=== PATIENT | female | born 1970 | race American Indian/Alaskan Native ===

== ENCOUNTER 2017-01-26 03:38 | Inpatient (IN) | payer OTHER ==
[2017-01-26 04:25] LABS: Basophils % (Auto) 0.2 % (0.0-1.8); Hematocrit 26.1 % (30.3-42.9); Hemoglobin 8.3 gm/dl (10.1-14.3); Mean Corpuscular HGB Conc 32 % (30-34); Mean Corpuscular Volume 74 fl (79-97); Platelet Count 244 K/mm3 (140-440); Red Blood Count 3.55 M/mm3 (3.65-5.03); Red Cell Distribution Width 19.6 % (13.2-15.2); White Blood Count 2.8 K/mm3 (4.5-11.0)
[2017-01-26 04:28] LABS: Mean Corpuscular Hemoglobin 24 pg (28-32)
[2017-01-26 04:40] LABS: BUN/Creatinine Ratio 7.61; Calcium 8.5 mg/dL (8.4-10.2); Chloride 97.3 mmol/L (98-107); Potassium 4.7 mmol/L (3.6-5.0)
[2017-01-26] MEDS ORDERED: APRESOLINE IV ONE ×2 (05:01→06:46)
[2017-01-26] MEDS ORDERED: LASIX IV ONE ×2 (05:01→05:03)
--- NOTE | 2017-01-26 05:06 | Emergency Department Report ---
ED Shortness of Breath HPI - General Chief Complaint: Dyspnea/Respdistress Stated Complaint: SEEMA Time Seen by Provider: 01/26/17 05:04 Source: patient, RN notes reviewed Mode of arrival: Ambulatory Limitations: No Limitations - History of Present Illness Initial Comments: This is a 46-year-old female. She is previously unknown to me. She has a history of lupus. The patient has not seen a physician since 2008. She reports that in 2008 she was seen at another hospital, and admits that "my kidneys were working at 50%." She is making urine at this time. The patient presents to the ER complaining of shortness of breath. It has been present for 2 months. It worsens with physical exertion, decreases with rest, and worsens when she lays flat. She admits to a dry cough. There is mild chest tightness. No fevers or chills. No leg pain. Patient reports unintentional weight loss. Patient reports unintentional facial swelling. In the emergency room, the patient was found to have acute renal insufficiency, bilateral pleural effusions, JVD, and orthopnea. History and physical were more consistent with decompensated chronic renal insufficiency, pleural effusions, rather than pneumonia. The case was discussed with the painting manager on-call, Dr. Crowley, who recommended 120 mg of Lasix and admission. The case was presented to the Hospital physician, Dr. STRICKLAND, who accepted the patient to his service. Complaint: shortness of breath, cough Consistency: intermittent Improves With: oxygen, rest Worsens With: lying flat, exertion Associated Symptoms: cough, orhopnia - Related Data Home Medications Medication Instructions Recorded Confirmed Last Taken No Known Home Medications [No 01/26/17 01/26/17 Unknown Reported Home Medications] Allergies Allergy/AdvReac Type Severity Reaction Status Date / Time lactase [From Dairy Aid] Allergy Hives Verified 01/26/17 03:54 ED Review of Systems ROS: Stated complaint: SEEMA Other details as noted in HPI Constitutional: malaise, weakness. denies: fever Eyes: denies: vision change Respiratory: shortness of breath Cardiovascular: dyspnea on exertion, edema Gastrointestinal: denies: nausea, vomiting Genitourinary: denies: urgency, dysuria Musculoskeletal: arthralgia. denies: back pain Skin: denies: lesions Neurological: weakness ED Past Medical Hx - Past Medical History Previous Medical History?: Yes Hx Renal Disease: Yes Additional medical history: LUPUS / PNEUMONIA - Surgical History Past Surgical History?: No - Social History Smoking Status: Never Smoker Substance Use Type: None - Medications Home Medications: Home Medications Medication Instructions Recorded Confirmed Last Taken Type No Known Home Medications [No 01/26/17 01/26/17 Unknown History Reported Home Medications] ED Physical Exam - General Limitations: No Limitations General appearance: alert, in no apparent distress - Head Head exam: Present: atraumatic, normocephalic - Eye Eye exam: Present: normal appearance, EOMI, other. Absent: nystagmus - ENT ENT exam: Present: normal exam, normal orophraynx, mucous membranes moist, normal external ear exam, other (PERORBITAL SWELLING NOTED. JVD TO 6 CM) - Neck Neck exam: Present: normal inspection - Respiratory Respiratory exam: Present: normal lung sounds bilaterally. Absent: respiratory distress, wheezes, rales, rhonchi, stridor, chest wall tenderness, accessory muscle use, decreased breath sounds, prolonged expiratory - Cardiovascular Cardiovascular Exam: Present: regular rate, normal rhythm, normal heart sounds. Absent: bradycardia, tachycardia, irregular rhythm, systolic murmur, diastolic murmur, rubs, gallop - GI/Abdominal GI/Abdominal exam: Present: soft, normal bowel sounds. Absent: distended, tenderness, guarding, rebound, rigid, pulsatile mass - Extremities Exam Extremities exam: Present: normal inspection, full ROM, normal capillary refill , pedal edema. Absent: tenderness, joint swelling, calf tenderness - Back Exam Back exam: Present: normal inspection. Absent: full ROM, tenderness, CVA tenderness (R), CVA tenderness (L), muscle spasm, paraspinal tenderness, vertebral tenderness - Neurological Exam Neurological exam: Present: alert, oriented X3, other (Extraocular movements intact. Tongue midline. No facial droop. Facial sensation intact to light touch in the V1, V2, V3 distribution bilaterally. 5 and 5 strength in 4 extremities.. Sensation is intact to light touch in 4 extremities.). Absent: motor sensory deficit - Psychiatric Psychiatric exam: Present: normal affect, normal mood - Skin Skin exam: Present: warm, dry, intact, normal color. Absent: rash ED Course Vital Signs 01/26/17 01/26/17 03:55 04:50 Temperature 98.4 F 98.8 F Pulse Rate 103 H 96 H Respiratory 24 22 Rate Blood Pressure 171/118 Blood Pressure 164/105 [Right] O2 Sat by Pulse 98 97 Oximetry ED Medical Decision Making - Lab Data Result diagrams: 01/26/17 04:07 01/26/17 04:07 Vital Signs 01/26/17 01/26/17 03:55 04:50 Temperature 98.4 F 98.8 F Pulse Rate 103 H 96 H Respiratory 24 22 Rate Blood Pressure 171/118 Blood Pressure 164/105 [Right] O2 Sat by Pulse 98 97 Oximetry Lab Results 01/26/17 01/26/17 01/26/17 Range/Units 04:07 04:07 04:07 WBC 2.8 L (4.5-11.0) K/mm3 RBC 3.55 L (3.65-5.03) M/mm3 Hgb 8.3 L (10.1-14.3) gm/dl Hct 26.1 L (30.3-42.9) % MCV 74 L (79-97) fl MCH 24 L (28-32) pg MCHC 32 (30-34) % RDW 19.6 H (13.2-15.2) % Plt Count 244 (140-440) K/mm3 Lymph % (Auto) 51.3 H (13.4-35.0) % [place] % (Auto) 4.2 (0.0-7.3) % Eos % (Auto) 6.0 H (0.0-4.3) % Baso % (Auto) 0.2 (0.0-1.8) % Lymph # 1.5 (1.2-5.4) K/mm3 [place] # 0.1 (0.0-0.8) K/mm3 Eos # 0.2 (0.0-0.4) K/mm3 Baso # 0.0 (0.0-0.1) K/mm3 Seg Neutrophils % 38.3 L (40.0-70.0) % Seg Neutrophils # 1.1 L (1.8-7.7) K/mm3 Sodium 132 L (137-145) mmol/L Potassium 4.7 (3.6-5.0) mmol/L Chloride 97.3 L (98-107) mmol/L Carbon Dioxide 19 L (22-30) mmol/L Anion Gap 20 mmol/L BUN 51 H (7-17) mg/dL Creatinine 6.7 H (0.7-1.2) mg/dL Estimated GFR 8 ml/min BUN/Creatinine Ratio 7.61 % Glucose 96 (65-100) mg/dL Calcium 8.5 (8.4-10.2) mg/dL Troponin T 0.042 H (0.00-0.029) ng/mL HCG, Qual Negative (Negative) - EKG Data -: EKG Interpreted by Me Rate: tachycardia - EKG Data When compared to previous EKG there are: previous EKG unavailable 01/26/17 05:09 Sinus tachycardia, 103 bpm, poor R progression, T-wave inversions in the lateral leads, not morphologically consistent with stemi - Radiology Data Radiology results: image reviewed interpreted by me: xr chest: Large bilateral pleural effusions, cardiomegaly, pulmonary vascular congestion - Medical Decision Making Differential diagnosis: Acute renal insufficiency, cardiorenal syndrome, chronic progression of renal insufficiency Assessment and plan: 46-year-old female with 2 months of shortness of breath and orthopnea which is getting worse, no chest pain. No fevers. This is most likely the natural progression and history of undiagnosed chronic kidney disease. She does not have high oxygen requirements. Elevated troponin is appreciated, this is most likely secondary to chronic renal insufficiency, and cardiac straining. No recent laboratory studies or EKG is available. The patient will be admitted for high dose diuretics, and further inpatient management. She is able to make urine. Critical care attestation.: If time is entered above; I have spent that time in minutes in the direct care of this critically ill patient, excluding procedure time. ED Disposition Clinical Impression: Acute renal insufficiency, Dyspnea, Pleural effusion Disposition: - OP ADMIT IP TO THIS HOSP Is pt being admited?: Yes Does the pt Need Aspirin: Yes Condition: Good
[2017-01-26] MEDS ORDERED: BABY ASPIRIN PO ONE (05:11)
[2017-01-26 05:15] LABS: Alanine Aminotransferase 6 units/L (7-56); Albumin 3.2 g/dL (3.9-5); Albumin/Globulin Ratio 0.6 %; Alkaline Phosphatase 67 units/L (35-129); Total Protein 8.5 g/dL (6.3-8.2)
[2017-01-26 05:20] LABS: Bilirubin,Direct < 0.2 mg/dL (0-0.2)
--- NOTE | 2017-01-26 05:35 | XRay Report ---
FINAL REPORT EXAM: XR CHEST ROUTINE 2V HISTORY: Shortness of breath TECHNIQUE: Chest, PA and lateral PRIORS: None. FINDINGS: There infiltrate in the right lower lobe. There is probably some additional airspace disease in the right middle lobe. Small right pleural effusion is likely. There is additional atelectasis versus infiltrate in the left lower lobe. There is no pulmonary vascular congestion seen. Heart size is grossly borderline enlarged. There is no pneumothorax seen. IMPRESSION: Right lower lobe infiltrate. Probable additional airspace disease in the right middle lobe. Small right pleural effusion likely. Findings are worrisome for pneumonia. Mild atelectasis versus infiltrate at the left base.
[2017-01-26 06:43] LABS: Bacteria,Urine 1+ /HPF (Negative); Bilirubin,Urine NEG (Negative); Blood,Urine NEG (Negative); Ketones,Urine NEG (Negative); Leukocyte Esterase,Urine NEG (Negative); Mucus,Urine FEW /HPF; Nitrite,Urine NEG (Negative); Urobilinogen,Urine < 2.0 mg/dL (<2.0)
--- NOTE | 2017-01-26 07:11 | Admit Criteria Form ---
Admission Criteria Documentation: PLEURAL EFFUSION Clinical Indications for Admission to Inpatient Care (Place 'X' for any and all applicable criteria): Admission is indicated for ANY ONE of the following (1)(2)(3): [X ]I. Pneumonia-related effusion requiring drainage as indicated by 1 or more of the following [A]: [ X]a) Large pleural effusion (symptomatic or greater than one-half of hemithorax) [ ]b) Loculated effusion [ ]c) Pleural fluid analysis results, including ANY ONE of the following: [ ]i) Positive Gram stain or culture for bacteria [ ]ii) Pus [ ]iii) pH less than 7.20 [ ]d) Parapneumonic effusion with glucose less than 60 mg/dL (3.33 mmol/L) [X ]II. Inpatient admission required rather than observation care (Also use Pleural Effusion: Observation Care criteria as appropriate) because of 1 or more of the following: [ ]1) Hemodynamic instability [ ]2) Respiratory findings (Tachypnea, dyspnea) that persist despite observation care treatment [ ]3) Hypoxemia or hypercapnia that persists despite observation care treatment [ ]4) Complication of drainage (e.g., pneumothorax) that requires inpatient care [ ]5) Etiology that requires inpatient care (e.g., pulmonary embolism, trauma) [ ]6) Severe pain requiring acute inpatient management [ ]7) Chest tube placement with active evacuation (eg, suction, drainage) [ ]8) Pulmonary artery catheter monitoring [ ]9) Epidural analgesia(7) [ ]10) Immediate inpatient surgery [X ]11) Other condition, treatment, or monitoring requiring inpatient admission [ ]III. Hemothorax [ ]IV. Empyema [ ]V. Pleural effusion with concomitant pneumothorax [ ]. Recurrent or malignant pleural effusion requiring pleurodesis (4) [ ]VII. Respiratory distress Extended stay beyond goal length of stay may be needed for (27)(28): [ ]a) Empyema or complicated parapneumonic effusion (24)(29) [ ]b) Malignant pleural effusion (4) [ ]c) Pleural effusion due to trauma or perforated esophagus [ ]d) Pleural effusion due to pulmonary embolism (30) [ ]e) Clinically significant re-expansion pulmonary edema [ ]f) Hemothorax [ ]g) Renal failure [ ]h) Complications of thoracentesis, thoracostomy tube, or pleural cath. placement [ ]j) Trapped lung (e.g., benign or malignant thickened pleura preventing lung re-expansion) (31) [ ]i) Underlying etiology necessitates ongoing inpatient care (e.g., pneumonia, heart failure, malignancy) The original [facility] [employer] content created by [facility] has been revised. The portions of the content which have been revised are identified through the use of italic text or in bold, and [facility] has neither reviewed nor approved the modified material. All other unmodified content is copyright [facility]. Please see references footnoted in the original [facility] edition 2017 Admission Criteria Met: Yes
[2017-01-26] MEDS ORDERED: TYLENOL PO PRN (08:02)
[2017-01-26] MEDS ORDERED: DULCOLAX PR PRN (08:02)
[2017-01-26] MEDS ORDERED: ZOFRAN IV PRN (08:02)
[2017-01-26] MEDS ORDERED: MORPHINE IV PRN (08:02)
[2017-01-26] MEDS ORDERED: APRESOLINE IV PRN (08:06)
[2017-01-26] MEDS: DUONEB *Not for PRN Use IH SCH ×3 (08:53→19:24)
[2017-01-26] MEDS: APRESOLINE PO SCH ×3 (09:23→22:26)
[2017-01-26] MEDS: ROCEPHIN/NS 1 GM/50 ML 1 GM/50 ML BAG IV SCH (09:23)
[2017-01-26] MEDS: BABY ASPIRIN PO SCH (09:23)
[2017-01-26] MEDS: COREG PO SCH ×2 (09:23→22:25)
[2017-01-26] MEDS: HEPARIN SUB-Q SCH ×2 (09:28→22:27)
--- NOTE | 2017-01-26 09:29 | Consultation ---
History of Present Illness - History of Present Illness Thank you for the consultation Patient was evaluated today around 9:30 in the morning Assessment and plan Renal failure in a patient who already has known history of advanced renal failure and has had admission and [facility] early this year when she was told to have advanced renal failure and that she may be nearing dialysis. 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 Over the next few days would like to obtain all the labs there is no acute emergent indication for renal replacement therapy If renal function fails to improve patient may be considered for initiation of renal replacement therapy In the meantime would like to obtain her records from [facility] to know what her baseline creatinine was Accelerated hypertension patient has not been followed by physician properly this may affect her renal outcome educated at length Anemia could be due to worsening renal failure over time Leukopenia, anemia to follow Accelerated hypertension to be monitored, rule out secondary hypertension History of systemic lupus patient has been diagnosed with that many many years ago in 2003 has had a biopsy but never followed up with pet feeder Her overall renal prognosis appears to be guarded to poor at this time patient as well as family were educated at length She hasn't received appropriate renal education I have also advised her to get more education from our website and associated links We'll continue to follow and make recommendation from renal standpoint Medications and Allergies Allergies Allergy/AdvReac Type Severity Reaction Status Date / Time lactase [From Dairy Aid] Allergy Hives Verified 01/26/17 03:54 Home Medications Medication Instructions Recorded Confirmed Last Taken Type No Known Home Medications [No 01/26/17 01/26/17 Unknown History Reported Home Medications] Active Meds: Active Medications Acetaminophen (Tylenol) 650 mg PO Q4H PRN PRN Reason: Pain MILD(1-3)/Fever >100.5/MEYER Albuterol/Ipratropium (Duoneb *Not For Prn Use*) 1 ampul IH Q6HRT [facility] Last Admin: 01/26/17 08:53 Dose: 1 ampul Aspirin (Baby Aspirin) 81 mg PO QDAY [facility] Last Admin: 01/26/17 09:23 Dose: 81 mg Bisacodyl (Dulcolax) 10 mg ME QDAY PRN PRN Reason: Constipation unrelieved by MOM Araonvedilol (Coreg) 3.125 mg PO BID [facility] Last Admin: 01/26/17 09:23 Dose: 3.125 mg Heparin Sodium (Porcine) (Heparin) 5,000 unit SUB-Q Q12HR [facility] Hydralazine HCl (Apresoline) 10 mg PO Q8HR [facility] Last Admin: 01/26/17 09:23 Dose: 10 mg Hydralazine HCl (Apresoline) 10 mg IV Q4H PRN PRN Reason: High BP Azithromycin 500 mg/ Sodium (Chloride) 250 mls @ 250 mls/hr IV Q24HR [facility] Ceftriaxone Sodium (Rocephin/Ns 1 Gm/50 Ml) 1 gm in 50 mls @ 100 mls/hr IV Q24HR [facility] PRN Reason: Protocol Last Admin: 01/26/17 09:23 Dose: 100 mls/hr Morphine Sulfate (Morphine) 2 mg IV Q4H PRN PRN Reason: Pain, Moderate (4-6) Ondansetron HCl (Zofran) 4 mg IV Q4H PRN PRN Reason: N/V unrelieved by Reglan Exam - Vital Signs Vital signs: Vital Signs Temp Pulse Resp BP Pulse Ox 98.4 F 103 H 24 171/118 98 01/26/17 03:55 01/26/17 03:55 01/26/17 03:55 01/26/17 03:55 01/26/17 03:55 Results - Lab Results 01/26/17 04:07 01/26/17 04:07 Most recent lab results Calcium 8.5 mg/dL (8.4-10.2) 01/26/17 04:07
[2017-01-26] MEDS: ZITHROMAX 500 MG in NACL 0.9% 250ML 250 ML IV SCH (10:37)
[2017-01-26] MEDS ORDERED: PEPCID PO SCH (13:00)
--- NOTE | 2017-01-26 14:32 | History and Physical Report ---
<LISETH RED - Last Filed: 01/30/17 10:18> History of Present Illness Date of examination: 01/26/17 Date of admission: 01/26/17 05:11 Chief complaint: Shortness of breath and cough History of present illness: This is a 46-year-old -[place] female with past medical history Lupus, who presents to the ER complaining of shortness of breath and cough. patient with 3 weeks of worsening dyspnea on light exertion and cough. Patient over two months ago the patient was at his normal baseline state of health. Now She has had progressive worsening of her dyspnea on exertion to where she cannot sleep without becoming short of breath; she has never had anything like this before. She says the breathing troubles are from his lungs/chest and not her nose/congestion. She has had the WILLIAM for two month but progressive worsening in the last two weeks. She says the quality of her breathing is just like suffocating but she denies burning in her lungs or other feelings. She says that sleeping bring on her breathing troubles and coughing while cold temperatures will help relieve those symptoms. She admits to a dry cough.She reported mild chest tightness. Denies fevers or chills. denies leg edema, pain. Patient reports unintentional weight loss and unintentional facial swelling. Past History Past Medical History: other (Lupus) Past Surgical History: No surgical history Social history: no significant social history, lives with family. denies: smoking, alcohol abuse Family history: hypertension Medications and Allergies Allergies Allergy/AdvReac Type Severity Reaction Status Date / Time lactase [From Dairy Aid] Allergy Hives Verified 01/26/17 03:54 Home Medications Medication Instructions Recorded Confirmed Last Taken Type No Known Home Medications [No 01/26/17 01/26/17 Unknown History Reported Home Medications] Active Meds: Active Medications Acetaminophen (Tylenol) 650 mg PO Q4H PRN PRN Reason: Pain MILD(1-3)/Fever >100.5/MEYER Albuterol/Ipratropium (Duoneb *Not For Prn Use*) 1 ampul IH Q6HRT [facility] Last Admin: 01/26/17 13:32 Dose: 1 ampul Aspirin (Baby Aspirin) 81 mg PO QDAY [facility] Last Admin: 01/26/17 09:23 Dose: 81 mg Bisacodyl (Dulcolax) 10 mg MD QDAY PRN PRN Reason: Constipation unrelieved by MOM Carvedilol (Coreg) 3.125 mg PO BID [facility] Last Admin: 01/26/17 09:23 Dose: 3.125 mg Famotidine (Pepcid) 10 mg PO BID [facility] Heparin Sodium (Porcine) (Heparin) 5,000 unit SUB-Q Q12HR [facility] Last Admin: 01/26/17 09:28 Dose: 5,000 unit Hydralazine HCl (Apresoline) 10 mg PO Q8HR [facility] Last Admin: 01/26/17 09:23 Dose: 10 mg Hydralazine HCl (Apresoline) 10 mg IV Q4H PRN PRN Reason: High BP Azithromycin 500 mg/ Sodium (Chloride) 250 mls @ 250 mls/hr IV Q24HR [facility] Last Admin: 01/26/17 10:37 Dose: 250 mls/hr Ceftriaxone Sodium (Rocephin/Ns 1 Gm/50 Ml) 1 gm in 50 mls @ 100 mls/hr IV Q24HR [facility] PRN Reason: Protocol Last Admin: 01/26/17 09:23 Dose: 100 mls/hr Morphine Sulfate (Morphine) 2 mg IV Q4H PRN PRN Reason: Pain, Moderate (4-6) Ondansetron HCl (Zofran) 4 mg IV Q4H PRN PRN Reason: N/V unrelieved by Reglan Pneumococcal Polyvalent Vaccine (Pneumovax 23) 0.5 ml IM .ONCE ONE Stop: 01/27/17 12:01 Review of Systems Constitutional: weight loss, no weight gain, no fever, no chills, no sweats Ears, nose, mouth and throat: no ear pain, no ear discharge, no tinnitis, no decreased hearing, no nose pain, no nasal congestion Breasts: no change in shape, no swelling Cardiovascular: shortness of breath, no orthopnea, no palpitations, no rapid/ irregular heart beat Respiratory: shortness of breath, dyspnea on exertion Gastrointestinal: abdominal pain, no nausea, no vomiting, no diarrhea, no constipation Genitourinary Female: no dysmenorrhea, no pelvic pain, no flank pain, no menorrhagia, no dysuria Menstruation: no currently menstrual, no premenarcheal, no post hysterectomy, no ammenorrhea, no ammenorrhea on BC Rectal: no pain, no incontinence Musculoskeletal: no arm numbness/tingling, no low back pain Integumentary: no rash, no pruritis, no redness Neurological: no transient paralysis, no paralysis, no weakness, no parathesias Psychiatric: no memory loss, no change in sleep habits, no sleep disturbances, no insomnia, no hypersomnia Endocrine: no cold intolerance, no heat intolerance, no polyphagia, no excessive thirst Hematologic/Lymphatic: no easy bruising, no easy bleeding Allergic/Immunologic: no urticaria, no allergic rhinitis Exam - Constitutional Vitals: Temp Pulse Resp BP Pulse Ox 98.3 F 88 18 156/86 97 01/26/17 12:56 01/26/17 12:56 01/26/17 12:56 01/26/17 12:56 01/26/17 08:11 General appearance: Present: mild distress - EENT Eyes: Present: PERRL ENT: hearing intact - Neck Neck: Present: supple - Respiratory Respiratory effort: normal Respiratory: bilateral: rales - Cardiovascular Heart rate: 88 Rhythm: regular Heart Sounds: Present: S1 & S2 - Extremities Extremities: no ischemia, No edema Peripheral Pulses: within normal limits - Abdominal General gastrointestinal: Present: soft, non-tender Female genitourinary: Present: deferred - Rectal Rectal Exam: deferred - Integumentary Integumentary: Present: clear, warm, dry - Musculoskeletal Musculoskeletal: strength equal bilaterally - Psychiatric Psychiatric: appropriate mood/affect - Neurologic Neurologic: CNII-XII intact - Allied Health Allied health notes reviewed: nursing Results - Labs CBC & Chem 7: 01/26/17 04:07 01/26/17 04:07 Labs: Laboratory Last Values WBC 2.8 K/mm3 (4.5-11.0) L 01/26/17 04:07 RBC 3.55 M/mm3 (3.65-5.03) L 01/26/17 04:07 Hgb 8.3 gm/dl (10.1-14.3) L 01/26/17 04:07 Hct 26.1 % (30.3-42.9) L 01/26/17 04:07 MCV 74 fl (79-97) L 01/26/17 04:07 MCH 24 pg (28-32) L 01/26/17 04:07 MCHC 32 % (30-34) 01/26/17 04:07 RDW 19.6 % (13.2-15.2) H 01/26/17 04:07 Plt Count 244 K/mm3 (140-440) 01/26/17 04:07 Lymph % (Auto) 51.3 % (13.4-35.0) H 01/26/17 04:07 [place] % (Auto) 4.2 % (0.0-7.3) 01/26/17 04:07 Eos % (Auto) 6.0 % (0.0-4.3) H 01/26/17 04:07 Baso % (Auto) 0.2 % (0.0-1.8) 01/26/17 04:07 Lymph # 1.5 K/mm3 (1.2-5.4) 01/26/17 04:07 [place] # 0.1 K/mm3 (0.0-0.8) 01/26/17 04:07 Eos # 0.2 K/mm3 (0.0-0.4) 01/26/17 04:07 Baso # 0.0 K/mm3 (0.0-0.1) 01/26/17 04:07 Seg Neutrophils % 38.3 % (40.0-70.0) L 01/26/17 04:07 Seg Neutrophils # 1.1 K/mm3 (1.8-7.7) L 01/26/17 04:07 Sodium 132 mmol/L (137-145) L 01/26/17 04:07 Potassium 4.7 mmol/L (3.6-5.0) 01/26/17 04:07 Chloride 97.3 mmol/L (98-107) L 01/26/17 04:07 Carbon Dioxide 19 mmol/L (22-30) L 01/26/17 04:07 Anion Gap 20 mmol/L 01/26/17 04:07 BUN 51 mg/dL (7-17) H 01/26/17 04:07 Creatinine 6.7 mg/dL (0.7-1.2) H 01/26/17 04:07 Estimated GFR 8 ml/min 01/26/17 04:07 BUN/Creatinine Ratio 7.61 % 01/26/17 04:07 Glucose 96 mg/dL (65-100) 01/26/17 04:07 Calcium 8.5 mg/dL (8.4-10.2) 01/26/17 04:07 Total Bilirubin 0.20 mg/dL (0.1-1.2) 01/26/17 04:38 Direct Bilirubin < 0.2 mg/dL (0-0.2) 01/26/17 04:38 Indirect Bilirubin 0.0 mg/dL 01/26/17 04:38 AST 15 units/L (5-40) 01/26/17 04:38 ALT 6 units/L (7-56) L 01/26/17 04:38 Alkaline Phosphatase 67 units/L (35-129) 01/26/17 04:38 Troponin T 0.042 ng/mL (0.00-0.029) H 01/26/17 04:07 NT-Pro-B Natriuret Pep 08904 pg/mL (0-450) H 01/26/17 04:38 Total Protein 8.5 g/dL (6.3-8.2) H 01/26/17 04:38 Albumin 3.2 g/dL (3.9-5) L 01/26/17 04:38 Albumin/Globulin Ratio 0.6 % 01/26/17 04:38 Triglycerides 163 mg/dL (2-149) H 01/26/17 04:07 Cholesterol 139 mg/dL (50-199) 01/26/17 04:07 LDL Cholesterol Direct 66 mg/dL (50-130) 01/26/17 04:07 HDL Cholesterol 41 mg/dL (40-59) 01/26/17 04:07 Cholesterol/HDL Ratio 3.39 % 01/26/17 04:07 HCG, Qual Negative (Negative) 01/26/17 04:07 Urine Color Straw (Yellow) 01/26/17 06:05 Urine Turbidity Clear (Clear) 01/26/17 06:05 Urine pH 7.0 (5.0-7.0) 01/26/17 06:05 Ur Specific [place] 1.008 (1.003-1.030) 01/26/17 06:05 Urine Protein 100 mg/dl mg/dL (Negative) 01/26/17 06:05 Urine Glucose (UA) Neg mg/dL (Negative) 01/26/17 06:05 Urine Ketones Neg mg/dL (Negative) 01/26/17 06:05 Urine Blood Neg (Negative) 01/26/17 06:05 Urine Nitrite Neg (Negative) 01/26/17 06:05 Urine Bilirubin Neg (Negative) 01/26/17 06:05 Urine Urobilinogen < 2.0 mg/dL (<2.0) 01/26/17 06:05 Ur Leukocyte Esterase Neg (Negative) 01/26/17 06:05 Urine WBC (Auto) 1.0 /HPF (0.0-6.0) 01/26/17 06:05 Urine RBC (Auto) 4.0 /HPF (0.0-6.0) 01/26/17 06:05 U Epithel Cells (Auto) 5.0 /HPF (0-13.0) 01/26/17 06:05 Urine Bacteria (Auto) 1+ /HPF (Negative) 01/26/17 06:05 Hyaline Casts 1 /LPF 01/26/17 06:05 Urine Mucus Few /HPF 01/26/17 06:05 - Imaging and Cardiology Chest x-ray: image reviewed (right lower lobe infiltrate. Small right pleural effusion findings are worrisome for pneumonia.) Assessment and Plan Assessment and plan: This is a 46-year-old -[place] female with past medical history Lupus, who presents to the ER complaining of shortness of breath and cough. patient with 3 weeks of worsening dyspnea on light exertion and cough. Patient was found to have acute renal insufficiency, bilateral pleural effusions, right lower lobe infiltration. ASSESSMENT/PLAN Acute renal failure Most likely secondary to lupus Elevated BUN/creatinine Renal ultrasound ordered. Nephrology consulted Pneumonia Blood culture and urine culture collected prior to antibiotic We initiated empiric antibiotic treatment with IV azithromycin and Rocephin Albuterol nebulizer treatments every 4 hours when necessary We will repeat CBC in the AM Fluid overload most likely Secondary to renal failure/ elevated BUN and creatinine Echocardiogram ordered Malignant hypertension Started on Coreg/hydralazine by mouth Hydralazine IV for SBP >160 When necessary Hyponatremia Gently hydration that will be correct it. Closely monitor electrolytes Elevated troponin Most likely secondary to renal failure We will follow cardiac enzymes and troponin DVT prophylaxis Heparin <NIESHA CORDOVA - Last Filed: 02/01/17 20:20> History of Present Illness Date of admission: 01/26/17 05:11 Exam - Constitutional Vitals: Temp Pulse Resp BP Pulse Ox 98.7 F 100 H 18 132/82 98 01/27/17 15:20 01/27/17 15:20 01/27/17 15:20 01/27/17 15:20 01/27/17 15:20 Results - Labs CBC & Chem 7: 01/27/17 05:27 01/27/17 05:27 Labs: Laboratory Last Values WBC 2.5 K/mm3 (4.5-11.0) L 01/27/17 05:27 RBC 3.70 M/mm3 (3.65-5.03) 01/27/17 05:27 Hgb 8.5 gm/dl (10.1-14.3) L 01/27/17 05:27 Hct 26.7 % (30.3-42.9) L 01/27/17 05:27 MCV 72 fl (79-97) L 01/27/17 05:27 MCH 23 pg (28-32) L 01/27/17 05:27 MCHC 32 % (30-34) 01/27/17 05:27 RDW 19.7 % (13.2-15.2) H 01/27/17 05:27 Plt Count 212 K/mm3 (140-440) 01/27/17 05:27 Lymph % (Auto) 26.8 % (13.4-35.0) 01/27/17 05:27 [place] % (Auto) 3.0 % (0.0-7.3) 01/27/17 05:27 Eos % (Auto) 3.1 % (0.0-4.3) 01/27/17 05:27 Baso % (Auto) 0.4 % (0.0-1.8) 01/27/17 05:27 Lymph # 0.7 K/mm3 (1.2-5.4) L 01/27/17 05:27 [place] # 0.1 K/mm3 (0.0-0.8) 01/27/17 05:27 Eos # 0.1 K/mm3 (0.0-0.4) 01/27/17 05:27 Baso # 0.0 K/mm3 (0.0-0.1) 01/27/17 05:27 Seg Neutrophils % 66.7 % (40.0-70.0) 01/27/17 05:27 Seg Neutrophils # 1.7 K/mm3 (1.8-7.7) L 01/27/17 05:27 Sodium 137 mmol/L (137-145) 01/27/17 05:27 Potassium 4.7 mmol/L (3.6-5.0) 01/27/17 05:27 Chloride 100.7 mmol/L (98-107) 01/27/17 05:27 Carbon Dioxide 20 mmol/L (22-30) L 01/27/17 05:27 Anion Gap 21 mmol/L 01/27/17 05:27 BUN 55 mg/dL (7-17) H 01/27/17 05:27 Creatinine 7.8 mg/dL (0.7-1.2) H 01/27/17 05:27 Estimated GFR 7 ml/min 01/27/17 05:27 BUN/Creatinine Ratio 7.05 % 01/27/17 05:27 Glucose 92 mg/dL (65-100) 01/27/17 05:27 Calcium 7.8 mg/dL (8.4-10.2) L 01/27/17 05:27 Phosphorus 5.70 mg/dL (2.5-4.5) H 01/26/17 16:14 Iron 19 ug/dL (37-170) L 01/26/17 16:14 TIBC 203 mcg/dL (250-450) L 01/26/17 16:14 Ferritin 89.2 ng/mL (13.0-400.0) 01/26/17 16:14 Total Bilirubin 0.20 mg/dL (0.1-1.2) 01/26/17 04:38 Direct Bilirubin < 0.2 mg/dL (0-0.2) 01/26/17 04:38 Indirect Bilirubin 0.0 mg/dL 01/26/17 04:38 AST 15 units/L (5-40) 01/26/17 04:38 ALT 6 units/L (7-56) L 01/26/17 04:38 Alkaline Phosphatase 67 units/L (35-129) 01/26/17 04:38 Troponin T 0.042 ng/mL (0.00-0.029) H 01/26/17 04:07 NT-Pro-B Natriuret Pep 48528 pg/mL (0-450) H 01/26/17 04:38 Serum Total Protein 8.2 g/dL (6.1-8.1) H 01/26/17 16:14 Total Protein 8.5 g/dL (6.3-8.2) H 01/26/17 04:38 Albumin 3.0 g/dL (3.8-4.8) L 01/26/17 16:14 Albumin/Globulin Ratio 0.6 % 01/26/17 04:38 Jdovd-0-Lhnqahfmx 0.4 g/dL (0.2-0.3) H 01/26/17 16:14 Kbtit-7-Gkpmbfzqu 0.9 g/dL (0.5-0.9) 01/26/17 16:14 Beta Globulins 0.6 g/dL (0.2-0.5) H 01/26/17 16:14 Gamma Globulins 2.9 g/dL (0.8-1.7) H 01/26/17 16:14 Abnorm Protein Band 1 see below 01/26/17 16:14 PEP Interpretation see below H 01/26/17 16:14 Triglycerides 163 mg/dL (2-149) H 01/26/17 04:07 Cholesterol 139 mg/dL (50-199) 01/26/17 04:07 LDL Cholesterol Direct 66 mg/dL (50-130) 01/26/17 04:07 HDL Cholesterol 41 mg/dL (40-59) 01/26/17 04:07 Cholesterol/HDL Ratio 3.39 % 01/26/17 04:07 Vitamin B12 1080 pg/mL (211-911) H 01/26/17 16:14 RBC Folic Acid 933 ng/mL (>280) 01/26/17 04:07 HCG, Qual Negative (Negative) 01/26/17 04:07 PTH Intact 264.8 pg/mL (15-65) H 01/26/17 16:14 Urine Color Straw (Yellow) 01/26/17 06:05 Urine Turbidity Clear (Clear) 01/26/17 06:05 Urine pH 7.0 (5.0-7.0) 01/26/17 06:05 Ur Specific [place] 1.008 (1.003-1.030) 01/26/17 06:05 Urine Protein 100 mg/dl mg/dL (Negative) 01/26/17 06:05 Urine Glucose (UA) Neg mg/dL (Negative) 01/26/17 06:05 Urine Ketones Neg mg/dL (Negative) 01/26/17 06:05 Urine Blood Neg (Negative) 01/26/17 06:05 Urine Nitrite Neg (Negative) 01/26/17 06:05 Urine Bilirubin Neg (Negative) 01/26/17 06:05 Urine Urobilinogen < 2.0 mg/dL (<2.0) 01/26/17 06:05 Ur Leukocyte Esterase Neg (Negative) 01/26/17 06:05 Urine WBC (Auto) 1.0 /HPF (0.0-6.0) 01/26/17 06:05 Urine RBC (Auto) 4.0 /HPF (0.0-6.0) 01/26/17 06:05 U Epithel Cells (Auto) 5.0 /HPF (0-13.0) 01/26/17 06:05 Urine Bacteria (Auto) 1+ /HPF (Negative) 01/26/17 06:05 Hyaline Casts 1 /LPF 01/26/17 06:05 Urine Mucus Few /HPF 01/26/17 06:05 Proteinase 3 (PR3) Ab <1.0 AI (<1.0) 01/26/17 16:14 Myeloperoxidase Ab <1.0 AI (<1.0) 01/26/17 16:14 Complement C3 34 mg/dL (90-180) L 01/26/17 16:14 Complement C4 6 mg/dL (16-47) L 01/26/17 16:14 Hepatitis A IgM Ab Non-reactive (NonReactive) 01/26/17 16:14 Hep Bs Antigen Non-reactive (Negative) 01/26/17 16:14 Hep B Core IgM Ab Non-reactive (NonReactive) 01/26/17 16:14 Hepatitis C Antibody Non-reactive (NonReactive) 01/26/17 16:14 Assessment and Plan Assessment and plan: I saw and evaluated the patient. I agree with the findings and the plan of care as documented in the Nurse Practitioner's~note, with the following corrections and additions. Patient seen and evaluated along with the nurse practitioner , formulated the treatment plan , reviewed the documents about Agree with the above plan
--- NOTE | 2017-01-26 14:50 | Ultrasound Report ---
ULTRASOUND RENAL INDICATION: Renal failure. COMPARISON: None similar. FINDINGS: Renal sonography suggests moderate increased renal cortical echogenicity. Grossly preserved contours. No hydronephrosis. Small bilateral pleural effusions. RIGHT KIDNEY measures 10.2 x 2.6 x 4.9 cm with cortical thickness approximately 0.8 cm. LEFT KIDNEY estimated at 9.6 x 2.8 x 4.7 cm with cortical thickness of 0.8 cm. Approximately 1 cm hypoechoic focus/possibly complex cyst superiorly with low-level intrinsic echoes as on image 19, amongst others. URINARY BLADDER suboptimally distended and assessed, though grossly unremarkable, in so far seen. CONCLUSION: Medical renal disease, small left renal slightly complex cyst and bilateral pleural effusions suspected sonographically without acute renal abnormality. Please correlate. Thank you for the opportunity to participate in this patient's care.
[2017-01-26] MEDS: PEPCID PO SCH ×2 (15:51→22:27)
[2017-01-26 18:39] LABS: Phosphorous 5.7 mg/dL (2.5-4.5)
[2017-01-26] MEDS ORDERED: LOVENOX SUB-Q SCH (22:00)
[2017-01-27] MEDS: DUONEB *Not for PRN Use IH SCH ×3 (01:40→13:29)
[2017-01-27] MEDS: APRESOLINE PO SCH (05:25)
[2017-01-27 06:23] LABS: Basophils % (Auto) 0.4 % (0.0-1.8); Eosinophils % (Auto) 3.1 % (0.0-4.3); Hematocrit 26.7 % (30.3-42.9); Hemoglobin 8.5 gm/dl (10.1-14.3); Mean Corpuscular HGB Conc 32 % (30-34); Mean Corpuscular Volume 72 fl (79-97); Platelet Count 212 K/mm3 (140-440); Red Cell Distribution Width 19.7 % (13.2-15.2); White Blood Count 2.5 K/mm3 (4.5-11.0)
[2017-01-27 06:27] LABS: Mean Corpuscular Hemoglobin 23 pg (28-32)
[2017-01-27 06:28] LABS: BUN/Creatinine Ratio 7.05; Calcium 7.8 mg/dL (8.4-10.2); Chloride 100.7 mmol/L (98-107); Potassium 4.7 mmol/L (3.6-5.0)
[2017-01-27] MEDS: ZITHROMAX 500 MG in NACL 0.9% 250ML 250 ML IV SCH (09:51)
[2017-01-27] MEDS: COREG PO SCH (09:51)
[2017-01-27] MEDS: ROCEPHIN/NS 1 GM/50 ML 1 GM/50 ML BAG IV SCH (09:51)
[2017-01-27] MEDS: PEPCID PO SCH (09:51)
[2017-01-27] MEDS: HEPARIN SUB-Q SCH (09:52)
[2017-01-27] MEDS: BABY ASPIRIN PO SCH (09:52)
--- NOTE | 2017-01-27 11:20 | Progress Note ---
Subjective Interval history: Patient was seen today for follow-up and multiple renal related issues Does not complain of any nausea vomiting but appetite has been poor Patient admitted with uncontrolled hypertension shortness of breath anemia severe renal failure Has history of lupus/last lupus nephritis per patient that she never treated Physical examination Vitals reviewed HEENT: Mild pallor mildly anemic order Neck: Supple no JVD Chest: Bilateral few basilar crackles Heart: Regular rate and rhythm S1-S2 heard no rub Abdomen: Soft mild nonspecific epigastric tenderness Extremity: Edema approximately 1+ Neurological: No asterixis Assessment and plan Advanced renal failure in a patient who has uncontrolled hypertension anemia presented with shortness of breath and fluid overload Patient and need for initiation of renal replacement therapy and my opinion Would like to obtain her labs from [facility], which was several months ago Patient is currently not being followed by any 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 care 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 Her overall renal prognosis appears to be poor Complex renal cyst will need a CT scan as well as a urology follow-up Chronic kidney disease changes evident on the current sonogram explained She will need an outpatient dialysis clinic after initiation We will look for any reversible causes in the meantime she needs to initiate renal replacement therapy All related questions have been answered We'll continue to follow and make recommendation from renal standpoint Objective - Vital Signs Vital signs: Vital Signs - 12hr 01/27/17 01/27/17 01/27/17 00:00 01:40 01:55 Temperature 98.7 F Pulse Rate Pulse Rate [ 87 89 Anterior Bilateral Throughout] Pulse Rate [ 100 H Radial] Respiratory 20 Rate Respiratory 20 20 Rate [Anterior Bilateral Throughout] Blood Pressure Blood Pressure 113/62 [Left Arm] O2 Sat by Pulse 93 Oximetry 01/27/17 01/27/17 01/27/17 05:00 05:25 07:38 Temperature 98.8 F Pulse Rate 97 H Pulse Rate [ 92 H Anterior Bilateral Throughout] Pulse Rate [ 94 H Radial] Respiratory 20 Rate Respiratory 18 Rate [Anterior Bilateral Throughout] Blood Pressure 113/64 Blood Pressure 116/74 [Left Arm] O2 Sat by Pulse 95 Oximetry 01/27/17 01/27/17 07:48 08:14 Temperature 99.0 F Pulse Rate Pulse Rate [ 99 H Anterior Bilateral Throughout] Pulse Rate [ 107 H Radial] Respiratory 18 Rate Respiratory 20 Rate [Anterior Bilateral Throughout] Blood Pressure Blood Pressure 138/84 [Left Arm] O2 Sat by Pulse 97 Oximetry - Lab 01/27/17 05:27 01/27/17 05:27 Most recent lab results Calcium 7.8 mg/dL (8.4-10.2) L 01/27/17 05:27 Phosphorus 5.70 mg/dL (2.5-4.5) H 01/26/17 16:14
[2017-01-27] MEDS ORDERED: PNEUMOVAX 23 IM ONE (12:00)
--- NOTE | 2017-01-27 14:25 | Event Note ---
Date: 01/27/17 46 year old female with SLE with ARF who requires OPERATIONS DISPATCHER. Hopefully ARF and not ESRD. NPO except meds. Will place permcath for OPERATIONS DISPATCHER in medical lab technologist.
--- NOTE | 2017-01-27 15:42 | Event Note ---
Date: 01/27/17 Transport went to see patient and bring her down for permcath. Patient decided to leave AMA. Before vascular could see patient, patient had eloped and left AMA.
--- NOTE | 2017-01-27 15:42 | Event Note ---
Date: 01/27/17 Pt signed out AMA. I checked in patient's room and spoke to the charge nurse, who confirmed that the patient was physically not present in the hospital. Therefore, the permacath placement will be cancelled.
[2017-01-27 15:58] VITALS: BP 132/82
--- NOTE | 2017-01-27 17:52 | Progress Note ---
Assessment and Plan Assessment and plan: --Acute renal failure/acute versus chronic kidney disease Worsening renal function, nephrology following Gentle hydration, closely monitor renal function, avoid nephrotoxic medication If no improvement patient may need hemodialysis --Community-acquired pneumonia; Continue IV antibiotics. Follow cultures. Supportive care --Malignant hypertension; continue current antihypertensives and when necessary medications Closely monitor blood pressures and adjust as needed --Hyponatremia; replacement therapy, closely monitor electrolytes --History of lupus; stable --Nonspecific elevation of cardiac enzymes; probably secondary to acute renal failure Patient has no cardiac symptoms, continue supportive care, consider cardiology evaluation if needed --DVT prophylaxis with heparin and renal dose Closely monitor the patient and adjust management as needed Plan of care discussed with the patient and the family member at the bedside as well as the nurse Follow consults and recommendations History Interval history: Patient seen and evaluated in her room this morning medical records reviewed Family member at the bedside Patient feels slightly better no new complaints, however has worsening renal function Nephrology evaluation noted and appreciated Hospitalist Physical - Constitutional Vitals: Temp Pulse Resp BP Pulse Ox 98.7 F 100 H 18 132/82 98 01/27/17 15:20 01/27/17 15:20 01/27/17 15:20 01/27/17 15:20 01/27/17 15:20 General appearance: Present: no acute distress, well-nourished - EENT Eyes: Present: PERRL, EOM intact - Neck Neck: Present: supple, normal ROM - Respiratory Respiratory effort: normal Respiratory: bilateral: diminished, negative: rales, rhonchi, wheezing - Cardiovascular Rhythm: regular Heart Sounds: Present: S1 & S2 - Extremities Extremities: no ischemia, No edema - Abdominal General gastrointestinal: soft, non-tender, non-distended, normal bowel sounds - Integumentary Integumentary: Present: clear, warm - Psychiatric Psychiatric: appropriate mood/affect, cooperative - Neurologic Neurologic: CNII-XII intact, moves all extremities Results - Labs CBC & Chem 7: 01/27/17 05:27 01/27/17 05:27 Labs: Laboratory Last Values WBC 2.5 K/mm3 (4.5-11.0) L 01/27/17 05:27 RBC 3.70 M/mm3 (3.65-5.03) 01/27/17 05:27 Hgb 8.5 gm/dl (10.1-14.3) L 01/27/17 05:27 Hct 26.7 % (30.3-42.9) L 01/27/17 05:27 MCV 72 fl (79-97) L 01/27/17 05:27 MCH 23 pg (28-32) L 01/27/17 05:27 MCHC 32 % (30-34) 01/27/17 05:27 RDW 19.7 % (13.2-15.2) H 01/27/17 05:27 Plt Count 212 K/mm3 (140-440) 01/27/17 05:27 Lymph % (Auto) 26.8 % (13.4-35.0) 01/27/17 05:27 [place] % (Auto) 3.0 % (0.0-7.3) 01/27/17 05:27 Eos % (Auto) 3.1 % (0.0-4.3) 01/27/17 05:27 Baso % (Auto) 0.4 % (0.0-1.8) 01/27/17 05:27 Lymph # 0.7 K/mm3 (1.2-5.4) L 01/27/17 05:27 [place] # 0.1 K/mm3 (0.0-0.8) 01/27/17 05:27 Eos # 0.1 K/mm3 (0.0-0.4) 01/27/17 05:27 Baso # 0.0 K/mm3 (0.0-0.1) 01/27/17 05:27 Seg Neutrophils % 66.7 % (40.0-70.0) 01/27/17 05:27 Seg Neutrophils # 1.7 K/mm3 (1.8-7.7) L 01/27/17 05:27 Sodium 137 mmol/L (137-145) 01/27/17 05:27 Potassium 4.7 mmol/L (3.6-5.0) 01/27/17 05:27 Chloride 100.7 mmol/L (98-107) 01/27/17 05:27 Carbon Dioxide 20 mmol/L (22-30) L 01/27/17 05:27 Anion Gap 21 mmol/L 01/27/17 05:27 BUN 55 mg/dL (7-17) H 01/27/17 05:27 Creatinine 7.8 mg/dL (0.7-1.2) H 01/27/17 05:27 Estimated GFR 7 ml/min 01/27/17 05:27 BUN/Creatinine Ratio 7.05 % 01/27/17 05:27 Glucose 92 mg/dL (65-100) 01/27/17 05:27 Calcium 7.8 mg/dL (8.4-10.2) L 01/27/17 05:27 Phosphorus 5.70 mg/dL (2.5-4.5) H 01/26/17 16:14 Iron 19 ug/dL (37-170) L 01/26/17 16:14 TIBC 203 mcg/dL (250-450) L 01/26/17 16:14 Ferritin 89.2 ng/mL (13.0-400.0) 01/26/17 16:14 Total Bilirubin 0.20 mg/dL (0.1-1.2) 01/26/17 04:38 Direct Bilirubin < 0.2 mg/dL (0-0.2) 01/26/17 04:38 Indirect Bilirubin 0.0 mg/dL 01/26/17 04:38 AST 15 units/L (5-40) 01/26/17 04:38 ALT 6 units/L (7-56) L 01/26/17 04:38 Alkaline Phosphatase 67 units/L (35-129) 01/26/17 04:38 Troponin T 0.042 ng/mL (0.00-0.029) H 01/26/17 04:07 NT-Pro-B Natriuret Pep 18401 pg/mL (0-450) H 01/26/17 04:38 Total Protein 8.5 g/dL (6.3-8.2) H 01/26/17 04:38 Albumin 3.2 g/dL (3.9-5) L 01/26/17 04:38 Albumin/Globulin Ratio 0.6 % 01/26/17 04:38 Triglycerides 163 mg/dL (2-149) H 01/26/17 04:07 Cholesterol 139 mg/dL (50-199) 01/26/17 04:07 LDL Cholesterol Direct 66 mg/dL (50-130) 01/26/17 04:07 HDL Cholesterol 41 mg/dL (40-59) 01/26/17 04:07 Cholesterol/HDL Ratio 3.39 % 01/26/17 04:07 Vitamin B12 1080 pg/mL (211-911) H 01/26/17 16:14 HCG, Qual Negative (Negative) 01/26/17 04:07 PTH Intact 264.8 pg/mL (15-65) H 01/26/17 16:14 Urine Color Straw (Yellow) 01/26/17 06:05 Urine Turbidity Clear (Clear) 01/26/17 06:05 Urine pH 7.0 (5.0-7.0) 01/26/17 06:05 Ur Specific [place] 1.008 (1.003-1.030) 01/26/17 06:05 Urine Protein 100 mg/dl mg/dL (Negative) 01/26/17 06:05 Urine Glucose (UA) Neg mg/dL (Negative) 01/26/17 06:05 Urine Ketones Neg mg/dL (Negative) 01/26/17 06:05 Urine Blood Neg (Negative) 01/26/17 06:05 Urine Nitrite Neg (Negative) 01/26/17 06:05 Urine Bilirubin Neg (Negative) 01/26/17 06:05 Urine Urobilinogen < 2.0 mg/dL (<2.0) 01/26/17 06:05 Ur Leukocyte Esterase Neg (Negative) 01/26/17 06:05 Urine WBC (Auto) 1.0 /HPF (0.0-6.0) 01/26/17 06:05 Urine RBC (Auto) 4.0 /HPF (0.0-6.0) 01/26/17 06:05 U Epithel Cells (Auto) 5.0 /HPF (0-13.0) 01/26/17 06:05 Urine Bacteria (Auto) 1+ /HPF (Negative) 01/26/17 06:05 Hyaline Casts 1 /LPF 01/26/17 06:05 Urine Mucus Few /HPF 01/26/17 06:05 Hepatitis A IgM Ab Non-reactive (NonReactive) 01/26/17 16:14 Hep Bs Antigen Non-reactive (Negative) 01/26/17 16:14 Hep B Core IgM Ab Non-reactive (NonReactive) 01/26/17 16:14 Hepatitis C Antibody Non-reactive (NonReactive) 01/26/17 16:14
--- NOTE | 2017-01-27 18:05 | Discharge Summary ---
Providers - Providers Date of Admission: 01/26/17 05:11 Date of discharge: 01/27/17 Attending physician: NIESHA CORDOVA 01/27/17 13:11 Consult to Physician [CONS] Urgent Consulting Provider: HO DAVE Reason For Exam: perma cath placement Place consult to:: Dr Dave Notified:: yes Primary care physician: CHILD PSYCHOLOGIST Hospitalization Reason for admission: worsening shortness of breath and fluid overload/acute renal failure Condition: Good Pertinent studies: Chest x-ray; right lower lobe infiltrate and probable additional airspace disease in the right middle lobe findings worrisome for pneumonia and mild atelectasis versus infiltrate in the left base Imaging ultrasound; medical renal disease, small left renal slightly complex cyst and bilateral pleural effusions Echocardiogram; left ventricular ejection fraction 20-25%, LV systolic function severely depressed, evidence of mild pulmonary hypertension Consults; Nephrology Vascular Hospital course: Patient was admitted with worsening shortness of breath and fluid overload Evaluated, seen by nephrology, as renal function was deteriorating, nephrology recommended hemodialysis Vascular was concentrated, discussed with the patient for Vas-Cath placement, initially agreed but later she changed her mind and left the hospital AGAINST MEDICAL ADVICE Risks and consequences and complications of leaving AMA discussed with the patient, she verbalized understanding, and left the hospital AMA Please refer to medical records for all the other details Final diagnosis; --Acute renal failure/acute versus chronic kidney disease --Community-acquired pneumonia; --Malignant hypertension; --Hyponatremia; --History of lupus; --Nonspecific elevation of cardiac enzymes; Left AMA Disposition: DC- LEFT AGAINST MED ADVICE Time spent for discharge: 32 min Core Measure Documentation - Palliative Care Palliative Care/ Comfort Measures: Not Applicable - Core Measures Any of the following diagnoses?: heart failure - Heart Failure Discharge Requirements IRINA/ARB for LVSD if EF <40%: No Reason for no IRINA/ARB: Renal impairment Beta gerardo at discharge: No Reason for no beta gerardo on DC: Patient refusal (she left AMA) Exam - Constitutional Vitals: Temp Pulse Resp BP Pulse Ox 98.7 F 100 H 18 132/82 98 01/27/17 15:20 01/27/17 15:20 01/27/17 15:20 01/27/17 15:20 01/27/17 15:20 General appearance: Present: no acute distress, well-nourished - EENT Eyes: Present: PERRL, EOM intact - Neck Neck: Present: supple, normal ROM - Respiratory Respiratory effort: normal Respiratory: bilateral: diminished, rales, rhonchi - Cardiovascular Rhythm: regular Heart Sounds: Present: S1 & S2 - Extremities Extremities: no ischemia, pulses intact, No edema - Abdominal General gastrointestinal: Present: soft, non-tender, non-distended, normal bowel sounds - Integumentary Integumentary: Present: clear, warm - Musculoskeletal Musculoskeletal: strength equal bilaterally - Psychiatric Psychiatric: appropriate mood/affect, cooperative - Neurologic Neurologic: CNII-XII intact, moves all extremities Plan Diet: renal Additional Instructions: Patient left AMA Follow up with: PRIMARY MD GENARO [Primary Care Provider] - 7 Days LINDA ALVARADO MD [Staff Physician] - 7 Days
--- NOTE | 2017-01-28 06:04 | Consultation ---
TIME OF SERVICE: 9.45 in the morning. PERSON ASKING FOR CONSULTATION: Hospital Medicine. REASON FOR CONSULTATION: Management of severe renal failure in a patient who is admitted with pulmonary edema, anemia, and multiple other comorbidities. SOURCE OF INFORMATION: The patient herself. History of old records currently available. The patient was previously treated at [facility] where she was told to have advanced renal failure and that she is nearing dialysis. HISTORY OF PRESENT ILLNESS: The patient is a 46-year-old -Martiniquais female who tells me that she was told to have advanced renal failure in her [facility] admission early this year and at that time, her renal function was not so good and that she was nearing dialysis. The patient also remotely remembers seeing a gas booster engineer for lupus and upon their recommendation, she was referred to a rail detector car operator who she does not recall the name or telephone number. The patient apparently has had kidney biopsy. 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 The patient also does not go for regular health checkup. Recently, she has been admitted here with accelerated hypertension, pulmonary edema, anemia and renal failure, which is severe. She sparingly uses a nonsteroidal drug, but does not have any history suggestive of vasculitis, chronic hematuria, and proteinuria that she recalls. She denies having any history of HIV or hepatitis B or C. PAST MEDICAL HISTORY: Significant for: 1. Systemic lupus. 2. ? Lupus nephritis. 3. 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 4. Hypertension, not well controlled. CURRENT ALLERGIES: Reviewed. HOME MEDICATIONS: Present medications reviewed. SOCIAL HISTORY: The patient denies any history of recreational drug or substance abuse. FAMILY HISTORY: Essentially noncontributory for renal failure. REVIEW OF SYSTEMS: Positive for generalized weakness, fatigue, uncontrolled blood pressure, shortness of breath, swelling of both lower extremities. She denies having any foam in the urine, no blood in the urine. Quality of life has been going down. Appetite has been somewhat poor. The patient has been feeling fatigued, cold, and tired. Complete review of systems are obtained, pertinent positive as mentioned above. Other review of systems negative. PHYSICAL EXAMINATION: GENERAL: The patient is a 46-year-old -Martiniquais woman who is lying comfortably in bed. VITAL SIGNS: Reviewed from this admission. HEENT: Normocephalic, atraumatic skull. Extraocular movements are intact. Uremic odor present. Oral mucosa appears somewhat dry. NECK: Supple without thyromegaly or mass, but does have some JVD approximately 2 cm from right clavicular margin. HEART: Regular rate. S1, S2. No rub. LUNGS: The patient does have bilateral basilar crackles up to lower one-third lung rivers, mostly late inspiratory. ABDOMEN: Soft. Mild epigastric tenderness, otherwise essentially unremarkable. No renal bruits. No CVA tenderness. EXTREMITIES: 1+ pretibial ankle edema. No peripheral cyanosis. ENDOCRINE: Thyroid not enlarged. PSYCHIATRIC: The patient is pleasant. LABORATORY AND IMAGING DATA: Labs and x-rays were reviewed from this admission. Ultrasonogram is currently pending. ASSESSMENT AND PLAN: 1. Advanced renal failure in a patient who is presenting with accelerated hypertension, pulmonary edema, anemia with declining health in the setting of known renal failure, which according to the patient was quite severe when she was admitted to [facility]. The patient will need an ultrasonogram and basic labs. 2. Hypertension accelerated with symptoms suggestive of heart failure in the setting of renal failure. The patient needs a cardiac echo, diuretics as tolerated and optimization of blood pressure. 3. History of hypertension, requires better control, admitted with uncontrolled hypertension/accelerated hypertension, rule out any form of secondary hypertension. 4. History of lupus/lupus nephritis. Per patient, she has had biopsies remotely, never followed up with a rail detector car operator. 5. Anemia, likely due to renal failure, which in my opinion, could be chronic. Needs further workup. 6. Check for bone mineral disorder and secondary hyperparathyroidism parameters. I had a detailed discussion with the patient about the plan of care. At this time, I have clearly indicated that she needs a renal ultrasonogram to assess the echotexture and to rule out any possibility of chronic kidney disease which at times could be severe resulting in atrophic or smaller kidneys. Obtain her lupus titers and labs, lupus related labs, workup for anemia, monitor renal function. She needs to be ruled out for congestive heart failure, secondary hypertension. If renal function fails to improve, the patient will need to initiate renal replacement therapy, which could be initiated with a Perm-A-Cath placement. In that case, she will need an outpatient dialysis unit. In the meantime, we would like to obtain records from [facility] ____ cause for renal failure. I believe the patient MAY be having issues with advanced renal failure already. She has received appropriate counseling and education regarding all renal-related issues and all the questions were answered. She does have a good understanding of her current situation of severe renal failure that may require renal replacement therapy. Thank you for the consultation. I will continue to follow and make recommendations from renal standpoint. JOB# [id number] DANIEL/ANITHA
[2017-01-28] MEDS ORDERED: ZITHROMAX PO SCH (10:00)
--- NOTE | 2017-01-30 08:19 | Vascular Lab Report ---
Upper extremity vein mapping Reason for exam: Preoperative evaluation for hemodialysis access Comments: On the right, the cephalic vein is not usable from wrist to shoulder. The basilic vein is not usable from wrist to shoulder. The brachial and radial arteries are patent. The radial artery is small. On the left, the cephalic vein is not usable from wrist to shoulder. The basilic vein is not usable from wrist to shoulder. The brachial and radial arteries are patent. The radial artery is small. Impression: Both cephalic veins are not suitable for use as AV access sites. Both basilic veins are not suitable for use as AV access sites. No arterial issues were identified.
[2017-01-30 19:59] LABS: Myeloperoxidase Antibody <1.0 AI (<1.0)
[2017-01-31 05:18] LABS: Gamma Globulin 2.9 g/dL (0.8-1.7)
== END 2017-01-27 15:30 | disposition left against medical advice (07) | DRG 682 ==
LOC: ED 03:38 → 3A 05:11
PROVIDERS: ADMIT Internal Medicine; ATTEND Internal Medicine
DX: N17.9 Acute kidney failure, unspecified (principal); J18.9 Pneumonia, unspecified organism; J90 Pleural effusion, not elsewhere classified; E87.1 Hypo-osmolality and hyponatremia; E87.70 Fluid overload, unspecified; I12.9 Hypertensive chronic kidney disease with stage 1 through stage 4 chronic kidney disease, or unspecified chronic kidney disease; M32.14 Glomerular disease in systemic lupus erythematosus; N18.9 Chronic kidney disease, unspecified; M32.9 Systemic lupus erythematosus, unspecified; Z82.49 Family history of ischemic heart disease and other diseases of the circulatory system; Z91.048 Other nonmedicinal substance allergy status
CPT/HCPCS: 36415; 71020; 76770; 80048; 80061; 80074; 81001; 82607; 82728; 82747; 83550; 83880; 83970; 84100; 84165; 84166; 84484; 84703; 85025; 86021; 86038; 86160; 90732; 93005; 93010; 93306; 94640; 96374; 99285; J0456; J0696; J1644; J1940; J2270; J7050

== ENCOUNTER 2017-07-10 02:33 | Inpatient (IN) | payer OTHER ==
[2017-07-10] MEDS ORDERED: ZOFRAN ONE (03:26)
[2017-07-10 03:57] LABS: Basophils % (Auto) 0.9 % (0.0-1.8); Eosinophils # (Auto) 0.1 K/mm3 (0.0-0.4); Eosinophils % (Auto) 3.1 % (0.0-4.3); Lymphocytes # (Auto) 0.6 K/mm3 (1.2-5.4); Lymphocytes % (Auto) 16.8 % (13.4-35.0); Mean Corpuscular HGB Conc 32 % (30-34); Mean Corpuscular Volume 76 fl (79-97); Monocytes # (Auto) 0.1 K/mm3 (0.0-0.8); Monocytes % (Auto) 3.6 % (0.0-7.3); Platelet Count 170 K/mm3 (140-440); Red Blood Count 2.39 M/mm3 (3.65-5.03)
[2017-07-10 04:17] LABS: Hemoglobin 5.9 gm/dl (10.1-14.3)
[2017-07-10 04:18] LABS: Hematocrit 18.2 % (30.3-42.9); Mean Corpuscular Hemoglobin 25 pg (28-32); Red Cell Distribution Width 20.5 % (13.2-15.2)
[2017-07-10] MEDS ORDERED: ZOFRAN IM ONE (04:18)
--- NOTE | 2017-07-10 04:23 | XRay Report ---
FINAL REPORT EXAM: XR CHEST ROUTINE 2V HISTORY: Shortness of breath TECHNIQUE: PA and lateral chest radiographs PRIORS: 01/26/2017 FINDINGS: No mediastinal shift. Cardiac silhouette size is within normal limits. Blunting of the right greater than left costophrenic angle. Ill-defined perihilar and bibasilar opacities. No pneumothorax or acute skeletal finding. IMPRESSION: Right greater than left perihilar and bibasilar airspace disease with pleural effusion. PA and lateral chest radiographic follow-up to resolution is recommended.
[2017-07-10] MEDS ORDERED: XYLOCAINE 1% MPF 5 mL INFILTRATI ONE (04:59)
[2017-07-10] MEDS ORDERED: ZITHROMAX 500 MG in NACL 0.9% 250ML 250 ML IV ONE (04:59)
[2017-07-10] MEDS ORDERED: ROCEPHIN 1,000 MG in NACL 0.9% 50 ML IV NR (05:00)
[2017-07-10] MEDS ORDERED: ROCEPHIN 1 GM in NACL 0.9% 20 ML IV ONE (05:15)
--- NOTE | 2017-07-10 05:34 | Emergency Department Report ---
ED Shortness of Breath HPI - General Chief Complaint: Dyspnea/Respdistress Stated Complaint: SEEMA.BODY PAIN Time Seen by Provider: 07/10/17 05:19 Source: patient, EMS Mode of arrival: Stretcher Limitations: Physical Limitation - History of Present Illness Initial Comments: 47 YO FEMALE WITH SHORTNESS OF BREATH FOR 3 WEEKS AND DIFFICULTY BREATHING , PRODUCTIVE COUGH AND WORSENING EACH DAY. SHE HAS SWELLING INHER FEET. MD Complaint: shortness of breath, cough -: week(s) (3) Pain Scale: 8 Consistency: constant Improves With: nothing Known History Of: recurrent pnemonia, other (LUPUS) Context: recent URI Associated Symptoms: cough, sputum production, other (LEG SWELLING) - Related Data Home Medications Medication Instructions Recorded Confirmed Last Taken No Known Home Medications [No 01/26/17 01/26/17 Unknown Reported Home Medications] Allergies Allergy/AdvReac Type Severity Reaction Status Date / Time lactase [From [employer]] Allergy Hives Verified 01/26/17 03:54 ED Review of Systems ROS: Stated complaint: SEEMA.BODY PAIN Other details as noted in HPI Constitutional: denies: chills, fever Eyes: denies: eye pain, eye discharge, vision change ENT: denies: ear pain, throat pain Respiratory: cough, shortness of breath, SOB at rest Cardiovascular: denies: chest pain, palpitations Endocrine: no symptoms reported Gastrointestinal: denies: abdominal pain, nausea, diarrhea Genitourinary: denies: urgency, dysuria, discharge Musculoskeletal: denies: back pain, joint swelling, arthralgia Skin: rash (ERYTHEMATOUS). denies: lesions Neurological: denies: headache, weakness, paresthesias Psychiatric: denies: anxiety, depression Hematological/Lymphatic: denies: easy bleeding, easy bruising ED Past Medical Hx - Past Medical History Previous Medical History?: Yes Hx Renal Disease: Yes Additional medical history: LUPUS / PNEUMONIA - Surgical History Past Surgical History?: No - Social History Smoking Status: Never Smoker Substance Use Type: None - Medications Home Medications: Home Medications Medication Instructions Recorded Confirmed Last Taken Type No Known Home Medications [No 01/26/17 01/26/17 Unknown History Reported Home Medications] ED Physical Exam - General Limitations: Physical Limitation General appearance: alert, in distress - Head Head exam: Present: atraumatic, normocephalic - Eye Eye exam: Present: EOMI - ENT ENT exam: Present: normal exam, mucous membranes moist - Neck Neck exam: Present: normal inspection, full ROM - Respiratory Respiratory exam: Present: respiratory distress, rales (BILATERAL), rhonchi, accessory muscle use - Cardiovascular Cardiovascular Exam: Present: tachycardia, normal heart sounds. Absent: systolic murmur, diastolic murmur, rubs - GI/Abdominal GI/Abdominal exam: Present: soft. Absent: distended, tenderness - Rectal Rectal exam: Present: deferred - Extremities Exam Extremities exam: Present: full ROM, pedal edema (TRACE), other (ERYTHEMATOUS RASH) - Back Exam Back exam: Present: full ROM, other (ERYTHEMATOUS RASH) - Neurological Exam Neurological exam: Present: alert, oriented X3, CN II-XII intact - Psychiatric Psychiatric exam: Present: normal affect, normal mood - Skin Skin exam: Present: warm, dry, intact, normal color, rash (ERYTHEMATOUS CIRCULAR ), erythema ED Course Vital Signs 07/10/17 03:04 Temperature 98.5 F Pulse Rate 112 H Respiratory 20 Rate Blood Pressure 188/105 O2 Sat by Pulse 92 Oximetry - Reevaluation(s) Reevaluation #1: 07/10/17 05:47 OXYGEN SATURATION HAS INCREASED TO 92 ON 2 LITERS OF OXYGEN. OXYGEN TURNED UP TO 4 LITERS ED Medical Decision Making - Lab Data Result diagrams: 07/10/17 03:32 07/10/17 03:32 - EKG Data -: EKG Interpreted by Id EKG shows normal: sinus rhythm, axis, QRS complexes, ST-T waves Rate: tachycardia - Radiology Data Radiology results: report reviewed (CXR: RIGHT GREATER THAN LEFT PERIHILAR AND BIBASILAR OPACIFICATION) - Differential Diagnosis PNEUMONIA, PLEURAL EFFUSION,CHF, PE Critical Care Time: Yes Critical care time in (mins) excluding proc time.: 30 Critical care attestation.: If time is entered above; I have spent that time in minutes in the direct care of this critically ill patient, excluding procedure time. SAUL Critical Care Time: 30MIN ED Disposition Clinical Impression: Pleural effusion, Symptomatic anemia, Elevated troponin Dyspnea Qualifiers: Dyspnea type: shortness of breath Qualified Code(s): R06.02 - Shortness of breath; R06.00 - Dyspnea, unspecified; R06.01 - Orthopnea Bilateral pneumonia Qualifiers: Pneumonia type: due to unspecified organism Lung location: unspecified part of lung Qualified Code(s): J18.9 - Pneumonia, unspecified organism Acute on chronic renal failure Qualifiers: Acute renal failure type: unspecified Chronic kidney disease stage: unspecified stage Qualified Code(s): N17.9 - Acute kidney failure, unspecified; N18.9 - Chronic kidney disease, unspecified; N18.9 - Chronic kidney disease, unspecified Disposition: OP ADMIT IP TO THIS HOSP Is pt being admited?: Yes Does the pt Need Aspirin: No Condition: Critical Instructions: Bacterial Pneumonia (ED) Referrals: RASHID STUART MD [Primary Care Provider] - 3-5 Days Time of Disposition: 05:51 (DR REGALADO CALLED AND CASE REVIEWED AND SHE WILL ADMIT PT TO THE HOSPITAL)
[2017-07-10] MEDS ORDERED: NACL 0.9% 500 ML 500 ML IV ONE (07:43)
[2017-07-10] MEDS ORDERED: NACL 0.9% 500 ML 500 ML ONE (08:01)
[2017-07-10] MEDS: KIONEX PR ONE ×2 (08:05→08:33)
[2017-07-10] MEDS ORDERED: KIONEX ONE ×2 (08:25→08:29)
--- NOTE | 2017-07-10 09:04 | History and Physical Report ---
History of Present Illness Date of examination: 07/10/17 Date of admission: 07/10/17 07:37 Chief complaint: Shortness of breath History of present illness: 47-year-old -[place] female with past medical history significant for CKD refused hemodialysis on previous admission, anemia, hypertension, lupus, systolic CHF. Presented to the emergency department with complaints of shortness of breath for one month. Patient states that shortness is getting worse with exertion. Patient is also complaining cough which is productive of yellowish to green sputum, associated with fever. Patient also said she had noticed dark stool. On Previous admission patient left AMA. On this admission patient also said she doesn't want hemodialysis. Patient's complaining chest tightness, palpitation or leg swelling. REVIEW OF SYSTEMS: GENERAL: no weight change, no fatigue, + fever HEAD: no head ache EYES: no blurry vision, no acute visual loss EARS: no hearing loss, no discharge, no earache NOSE: no stuffiness, no sneezing, no discharge MOUTH, THROAT AND NECK: no bleeding gums, no sore throat, no swollen neck CARDIAC: As stated in the HPI. RESPIRATORY: As stated in the HPI. GI: + decreased appetite, no nausea, no vomiting, no dysphagia, no diarrhea, no constipation, no abdominal pain URINARY: no change in frequency, no urgency, no polyuria, no hematuria, no incontinence MUSCULOSKELETAL: no muscle weakness, no pain, no joint stiffness NEUROLOGIC: no loss of sensation/numbness, no tingling, no tremors, no weakness/ paralysis HEMATOLOGIC: no anemia, no easy bruising SKIN: no rashes ENDOCRINE: no heat/cold intolerance, no polyuria, no polydipsia, no thyroid problems, no diabetes PSYCHIATRIC: no anxiety, no depression, no suicidal ideations Past History Past Medical History: heart failure, hypertension, renal failure, other (Lupus) Past Surgical History: No surgical history Social history: full code. denies: smoking, alcohol abuse, prescription drug abuse, IV drug use Family history: no significant family history Medications and Allergies Allergies Allergy/AdvReac Type Severity Reaction Status Date / Time lactase [From Dairy Aid] Allergy Hives Verified 01/26/17 03:54 Home Medications Medication Instructions Recorded Confirmed Last Taken Type No Known Home Medications [No 01/26/17 01/26/17 Unknown History Reported Home Medications] Active Meds: Active Medications Heparin Sodium (Porcine) (Heparin) 5,000 unit SUB-Q Q8HR [facility] Azithromycin 500 mg/ Sodium (Chloride) 250 mls @ 250 mls/hr IV Q24HR [facility] Ceftriaxone Sodium (Rocephin/Ns 1 Gm/50 Ml) 1 gm in 50 mls @ 100 mls/hr IV Q24HR [facility] PRN Reason: Protocol Exam - Physical Exam Narrative exam: Not in cardiopulmonary distress. The patient appeared chronically sick looking. Vital signs as documented. Head exam is unremarkable. No scleral icterus, pale conjunctiva . Neck is without jugular venous distension, thyromegaly, or carotid bruits. Lungs are clear to auscultation. Cardiac exam reveals regular rate and Rhythm. Tachycardic. Abdominal exam reveals normal bowel sounds, no masses, no organomegaly and no aortic enlargement. Extremities are nonedematous and both femoral and pedal pulses are normal. MANAGER BOOKS: Alert and oriented 3. No focal weakness. - Constitutional Vitals: Temp Pulse Resp BP Pulse Ox 98.5 F 105 H 16 145/99 95 07/10/17 03:04 07/10/17 08:30 07/10/17 08:30 07/10/17 08:30 07/10/17 08:30 Results - Labs CBC & Chem 7: 07/10/17 03:32 07/10/17 03:32 Labs: Laboratory Last Values WBC 3.7 K/mm3 (4.5-11.0) L 07/10/17 03:32 RBC 2.39 M/mm3 (3.65-5.03) L 07/10/17 03:32 Hgb 5.9 gm/dl (10.1-14.3) L* 07/10/17 03:32 Hct 18.2 % (30.3-42.9) L* 07/10/17 03:32 MCV 76 fl (79-97) L 07/10/17 03:32 MCH 25 pg (28-32) L 07/10/17 03:32 MCHC 32 % (30-34) 07/10/17 03:32 RDW 20.5 % (13.2-15.2) H 07/10/17 03:32 Plt Count 170 K/mm3 (140-440) 07/10/17 03:32 Lymph % (Auto) 16.8 % (13.4-35.0) 07/10/17 03:32 [place] % (Auto) 3.6 % (0.0-7.3) 07/10/17 03:32 Eos % (Auto) 3.1 % (0.0-4.3) 07/10/17 03:32 Baso % (Auto) 0.9 % (0.0-1.8) 07/10/17 03:32 Lymph # 0.6 K/mm3 (1.2-5.4) L 07/10/17 03:32 [place] # 0.1 K/mm3 (0.0-0.8) 07/10/17 03:32 Eos # 0.1 K/mm3 (0.0-0.4) 07/10/17 03:32 Baso # 0.0 K/mm3 (0.0-0.1) 07/10/17 03:32 Seg Neutrophils % 75.6 % (40.0-70.0) H 07/10/17 03:32 Seg Neutrophils # 2.8 K/mm3 (1.8-7.7) 07/10/17 03:32 Sodium 134 mmol/L (137-145) L 07/10/17 03:32 Potassium 5.2 mmol/L (3.6-5.0) H 07/10/17 03:32 Chloride 96.0 mmol/L (98-107) L 07/10/17 03:32 Carbon Dioxide 13 mmol/L (22-30) L 07/10/17 03:32 Anion Gap 30 mmol/L 07/10/17 03:32 BUN 118 mg/dL (7-17) H 07/10/17 03:32 Creatinine 15.1 mg/dL (0.7-1.2) H 07/10/17 03:32 Estimated GFR 3 ml/min 07/10/17 03:32 BUN/Creatinine Ratio 8 % 07/10/17 03:32 Glucose 106 mg/dL (65-100) H 07/10/17 03:32 Calcium 7.0 mg/dL (8.4-10.2) L 07/10/17 03:32 Troponin T 0.076 ng/mL (0.00-0.029) H 07/10/17 03:32 NT-Pro-B Natriuret Pep 53678 pg/mL (0-450) H 07/10/17 05:29 Triglycerides 192 mg/dL (2-149) H 07/10/17 03:32 Cholesterol 140 mg/dL (50-199) 07/10/17 03:32 LDL Cholesterol Direct 67 mg/dL (50-130) 07/10/17 03:32 HDL Cholesterol 35 mg/dL (40-59) L 07/10/17 03:32 Cholesterol/HDL Ratio 4.00 % 07/10/17 03:32 HCG, Qual Negative (Negative) 07/10/17 03:32 Blood Type O POSITIVE 07/10/17 05:29 Antibody Screen Negative 07/10/17 05:29 Crossmatch See Detail 07/10/17 05:29 Hemoglobin is 5.8 - Imaging and Cardiology Chest x-ray: report reviewed (bilateral lower lobe opacity, with pleural effusion) Assessment and Plan Assessment and plan: Acute hypoxic respiratory failure Sepsis due to pneumonia ESRD need HD, patient refused hemodialysis previously Hyperkalemia Chronic systolic CHF Symptomatic anemia Chest pain Lupus - Patient started with IV ceftriaxone and azithromycin, oxygen support - PRBC transfusion - Kayexalate, nephrology consult, cardiology consult Dark stool - GI consulted DVT prophylaxis - Heparin Disposition - Admit to telemetry Advance Directives: No VTE prophylaxis?: Mechanical Reason for no VTE Prophylaxis: Medical contraindication Plan of care discussed with patient/family: Yes
--- NOTE | 2017-07-10 11:20 | Event Note ---
Date: 07/10/17 [facility] not on back up call today, please call cancellation clerk public health clinical nurse specialist
[2017-07-10] MEDS ORDERED: KIONEX PO ONE (11:40)
[2017-07-10] MEDS ORDERED: TYLENOL PO ONE (12:51)
[2017-07-10] MEDS: SODIUM BICARBONATE PO SCH ×2 (13:09→22:00)
--- NOTE | 2017-07-10 13:16 | Gastroenterology Consultation ---
History of Present Illness - Reason for Consult Consult date: 07/10/17 anemia Requesting physician: NOREEN LEE - History of Present Illness The patient is a 47-year-old female referred for GI consultation due to severe anemia presenting with a hemoglobin of 5.9. He presented to the hospital with progressive shortness of breath over several weeks and is noted to have bilateral perihilar infiltrates and small pleural effusions. The patient denies having any melenic stools or grossly bloody stools. He has had a few loose stools during hospitalization overnight but normally has formed stools. He also reports new onset mild burning abdominal pain is morning only. There is no history of peptic ulcer disease. The patient reports a normal colonoscopy 10 years ago. The patient takes ibuprofen on a regular basis for joint pains. She has systemic lupus erythematosus which has been untreated. The patient has not seen a physician in a few years due to lack of access without insurance. BUN was 118 and creatinine was 15.1 on this admission. Past History Past Medical History: heart failure, hypertension, renal failure, other (Lupus) Past Surgical History: No surgical history Social history: full code. denies: smoking, alcohol abuse, prescription drug abuse, IV drug use Family history: no significant family history Medications and Allergies Allergies Allergy/AdvReac Type Severity Reaction Status Date / Time lactase [From Dairy Aid] Allergy Hives Verified 01/26/17 03:54 Home Medications Medication Instructions Recorded Confirmed Last Taken Type No Known Home Medications [No 01/26/17 01/26/17 Unknown History Reported Home Medications] Active Meds: Active Medications Alprazolam (Xanax) 1 mg PO BID [facility] Epoetin Sae (Procrit) 10,000 unit SUB-Q MOWEFR [facility] Azithromycin 500 mg/ Sodium (Chloride) 250 mls @ 250 mls/hr IV Q24HR [facility] Ceftriaxone Sodium (Rocephin/Ns 1 Gm/50 Ml) 1 gm in 50 mls @ 100 mls/hr IV Q24HR [facility] PRN Reason: Protocol Sodium Bicarbonate (Sodium Bicarbonate) 1,300 mg PO QID [facility] Last Admin: 07/10/17 13:09 Dose: 1,300 mg Review of Systems - Review of Systems Constitutional: no weight loss Eyes: no change in vision Ears, Nose, Throat: no decreased hearing, no epistaxis, no painful swallowing Breasts: deferred Cardiovascular: edema (left leg edema), shortness of breath, no chest pain, no syncope Gastrointestinal: abdominal pain (lower abdominal burning discomfort this morning only.), no nausea, no vomiting, no change in bowel habits, no BRBPR, no melena Rectal: no pain, no incontinence Female Genitourinary: deferred Musculoskeletal: joint pain, no gait dysfunction, no muscle pain, no muscle weakness Integumentary: no deferred, no rash, no pruritis, no jaundice Neurological: no head injury, no paralysis, no memory loss Psychiatric: no anxiety, no memory loss Endocrine: no cold intolerance, no heat intolerance Hematologic/Lymphatic: no easy bruising, no easy bleeding Allergic/Immunologic: no wheezing Exam - Constitutional Vital Signs: Temp Pulse Resp BP Pulse Ox 97.5 F L 93 H 18 140/95 96 07/10/17 11:08 07/10/17 11:08 07/10/17 11:08 07/10/17 11:08 07/10/17 11:25 General appearance: no acute distress, temporal muscle wasting - EENT Eyes: PERRL ENT: hearing intact, clear oral mucosa - Neck Neck: supple, normal ROM, no masses or JVD - Respiratory Respiratory: right: diminished, other (dullness to percussion at the right base. ), bilateral: rales - Breasts Breasts: deferred - Cardiovascular Rhythm: regular Heart Sounds: Present: S1 & S2, systolic murmur (2/6 systolic murmur). Absent: gallop, rub Extremities: pulses intact, normal color, Full ROM Extremity abnormal: edema (trace edema of the right lower extremity) - Gastrointestinal General gastrointestinal: Present: soft, non-tender, non-distended, normal bowel sounds. Absent: hepatomegaly, splenomegaly, mass Rectal Exam: deferred - Genitourinary Female Genitourinary: deferred - Integumentary Integumentary: Present: clear, warm, dry - Neurologic Neurological: alert and oriented x3 - Psychiatric Psychiatric: appropriate mood/affect, intact judgment & insight, memory intact - Labs CBC & Chem 7: 07/10/17 03:32 07/10/17 03:32 Lab Results: Laboratory Results - last 24 hr 07/10/17 07/10/17 07/10/17 03:32 03:32 03:32 WBC RBC Hgb Hct MCV MCH MCHC RDW Plt Count Lymph % (Auto) [place] % (Auto) Eos % (Auto) Baso % (Auto) Lymph # [place] # Eos # Baso # Seg Neutrophils % Seg Neutrophils # Sodium 134 L Potassium 5.2 H Chloride 96.0 L Carbon Dioxide 13 L Anion Gap 30 BUN 118 H Creatinine 15.1 H Estimated GFR 3 BUN/Creatinine Ratio 8 Glucose 106 H Calcium 7.0 L Troponin T 0.076 H NT-Pro-B Natriuret Pep Triglycerides 192 H Cholesterol 140 LDL Cholesterol Direct 67 HDL Cholesterol 35 L Cholesterol/HDL Ratio 4.00 HCG, Qual Negative Blood Type Antibody Screen Crossmatch 07/10/17 07/10/17 07/10/17 03:32 05:29 05:29 WBC 3.7 L RBC 2.39 L Hgb 5.9 L* Hct 18.2 L* MCV 76 L MCH 25 L MCHC 32 RDW 20.5 H Plt Count 170 Lymph % (Auto) 16.8 [place] % (Auto) 3.6 Eos % (Auto) 3.1 Baso % (Auto) 0.9 Lymph # 0.6 L [place] # 0.1 Eos # 0.1 Baso # 0.0 Seg Neutrophils % 75.6 H Seg Neutrophils # 2.8 Sodium Potassium Chloride Carbon Dioxide Anion Gap BUN Creatinine Estimated GFR BUN/Creatinine Ratio Glucose Calcium Troponin T NT-Pro-B Natriuret Pep 10416 H Triglycerides Cholesterol LDL Cholesterol Direct HDL Cholesterol Cholesterol/HDL Ratio HCG, Qual Blood Type O POSITIVE Antibody Screen Negative Crossmatch See Detail Assessment and Plan - Patient Problems (1) Acute on chronic renal failure Current Visit: Yes Status: Acute Qualifiers: Acute renal failure type: unspecified Chronic kidney disease stage: unspecified stage Qualified Code(s): N17.9 - Acute kidney failure, unspecified ; N18.9 - Chronic kidney disease, unspecified; N18.9 - Chronic kidney disease, unspecified (2) Bilateral pneumonia Current Visit: Yes Status: Acute Qualifiers: Pneumonia type: due to unspecified organism Lung location: unspecified part of lung Qualified Code(s): J18.9 - Pneumonia, unspecified organism (3) Symptomatic anemia Current Visit: Yes Status: Acute Plan to address problem: The patient has microcytic indices suggestive of chronic blood loss although has not had any overt blood loss. Although her workup is indicated she does not appear medically stable for this with bilateral ammonia versus CHF fluid overload due to renal failure. I will order stool Hemoccult and iron studies. EGD and colonoscopy can be considered in the future either prior to discharge or as an outpatient depending on her progress. Thank you very much for asking me to see Mrs. Simmons in consultation. (4) Acute renal insufficiency Current Visit: No Status: Acute
--- NOTE | 2017-07-10 13:49 | Consultation ---
History of Present Illness Consult date: 07/10/17 Consult reason: congestive heart failure History of present illness: The patient is a 47-year-old woman with multiple medical problems. She states that [facility], but has not been to see her doctors for over a year. There is a history of chronic anemia, chronic kidney disease and chronic congestive heart failure. She was in this hospital 6 months ago, briefly admitted for shortness of breath that was diagnosed as a combination of fluid overload and possible pneumonia. She was assessed by nephrology and recommended for Vas-Cath placement for initiation into dialysis, but the patient declined and left the hospital AGAINST MEDICAL ADVICE. An echocardiogram done during that visit revealed a dilated cardiomyopathy with left ventricular ejection fraction 20-25%. There was no cardiology consultation during that visit. The patient returns to the hospital at this time with similar symptoms of progressive shortness of breath, fatigue and lower extremity edema. She is admittedly noncompliant with medical therapy all outpatient physician follow- ups. On this presentation, she is found to have profound anemia, with a hematocrit of 18, (decreased from 26 six months ago), and end-stage renal failure is worse with a creatinine of 15, (increased from 6.7 six months ago). In addition, there is evidence of a recurrent fluid overload with a chest x-ray that shows interstitial edema and a small to moderate size right pleural effusion. The ECG is normal sinus rhythm, specific lateral T-wave abnormalities , no acute changes. The ECG is unchanged from 6 months ago. Past History Past Medical History: heart failure, hypertension, renal failure, other (Lupus) Past Surgical History: No surgical history Social history: full code. denies: smoking, alcohol abuse, prescription drug abuse, IV drug use Family history: no significant family history Medications and Allergies Allergies Allergy/AdvReac Type Severity Reaction Status Date / Time lactase [From Dairy Aid] Allergy Hives Verified 01/26/17 03:54 Home Medications Medication Instructions Recorded Confirmed Last Taken Type No Known Home Medications [No 01/26/17 01/26/17 Unknown History Reported Home Medications] Active Meds: Active Medications Alprazolam (Xanax) 1 mg PO BID [facility] Epoetin Sae (Procrit) 10,000 unit SUB-Q MOWEFR [facility] Azithromycin 500 mg/ Sodium (Chloride) 250 mls @ 250 mls/hr IV Q24HR [facility] Ceftriaxone Sodium (Rocephin/Ns 1 Gm/50 Ml) 1 gm in 50 mls @ 100 mls/hr IV Q24HR [facility] PRN Reason: Protocol Furosemide 80 mg/ Sodium (Chloride) 58 mls @ 100 mls/hr IV Q8H [facility] Sodium Bicarbonate (Sodium Bicarbonate) 1,300 mg PO QID [facility] Last Admin: 07/10/17 13:09 Dose: 1,300 mg Review of Systems Cardiovascular: orthopnea, edema, lightheadedness, shortness of breath, no chest pain, no palpitations, no rapid/irregular heart beat, no syncope Physical Examination Vital Signs Temp Pulse Resp BP Pulse Ox 98.5 F 112 H 20 188/105 92 07/10/17 03:04 07/10/17 03:04 07/10/17 03:04 07/10/17 03:04 07/10/17 03:04 General appearance: no acute distress, cachectic HEENT: Positive: PERRL Neck: Positive: neck supple Cardiac: Positive: Reg Rate and Rhythm Lungs: Positive: Decreased Breath Sounds Neuro: Positive: Grossly Intact Abdomen: Positive: Soft Female genitourinary: deferred Skin: Positive: Clear Extremities: Present: +1 Edema Results 07/10/17 03:32 07/10/17 03:32 Lipids 07/10/17 Range/Units 03:32 Triglycerides 192 H (2-149) mg/dL Cholesterol 140 (50-199) mg/dL HDL Cholesterol 35 L (40-59) mg/dL Cholesterol/HDL Ratio 4.00 % CBC 07/10/17 Range/Units 03:32 WBC 3.7 L (4.5-11.0) K/mm3 RBC 2.39 L (3.65-5.03) M/mm3 Hgb 5.9 L* (10.1-14.3) gm/dl Hct 18.2 L* (30.3-42.9) % Plt Count 170 (140-440) K/mm3 Lymph # 0.6 L (1.2-5.4) K/mm3 [place] # 0.1 (0.0-0.8) K/mm3 Eos # 0.1 (0.0-0.4) K/mm3 Baso # 0.0 (0.0-0.1) K/mm3 Comprehensive Metabolic Panel 07/10/17 Range/Units 03:32 Sodium 134 L (137-145) mmol/L Potassium 5.2 H (3.6-5.0) mmol/L Chloride 96.0 L (98-107) mmol/L Carbon Dioxide 13 L (22-30) mmol/L BUN 118 H (7-17) mg/dL Creatinine 15.1 H (0.7-1.2) mg/dL Glucose 106 H (65-100) mg/dL Calcium 7.0 L (8.4-10.2) mg/dL EKG interpretations - Telemetry EKG Rhythm: Sinus Rhythm Assessment and Plan - Patient Problems (1) Acute on chronic systolic heart failure Current Visit: Yes Status: Acute Plan to address problem: The patient has a history of dilated cardiomyopathy with left ventricular ejection fraction 20-25% on echocardiogram 6 months ago. We'll recommend optimal medical therapy including afterload reduction agents, beta blockers and diuretics. She is currently a poor candidate for oral antiplatelet therapy given her severe anemia. Overall long-term prognosis is poor given severe multiple comorbidities.
[2017-07-10] MEDS ORDERED: HEPARIN SUB-Q SCH (14:00)
--- NOTE | 2017-07-10 14:44 | Consultation ---
History of Present Illness - Reason for Consult Consult date: 07/10/17 chronic renal failure Requesting physician: NOREEN LEE - History of Present Illness Ms Simmons is a 47 y/o Lady with a PMH of CKD stage 5 due to lupus/HTN, HTN, Anemia , SLE, CHF who has refused dialysis in the past comes to the [facility] with worsening SHOB since atleast 1 month. Pt says her SHOB is worse on exertion and she also has cough with yellow sputum with fever. Pt was found to have anemia on labs. Her CXR was found to be congested. Pt has also had N/V and belly pain and poor apatite. She also has chest tightness. Pt was admitted in the summer of 2016 to the hospital and left AMA after dialysis was recommended to her. ROS: As in HPI otherwise 12 point review of systems -ve Past History Past Medical History: heart failure, hypertension, renal failure, other (Lupus) Past Surgical History: No surgical history Social history: full code. denies: smoking, alcohol abuse, prescription drug abuse, IV drug use Family history: no significant family history Medications and Allergies Allergies Allergy/AdvReac Type Severity Reaction Status Date / Time lactase [From Dairy Aid] Allergy Hives Verified 01/26/17 03:54 Home Medications Medication Instructions Recorded Confirmed Last Taken Type No Known Home Medications [No 01/26/17 01/26/17 Unknown History Reported Home Medications] Active Meds: Active Medications Alprazolam (Xanax) 1 mg PO BID [facility] Carvedilol (Coreg) 6.25 mg PO BID [facility] Epoetin Sae (Procrit) 10,000 unit SUB-Q MOWEFR [facility] Azithromycin 500 mg/ Sodium (Chloride) 250 mls @ 250 mls/hr IV Q24HR [facility] Ceftriaxone Sodium (Rocephin/Ns 1 Gm/50 Ml) 1 gm in 50 mls @ 100 mls/hr IV Q24HR [facility] PRN Reason: Protocol Furosemide 80 mg/ Sodium (Chloride) 58 mls @ 100 mls/hr IV Q8H [facility] Isosorbide Dinitrate/Hydralazine (Bidil 20/37.5mg) 1 each PO Q8HR [facility] Sodium Bicarbonate (Sodium Bicarbonate) 1,300 mg PO QID [facility] Last Admin: 07/10/17 13:09 Dose: 1,300 mg Exam - Vital Signs Vital signs: Vital Signs Temp Pulse Resp BP Pulse Ox 98.5 F 112 H 20 188/105 92 07/10/17 03:04 07/10/17 03:04 07/10/17 03:04 07/10/17 03:04 07/10/17 03:04 - Physical Exam Narrative exam: [id number] HEENT: PERRLA Neck: No JVD CVS: RRR Chest: BL Crackles Abd: Soft/NT/ND/BS+ Ext: 1+ BLE edema Psyche: Appropriate mood Results - Lab Results 07/10/17 03:32 07/10/17 03:32 Most recent lab results Calcium 7.0 mg/dL (8.4-10.2) L 07/10/17 03:32 Assessment and Plan Chronic Kidney disease stage 5 due to Lupus/HTN now End stage renal disease: -Pt was recommended dialysis on last admission in the summer of 2016, she had refused at that point and left AMA -Discussed Risks and benefits of HD with patient risks including air embolism, arrhythmia, bleeding, infection, stroke, hypotension. Pt consented to Hemodialysis. Vascular surgery consulted for Vascath placement. (There are concerns for infection so will place Vascath for now, later can get Permcath). HD#1 ordered for today with 2L UF. HD#2 ordered for tomorrow. -Renally dose all meds -Low K Renal diet Sepsis possibly due to Pneumonia: -CXR shows edema vs consolidation -Cultured -On ABx Hypoxic respiratory failure: Volume overload: -Lasix 80 mg TID IV started -UF with HD Anemia of chronic disease likely due to CKD, Lupus: Possible GI bleed: -Getting blood transfusion -Check Iron panel -Epogen started -GI consulted Hyperkalemia: -HD being initiated -Kayxelate was ordered earlier -Low K diet Metabolic acidosis: -From renal failure -Start NaHOCO3 tabs -Being initiated on HD Lupus: -Per primary Leukopenia: Thrombocytopenia: -From Lupus -Per primary Chest Pain: -Per primary Plan d/w bedside RN and Dr Lee With this note, i want to thank Dr eLe for allowing me to participate in the care of Ms Simmons. I will continue to follow her quite closely with you. Thank you for the consult. Álvaro Nash MD Nephrology, Hypertension, Dialysis, Transplantation Phone no: [phone]
[2017-07-10] MEDS ORDERED: NACL 0.9% 100 ML IV PRN ×2 (14:52→14:53)
[2017-07-10] MEDS ORDERED: ALBURX 25% (ALBUMIN) IV PRN (14:52)
[2017-07-10] MEDS ORDERED: VERSED ONE (16:44)
[2017-07-10] MEDS ORDERED: SUBLIMAZE ONE (16:44)
[2017-07-10] MEDS ORDERED: HEPARIN/NS 5000 UNIT/500ML(CATH LAB) 500 ML IR ONE (16:44)
[2017-07-10] MEDS ORDERED: ANCEF/STERILE WATER 2 GM/20 ML 0 GM/0 ML SYRINGE IV ONE (16:45)
[2017-07-10] MEDS ORDERED: XYLOCAINE 2% INFILTRATI ONE (16:45)
[2017-07-10] MEDS ORDERED: NACL 0.9% 0 ML ONE (16:45)
--- NOTE | 2017-07-10 16:51 | Consultation ---
History of Present Illness - Reason for Consult Consult date: 07/10/17 HD access Requesting physician: VIVI VELASCO - History of Present Illness 47 y/o Lady with a PMH of CKD stage 5 due to lupus/HTN, HTN, Anemia, SLE, CHF who has refused dialysis in the past comes to the [facility] with worsening SHOB. She was found to be anemic, requiring blood transfusion. Patient's knee surgeon dialysis to be started and vascular surgery call for dialysis access. Since patient had productive cough and fever it is raising concern for ongoing infection. Past History Past Medical History: heart failure, hypertension, renal failure, other (Lupus) Past Surgical History: No surgical history Social history: full code. denies: smoking, alcohol abuse, prescription drug abuse, IV drug use Family history: no significant family history Medications and Allergies Allergies Allergy/AdvReac Type Severity Reaction Status Date / Time lactase [From Dairy Aid] Allergy Hives Verified 01/26/17 03:54 Home Medications Medication Instructions Recorded Confirmed Last Taken Type No Known Home Medications [No 01/26/17 01/26/17 Unknown History Reported Home Medications] Active Meds: Active Medications Albumin Human (Alburx 25% (Albumin)) 25 gm IV BRITTNY PRN PRN Reason: Hypotension Alprazolam (Xanax) 1 mg PO BID [facility] Carvedilol (Coreg) 6.25 mg PO BID [facility] Epoetin Sae (Procrit) 10,000 unit SUB-Q MOWEFR [facility] Azithromycin 500 mg/ Sodium (Chloride) 250 mls @ 250 mls/hr IV Q24HR [facility] Ceftriaxone Sodium (Rocephin/Ns 1 Gm/50 Ml) 1 gm in 50 mls @ 100 mls/hr IV Q24HR ROSE MARIE PRN Reason: Protocol Furosemide 80 mg/ Sodium (Chloride) 58 mls @ 100 mls/hr IV Q8H [facility] Sodium Chloride (Nacl 0.9%) 100 mls @ 999 mls/hr IV BRITTNY PRN PRN Reason: Hypotension Sodium Chloride (Nacl 0.9%) 100 mls @ 999 mls/hr IV BRITTNY PRN PRN Reason: Hypotension Isosorbide Dinitrate/Hydralazine (Bidil 20/37.5mg) 1 each PO Q8HR [facility] Sodium Bicarbonate (Sodium Bicarbonate) 1,300 mg PO QID [facility] Last Admin: 01/01/18 13:09 Dose: 1,300 mg Review of Systems All systems: negative (except HPI) Exam - Physical Exam Narrative exam: Right EJ IV with active blood transfusion. - Constitutional Vitals: Temp Pulse Resp BP Pulse Ox 98.5 F 87 18 144/94 99 07/10/17 14:56 07/10/17 14:56 07/10/17 14:56 07/10/17 14:56 07/10/17 14:56 Results - Labs CBC & Chem 7: 07/10/17 03:32 07/10/17 03:32 Labs: Abnormal lab results 07/10/17 07/10/17 07/10/17 Range/Units 03:32 03:32 03:32 WBC 3.7 L (4.5-11.0) K/mm3 RBC 2.39 L (3.65-5.03) M/mm3 Hgb 5.9 L* (10.1-14.3) gm/dl Hct 18.2 L* (30.3-42.9) % MCV 76 L (79-97) fl MCH 25 L (28-32) pg RDW 20.5 H (13.2-15.2) % Lymph # 0.6 L (1.2-5.4) K/mm3 Seg Neutrophils % 75.6 H (40.0-70.0) % Sodium 134 L (137-145) mmol/L Potassium 5.2 H (3.6-5.0) mmol/L Chloride 96.0 L (98-107) mmol/L Carbon Dioxide 13 L (22-30) mmol/L BUN 118 H (7-17) mg/dL Creatinine 15.1 H (0.7-1.2) mg/dL Glucose 106 H (65-100) mg/dL Calcium 7.0 L (8.4-10.2) mg/dL Troponin T 0.076 H (0.00-0.029) ng/mL NT-Pro-B Natriuret Pep (0-450) pg/mL Triglycerides 192 H (2-149) mg/dL HDL Cholesterol 35 L (40-59) mg/dL Crossmatch 07/10/17 07/10/17 Range/Units 05:29 05:29 WBC (4.5-11.0) K/mm3 RBC (3.65-5.03) M/mm3 Hgb (10.1-14.3) gm/dl Hct (30.3-42.9) % MCV (79-97) fl MCH (28-32) pg RDW (13.2-15.2) % Lymph # (1.2-5.4) K/mm3 Seg Neutrophils % (40.0-70.0) % Sodium (137-145) mmol/L Potassium (3.6-5.0) mmol/L Chloride (98-107) mmol/L Carbon Dioxide (22-30) mmol/L BUN (7-17) mg/dL Creatinine (0.7-1.2) mg/dL Glucose (65-100) mg/dL Calcium (8.4-10.2) mg/dL Troponin T (0.00-0.029) ng/mL NT-Pro-B Natriuret Pep 06341 H (0-450) pg/mL Triglycerides (2-149) mg/dL HDL Cholesterol (40-59) mg/dL Crossmatch See Detail Assessment and Plan End-stage renal disease with previous refusing of dialysis, currently agrees. Due to active questionable infection process will place a temporary dialysis catheter - Vas-Cath. Once infection clears patient will need transition off Vas-Cath the PermCath. She will also need vein mapping for future permanent access placement once stable.
[2017-07-10] MEDS: HEPARIN 10,000 UNITS/10 ML ONE ×2 (17:20→17:21)
--- NOTE | 2017-07-10 17:36 | Operative Report ---
Operative Report Operative Report: Operative note: Date: 07/10/2017 Preoperative diagnosis: End-stage renal disease Postoperative diagnosis: Same. Operation: left internal jugular Vas-Cath insertion Surgeon: Smita Quinn. Asst.: None Anesthesia: Local EBL: Minimal Findings: None Indications: Patient with end-stage renal disease previously refusing dialysis and now came in in CHF and renal failure and requires urgent initiation of hemodialysis. She was discussed risks and benefits of procedure and she chose to proceed, signed informed consent. Operative details: Patient was brought to the [facility], prepped and draped right neck in a sterile fashion. After timeout performed and all team members in the agreement left internal jugular vein was accessed under ultrasound guidance with micropuncture needle and exchanged for micropuncture sheath. Stiff glide wire was advanced in the left internal jugular vein and advanced into IVC under fluoroscopic guidance. Skin incision was made with 11 blade and serially dilated with subsequent insertion of Vas-Cath catheter 11.5 Fr 20cm in length. Ports were checked for good flow, flushed with saline and locked with 1.4 mL of heparin. Catheter was secured in place with 3-0 silk stitches and sterile dressing applied. She tolerated the procedure well.
[2017-07-10] MEDS ORDERED: NACL 0.9 (PRIMING MACHINE ONLY DIALYSIS) MC ONE (19:57)
[2017-07-10 21:13] LABS: Hematocrit 29.3 % (30.3-42.9); Hemoglobin 9.6 gm/dl (10.1-14.3)
[2017-07-10 21:24] LABS: INR 1.3 (0.87-1.13)
[2017-07-10 21:31] LABS: Iron 23 ug/dL (37-170); Total Iron Binding Capacity 172 mcg/dL (250-450)
[2017-07-10 21:48] LABS: Hepatitis A Antibody IgM Non-Reactive (NonReactive); Hepatitis B Core IgM Non-Reactive (NonReactive); Hepatitis B Surface Antigen Non-Reactive (Negative); Hepatitis C Virus Antibody Non-Reactive (NonReactive)
[2017-07-10] MEDS: LASIX 80 MG in NACL 0.9% 50 ML IV SCH (22:00)
[2017-07-10 22:50] LABS: Hematocrit 28.2 % (30.3-42.9); Hemoglobin 9.3 gm/dl (10.1-14.3)
[2017-07-11] MEDS: XANAX PO SCH ×3 (00:36→22:50)
[2017-07-11] MEDS: COREG PO SCH ×3 (00:37→23:08)
[2017-07-11] MEDS: BIDIL 20/37.5MG PO SCH ×4 (00:37→22:45)
[2017-07-11] MEDS: SODIUM BICARBONATE PO SCH ×3 (00:37→22:45)
[2017-07-11 06:18] LABS: Basophils % (Auto) 0.3 % (0.0-1.8); Eosinophils # (Auto) 0.1 K/mm3 (0.0-0.4); Eosinophils % (Auto) 4.1 % (0.0-4.3); Hematocrit 26.3 % (30.3-42.9); Hemoglobin 8.6 gm/dl (10.1-14.3); Lymphocytes # (Auto) 0.5 K/mm3 (1.2-5.4); Lymphocytes % (Auto) 20.4 % (13.4-35.0); Mean Corpuscular HGB Conc 33 % (30-34); Mean Corpuscular Volume 77 fl (79-97); Monocytes # (Auto) 0.1 K/mm3 (0.0-0.8); Monocytes % (Auto) 3.3 % (0.0-7.3); Platelet Count 135 K/mm3 (140-440); Red Cell Distribution Width 18.9 % (13.2-15.2)
[2017-07-11 06:24] LABS: Mean Corpuscular Hemoglobin 25 pg (28-32)
[2017-07-11 06:36] LABS: Calcium 6.9 mg/dL (8.4-10.2)
[2017-07-11] MEDS: LASIX 80 MG in NACL 0.9% 50 ML IV SCH ×2 (06:40→07:23)
--- NOTE | 2017-07-11 09:33 | Progress Note ---
Assessment and Plan ESRD due HTN and SLE -s/p vasctha placement yesterday and first HD tx, HD todaya nd again tomorrow for clearance and volum removal -will assess HD needs daily -Case management consult for outpt dialysis placement -Renally dose all meds -Low K Renal diet Sepsis possibly due to Pneumonia: -CXR shows edema vs consolidation -Cultured -On ABx Hypoxic respiratory failure: Volume overload: -UF with HD -will d/c lasix Anemia of chronic disease likely due to CKD, Lupus: Possible GI bleed: -s/p blood transfusion -Check Iron panel -Epogen started -GI consulted Hyperkalemia: -HD being initiated -Kayxelate was ordered earlier -Low K diet Metabolic acidosis: -From renal failure -will be corrected with HD Lupus: -Per primary Leukopenia: Thrombocytopenia: -From Lupus -Per primary Chest Pain: -Per primary Subjective Date of service: 07/11/17 Principal diagnosis: ESRD needs HD Interval history: feel weak this AM but tolerated HD yesterday Objective - Vital Signs Vital signs: Vital Signs - 12hr 07/10/17 07/10/17 07/11/17 22:00 23:45 00:47 Temperature 99.3 F Pulse Rate 112 H 112 H Respiratory 20 20 20 Rate Blood Pressure 103/71 [Right] O2 Sat by Pulse 97 97 Oximetry 07/11/17 07/11/17 01:00 05:40 Temperature 98.2 F Pulse Rate 80 92 H Respiratory Rate Blood Pressure 100/59 [Right] O2 Sat by Pulse Oximetry - General Appearance General appearance: well-developed, well-nourished, appears stated age EENT: ATNC, PERRL, mucous membranes moist Neck: no JVD, no carotid bruit Respiratory: Present: Clear to Ascultation. Absent: Rales, Ronchi Cardiology: regular, S1S2 Gastrointestinal: normoactive bowel sounds, no tenderness, no distended Integumentary: no rash Neurologic: no focal deficit, no asterixis, alert and oriented x3 Musculoskeletal: other (trace pitting edema in BLE) Psychiatric: mood/affect appropriate, cooperative - Lab 07/11/17 05:46 07/11/17 05:46 Most recent lab results Calcium 6.9 mg/dL (8.4-10.2) L 07/11/17 05:46 Phosphorus 6.20 mg/dL (2.5-4.5) H 07/10/17 20:38
--- NOTE | 2017-07-11 11:02 | Progress Note ---
Assessment and Plan Acute systolic heart failure 20-25% on echo 01/2017 ESRD initiated on HD Right pleural effusion, small to moderate on cxr. Severe anemia Hypertension Noncompliant with medical therapy and outpatient physician follow-ups Recommendations: Dialysis for fluid removal. Continue medical management for acute systolic heart failure with beta blockers and afterload reduction therapy. Subjective Date of service: 07/11/17 Principal diagnosis: ESRD needs HD Interval history: Patient seen in dialysis. She has no cardiac complaints. Objective Vital Signs Temp Pulse Resp BP BP Pulse Ox 07/11/17 05:40 98.2 F 92 H 100/59 07/11/17 01:00 80 07/11/17 00:47 112 H 20 97 07/10/17 23:45 99.3 F 112 H 20 103/71 97 07/10/17 22:00 20 07/10/17 21:29 97.7 F 102 H 18 138/90 96 07/10/17 20:15 98.2 F 96 H 18 122/86 07/10/17 20:00 104 H 112/76 07/10/17 19:45 93 H 90/66 07/10/17 19:15 101 H 86/69 07/10/17 19:00 98 H 111/84 07/10/17 18:45 103 H 120/94 07/10/17 18:30 105 H 125/86 07/10/17 18:15 97 H 144/94 07/10/17 18:00 89 140/103 07/10/17 17:52 98.6 F 92 H 18 153/104 07/10/17 15:11 98.5 F 90 16 146/93 96 07/10/17 14:56 98.5 F 87 18 144/94 99 07/10/17 14:49 98 F 87 18 141/82 97 07/10/17 11:25 96 07/10/17 11:08 97.5 F L 93 H 18 140/95 100 07/10/17 11:00 98 F 90 18 143/89 98 - Physical Examination General: No Apparent Distress HEENT: Positive: PERRL Cardiac: Positive: Reg Rate and Rhythm - Labs and Meds Coagulation 07/10/17 Range/Units 20:38 PT 16.9 H (12.2-14.9) Sec. INR 1.30 H (0.87-1.13) CBC 07/10/17 07/10/17 07/11/17 Range/Units 20:38 22:34 05:46 WBC 2.5 L (4.5-11.0) K/mm3 RBC 3.40 L (3.65-5.03) M/mm3 Hgb 9.6 L D 9.3 L 8.6 L (10.1-14.3) gm/dl Hct 29.3 L D 28.2 L 26.3 L (30.3-42.9) % Plt Count 135 L (140-440) K/mm3 Lymph # 0.5 L (1.2-5.4) K/mm3 [place] # 0.1 (0.0-0.8) K/mm3 Eos # 0.1 (0.0-0.4) K/mm3 Baso # 0.0 (0.0-0.1) K/mm3 Comprehensive Metabolic Panel 07/11/17 Range/Units 05:46 Sodium 138 (137-145) mmol/L Potassium 4.0 D (3.6-5.0) mmol/L Chloride 99.2 (98-107) mmol/L Carbon Dioxide 19 L (22-30) mmol/L BUN 76 H (7-17) mg/dL Creatinine 11.6 H (0.7-1.2) mg/dL Glucose 109 H (65-100) mg/dL Calcium 6.9 L (8.4-10.2) mg/dL
[2017-07-11] MEDS ORDERED: NACL 0.9% 100 ML IV PRN (11:51)
[2017-07-11] MEDS ORDERED: NACL 0.9 (PRIMING MACHINE ONLY DIALYSIS) MC ONE (12:09)
[2017-07-11] MEDS: DELTASONE PO SCH (16:08)
[2017-07-11 16:47] LABS: Creatinine,Urine 139.2 mg/dL (0.1-20.0)
[2017-07-11 16:49] LABS: Bilirubin,Urine NEG (Negative); Blood,Urine NEG (Negative); Color,Urine Amber (Yellow); Mucus,Urine FEW /HPF; Nitrite,Urine NEG (Negative); Urobilinogen,Urine < 2.0 mg/dL (<2.0)
[2017-07-11] MEDS: PROCRIT SUB-Q SCH (16:50)
[2017-07-11 16:51] LABS: Protein,Urine >500 mg/dL (Negative)
[2017-07-11 16:59] LABS: Protein/Creatinine Ratio,Urine 4.99
[2017-07-11] MEDS: HEPARIN IV PRN (17:17)
[2017-07-11] MEDS ORDERED: PNEUMOVAX 23 IM ONE (17:53)
[2017-07-11 18:16] LABS: Hematocrit 25.4 % (30.3-42.9); Hemoglobin 8.1 gm/dl (10.1-14.3)
--- NOTE | 2017-07-11 18:20 | Progress Note ---
Assessment and Plan Assessment and plan: Acute hypoxic respiratory failure, sepsis due to pneumonia - Patient is on oxygen support - Recommend antibiotics ESRD on HD - Patient had dialysis this morning Hyperkalemia - Resolved with treatment Chronic systolic CHF - Cardiology consulted and recommended medical management Symptomatic anemia - Transfused 2 units of blood and current hemoglobin is 8.6 Chest pain - Likely due to congestive heart failure/ pneumonia Lupus - Patient is on prednisone Dark stool - GI consulted and recommended no intervention at this time, and we will follow as needed DVT prophylaxis -SCD Disposition -Continue inpatient care History Interval history: Patient was seen and evaluated this morning, patient complains feeling tired, when I evaluated her she just come back from dialysis and that is expected. Hospitalist Physical - Physical exam Narrative exam: Not in cardiopulmonary distress. The patient appeared chronically sick looking. Vital signs as documented. Head exam is unremarkable. No scleral icterus, pale conjunctiva . Neck is without jugular venous distension, thyromegaly, or carotid bruits. Lungs are clear to auscultation. Cardiac exam reveals regular rate and Rhythm. Tachycardic. Abdominal exam reveals normal bowel sounds, no masses, no organomegaly and no aortic enlargement. Extremities are nonedematous and both femoral and pedal pulses are normal. 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 No focal weakness. - Constitutional Vitals: Temp Pulse Resp BP Pulse Ox 100 F H 94 H 18 122/69 98 07/11/17 13:00 07/11/17 13:00 07/11/17 13:00 07/11/17 16:09 07/11/17 10:00 General appearance: Present: no acute distress, cachectic Results - Labs CBC & Chem 7: 07/11/17 05:46 07/11/17 05:46 Labs: Laboratory Last Values WBC 2.5 K/mm3 (4.5-11.0) L 07/11/17 05:46 RBC 3.40 M/mm3 (3.65-5.03) L 07/11/17 05:46 Hgb 8.6 gm/dl (10.1-14.3) L 07/11/17 05:46 Hct 26.3 % (30.3-42.9) L 07/11/17 05:46 MCV 77 fl (79-97) L 07/11/17 05:46 MCH 25 pg (28-32) L 07/11/17 05:46 MCHC 33 % (30-34) 07/11/17 05:46 RDW 18.9 % (13.2-15.2) H 07/11/17 05:46 Plt Count 135 K/mm3 (140-440) L 07/11/17 05:46 Lymph % (Auto) 20.4 % (13.4-35.0) 07/11/17 05:46 [place] % (Auto) 3.3 % (0.0-7.3) 07/11/17 05:46 Eos % (Auto) 4.1 % (0.0-4.3) 07/11/17 05:46 Baso % (Auto) 0.3 % (0.0-1.8) 07/11/17 05:46 Lymph # 0.5 K/mm3 (1.2-5.4) L 07/11/17 05:46 [place] # 0.1 K/mm3 (0.0-0.8) 07/11/17 05:46 Eos # 0.1 K/mm3 (0.0-0.4) 07/11/17 05:46 Baso # 0.0 K/mm3 (0.0-0.1) 07/11/17 05:46 Seg Neutrophils % 71.9 % (40.0-70.0) H 07/11/17 05:46 Seg Neutrophils # 1.8 K/mm3 (1.8-7.7) 07/11/17 05:46 PT 16.9 Sec. (12.2-14.9) H 07/10/17 20:38 INR 1.30 (0.87-1.13) H 07/10/17 20:38 Sodium 138 mmol/L (137-145) 07/11/17 05:46 Potassium 4.0 mmol/L (3.6-5.0) D 07/11/17 05:46 Chloride 99.2 mmol/L (98-107) 07/11/17 05:46 Carbon Dioxide 19 mmol/L (22-30) L 07/11/17 05:46 Anion Gap 24 mmol/L 07/11/17 05:46 BUN 76 mg/dL (7-17) H 07/11/17 05:46 Creatinine 11.6 mg/dL (0.7-1.2) H 07/11/17 05:46 Estimated GFR 4 ml/min 07/11/17 05:46 BUN/Creatinine Ratio 7 % 07/11/17 05:46 Glucose 109 mg/dL (65-100) H 07/11/17 05:46 Calcium 6.9 mg/dL (8.4-10.2) L 07/11/17 05:46 Phosphorus 6.20 mg/dL (2.5-4.5) H 07/10/17 20:38 Iron 23 ug/dL (37-170) L 07/10/17 20:38 TIBC 172 mcg/dL (250-450) L 07/10/17 20:38 Ferritin 199.5 ng/mL (13.0-400.0) 07/10/17 20:38 Troponin T 0.076 ng/mL (0.00-0.029) H 07/10/17 03:32 NT-Pro-B Natriuret Pep > 58223 pg/mL (0-450) H 07/10/17 20:38 Triglycerides 192 mg/dL (2-149) H 07/10/17 03:32 Cholesterol 140 mg/dL (50-199) 07/10/17 03:32 LDL Cholesterol Direct 67 mg/dL (50-130) 07/10/17 03:32 HDL Cholesterol 35 mg/dL (40-59) L 07/10/17 03:32 Cholesterol/HDL Ratio 4.00 % 07/10/17 03:32 HCG, Qual Negative (Negative) 07/10/17 03:32 Urine Color [place] (Yellow) 07/11/17 15:00 Urine Turbidity Cloudy (Clear) 07/11/17 15:00 Urine pH 5.0 (5.0-7.0) 07/11/17 15:00 Ur Specific [place] 1.015 (1.003-1.030) 07/11/17 15:00 Urine Protein >500 mg/dL (Negative) 07/11/17 15:00 Urine Glucose (UA) Neg mg/dL (Negative) 07/11/17 15:00 Urine Ketones Neg mg/dL (Negative) 07/11/17 15:00 Urine Blood Neg (Negative) 07/11/17 15:00 Urine Nitrite Neg (Negative) 07/11/17 15:00 Urine Bilirubin Neg (Negative) 07/11/17 15:00 Urine Urobilinogen < 2.0 mg/dL (<2.0) 07/11/17 15:00 Ur Leukocyte Esterase Tr (Negative) 07/11/17 15:00 Urine WBC (Auto) 5.0 /HPF (0.0-6.0) 07/11/17 15:00 Urine RBC (Auto) 14.0 /HPF (0.0-6.0) 07/11/17 15:00 U Epithel Cells (Auto) 18.0 /HPF (0-13.0) H 07/11/17 15:00 Urine Mucus Few /HPF 07/11/17 15:00 Urine Creatinine 139.2 mg/dL (0.1-20.0) H 07/11/17 15:00 Protein/Creatinin Ratio 4.99 07/11/17 15:00 Urine Total Protein 695 mg/dL (5-11.8) H 07/11/17 15:00 Hepatitis A IgM Ab Non-reactive (NonReactive) 07/10/17 20:38 Hep Bs Antigen Non-reactive (Negative) 07/10/17 20:38 Hep B Core IgM Ab Non-reactive (NonReactive) 07/10/17 20:38 Hepatitis C Antibody Non-reactive (NonReactive) 07/10/17 20:38 HIV 1&2 Antibody Rapid Non react (Non React) 07/10/17 20:38 HIV P24 Antigen Non react (Non React) 07/10/17 20:38 Blood Type O POSITIVE 07/10/17 05:29 Antibody Screen Negative 07/10/17 05:29 Crossmatch See Detail 07/10/17 05:29
[2017-07-11 23:46] LABS: Hematocrit 25.6 % (30.3-42.9); Hemoglobin 8.2 gm/dl (10.1-14.3)
[2017-07-12] MEDS: ROCEPHIN/NS 1 GM/50 ML 1 GM/50 ML BAG IV SCH ×2 (00:30→20:37)
[2017-07-12] MEDS: BIDIL 20/37.5MG PO SCH ×4 (06:57→22:05)
[2017-07-12 07:30] LABS: Mean Corpuscular HGB Conc 32 % (30-34); Mean Corpuscular Volume 78 fl (79-97); Platelet Count 140 K/mm3 (140-440); Red Blood Count 3.22 M/mm3 (3.65-5.03); Red Cell Distribution Width 19.3 % (13.2-15.2)
[2017-07-12 07:33] LABS: Mean Corpuscular Hemoglobin 25 pg (28-32)
--- NOTE | 2017-07-12 09:22 | Progress Note ---
Assessment and Plan Assessment and plan: Acute hypoxic respiratory failure, sepsis due to pneumonia - Patient is on oxygen support - Continue IV ceftriaxone and azithromycin, will repeat chest x-ray ESRD on HD -Patient had dialysis yesterday -Nephrology is following her -Patient may need outpatient dialysis setup Hyperkalemia - Resolved with treatment Chronic systolic CHF - Cardiology consulted and recommended medical management Symptomatic anemia - Transfused 2 units of blood and current hemoglobin is 8.0 Chest pain - Likely due to congestive heart failure/ pneumonia Lupus - Patient is on prednisone Dark stool - GI consulted and recommended no intervention at this time, and we will follow as needed DVT prophylaxis -SCD Disposition -Continue inpatient care History Interval history: Patient was seen and evaluated this morning , no new complaints. No nursing issues overnight. Hospitalist Physical - Physical exam Narrative exam: Not in cardiopulmonary distress. The patient appeared chronically sick looking. Vital signs as documented. Head exam is unremarkable. No scleral icterus, pale conjunctiva . Neck is without jugular venous distension, thyromegaly, or carotid bruits. Lungs are clear to auscultation. Cardiac exam reveals regular rate and Rhythm. Tachycardic. Abdominal exam reveals normal bowel sounds, no masses, no organomegaly and no aortic enlargement. Extremities are nonedematous and both femoral and pedal pulses are normal. 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 No focal weakness. - Constitutional Vitals: Temp Pulse Resp BP Pulse Ox 97.7 F 76 14 109/62 99 07/12/17 07:08 07/12/17 07:08 07/12/17 07:08 07/12/17 07:08 07/12/17 07:08 General appearance: Present: no acute distress, cachectic Results - Labs CBC & Chem 7: 07/12/17 06:35 07/12/17 06:35 Labs: Laboratory Last Values WBC 2.0 K/mm3 (4.5-11.0) L 07/12/17 06:35 RBC 3.22 M/mm3 (3.65-5.03) L 07/12/17 06:35 Hgb 8.0 gm/dl (10.1-14.3) L 07/12/17 06:35 Hct 25.0 % (30.3-42.9) L 07/12/17 06:35 MCV 78 fl (79-97) L 07/12/17 06:35 MCH 25 pg (28-32) L 07/12/17 06:35 MCHC 32 % (30-34) 07/12/17 06:35 RDW 19.3 % (13.2-15.2) H 07/12/17 06:35 Plt Count 140 K/mm3 (140-440) 07/12/17 06:35 Lymph % (Auto) 20.4 % (13.4-35.0) 07/11/17 05:46 [place] % (Auto) 3.3 % (0.0-7.3) 07/11/17 05:46 Eos % (Auto) 4.1 % (0.0-4.3) 07/11/17 05:46 Baso % (Auto) 0.3 % (0.0-1.8) 07/11/17 05:46 Lymph # 0.5 K/mm3 (1.2-5.4) L 07/11/17 05:46 [place] # 0.1 K/mm3 (0.0-0.8) 07/11/17 05:46 Eos # 0.1 K/mm3 (0.0-0.4) 07/11/17 05:46 Baso # 0.0 K/mm3 (0.0-0.1) 07/11/17 05:46 Seg Neutrophils % 71.9 % (40.0-70.0) H 07/11/17 05:46 Seg Neutrophils # 1.8 K/mm3 (1.8-7.7) 07/11/17 05:46 PT 16.9 Sec. (12.2-14.9) H 07/10/17 20:38 INR 1.30 (0.87-1.13) H 07/10/17 20:38 Sodium 138 mmol/L (137-145) 07/12/17 06:35 Potassium 3.8 mmol/L (3.6-5.0) 07/12/17 06:35 Chloride 96.9 mmol/L (98-107) L 07/12/17 06:35 Carbon Dioxide 26 mmol/L (22-30) D 07/12/17 06:35 Anion Gap 19 mmol/L 07/12/17 06:35 BUN 42 mg/dL (7-17) H 07/12/17 06:35 Creatinine 7.6 mg/dL (0.7-1.2) H 07/12/17 06:35 Estimated GFR 7 ml/min 07/12/17 06:35 BUN/Creatinine Ratio 6 % 07/12/17 06:35 Glucose 136 mg/dL (65-100) H 07/12/17 06:35 Calcium 7.0 mg/dL (8.4-10.2) L 07/12/17 06:35 Phosphorus 6.20 mg/dL (2.5-4.5) H 07/10/17 20:38 Iron 23 ug/dL (37-170) L 07/10/17 20:38 TIBC 172 mcg/dL (250-450) L 07/10/17 20:38 Ferritin 199.5 ng/mL (13.0-400.0) 07/10/17 20:38 Troponin T 0.076 ng/mL (0.00-0.029) H 07/10/17 03:32 NT-Pro-B Natriuret Pep > 39650 pg/mL (0-450) H 07/10/17 20:38 Triglycerides 192 mg/dL (2-149) H 07/10/17 03:32 Cholesterol 140 mg/dL (50-199) 07/10/17 03:32 LDL Cholesterol Direct 67 mg/dL (50-130) 07/10/17 03:32 HDL Cholesterol 35 mg/dL (40-59) L 07/10/17 03:32 Cholesterol/HDL Ratio 4.00 % 07/10/17 03:32 HCG, Qual Negative (Negative) 07/10/17 03:32 Urine Color [place] (Yellow) 07/11/17 15:00 Urine Turbidity Cloudy (Clear) 07/11/17 15:00 Urine pH 5.0 (5.0-7.0) 07/11/17 15:00 Ur Specific [place] 1.015 (1.003-1.030) 07/11/17 15:00 Urine Protein >500 mg/dL (Negative) 07/11/17 15:00 Urine Glucose (UA) Neg mg/dL (Negative) 07/11/17 15:00 Urine Ketones Neg mg/dL (Negative) 07/11/17 15:00 Urine Blood Neg (Negative) 07/11/17 15:00 Urine Nitrite Neg (Negative) 07/11/17 15:00 Urine Bilirubin Neg (Negative) 07/11/17 15:00 Urine Urobilinogen < 2.0 mg/dL (<2.0) 07/11/17 15:00 Ur Leukocyte Esterase Tr (Negative) 07/11/17 15:00 Urine WBC (Auto) 5.0 /HPF (0.0-6.0) 07/11/17 15:00 Urine RBC (Auto) 14.0 /HPF (0.0-6.0) 07/11/17 15:00 U Epithel Cells (Auto) 18.0 /HPF (0-13.0) H 07/11/17 15:00 Urine Mucus Few /HPF 07/11/17 15:00 Urine Creatinine 139.2 mg/dL (0.1-20.0) H 07/11/17 15:00 Protein/Creatinin Ratio 4.99 07/11/17 15:00 Urine Total Protein 695 mg/dL (5-11.8) H 07/11/17 15:00 Hepatitis A IgM Ab Non-reactive (NonReactive) 07/10/17 20:38 Hep Bs Antigen Non-reactive (Negative) 07/10/17 20:38 Hep B Core IgM Ab Non-reactive (NonReactive) 07/10/17 20:38 Hepatitis C Antibody Non-reactive (NonReactive) 07/10/17 20:38 HIV 1&2 Antibody Rapid Non react (Non React) 07/10/17 20:38 HIV P24 Antigen Non react (Non React) 07/10/17 20:38 Blood Type O POSITIVE 07/10/17 05:29 Antibody Screen Negative 07/10/17 05:29 Crossmatch See Detail 07/10/17 05:29
[2017-07-12] MEDS: SODIUM BICARBONATE PO SCH ×6 (09:50→22:06)
[2017-07-12] MEDS: COREG PO SCH ×3 (09:51→22:06)
--- NOTE | 2017-07-12 10:20 | Progress Note ---
Assessment and Plan Acute systolic heart failure 20-25% on echo 01/2017 ESRD initiated on HD Right pleural effusion, small to moderate on cxr. Severe anemia Hypertension Noncompliant with medical therapy and outpatient physician follow-ups Recommendations: Dialysis for fluid management. Continue medical management for systolic heart failure with beta blockers and afterload reduction therapy. Persantine thallium stress test before discharge. Subjective Date of service: 07/12/17 Principal diagnosis: ESRD needs HD Interval history: Patient has no cardiac complaints. Objective Vital Signs Temp Pulse Resp BP Pulse Ox 07/12/17 07:08 97.7 F 76 14 109/62 99 07/12/17 06:57 78 94/67 07/12/17 04:00 98.7 F 79 18 94/57 99 07/12/17 01:00 103 H 07/11/17 23:47 98.9 F 101 H 30 H 98/54 97 07/11/17 23:08 103 H 117/73 07/11/17 22:45 103 H 117/73 07/11/17 22:00 97 07/11/17 20:16 100.7 F H 117 H 16 117/73 86 07/11/17 17:31 99.2 F 114 H 18 102/62 85 07/11/17 16:09 122/69 07/11/17 13:39 122/69 07/11/17 13:00 100 F H 94 H 18 122/69 07/11/17 12:45 96 H 112/71 07/11/17 12:30 93 H 108/72 07/11/17 12:15 89 114/66 07/11/17 12:00 83 106/67 07/11/17 11:45 96 H 98/58 07/11/17 11:30 88 113/61 07/11/17 11:15 95 H 113/58 07/11/17 11:00 88 95/55 07/11/17 10:45 94 H 95/55 07/11/17 10:30 95 H 105/54 - Physical Examination General: No Apparent Distress HEENT: Positive: PERRL Cardiac: Positive: Reg Rate and Rhythm Neuro: Positive: Grossly Intact - Labs and Meds CBC 07/11/17 07/11/17 07/12/17 Range/Units 17:32 23:23 06:35 WBC 2.0 L (4.5-11.0) K/mm3 RBC 3.22 L (3.65-5.03) M/mm3 Hgb 8.1 L 8.2 L 8.0 L (10.1-14.3) gm/dl Hct 25.4 L 25.6 L 25.0 L (30.3-42.9) % Plt Count 140 (140-440) K/mm3 Comprehensive Metabolic Panel 07/12/17 Range/Units 06:35 Sodium 138 (137-145) mmol/L Potassium 3.8 (3.6-5.0) mmol/L Chloride 96.9 L (98-107) mmol/L Carbon Dioxide 26 D (22-30) mmol/L BUN 42 H (7-17) mg/dL Creatinine 7.6 H (0.7-1.2) mg/dL Glucose 136 H (65-100) mg/dL Calcium 7.0 L (8.4-10.2) mg/dL
--- NOTE | 2017-07-12 10:26 | Gastroenterology Progress Note ---
<ALEXANDRA COCHRAN - Last Filed: 07/12/17 10:17> Assessment and Plan 1.anemia -HGB 8.0- stable -continue to monitor H/H and transfuse as needed -no active signs of bleeding -etiology unclear -no plans at this time for EGD/colonoscopy unless overt bleeding develops due to pt currently being medically unstable with bilateral pneumonia vs CHF due to renal failure -recommend pt f/u as an outpatient for further evaluation to schedule EGD/ colonoscopy -continue supportive care -will sign off, please re-consult if needed Subjective Date of service: 07/12/17 Principal diagnosis: anemia Interval history: Patient resting in bed. No acute distress with family at bedside. No signs of active bleeding. Objective - Constitutional Vitals: Temp Pulse Resp BP Pulse Ox 97.7 F 76 14 109/62 99 07/12/17 07:08 07/12/17 07:08 07/12/17 07:08 07/12/17 07:08 07/12/17 07:08 General appearance: no acute distress - EENT Eyes: PERRL, EOM intact ENT: hearing intact - Respiratory Respiratory: right: diminished, left: other (crackles) - Cardiovascular Rhythm: regular Heart Sounds: Present: S1 & S2 - Gastrointestinal General gastrointestinal: Present: soft, non-tender, non-distended, normal bowel sounds - Neurologic Neurological: alert and oriented x3 - Labs CBC & Chem 7: 07/12/17 06:35 07/12/17 06:35 Labs: Laboratory Results - last 24 hr 07/11/17 07/11/17 07/11/17 15:00 15:00 17:32 WBC RBC Hgb 8.1 L Hct 25.4 L MCV MCH MCHC RDW Plt Count Sodium Potassium Chloride Carbon Dioxide Anion Gap BUN Creatinine Estimated GFR BUN/Creatinine Ratio Glucose Calcium Urine Color [place] Urine Turbidity Cloudy Urine pH 5.0 Ur Specific [place] 1.015 Urine Protein >500 Urine Glucose (UA) Neg Urine Ketones Neg Urine Blood Neg Urine Nitrite Neg Urine Bilirubin Neg Urine Urobilinogen < 2.0 Ur Leukocyte Esterase Tr Urine WBC (Auto) 5.0 Urine RBC (Auto) 14.0 U Epithel Cells (Auto) 18.0 H Urine Mucus Few Urine Creatinine 139.2 H Protein/Creatinin Ratio 4.99 Urine Total Protein 695 H 01/08/2707/12/17 07/12/17 23:23 06:35 06:35 WBC 2.0 L RBC 3.22 L Hgb 8.2 L 8.0 L Hct 25.6 L 25.0 L MCV 78 L MCH 25 L MCHC 32 RDW 19.3 H Plt Count 140 Sodium 138 Potassium 3.8 Chloride 96.9 L Carbon Dioxide 26 D Anion Gap 19 BUN 42 H Creatinine 7.6 H Estimated GFR 7 BUN/Creatinine Ratio 6 Glucose 136 H Calcium 7.0 L Urine Color Urine Turbidity Urine pH Ur Specific [place] Urine Protein Urine Glucose (UA) Urine Ketones Urine Blood Urine Nitrite Urine Bilirubin Urine Urobilinogen Ur Leukocyte Esterase Urine WBC (Auto) Urine RBC (Auto) U Epithel Cells (Auto) Urine Mucus Urine Creatinine Protein/Creatinin Ratio Urine Total Protein <SUSHMA KUMAR R - Last Filed: 07/13/17 08:06> Assessment and Plan Discussed with Dr. Vivas. Please call as needed. Objective - Constitutional Vitals: Temp Pulse Resp BP Pulse Ox 98.7 F 83 20 127/79 93 07/13/17 04:08 07/13/17 04:08 07/13/17 04:08 07/13/17 04:08 07/13/17 04:08 - Labs CBC & Chem 7: 07/13/17 06:30 07/13/17 06:30 Labs: Laboratory Results - last 24 hr 07/10/17 07/12/17 07/13/17 20:38 06:35 06:30 WBC RBC Hgb Hct MCV MCH MCHC RDW Plt Count Lymph % (Auto) [place] % (Auto) Eos % (Auto) Baso % (Auto) Lymph # [place] # Eos # Baso # Add Manual Diff Complete Total Counted 100 Seg Neutrophils % Seg Neuts % (Manual) 88.0 H Band Neutrophils % 4.0 Lymphocytes % (Manual) 6.0 L Reactive Lymphs % (Man) 0 Monocytes % (Manual) 1.0 Eosinophils % (Manual) 1.0 Basophils % (Manual) 0 Metamyelocytes % 0 Myelocytes % 0 Promyelocytes % 0 Blast Cells % 0 Nucleated RBC % Not Reportable Seg Neutrophils # Seg Neutrophils # Man 1.8 Band Neutrophils # 0.1 Lymphocytes # (Manual) 0.1 L Abs React Lymphs (Man) 0.0 Monocytes # (Manual) 0.0 Eosinophils # (Manual) 0.0 Basophils # (Manual) 0.0 Metamyelocytes # 0.0 Myelocytes # 0.0 Promyelocytes # 0.0 Blast Cells # 0.0 WBC Morphology Not Reportable Hypersegmented Neuts Not Reportable Hyposegmented Neuts Not Reportable Hypogranular Neuts Not Reportable Smudge Cells Not Reportable Toxic Granulation Not Reportable Toxic Vacuolation Not Reportable Dohle Bodies Not Reportable Pelger-Huet Anomaly Not Reportable Von Rods Not Reportable Platelet Estimate Not Reportable Clumped Platelets Not Reportable Plt Clumps, EDTA Not Reportable Large Platelets Not Reportable Giant Platelets Not Reportable Platelet Satelliting Not Reportable Plt Morphology Comment Not Reportable RBC Morphology Not Reportable Dimorphic RBCs Not Reportable Polychromasia Not Reportable Hypochromasia 1+ Poikilocytosis 1+ Anisocytosis 1+ Microcytosis Not Reportable Macrocytosis Not Reportable Spherocytes Not Reportable Pappenheimer Bodies Not Reportable Sickle Cells Not Reportable Target Cells Not Reportable Tear Drop Cells Not Reportable Ovalocytes Not Reportable Helmet Cells Not Reportable Burnette-Amo Bodies Not Reportable Dixon Rings Not Reportable [place] Cells Not Reportable Bite Cells Not Reportable Crenated Cell Not Reportable Elliptocytes Not Reportable Acanthocytes (Spur) Not Reportable Rouleaux Not Reportable Hemoglobin C Crystals Not Reportable Schistocytes Not Reportable Malaria parasites Not Reportable Niraj Bodies Not Reportable Hem Pathologist Commnt No Sodium 139 Potassium 3.8 Chloride 95.5 L Carbon Dioxide 24 Anion Gap 23 BUN 55 H Creatinine 9.0 H Estimated GFR 6 BUN/Creatinine Ratio 6 Glucose 147 H Calcium 6.8 L Double Strand DNA Ab 199 H 07/13/17 06:30 WBC 4.2 L RBC 3.28 L Hgb 8.1 L Hct 25.6 L MCV 78 L MCH 25 L MCHC 32 RDW 19.0 H Plt Count 166 Lymph % (Auto) 10.9 L [place] % (Auto) 4.5 Eos % (Auto) 0.0 Baso % (Auto) 0.3 Lymph # 0.5 L [place] # 0.2 Eos # 0.0 Baso # 0.0 Add Manual Diff Total Counted Seg Neutrophils % 84.3 H Seg Neuts % (Manual) Band Neutrophils % Lymphocytes % (Manual) Reactive Lymphs % (Man) Monocytes % (Manual) Eosinophils % (Manual) Basophils % (Manual) Metamyelocytes % Myelocytes % Promyelocytes % Blast Cells % Nucleated RBC % Seg Neutrophils # 3.5 Seg Neutrophils # Man Band Neutrophils # Lymphocytes # (Manual) Abs React Lymphs (Man) Monocytes # (Manual) Eosinophils # (Manual) Basophils # (Manual) Metamyelocytes # Myelocytes # Promyelocytes # Blast Cells # WBC Morphology Hypersegmented Neuts Hyposegmented Neuts Hypogranular Neuts Smudge Cells Toxic Granulation Toxic Vacuolation Dohle Bodies Pelger-Huet Anomaly Von Rods Platelet Estimate Clumped Platelets Plt Clumps, EDTA Large Platelets Giant Platelets Platelet Satelliting Plt Morphology Comment RBC Morphology Dimorphic RBCs Polychromasia Hypochromasia Poikilocytosis Anisocytosis Microcytosis Macrocytosis Spherocytes Pappenheimer Bodies Sickle Cells Target Cells Tear Drop Cells Ovalocytes Helmet Cells Burnette-Amo Bodies Dixon Rings Antoni Cells Bite Cells Crenated Cell Elliptocytes Acanthocytes (Spur) Rouleaux Hemoglobin C Crystals Schistocytes Malaria parasites Niraj Bodies Hem Pathologist Commnt Sodium Potassium Chloride Carbon Dioxide Anion Gap BUN Creatinine Estimated GFR BUN/Creatinine Ratio Glucose Calcium Double Strand DNA Ab
[2017-07-12 10:35] LABS: Band Neutrophils # (Manual) 0.1 K/mm3; Basophils % (Manual) 0 % (0.0-1.8); Total Cells Counted 100
[2017-07-12 10:36] LABS: Anisocytosis 1+; Hypochromasia 1+; Poikilocytosis 1+
--- NOTE | 2017-07-12 11:15 | XRay Report ---
Portable chest: SOB. There is a moderate sized right pleural effusion. Minimal redistribution of vascular flow to the upper lobes with mild enlargement of the heart. A left jugular central venous line is present with the tip in the right atrium. Compared to the prior examination of July 10 the vascular pattern has markedly improved with probable slight decrease in the right effusion. Impressions: The findings are consistent with an improving vascular congestive/fluid overload pattern.
--- NOTE | 2017-07-12 11:29 | Progress Note ---
Assessment and Plan - Patient Problems (1) End stage renal disease on dialysis Current Visit: Yes Status: Acute Plan to address problem: Hemodialysis again today for UF and clearance via left IJ vascular catheter Will need perm-catheter placement prior to discharge, reconsulted vascular surgeon Case Management onboard for outpatient dialysis placement to [facility] [place] [facility] or [facility] per orders Scheduled for Stress test tomorrow Fluid restriction of 1 liter per day Renally dose medications Monitor I/O's Assess dialysis needs daily (2) Acute on chronic systolic heart failure Current Visit: Yes Status: Acute Plan to address problem: Stress test in a.m per Cardiology (3) Bilateral pneumonia Current Visit: Yes Status: Acute Qualifiers: Pneumonia type: due to unspecified organism Lung location: unspecified part of lung Qualified Code(s): J18.9 - Pneumonia, unspecified organism Plan to address problem: On IV Azithromycin, Rocephin and Prednisone (4) Anemia Current Visit: Yes Status: Acute Plan to address problem: Anemia secondary to Lupus and ESRD On Epogen 10,000 units SQ every M,W, (5) Systemic lupus Current Visit: Yes Status: Acute Plan to address problem: On Prednisone 40 mg po daily as per Primary Subjective Date of service: 07/12/17 Principal diagnosis: anemia Interval history: Patient sitting up in bed. Sister at bedside. Objective - Vital Signs Vital signs: Vital Signs - 12hr 07/11/17 07/12/17 07/12/17 23:47 01:00 04:00 Temperature 98.9 F 98.7 F Pulse Rate 101 H 103 H 79 Respiratory 30 H 18 Rate Blood Pressure 98/54 94/57 O2 Sat by Pulse 97 99 Oximetry 07/12/17 07/12/17 06:57 07:08 Temperature 97.7 F Pulse Rate 78 76 Respiratory 14 Rate Blood Pressure 94/67 109/62 O2 Sat by Pulse 99 Oximetry - General Appearance General appearance: well-developed, appears stated age EENT: ATNC, PERRL, hearing intact, vision intact Neck: no JVD, supple Respiratory: Present: Decreased Breath Sounds Cardiology: regular, S1S2 Gastrointestinal: normoactive bowel sounds Integumentary: warm and dry Neurologic: alert and oriented x3 Musculoskeletal: other (mild edema to BLE) Psychiatric: mood/affect appropriate, cooperative - Lab 07/12/17 06:35 07/12/17 06:35 Most recent lab results Calcium 7.0 mg/dL (8.4-10.2) L 07/12/17 06:35 Phosphorus 6.20 mg/dL (2.5-4.5) H 07/10/17 20:38 Urine Creatinine 139.2 mg/dL (0.1-20.0) H 07/11/17 15:00 Urine Total Protein 695 mg/dL (5-11.8) H 07/11/17 15:00
[2017-07-12] MEDS: DELTASONE PO SCH (11:46)
[2017-07-12] MEDS: XANAX PO SCH ×2 (11:46→22:05)
[2017-07-12] MEDS: ZITHROMAX 500 MG in NACL 0.9% 250ML 250 ML IV SCH ×2 (14:48)
--- NOTE | 2017-07-12 17:39 | Progress Note ---
Assessment and Plan Patient will need conversion of her Vas-Cath to permacath prior to discharge and consideration for creation of permanent AV access in her left (nondominant) arm and we'll plan on permacath tomorrow. Subjective Date of service: 07/12/17 Principal diagnosis: anemia Interval history: Tolerating dialysis well. Feels better Objective - Exam Narrative Exam: Left IJ Vas-Cath. Right external jugular IV - Constitutional Vitals: Vital Signs - 12hr 07/12/17 07/12/17 07/12/17 06:57 07:08 11:39 Temperature 97.7 F 97.9 F Pulse Rate 78 76 75 Pulse Rate [ Right Radial] Respiratory 14 18 Rate Blood Pressure 94/67 109/62 111/63 O2 Sat by Pulse 99 99 Oximetry 07/12/17 07/12/17 12:14 16:00 Temperature 97.7 F Pulse Rate 84 Pulse Rate [ 71 Right Radial] Respiratory 16 Rate Blood Pressure 136/77 O2 Sat by Pulse 97 Oximetry - Labs CBC & Chem 7: 07/12/17 06:35 07/12/17 06:35 Labs: Abnormal lab results 07/11/17 07/11/17 07/12/17 Range/Units 17:32 23:23 06:35 WBC 2.0 L (4.5-11.0) K/mm3 RBC 3.22 L (3.65-5.03) M/mm3 Hgb 8.1 L 8.2 L 8.0 L (10.1-14.3) gm/dl Hct 25.4 L 25.6 L 25.0 L (30.3-42.9) % MCV 78 L (79-97) fl MCH 25 L (28-32) pg RDW 19.3 H (13.2-15.2) % Seg Neuts % (Manual) 88.0 H (40.0-70.0) % Lymphocytes % (Manual) 6.0 L (13.4-35.0) % Lymphocytes # (Manual) 0.1 L (1.2-5.4) K/mm3 Chloride (98-107) mmol/L BUN (7-17) mg/dL Creatinine (0.7-1.2) mg/dL Glucose (65-100) mg/dL Calcium (8.4-10.2) mg/dL 07/12/17 Range/Units 06:35 WBC (4.5-11.0) K/mm3 RBC (3.65-5.03) M/mm3 Hgb (10.1-14.3) gm/dl Hct (30.3-42.9) % MCV (79-97) fl MCH (28-32) pg RDW (13.2-15.2) % Seg Neuts % (Manual) (40.0-70.0) % Lymphocytes % (Manual) (13.4-35.0) % Lymphocytes # (Manual) (1.2-5.4) K/mm3 Chloride 96.9 L (98-107) mmol/L BUN 42 H (7-17) mg/dL Creatinine 7.6 H (0.7-1.2) mg/dL Glucose 136 H (65-100) mg/dL Calcium 7.0 L (8.4-10.2) mg/dL
[2017-07-12] MEDS: PROCRIT SUB-Q SCH (20:04)
[2017-07-12] MEDS: cefTRIAXone 1 GM in NACL 0.9% 20 ML IV SCH (23:46)
[2017-07-13] MEDS: BIDIL 20/37.5MG PO SCH ×3 (06:05→22:00)
[2017-07-13 07:00] LABS: Basophils % (Auto) 0.3 % (0.0-1.8); Hematocrit 25.6 % (30.3-42.9); Hemoglobin 8.1 gm/dl (10.1-14.3); Lymphocytes # (Auto) 0.5 K/mm3 (1.2-5.4); Lymphocytes % (Auto) 10.9 % (13.4-35.0); Mean Corpuscular HGB Conc 32 % (30-34); Mean Corpuscular Volume 78 fl (79-97); Monocytes # (Auto) 0.2 K/mm3 (0.0-0.8); Monocytes % (Auto) 4.5 % (0.0-7.3); Platelet Count 166 K/mm3 (140-440); Red Blood Count 3.28 M/mm3 (3.65-5.03)
[2017-07-13 07:02] LABS: Mean Corpuscular Hemoglobin 25 pg (28-32)
[2017-07-13 07:19] LABS: Calcium 6.8 mg/dL (8.4-10.2)
[2017-07-13] MEDS ORDERED: XYLOCAINE 1% 20 mL ONE (08:18)
[2017-07-13] MEDS ORDERED: VERSED ONE (08:18)
[2017-07-13] MEDS ORDERED: HEPARIN/NS 5000 UNIT/500ML(CATH LAB) 500 ML IR ONE (08:18)
[2017-07-13] MEDS ORDERED: NACL 0.9% 100 ML ONE (08:33)
[2017-07-13] MEDS: SUBLIMAZE ONE ×2 (08:49→08:54)
[2017-07-13] MEDS: HEPARIN 10,000 UNITS/10 ML ONE ×2 (09:03→09:04)
--- NOTE | 2017-07-13 09:34 | Operative Report ---
Operative Report Operative Report: EXAM: 1. Ultrasound-guided puncture of the right internal jugular vein 2. Fluoroscopic-guided placement of a right internal jugular tunneled cuffed hemodialysis catheter. 3. Fluoroscopic guided removal of the left internal jugular non-tunneled non- cuffed hemodialysis catheter DATE: 07/13/17 INDICATION: End-stage renal disease requiring hemodialysis access MEDICATIONS: Please see nursing report for full details. DEVICES: 23 cm tip to cuff 15 Fr dual lumen hemodialysis catheter PUBLIC SPEAKING COACH: HO DAVE MD CONTRAST: None PROCEDURE: The risks, benefits, and alternatives were discussed and informed consent was obtained. The patient was transported to the angiography suite in satisfactory/ stable condition and was transported onto the angiography table. The patient's right internal jugular vein was assessed with ultrasound and determined to be patent prior to procedure. The patient was prepped and draped in a sterile fashion. The puncture site was anesthetized. Under sonographic guidance, the right internal jugular vein was punctured with a 21-gauge micropuncture needle and a 0.018 inch wire was advanced into the inferior vena cava. The micropuncture needle was exchanged for a transitional dilator and the wire was retracted into the right atrium to matthew intravascular distance. The wire and inner dilator were removed. 0.035 inch wire was advanced through the transitional dilator into the inferior vena cava. A suitable exit site was identified on the patient's chest inferior and lateral to the venotomy. The site was anesthetized with local anesthetic and the track was anesthetized. Dermatotomy was made. The PermCath was attached to the tunneling device and tunneled between the dermatotomy to the venotomy. Over the 0.035 inch wire, serial dilatation was performed with ultimate placement of a peel-away sheath. The catheter was advanced through the peel- away sheath after the wire was removed and positioned centrally under fluoroscopic guidance. The peel-away sheath was removed. 4-0 Vicryl suture was used to close the venotomy and Dermabond was then applied. 2-0 Ethilon suture was used to secure the catheter at the dermatotomy. The catheter was charged with heparin 1000 units per mL of space. Sterile dressing applied. Left internal jugular non-tunneled non-cuffed hemodialysis catheter sutures were then cut. The catheter was removed under fluoroscopic guidance and pressure was held until hemostasis was achieved. Sterile dressing applied. The patient was transferred from the angiography suite back to the floor in stable condition. FINDINGS: 1. Excellent flow was obtained through the dialysis catheter with 20 mL syringes. 2. The newly placed catheter tip is in the right atrium. 3. Successful removal of the left internal jugular catheter non-tunneled non- cuffed hemodialysis catheter. IMPRESSION: 1. Successful ultrasound and fluoroscopically guided placement of a right internal jugular tunneled cuffed hemodialysis catheter. 2. Successful fluoroscopic removal of a left internal jugular non-tunneled non- cuffed hemodialysis catheter.
[2017-07-13] MEDS ORDERED: NACL 0.9% 100 ML IV PRN (11:00)
--- NOTE | 2017-07-13 11:53 | Progress Note ---
Assessment and Plan Acute systolic heart failure 20-25% on echo 01/2017 ESRD initiated on HD Right pleural effusion, small to moderate on cxr. Severe anemia Hypertension Noncompliant with medical therapy and outpatient physician follow-ups Recommendations: Dialysis for fluid management. Continue medical management for systolic heart failure with beta blockers and afterload reduction therapy. Persantine thallium stress test before discharge. Subjective Date of service: 07/13/17 Principal diagnosis: anemia Interval history: Patient has no cardiac complaints. Objective Vital Signs Temp Pulse Pulse Resp BP Pulse Ox 07/13/17 07:33 98.7 F 86 20 128/77 96 07/13/17 04:08 98.7 F 83 20 127/79 93 07/13/17 00:31 98.3 F 86 20 128/80 93 07/12/17 22:26 87 07/12/17 22:00 100 07/12/17 19:51 98.2 F 88 18 118/72 97 07/12/17 17:54 75 136/77 07/12/17 17:00 74 07/12/17 16:00 97.7 F 84 16 136/77 97 07/12/17 12:14 71 - Physical Examination General: No Apparent Distress HEENT: Positive: PERRL Cardiac: Positive: Reg Rate and Rhythm Neuro: Positive: Grossly Intact Extremities: Present: +1 Edema - Labs and Meds CBC 07/13/17 Range/Units 06:30 WBC 4.2 L (4.5-11.0) K/mm3 RBC 3.28 L (3.65-5.03) M/mm3 Hgb 8.1 L (10.1-14.3) gm/dl Hct 25.6 L (30.3-42.9) % Plt Count 166 (140-440) K/mm3 Lymph # 0.5 L (1.2-5.4) K/mm3 Gordon # 0.2 (0.0-0.8) K/mm3 Eos # 0.0 (0.0-0.4) K/mm3 Baso # 0.0 (0.0-0.1) K/mm3 Comprehensive Metabolic Panel 07/13/17 Range/Units 06:30 Sodium 139 (137-145) mmol/L Potassium 3.8 (3.6-5.0) mmol/L Chloride 95.5 L (98-107) mmol/L Carbon Dioxide 24 (22-30) mmol/L BUN 55 H (7-17) mg/dL Creatinine 9.0 H (0.7-1.2) mg/dL Glucose 147 H (65-100) mg/dL Calcium 6.8 L (8.4-10.2) mg/dL
[2017-07-13] MEDS ORDERED: NACL 0.9 (PRIMING MACHINE ONLY DIALYSIS) MC ONE (13:36)
--- NOTE | 2017-07-13 14:40 | Progress Note ---
Assessment and Plan Chronic Kidney disease stage 5 due to Lupus/HTN now End stage renal disease: -s/p TDC today. HD today. Will place on TTS HD schedule for now. CM consulted to place pt at [facility] Augie/Jason. Pending. -Renally dose all meds -Low K Renal diet Sepsis possibly due to Pneumonia: -CXR shows edema vs consolidation -Cultured -On ABx Hypoxic respiratory failure: Volume overload: -UF with HD Anemia of chronic disease likely due to CKD, Lupus: Possible GI bleed: -Getting blood transfusion -Iron panel ordered. Iron Sats low but no IV iron for now due to possible infection. -Epogen started -GI consulted Hyperkalemia: -Better with HD -Low K diet Metabolic acidosis: -Better with HD. -D/c NaHCO3 tabs Lupus: -Per primary Leukopenia: Thrombocytopenia: -From Lupus -Per primary Chest Pain: -Per primary and Cardiology. Álvaro Nash MD Nephrology, Hypertension, Dialysis, Transplantation Phone no: [phone] Subjective Date of service: 07/13/17 Principal diagnosis: anemia Interval history: Denies CP, SHOB. HD today. Objective - Exam Narrative Exam: [id number] HEENT: PERRLA Neck: No JVD CVS: RRR Chest: Coarse BS BL, Rt IJ TDC Abd: Soft/NT/ND/BS+ Ext: 1+ BLE edema Psyche: Appropriate mood - Vital Signs Vital signs: Vital Signs - 12hr 07/13/17 07/13/17 07/13/17 04:08 07:33 11:40 Temperature 98.7 F 98.7 F 98.7 F Pulse Rate 83 86 80 Respiratory 20 20 18 Rate Blood Pressure 127/79 128/77 145/88 O2 Sat by Pulse 93 96 Oximetry 07/13/17 07/13/17 07/13/17 12:00 12:15 12:30 Temperature Pulse Rate 82 84 85 Respiratory Rate Blood Pressure 154/97 152/91 143/95 O2 Sat by Pulse Oximetry 07/13/17 07/13/17 07/13/17 12:45 13:00 13:15 Temperature Pulse Rate 85 86 86 Respiratory Rate Blood Pressure 146/94 154/97 152/94 O2 Sat by Pulse Oximetry - Lab 07/13/17 06:30 07/13/17 06:30 Most recent lab results Calcium 6.8 mg/dL (8.4-10.2) L 07/13/17 06:30 Phosphorus 6.20 mg/dL (2.5-4.5) H 07/10/17 20:38 Urine Creatinine 139.2 mg/dL (0.1-20.0) H 07/11/17 15:00 Urine Total Protein 695 mg/dL (5-11.8) H 07/11/17 15:00
[2017-07-13] MEDS: PROCRIT SUB-Q SCH (16:09)
[2017-07-13] MEDS: HEPARIN IV PRN (16:11)
[2017-07-13] MEDS: COREG PO SCH ×2 (16:40→22:00)
[2017-07-13] MEDS: DELTASONE PO SCH (16:41)
[2017-07-13] MEDS: XANAX PO SCH ×2 (16:41→22:03)
[2017-07-13] MEDS: SODIUM BICARBONATE PO SCH (16:42)
--- NOTE | 2017-07-13 16:52 | Progress Note ---
Assessment and Plan Assessment and plan: Acute hypoxic respiratory failure, sepsis due to pneumonia - Patient is on oxygen support - Continue IV ceftriaxone and azithromycin, will repeat chest x-ray ESRD on HD -Patient had dialysis yesterday -Nephrology is following her -Patient may need outpatient dialysis setup Hyperkalemia - Resolved with treatment Chronic systolic CHF - Cardiology consulted and recommended medical management Symptomatic anemia - Transfused 2 units of blood and current hemoglobin is 8.0 Chest pain - Likely due to congestive heart failure/ pneumonia Lupus - Patient is on prednisone Dark stool - GI consulted and recommended no intervention at this time, and we will follow as needed DVT prophylaxis -SCD Disposition -Continue inpatient care History Interval history: Patient was seen and evaluated this morning , no new complaints. No nursing issues overnight. Hospitalist Physical - Physical exam Narrative exam: Not in cardiopulmonary distress. The patient appeared chronically sick looking. Vital signs as documented. Head exam is unremarkable. No scleral icterus, pale conjunctiva . Neck is without jugular venous distension, thyromegaly, or carotid bruits. Lungs are clear to auscultation. Cardiac exam reveals regular rate and Rhythm. Tachycardic. Abdominal exam reveals normal bowel sounds, no masses, no organomegaly and no aortic enlargement. Extremities are nonedematous and both femoral and pedal pulses are normal. 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 No focal weakness. - Constitutional Vitals: Temp Pulse Resp BP Pulse Ox 97.9 F 91 H 18 143/82 100 07/13/17 15:38 07/13/17 15:38 07/13/17 15:38 07/13/17 15:38 07/13/17 15:38 General appearance: Present: no acute distress, cachectic Results - Labs CBC & Chem 7: 07/13/17 06:30 07/13/17 06:30 Labs: Laboratory Last Values WBC 4.2 K/mm3 (4.5-11.0) L 07/13/17 06:30 RBC 3.28 M/mm3 (3.65-5.03) L 07/13/17 06:30 Hgb 8.1 gm/dl (10.1-14.3) L 07/13/17 06:30 Hct 25.6 % (30.3-42.9) L 07/13/17 06:30 MCV 78 fl (79-97) L 07/13/17 06:30 MCH 25 pg (28-32) L 07/13/17 06:30 MCHC 32 % (30-34) 07/13/17 06:30 RDW 19.0 % (13.2-15.2) H 07/13/17 06:30 Plt Count 166 K/mm3 (140-440) 07/13/17 06:30 Lymph % (Auto) 10.9 % (13.4-35.0) L 07/13/17 06:30 [place] % (Auto) 4.5 % (0.0-7.3) 07/13/17 06:30 Eos % (Auto) 0.0 % (0.0-4.3) 07/13/17 06:30 Baso % (Auto) 0.3 % (0.0-1.8) 07/13/17 06:30 Lymph # 0.5 K/mm3 (1.2-5.4) L 07/13/17 06:30 [place] # 0.2 K/mm3 (0.0-0.8) 07/13/17 06:30 Eos # 0.0 K/mm3 (0.0-0.4) 07/13/17 06:30 Baso # 0.0 K/mm3 (0.0-0.1) 07/13/17 06:30 Add Manual Diff Complete 07/12/17 06:35 Total Counted 100 07/12/17 06:35 Seg Neutrophils % 84.3 % (40.0-70.0) H 07/13/17 06:30 Seg Neuts % (Manual) 88.0 % (40.0-70.0) H 07/12/17 06:35 Band Neutrophils % 4.0 % 07/12/17 06:35 Lymphocytes % (Manual) 6.0 % (13.4-35.0) L 07/12/17 06:35 Reactive Lymphs % (Man) 0 % 07/12/17 06:35 Monocytes % (Manual) 1.0 % (0.0-7.3) 07/12/17 06:35 Eosinophils % (Manual) 1.0 % (0.0-4.3) 07/12/17 06:35 Basophils % (Manual) 0 % (0.0-1.8) 07/12/17 06:35 Metamyelocytes % 0 % 07/12/17 06:35 Myelocytes % 0 % 07/12/17 06:35 Promyelocytes % 0 % 07/12/17 06:35 Blast Cells % 0 % 07/12/17 06:35 Nucleated RBC % Not Reportable 07/12/17 06:35 Seg Neutrophils # 3.5 K/mm3 (1.8-7.7) 07/13/17 06:30 Seg Neutrophils # Man 1.8 K/mm3 (1.8-7.7) 07/12/17 06:35 Band Neutrophils # 0.1 K/mm3 07/12/17 06:35 Lymphocytes # (Manual) 0.1 K/mm3 (1.2-5.4) L 07/12/17 06:35 Abs React Lymphs (Man) 0.0 K/mm3 07/12/17 06:35 Monocytes # (Manual) 0.0 K/mm3 (0.0-0.8) 07/12/17 06:35 Eosinophils # (Manual) 0.0 K/mm3 (0.0-0.4) 07/12/17 06:35 Basophils # (Manual) 0.0 K/mm3 (0.0-0.1) 07/12/17 06:35 Metamyelocytes # 0.0 K/mm3 07/12/17 06:35 Myelocytes # 0.0 K/mm3 07/12/17 06:35 Promyelocytes # 0.0 K/mm3 07/12/17 06:35 Blast Cells # 0.0 K/mm3 07/12/17 06:35 WBC Morphology Not Reportable 07/12/17 06:35 Hypersegmented Neuts Not Reportable 07/12/17 06:35 Hyposegmented Neuts Not Reportable 07/12/17 06:35 Hypogranular Neuts Not Reportable 07/12/17 06:35 Smudge Cells Not Reportable 07/12/17 06:35 Toxic Granulation Not Reportable 07/12/17 06:35 Toxic Vacuolation Not Reportable 07/12/17 06:35 Dohle Bodies Not Reportable 07/12/17 06:35 Pelger-Huet Anomaly Not Reportable 07/12/17 06:35 Von Rods Not Reportable 07/12/17 06:35 Platelet Estimate Not Reportable 07/12/17 06:35 Clumped Platelets Not Reportable 07/12/17 06:35 Plt Clumps, EDTA Not Reportable 07/12/17 06:35 Large Platelets Not Reportable 07/12/17 06:35 Giant Platelets Not Reportable 07/12/17 06:35 Platelet Satelliting Not Reportable 07/12/17 06:35 Plt Morphology Comment Not Reportable 07/12/17 06:35 RBC Morphology Not Reportable 07/12/17 06:35 Dimorphic RBCs Not Reportable 07/12/17 06:35 Polychromasia Not Reportable 07/12/17 06:35 Hypochromasia 1+ 07/12/17 06:35 Poikilocytosis 1+ 07/12/17 06:35 Anisocytosis 1+ 07/12/17 06:35 Microcytosis Not Reportable 07/12/17 06:35 Macrocytosis Not Reportable 07/12/17 06:35 Spherocytes Not Reportable 07/12/17 06:35 Pappenheimer Bodies Not Reportable 07/12/17 06:35 Sickle Cells Not Reportable 07/12/17 06:35 Target Cells Not Reportable 07/12/17 06:35 Tear Drop Cells Not Reportable 07/12/17 06:35 Ovalocytes Not Reportable 07/12/17 06:35 Helmet Cells Not Reportable 07/12/17 06:35 [place] Bodies Not Reportable 07/12/17 06:35 [place] Rings Not Reportable 07/12/17 06:35 Antoni Cells Not Reportable 07/12/17 06:35 Bite Cells Not Reportable 07/12/17 06:35 Crenated Cell Not Reportable 07/12/17 06:35 Elliptocytes Not Reportable 07/12/17 06:35 Acanthocytes (Spur) Not Reportable 07/12/17 06:35 Rouleaux Not Reportable 07/12/17 06:35 Hemoglobin C Crystals Not Reportable 07/12/17 06:35 Schistocytes Not Reportable 07/12/17 06:35 Malaria parasites Not Reportable 07/12/17 06:35 Niraj Bodies Not Reportable 07/12/17 06:35 Hem Pathologist Commnt No 07/12/17 06:35 PT 16.9 Sec. (12.2-14.9) H 07/10/17 20:38 INR 1.30 (0.87-1.13) H 07/10/17 20:38 Sodium 139 mmol/L (137-145) 07/13/17 06:30 Potassium 3.8 mmol/L (3.6-5.0) 07/13/17 06:30 Chloride 95.5 mmol/L (98-107) L 07/13/17 06:30 Carbon Dioxide 24 mmol/L (22-30) 07/13/17 06:30 Anion Gap 23 mmol/L 07/13/17 06:30 BUN 55 mg/dL (7-17) H 07/13/17 06:30 Creatinine 9.0 mg/dL (0.7-1.2) H 07/13/17 06:30 Estimated GFR 6 ml/min 07/13/17 06:30 BUN/Creatinine Ratio 6 % 07/13/17 06:30 Glucose 147 mg/dL (65-100) H 07/13/17 06:30 Calcium 6.8 mg/dL (8.4-10.2) L 07/13/17 06:30 Phosphorus 6.20 mg/dL (2.5-4.5) H 07/10/17 20:38 Iron 23 ug/dL (37-170) L 07/10/17 20:38 TIBC 172 mcg/dL (250-450) L 07/10/17 20:38 Ferritin 199.5 ng/mL (13.0-400.0) 07/10/17 20:38 Troponin T 0.076 ng/mL (0.00-0.029) H 07/10/17 03:32 NT-Pro-B Natriuret Pep > 16708 pg/mL (0-450) H 07/10/17 20:38 Triglycerides 192 mg/dL (2-149) H 07/10/17 03:32 Cholesterol 140 mg/dL (50-199) 07/10/17 03:32 LDL Cholesterol Direct 67 mg/dL (50-130) 07/10/17 03:32 HDL Cholesterol 35 mg/dL (40-59) L 07/10/17 03:32 Cholesterol/HDL Ratio 4.00 % 07/10/17 03:32 HCG, Qual Negative (Negative) 07/10/17 03:32 Urine Color [place] (Yellow) 07/11/17 15:00 Urine Turbidity Cloudy (Clear) 07/11/17 15:00 Urine pH 5.0 (5.0-7.0) 07/11/17 15:00 Ur Specific [place] 1.015 (1.003-1.030) 07/11/17 15:00 Urine Protein >500 mg/dL (Negative) 07/11/17 15:00 Urine Glucose (UA) Neg mg/dL (Negative) 07/11/17 15:00 Urine Ketones Neg mg/dL (Negative) 07/11/17 15:00 Urine Blood Neg (Negative) 07/11/17 15:00 Urine Nitrite Neg (Negative) 07/11/17 15:00 Urine Bilirubin Neg (Negative) 07/11/17 15:00 Urine Urobilinogen < 2.0 mg/dL (<2.0) 07/11/17 15:00 Ur Leukocyte Esterase Tr (Negative) 07/11/17 15:00 Urine WBC (Auto) 5.0 /HPF (0.0-6.0) 07/11/17 15:00 Urine RBC (Auto) 14.0 /HPF (0.0-6.0) 07/11/17 15:00 U Epithel Cells (Auto) 18.0 /HPF (0-13.0) H 07/11/17 15:00 Urine Mucus Few /HPF 07/11/17 15:00 Urine Creatinine 139.2 mg/dL (0.1-20.0) H 07/11/17 15:00 Protein/Creatinin Ratio 4.99 07/11/17 15:00 Urine Total Protein 695 mg/dL (5-11.8) H 07/11/17 15:00 Double Strand DNA Ab 199 IU/mL (<=4) H 07/10/17 20:38 Hepatitis A IgM Ab Non-reactive (NonReactive) 07/10/17 20:38 Hep Bs Antigen Non-reactive (Negative) 07/10/17 20:38 Hep B Core IgM Ab Non-reactive (NonReactive) 07/10/17 20:38 Hepatitis C Antibody Non-reactive (NonReactive) 07/10/17 20:38 HIV 1&2 Antibody Rapid Non react (Non React) 07/10/17 20:38 HIV P24 Antigen Non react (Non React) 07/10/17 20:38 Blood Type O POSITIVE 07/10/17 05:29 Antibody Screen Negative 07/10/17 05:29 Crossmatch See Detail 07/10/17 05:29
[2017-07-13] MEDS: ZITHROMAX 500 MG in NACL 0.9% 250ML 250 ML IV SCH (17:21)
[2017-07-13] MEDS: MORPHINE IV PRN (18:23)
[2017-07-13 22:37] LABS: ANA Screen, IFA Positive (Negative)
[2017-07-14] MEDS: cefTRIAXone 1 GM in NACL 0.9% 20 ML IV SCH (01:58)
[2017-07-14] MEDS: BIDIL 20/37.5MG PO SCH ×2 (06:22→23:00)
[2017-07-14 07:05] LABS: Calcium 7.5 mg/dL (8.4-10.2)
[2017-07-14 07:06] LABS: Hematocrit 23.5 % (30.3-42.9); Hemoglobin 7.6 gm/dl (10.1-14.3)
[2017-07-14] MEDS ORDERED: LEXISCAN IV ONE ×2 (08:25→08:36)
--- NOTE | 2017-07-14 10:26 | Progress Note ---
Assessment and Plan Chronic Kidney disease stage 5 due to Lupus/HTN now End stage renal disease: -no HD indicated today -outpatient dialyssi placement is ongoing, [facility] Augie and julio c denies her -Renally dose all meds -Low K Renal diet Sepsis possibly due to Pneumonia: -CXR shows edema vs consolidation -Cultures NTD -On ABx Hypoxic respiratory failure: Volume overload: -UF with HD Anemia of chronic disease likely due to CKD, Lupus: Possible GI bleed: -Epogen started -GI consulted Hyperkalemia: -Better with HD -Low K diet Metabolic acidosis: -Better with HD. Lupus: -Per primary Leukopenia: Thrombocytopenia: -From Lupus -Per primary Chest Pain: -Per primary and Cardiology. -stress test today Subjective Date of service: 07/14/17 Principal diagnosis: anemia Interval history: she was in stress test in AM Objective - Vital Signs Vital signs: Vital Signs - 12hr 07/14/17 07/14/17 07/14/17 00:20 04:15 08:30 Temperature 98.9 F 99.0 F Pulse Rate 77 73 Respiratory 20 19 Rate Blood Pressure 107/65 102/63 124/74 O2 Sat by Pulse 99 Oximetry 07/14/17 07/14/17 07/14/17 08:40 08:41 08:42 Temperature Pulse Rate 103 H 106 H 104 H Respiratory Rate Blood Pressure 123/76 111/66 118/67 O2 Sat by Pulse Oximetry 07/14/17 07/14/17 07/14/17 08:43 08:44 08:45 Temperature Pulse Rate 104 H 102 H 101 H Respiratory Rate Blood Pressure 118/69 119/75 116/77 O2 Sat by Pulse Oximetry - Lab 07/14/17 04:00 07/14/17 04:00 Most recent lab results Calcium 7.5 mg/dL (8.4-10.2) L 07/14/17 04:00 Phosphorus 6.20 mg/dL (2.5-4.5) H 07/10/17 20:38 Urine Creatinine 139.2 mg/dL (0.1-20.0) H 07/11/17 15:00 Urine Total Protein 695 mg/dL (5-11.8) H 07/11/17 15:00
[2017-07-14] MEDS: ZITHROMAX 500 MG in NACL 0.9% 250ML 250 ML IV SCH (11:00)
[2017-07-14] MEDS: DELTASONE PO SCH (11:00)
[2017-07-14] MEDS: COREG PO SCH (11:01)
[2017-07-14] MEDS: XANAX PO SCH ×2 (11:01→23:00)
--- NOTE | 2017-07-14 12:28 | Event Note ---
Date: 07/14/17 Attempted to see patient earlier today. Patient was getting a stress test. Vein mapping study previously demonstrated no adequate veins. This will not have changed and therefore new vein mapping study was not necessary. Patient will require an AV graft. We will attempt to see patient tomorrow. Patient needs to follow up with [facility] vascular for AV graft placement.
--- NOTE | 2017-07-14 13:16 | Progress Note ---
Assessment and Plan Acute systolic heart failure Non-ischemic cardiomyopathy 20-25% on echo 01/2017 No ischemia on MPI, LVEF 42% ESRD initiated on HD Right pleural effusion, small to moderate on cxr. Severe anemia Hypertension Noncompliant with medical therapy and outpatient physician follow-ups Recommendations: Dialysis for fluid management. Continue medical management for systolic heart failure and non-ischemic cardiomyopathy with beta blockers and afterload reduction therapy. Subjective Date of service: 07/14/17 Principal diagnosis: anemia Interval history: Lexiscan done today - no complications Objective Vital Signs Temp Pulse Resp BP Pulse Ox 07/14/17 11:01 101 H 116/77 07/14/17 08:45 101 H 116/77 07/14/17 08:44 102 H 119/75 07/14/17 08:43 104 H 118/69 07/14/17 08:42 104 H 118/67 07/14/17 08:41 106 H 111/66 07/14/17 08:40 103 H 123/76 07/14/17 08:30 73 124/74 07/14/17 04:15 99.0 F 77 19 102/63 99 07/14/17 00:20 98.9 F 20 107/65 07/13/17 20:39 95 07/13/17 20:16 99.0 F 88 18 136/79 98 07/13/17 15:38 97.9 F 91 H 18 143/82 100 07/13/17 14:45 98.4 F 80 18 150/90 07/13/17 14:40 86 138/84 07/13/17 14:30 85 137/83 07/13/17 14:15 84 134/82 07/13/17 14:00 83 142/87 07/13/17 13:45 88 147/95 07/13/17 13:30 90 158/95 - Physical Examination General: No Apparent Distress HEENT: Positive: PERRL Neck: Positive: neck supple Cardiac: Positive: Reg Rate and Rhythm Lungs: Positive: Normal Exam Neuro: Positive: Grossly Intact Abdomen: Positive: Soft Skin: Positive: Clear Extremities: Present: +1 Edema - Labs and Meds CBC 07/14/17 Range/Units 04:00 Hgb 7.6 L (10.1-14.3) gm/dl Hct 23.5 L (30.3-42.9) % Comprehensive Metabolic Panel 07/14/17 Range/Units 04:00 Sodium 138 (137-145) mmol/L Potassium 3.9 (3.6-5.0) mmol/L Chloride 96.3 L (98-107) mmol/L Carbon Dioxide 27 (22-30) mmol/L BUN 29 H (7-17) mg/dL Creatinine 5.8 H (0.7-1.2) mg/dL Glucose 91 (65-100) mg/dL Calcium 7.5 L (8.4-10.2) mg/dL
--- NOTE | 2017-07-14 16:33 | Progress Note ---
Assessment and Plan Assessment and plan: Acute hypoxic respiratory failure, sepsis due to pneumonia - Patient is on oxygen support - Continue IV ceftriaxone and azithromycin, will repeat chest x-ray ESRD on HD -Patient had dialysis yesterday -Nephrology is following her -Patient may need outpatient dialysis setup Hyperkalemia - Resolved with treatment Chronic systolic CHF - Cardiology consulted and recommended medical management Symptomatic anemia - Transfused 2 units of blood and current hemoglobin is 7.4 Chest pain - Likely due to congestive heart failure/ pneumonia Lupus - Patient is on prednisone Dark stool - GI consulted and recommended no intervention at this time, and we will follow as needed DVT prophylaxis -SCD Disposition -Continue inpatient care History Interval history: Patient was seen and evaluated this morning , no new complaints. No nursing issues overnight. Patient's family asked for youth services librarian that we don't have here and advised to have followup as an O/P. Hospitalist Physical - Physical exam Narrative exam: Not in cardiopulmonary distress. The patient appeared chronically sick looking. Vital signs as documented. Head exam is unremarkable. No scleral icterus, pale conjunctiva . Neck is without jugular venous distension, thyromegaly, or carotid bruits. Lungs are clear to auscultation. Cardiac exam reveals regular rate and Rhythm. Tachycardic. Abdominal exam reveals normal bowel sounds, no masses, no organomegaly and no aortic enlargement. Extremities are nonedematous and both femoral and pedal pulses are normal. 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 No focal weakness. - Constitutional Vitals: Temp Pulse Resp BP Pulse Ox 99.0 F 101 H 19 116/77 99 07/14/17 04:15 07/14/17 11:01 07/14/17 04:15 07/14/17 11:01 07/14/17 04:15 General appearance: Present: no acute distress, cachectic Results - Labs CBC & Chem 7: 07/14/17 04:00 07/14/17 04:00 Labs: Laboratory Last Values WBC 4.2 K/mm3 (4.5-11.0) L 07/13/17 06:30 RBC 3.28 M/mm3 (3.65-5.03) L 07/13/17 06:30 Hgb 7.6 gm/dl (10.1-14.3) L 07/14/17 04:00 Hct 23.5 % (30.3-42.9) L 07/14/17 04:00 MCV 78 fl (79-97) L 07/13/17 06:30 MCH 25 pg (28-32) L 07/13/17 06:30 MCHC 32 % (30-34) 07/13/17 06:30 RDW 19.0 % (13.2-15.2) H 07/13/17 06:30 Plt Count 166 K/mm3 (140-440) 07/13/17 06:30 Lymph % (Auto) 10.9 % (13.4-35.0) L 07/13/17 06:30 [place] % (Auto) 4.5 % (0.0-7.3) 07/13/17 06:30 Eos % (Auto) 0.0 % (0.0-4.3) 07/13/17 06:30 Baso % (Auto) 0.3 % (0.0-1.8) 07/13/17 06:30 Lymph # 0.5 K/mm3 (1.2-5.4) L 07/13/17 06:30 [place] # 0.2 K/mm3 (0.0-0.8) 07/13/17 06:30 Eos # 0.0 K/mm3 (0.0-0.4) 07/13/17 06:30 Baso # 0.0 K/mm3 (0.0-0.1) 07/13/17 06:30 Add Manual Diff Complete 07/12/17 06:35 Total Counted 100 07/12/17 06:35 Seg Neutrophils % 84.3 % (40.0-70.0) H 07/13/17 06:30 Seg Neuts % (Manual) 88.0 % (40.0-70.0) H 07/12/17 06:35 Band Neutrophils % 4.0 % 07/12/17 06:35 Lymphocytes % (Manual) 6.0 % (13.4-35.0) L 07/12/17 06:35 Reactive Lymphs % (Man) 0 % 07/12/17 06:35 Monocytes % (Manual) 1.0 % (0.0-7.3) 07/12/17 06:35 Eosinophils % (Manual) 1.0 % (0.0-4.3) 07/12/17 06:35 Basophils % (Manual) 0 % (0.0-1.8) 07/12/17 06:35 Metamyelocytes % 0 % 07/12/17 06:35 Myelocytes % 0 % 07/12/17 06:35 Promyelocytes % 0 % 07/12/17 06:35 Blast Cells % 0 % 07/12/17 06:35 Nucleated RBC % Not Reportable 07/12/17 06:35 Seg Neutrophils # 3.5 K/mm3 (1.8-7.7) 07/13/17 06:30 Seg Neutrophils # Man 1.8 K/mm3 (1.8-7.7) 07/12/17 06:35 Band Neutrophils # 0.1 K/mm3 07/12/17 06:35 Lymphocytes # (Manual) 0.1 K/mm3 (1.2-5.4) L 07/12/17 06:35 Abs React Lymphs (Man) 0.0 K/mm3 07/12/17 06:35 Monocytes # (Manual) 0.0 K/mm3 (0.0-0.8) 07/12/17 06:35 Eosinophils # (Manual) 0.0 K/mm3 (0.0-0.4) 07/12/17 06:35 Basophils # (Manual) 0.0 K/mm3 (0.0-0.1) 07/12/17 06:35 Metamyelocytes # 0.0 K/mm3 07/12/17 06:35 Myelocytes # 0.0 K/mm3 07/12/17 06:35 Promyelocytes # 0.0 K/mm3 07/12/17 06:35 Blast Cells # 0.0 K/mm3 07/12/17 06:35 WBC Morphology Not Reportable 07/12/17 06:35 Hypersegmented Neuts Not Reportable 07/12/17 06:35 Hyposegmented Neuts Not Reportable 07/12/17 06:35 Hypogranular Neuts Not Reportable 07/12/17 06:35 Smudge Cells Not Reportable 07/12/17 06:35 Toxic Granulation Not Reportable 07/12/17 06:35 Toxic Vacuolation Not Reportable 07/12/17 06:35 Dohle Bodies Not Reportable 07/12/17 06:35 Pelger-Huet Anomaly Not Reportable 07/12/17 06:35 Von Rods Not Reportable 07/12/17 06:35 Platelet Estimate Not Reportable 07/12/17 06:35 Clumped Platelets Not Reportable 07/12/17 06:35 Plt Clumps, EDTA Not Reportable 07/12/17 06:35 Large Platelets Not Reportable 07/12/17 06:35 Giant Platelets Not Reportable 07/12/17 06:35 Platelet Satelliting Not Reportable 07/12/17 06:35 Plt Morphology Comment Not Reportable 07/12/17 06:35 RBC Morphology Not Reportable 07/12/17 06:35 Dimorphic RBCs Not Reportable 07/12/17 06:35 Polychromasia Not Reportable 07/12/17 06:35 Hypochromasia 1+ 07/12/17 06:35 Poikilocytosis 1+ 07/12/17 06:35 Anisocytosis 1+ 07/12/17 06:35 Microcytosis Not Reportable 07/12/17 06:35 Macrocytosis Not Reportable 07/12/17 06:35 Spherocytes Not Reportable 07/12/17 06:35 Pappenheimer Bodies Not Reportable 07/12/17 06:35 Sickle Cells Not Reportable 07/12/17 06:35 Target Cells Not Reportable 07/12/17 06:35 Tear Drop Cells Not Reportable 07/12/17 06:35 Ovalocytes Not Reportable 07/12/17 06:35 Helmet Cells Not Reportable 07/12/17 06:35 [place] Bodies Not Reportable 07/12/17 06:35 [place] Rings Not Reportable 07/12/17 06:35 Antoni Cells Not Reportable 07/12/17 06:35 Bite Cells Not Reportable 07/12/17 06:35 Crenated Cell Not Reportable 07/12/17 06:35 Elliptocytes Not Reportable 07/12/17 06:35 Acanthocytes (Spur) Not Reportable 07/12/17 06:35 Rouleaux Not Reportable 07/12/17 06:35 Hemoglobin C Crystals Not Reportable 07/12/17 06:35 Schistocytes Not Reportable 07/12/17 06:35 Malaria parasites Not Reportable 07/12/17 06:35 Niraj Bodies Not Reportable 07/12/17 06:35 Hem Pathologist Commnt No 07/12/17 06:35 PT 16.9 Sec. (12.2-14.9) H 07/10/17 20:38 INR 1.30 (0.87-1.13) H 07/10/17 20:38 Sodium 138 mmol/L (137-145) 07/14/17 04:00 Potassium 3.9 mmol/L (3.6-5.0) 07/14/17 04:00 Chloride 96.3 mmol/L (98-107) L 07/14/17 04:00 Carbon Dioxide 27 mmol/L (22-30) 07/14/17 04:00 Anion Gap 19 mmol/L 07/14/17 04:00 BUN 29 mg/dL (7-17) H 07/14/17 04:00 Creatinine 5.8 mg/dL (0.7-1.2) H 07/14/17 04:00 Estimated GFR 10 ml/min 07/14/17 04:00 BUN/Creatinine Ratio 5 % 07/14/17 04:00 Glucose 91 mg/dL (65-100) 07/14/17 04:00 Calcium 7.5 mg/dL (8.4-10.2) L 07/14/17 04:00 Phosphorus 6.20 mg/dL (2.5-4.5) H 07/10/17 20:38 Iron 23 ug/dL (37-170) L 07/10/17 20:38 TIBC 172 mcg/dL (250-450) L 07/10/17 20:38 Ferritin 199.5 ng/mL (13.0-400.0) 07/10/17 20:38 Troponin T 0.076 ng/mL (0.00-0.029) H 07/10/17 03:32 NT-Pro-B Natriuret Pep > 77092 pg/mL (0-450) H 07/10/17 20:38 Triglycerides 192 mg/dL (2-149) H 07/10/17 03:32 Cholesterol 140 mg/dL (50-199) 07/10/17 03:32 LDL Cholesterol Direct 67 mg/dL (50-130) 07/10/17 03:32 HDL Cholesterol 35 mg/dL (40-59) L 07/10/17 03:32 Cholesterol/HDL Ratio 4.00 % 07/10/17 03:32 HCG, Qual Negative (Negative) 07/10/17 03:32 Urine Color [place] (Yellow) 07/11/17 15:00 Urine Turbidity Cloudy (Clear) 07/11/17 15:00 Urine pH 5.0 (5.0-7.0) 07/11/17 15:00 Ur Specific [place] 1.015 (1.003-1.030) 07/11/17 15:00 Urine Protein >500 mg/dL (Negative) 07/11/17 15:00 Urine Glucose (UA) Neg mg/dL (Negative) 07/11/17 15:00 Urine Ketones Neg mg/dL (Negative) 07/11/17 15:00 Urine Blood Neg (Negative) 07/11/17 15:00 Urine Nitrite Neg (Negative) 07/11/17 15:00 Urine Bilirubin Neg (Negative) 07/11/17 15:00 Urine Urobilinogen < 2.0 mg/dL (<2.0) 07/11/17 15:00 Ur Leukocyte Esterase Tr (Negative) 07/11/17 15:00 Urine WBC (Auto) 5.0 /HPF (0.0-6.0) 07/11/17 15:00 Urine RBC (Auto) 14.0 /HPF (0.0-6.0) 07/11/17 15:00 U Epithel Cells (Auto) 18.0 /HPF (0-13.0) H 07/11/17 15:00 Urine Mucus Few /HPF 07/11/17 15:00 Urine Creatinine 139.2 mg/dL (0.1-20.0) H 07/11/17 15:00 Protein/Creatinin Ratio 4.99 07/11/17 15:00 Urine Total Protein 695 mg/dL (5-11.8) H 07/11/17 15:00 PAUL Screen Positive (Negative) H 07/10/17 20:38 PAUL Titer 1:320 (Negative) H 07/10/17 20:38 PAUL Pattern Homogeneous 07/10/17 20:38 Double Strand DNA Ab 199 IU/mL (<=4) H 07/10/17 20:38 Complement C3 30 mg/dL (90-180) L 07/10/17 20:38 Complement C4 6 mg/dL (16-47) L 07/10/17 20:38 Hepatitis A IgM Ab Non-reactive (NonReactive) 07/10/17 20:38 Hep Bs Antigen Non-reactive (Negative) 07/10/17 20:38 Hep B Core IgM Ab Non-reactive (NonReactive) 07/10/17 20:38 Hepatitis C Antibody Non-reactive (NonReactive) 07/10/17 20:38 HIV 1&2 Antibody Rapid Non react (Non React) 07/10/17 20:38 HIV P24 Antigen Non react (Non React) 07/10/17 20:38 Blood Type O POSITIVE 07/10/17 05:29 Antibody Screen Negative 07/10/17 05:29 Crossmatch See Detail 07/10/17 05:29
[2017-07-15] MEDS: COREG PO SCH ×3 (00:20→22:38)
[2017-07-15] MEDS: cefTRIAXone 1 GM in NACL 0.9% 20 ML IV SCH (01:00)
--- NOTE | 2017-07-15 03:49 | Treadmill Report ---
STRESS TEST INDICATION: Cardiomyopathy. FINDINGS: There is no scintigraphic evidence of myocardial ischemia. The left ventricular cavity is mildly dilated. There is mild global left ventricular hypokinesis with an ejection fraction measured at 42%. CONCLUSION: 1. No scintigraphic evidence of myocardial ischemia. 2. Mildly dilated left ventricular cavity with an ejection fraction measured at 42%. Findings consistent with nonischemic cardiomyopathy. JOB# [id number] LOBITO/ANITHA
[2017-07-15 06:48] LABS: Calcium 7.2 mg/dL (8.4-10.2)
[2017-07-15 06:53] LABS: Basophils % (Auto) 0.2 % (0.0-1.8); Eosinophils % (Auto) 0.1 % (0.0-4.3); Hematocrit 24.1 % (30.3-42.9); Hemoglobin 7.7 gm/dl (10.1-14.3); Lymphocytes # (Auto) 0.5 K/mm3 (1.2-5.4); Lymphocytes % (Auto) 7.7 % (13.4-35.0); Mean Corpuscular HGB Conc 32 % (30-34); Mean Corpuscular Volume 80 fl (79-97); Monocytes # (Auto) 0.3 K/mm3 (0.0-0.8); Monocytes % (Auto) 4.5 % (0.0-7.3); Platelet Count 159 K/mm3 (140-440); Red Blood Count 3.02 M/mm3 (3.65-5.03); Red Cell Distribution Width 18.5 % (13.2-15.2)
[2017-07-15] MEDS: BIDIL 20/37.5MG PO SCH ×3 (07:00→22:45)
[2017-07-15 07:35] LABS: Mean Corpuscular Hemoglobin 26 pg (28-32)
--- NOTE | 2017-07-15 10:04 | Progress Note ---
Assessment and Plan Chronic Kidney disease stage 5 due to Lupus/HTN now End stage renal disease: -HD today for clearance and volume removal -outpatient dialysis placement is ongoing, [facility] [place] Augie and julio c denies her -Renally dose all meds -Low K Renal diet Sepsis possibly due to Pneumonia: -CXR shows edema vs consolidation -Cultures NTD -On ABx Hypoxic respiratory failure: Volume overload: -UF with HD Anemia of chronic disease likely due to CKD, Lupus: Possible GI bleed: -Epogen started -GI consulted Hyperkalemia: -Low K diet Lupus: -Per primary Leukopenia: Thrombocytopenia: -From Lupus -Per primary Chest Pain: -Per primary and Cardiology. Subjective Date of service: 07/15/17 Principal diagnosis: anemia Interval history: feels weak, asking when she will be able to go home, I explained to her that she will need an outpatient dialysis clinic set up prior to discharge Objective - Vital Signs Vital signs: Vital Signs - 12hr 07/14/17 07/14/17 07/14/17 23:00 23:16 23:29 Temperature 98.5 F 99.0 F Pulse Rate 89 88 113 H Respiratory 22 24 Rate Blood Pressure 121/74 124/76 121/86 O2 Sat by Pulse 98 91 Oximetry 07/15/17 07/15/17 00:20 03:22 Temperature 98.4 F Pulse Rate 89 78 Respiratory 20 Rate Blood Pressure 121/74 108/64 O2 Sat by Pulse 100 Oximetry - General Appearance General appearance: well-developed, cachectic EENT: ATNC, PERRL, mucous membranes dry Neck: no JVD, no carotid bruit Respiratory: Present: Clear to Ascultation Cardiology: regular, S1S2 Gastrointestinal: normoactive bowel sounds, no tenderness, no distended Integumentary: no rash, warm and dry Neurologic: no focal deficit, no asterixis, alert and oriented x3 Musculoskeletal: other (no edema in BLE) Psychiatric: mood/affect appropriate, cooperative - Lab 07/15/17 06:13 07/15/17 06:13 Most recent lab results Calcium 7.2 mg/dL (8.4-10.2) L 07/15/17 06:13 Phosphorus 6.20 mg/dL (2.5-4.5) H 07/10/17 20:38 Urine Creatinine 139.2 mg/dL (0.1-20.0) H 07/11/17 15:00 Urine Total Protein 695 mg/dL (5-11.8) H 07/11/17 15:00
--- NOTE | 2017-07-15 10:38 | XRay Report ---
Single view chest: Compared to 07/12/17. History: Pneumonia. Findings: Cardiomegaly. Trachea is midline. Moderate right pleural effusion. No consolidation. No significant interval change. Impression: No significant interval change.
--- NOTE | 2017-07-15 11:28 | Progress Note ---
Assessment and Plan 1. Dilated nonischemic cardiomyopathy LV ejection fraction 20-25% 2. End-stage renal disease on hemodialysis 3. Systemic lupus erythematosus 4. Essential hypertension 5. Anemia probably secondary to chronic disease Plan. Continue present cardiac management nephrology and dialysis for fluid management Subjective Date of service: 07/15/17 Principal diagnosis: anemia Interval history: No cardiac symptoms Objective Vital Signs Temp Pulse Resp BP Pulse Ox 07/15/17 10:00 98 07/15/17 03:22 98.4 F 78 20 108/64 100 07/15/17 00:20 89 121/74 07/14/17 23:29 99.0 F 113 H 24 121/86 91 07/14/17 23:16 98.5 F 88 22 124/76 98 07/14/17 23:00 89 121/74 07/14/17 22:00 89 99 07/14/17 19:14 97.4 F L 89 20 121/74 98 07/14/17 15:57 87 16 121/77 95 - Physical Examination General: Appears Well, No Apparent Distress HEENT: Positive: PERRL, Normocephaly, Mucus Membranes Moist Neck: Positive: neck supple, trachea midline. Negative: JVD/HJR Cardiac: Positive: Regular Rate, S1/S2, PMI, Laterally Displaced Lungs: Positive: clear to auscultation, No Wheeze, Rales, Rhonchi Neuro: Positive: Grossly Intact Abdomen: Positive: Unremarkable, Soft, Active Bowel Sounds Skin: Positive: Clear Extremities: Absent: edema - Labs and Meds CBC 07/15/17 Range/Units 06:13 WBC 6.8 (4.5-11.0) K/mm3 RBC 3.02 L (3.65-5.03) M/mm3 Hgb 7.7 L (10.1-14.3) gm/dl Hct 24.1 L (30.3-42.9) % Plt Count 159 (140-440) K/mm3 Lymph # 0.5 L (1.2-5.4) K/mm3 [place] # 0.3 (0.0-0.8) K/mm3 Eos # 0.0 (0.0-0.4) K/mm3 Baso # 0.0 (0.0-0.1) K/mm3 Comprehensive Metabolic Panel 07/15/17 Range/Units 06:13 Sodium 136 L (137-145) mmol/L Potassium 4.5 (3.6-5.0) mmol/L Chloride 94.8 L (98-107) mmol/L Carbon Dioxide 25 (22-30) mmol/L BUN 45 H (7-17) mg/dL Creatinine 7.3 H (0.7-1.2) mg/dL Glucose 106 H (65-100) mg/dL Calcium 7.2 L (8.4-10.2) mg/dL - Telemetry EKG Rhythm: Sinus Rhythm
[2017-07-15] MEDS ORDERED: NACL 0.9 (PRIMING MACHINE ONLY DIALYSIS) MC ONE (12:56)
--- NOTE | 2017-07-15 15:23 | Progress Note ---
Assessment and Plan Assessment and plan: Acute hypoxic respiratory failure, sepsis due to pneumonia - Patient is on oxygen support - Continue IV ceftriaxone and azithromycin, will repeat chest x-ray ESRD on HD -Patient had dialysis yesterday -Nephrology is following her -Patient may need outpatient dialysis setup Hyperkalemia - Resolved with treatment Chronic systolic CHF - Cardiology consulted and recommended medical management Symptomatic anemia - Transfused 2 units of blood and current hemoglobin is 7.4 Chest pain - Likely due to congestive heart failure/ pneumonia Lupus - Patient is on prednisone Dark stool - GI consulted and recommended no intervention at this time, and we will follow as needed DVT prophylaxis -SCD Disposition -Pending outpatient dialysis set up. History Interval history: Patient was seen and evaluated this morning , no new complaints. No nursing issues overnight. Hospitalist Physical - Physical exam Narrative exam: Not in cardiopulmonary distress. The patient appeared chronically sick looking. Vital signs as documented. Head exam is unremarkable. No scleral icterus, pale conjunctiva . Neck is without jugular venous distension, thyromegaly, or carotid bruits. Lungs are clear to auscultation. Cardiac exam reveals regular rate and Rhythm. Tachycardic. Abdominal exam reveals normal bowel sounds, no masses, no organomegaly and no aortic enlargement. Extremities are nonedematous and both femoral and pedal pulses are normal. [place]: Alert and oriented 3. No focal weakness. - Constitutional Vitals: Temp Pulse Resp BP Pulse Ox 98.2 F 87 16 103/73 98 07/15/17 12:00 07/15/17 14:00 07/15/17 12:00 07/15/17 14:00 07/15/17 10:00 General appearance: Present: no acute distress, cachectic Results - Labs CBC & Chem 7: 07/15/17 06:13 07/15/17 06:13 Labs: Laboratory Last Values WBC 6.8 K/mm3 (4.5-11.0) 07/15/17 06:13 RBC 3.02 M/mm3 (3.65-5.03) L 07/15/17 06:13 Hgb 7.7 gm/dl (10.1-14.3) L 07/15/17 06:13 Hct 24.1 % (30.3-42.9) L 07/15/17 06:13 MCV 80 fl (79-97) 07/15/17 06:13 MCH 26 pg (28-32) L 07/15/17 06:13 MCHC 32 % (30-34) 07/15/17 06:13 RDW 18.5 % (13.2-15.2) H 07/15/17 06:13 Plt Count 159 K/mm3 (140-440) 07/15/17 06:13 Lymph % (Auto) 7.7 % (13.4-35.0) L 07/15/17 06:13 [place] % (Auto) 4.5 % (0.0-7.3) 07/15/17 06:13 Eos % (Auto) 0.1 % (0.0-4.3) 07/15/17 06:13 Baso % (Auto) 0.2 % (0.0-1.8) 07/15/17 06:13 Lymph # 0.5 K/mm3 (1.2-5.4) L 07/15/17 06:13 [place] # 0.3 K/mm3 (0.0-0.8) 07/15/17 06:13 Eos # 0.0 K/mm3 (0.0-0.4) 07/15/17 06:13 Baso # 0.0 K/mm3 (0.0-0.1) 07/15/17 06:13 Add Manual Diff Complete 07/12/17 06:35 Total Counted 100 07/12/17 06:35 Seg Neutrophils % 87.5 % (40.0-70.0) H 07/15/17 06:13 Seg Neuts % (Manual) 88.0 % (40.0-70.0) H 07/12/17 06:35 Band Neutrophils % 4.0 % 07/12/17 06:35 Lymphocytes % (Manual) 6.0 % (13.4-35.0) L 07/12/17 06:35 Reactive Lymphs % (Man) 0 % 07/12/17 06:35 Monocytes % (Manual) 1.0 % (0.0-7.3) 07/12/17 06:35 Eosinophils % (Manual) 1.0 % (0.0-4.3) 07/12/17 06:35 Basophils % (Manual) 0 % (0.0-1.8) 07/12/17 06:35 Metamyelocytes % 0 % 07/12/17 06:35 Myelocytes % 0 % 07/12/17 06:35 Promyelocytes % 0 % 07/12/17 06:35 Blast Cells % 0 % 07/12/17 06:35 Nucleated RBC % Not Reportable 07/12/17 06:35 Seg Neutrophils # 6.0 K/mm3 (1.8-7.7) 07/15/17 06:13 Seg Neutrophils # Man 1.8 K/mm3 (1.8-7.7) 07/12/17 06:35 Band Neutrophils # 0.1 K/mm3 07/12/17 06:35 Lymphocytes # (Manual) 0.1 K/mm3 (1.2-5.4) L 07/12/17 06:35 Abs React Lymphs (Man) 0.0 K/mm3 07/12/17 06:35 Monocytes # (Manual) 0.0 K/mm3 (0.0-0.8) 07/12/17 06:35 Eosinophils # (Manual) 0.0 K/mm3 (0.0-0.4) 07/12/17 06:35 Basophils # (Manual) 0.0 K/mm3 (0.0-0.1) 07/12/17 06:35 Metamyelocytes # 0.0 K/mm3 07/12/17 06:35 Myelocytes # 0.0 K/mm3 07/12/17 06:35 Promyelocytes # 0.0 K/mm3 07/12/17 06:35 Blast Cells # 0.0 K/mm3 07/12/17 06:35 WBC Morphology Not Reportable 07/12/17 06:35 Hypersegmented Neuts Not Reportable 07/12/17 06:35 Hyposegmented Neuts Not Reportable 07/12/17 06:35 Hypogranular Neuts Not Reportable 07/12/17 06:35 Smudge Cells Not Reportable 07/12/17 06:35 Toxic Granulation Not Reportable 07/12/17 06:35 Toxic Vacuolation Not Reportable 07/12/17 06:35 Dohle Bodies Not Reportable 07/12/17 06:35 Pelger-Huet Anomaly Not Reportable 07/12/17 06:35 Von Rods Not Reportable 07/12/17 06:35 Platelet Estimate Not Reportable 07/12/17 06:35 Clumped Platelets Not Reportable 07/12/17 06:35 Plt Clumps, EDTA Not Reportable 07/12/17 06:35 Large Platelets Not Reportable 07/12/17 06:35 Giant Platelets Not Reportable 07/12/17 06:35 Platelet Satelliting Not Reportable 07/12/17 06:35 Plt Morphology Comment Not Reportable 07/12/17 06:35 RBC Morphology Not Reportable 07/12/17 06:35 Dimorphic RBCs Not Reportable 07/12/17 06:35 Polychromasia Not Reportable 07/12/17 06:35 Hypochromasia 1+ 07/12/17 06:35 Poikilocytosis 1+ 07/12/17 06:35 Anisocytosis 1+ 07/12/17 06:35 Microcytosis Not Reportable 07/12/17 06:35 Macrocytosis Not Reportable 07/12/17 06:35 Spherocytes Not Reportable 07/12/17 06:35 Pappenheimer Bodies Not Reportable 07/12/17 06:35 Sickle Cells Not Reportable 07/12/17 06:35 Target Cells Not Reportable 07/12/17 06:35 Tear Drop Cells Not Reportable 07/12/17 06:35 Ovalocytes Not Reportable 07/12/17 06:35 Helmet Cells Not Reportable 07/12/17 06:35 [place] Bodies Not Reportable 07/12/17 06:35 [place] Rings Not Reportable 07/12/17 06:35 [place] Cells Not Reportable 07/12/17 06:35 Bite Cells Not Reportable 07/12/17 06:35 Crenated Cell Not Reportable 07/12/17 06:35 Elliptocytes Not Reportable 07/12/17 06:35 Acanthocytes (Spur) Not Reportable 07/12/17 06:35 Rouleaux Not Reportable 07/12/17 06:35 Hemoglobin C Crystals Not Reportable 07/12/17 06:35 Schistocytes Not Reportable 07/12/17 06:35 Malaria parasites Not Reportable 07/12/17 06:35 Niraj Bodies Not Reportable 07/12/17 06:35 Hem Pathologist Commnt No 07/12/17 06:35 PT 16.9 Sec. (12.2-14.9) H 07/10/17 20:38 INR 1.30 (0.87-1.13) H 07/10/17 20:38 Sodium 136 mmol/L (137-145) L 07/15/17 06:13 Potassium 4.5 mmol/L (3.6-5.0) 07/15/17 06:13 Chloride 94.8 mmol/L (98-107) L 07/15/17 06:13 Carbon Dioxide 25 mmol/L (22-30) 07/15/17 06:13 Anion Gap 21 mmol/L 07/15/17 06:13 BUN 45 mg/dL (7-17) H 07/15/17 06:13 Creatinine 7.3 mg/dL (0.7-1.2) H 07/15/17 06:13 Estimated GFR 7 ml/min 07/15/17 06:13 BUN/Creatinine Ratio 6 % 07/15/17 06:13 Glucose 106 mg/dL (65-100) H 07/15/17 06:13 Calcium 7.2 mg/dL (8.4-10.2) L 07/15/17 06:13 Phosphorus 6.20 mg/dL (2.5-4.5) H 07/10/17 20:38 Iron 23 ug/dL (37-170) L 07/10/17 20:38 TIBC 172 mcg/dL (250-450) L 07/10/17 20:38 Ferritin 199.5 ng/mL (13.0-400.0) 07/10/17 20:38 Troponin T 0.076 ng/mL (0.00-0.029) H 07/10/17 03:32 NT-Pro-B Natriuret Pep > 01023 pg/mL (0-450) H 07/10/17 20:38 Triglycerides 192 mg/dL (2-149) H 07/10/17 03:32 Cholesterol 140 mg/dL (50-199) 07/10/17 03:32 LDL Cholesterol Direct 67 mg/dL (50-130) 07/10/17 03:32 HDL Cholesterol 35 mg/dL (40-59) L 07/10/17 03:32 Cholesterol/HDL Ratio 4.00 % 07/10/17 03:32 HCG, Qual Negative (Negative) 07/10/17 03:32 Urine Color [place] (Yellow) 07/11/17 15:00 Urine Turbidity Cloudy (Clear) 07/11/17 15:00 Urine pH 5.0 (5.0-7.0) 07/11/17 15:00 Ur Specific [place] 1.015 (1.003-1.030) 07/11/17 15:00 Urine Protein >500 mg/dL (Negative) 07/11/17 15:00 Urine Glucose (UA) Neg mg/dL (Negative) 07/11/17 15:00 Urine Ketones Neg mg/dL (Negative) 07/11/17 15:00 Urine Blood Neg (Negative) 07/11/17 15:00 Urine Nitrite Neg (Negative) 07/11/17 15:00 Urine Bilirubin Neg (Negative) 07/11/17 15:00 Urine Urobilinogen < 2.0 mg/dL (<2.0) 07/11/17 15:00 Ur Leukocyte Esterase Tr (Negative) 07/11/17 15:00 Urine WBC (Auto) 5.0 /HPF (0.0-6.0) 07/11/17 15:00 Urine RBC (Auto) 14.0 /HPF (0.0-6.0) 07/11/17 15:00 U Epithel Cells (Auto) 18.0 /HPF (0-13.0) H 07/11/17 15:00 Urine Mucus Few /HPF 07/11/17 15:00 Urine Creatinine 139.2 mg/dL (0.1-20.0) H 07/11/17 15:00 Protein/Creatinin Ratio 4.99 07/11/17 15:00 Urine Total Protein 695 mg/dL (5-11.8) H 07/11/17 15:00 PAUL Screen Positive (Negative) H 07/10/17 20:38 PAUL Titer 1:320 (Negative) H 07/10/17 20:38 PAUL Pattern Homogeneous 07/10/17 20:38 Double Strand DNA Ab 199 IU/mL (<=4) H 07/10/17 20:38 Complement C3 30 mg/dL (90-180) L 07/10/17 20:38 Complement C4 6 mg/dL (16-47) L 07/10/17 20:38 Hepatitis A IgM Ab Non-reactive (NonReactive) 07/10/17 20:38 Hep Bs Antigen Non-reactive (Negative) 07/10/17 20:38 Hep B Core IgM Ab Non-reactive (NonReactive) 07/10/17 20:38 Hepatitis C Antibody Non-reactive (NonReactive) 07/10/17 20:38 HIV 1&2 Antibody Rapid Non react (Non React) 07/10/17 20:38 HIV P24 Antigen Non react (Non React) 07/10/17 20:38 Blood Type O POSITIVE 07/10/17 05:29 Antibody Screen Negative 07/10/17 05:29 Crossmatch See Detail 07/10/17 05:29
[2017-07-15] MEDS: HEPARIN IV PRN (16:33)
[2017-07-15] MEDS: XANAX PO SCH ×2 (17:29→22:45)
[2017-07-15] MEDS: DELTASONE PO SCH (17:56)
[2017-07-15] MEDS: ZITHROMAX PO SCH (17:57)
[2017-07-15] MEDS: MORPHINE IV PRN (23:59)
[2017-07-16] MEDS: cefTRIAXone 1 GM in NACL 0.9% 20 ML IV SCH (01:00)
[2017-07-16] MEDS: BIDIL 20/37.5MG PO SCH ×4 (06:03→22:41)
[2017-07-16 08:36] LABS: Hematocrit 23.3 % (30.3-42.9); Hemoglobin 7.4 gm/dl (10.1-14.3)
[2017-07-16 09:01] LABS: Calcium 7.9 mg/dL (8.4-10.2)
--- NOTE | 2017-07-16 09:40 | Progress Note ---
Assessment and Plan Chronic Kidney disease stage 5 due to Lupus/HTN now End stage renal disease: -no indication for today -outpatient dialysis placement is ongoing, [facility] [place] Augie and juli oc denies her -Renally dose all meds -Low K Renal diet Sepsis possibly due to Pneumonia: -CXR shows edema vs consolidation -Cultures NTD -On ABx Hypoxic respiratory failure: Volume overload: -UF with HD Anemia of chronic disease likely due to CKD, Lupus: Possible GI bleed: -Epogen started - on IV iron Hyperkalemia: -Low K diet Lupus: -Per primary Leukopenia: Thrombocytopenia: -From Lupus -Per primary Chest Pain: -Per primary and Cardiology. Subjective Date of service: 07/16/17 Principal diagnosis: anemia Interval history: denies overnight events Objective - Vital Signs Vital signs: Vital Signs - 12hr 07/15/17 07/15/17 07/15/17 22:00 22:38 22:45 Temperature Pulse Rate 81 80 80 Respiratory 18 Rate Blood Pressure 126/76 126/76 O2 Sat by Pulse Oximetry 07/15/17 07/16/17 07/16/17 23:58 04:20 06:03 Temperature 98.2 F 98.4 F Pulse Rate 63 63 Respiratory 18 18 Rate Blood Pressure 105/59 101/60 101/60 O2 Sat by Pulse 100 Oximetry 07/16/17 07:55 Temperature Pulse Rate Respiratory Rate Blood Pressure O2 Sat by Pulse 97 Oximetry - General Appearance General appearance: well-developed, well-nourished, appears stated age EENT: ATNC, PERRL, mucous membranes moist Neck: no JVD, no carotid bruit Respiratory: Present: Clear to Ascultation. Absent: Rales, Ronchi Cardiology: regular, S1S2 Gastrointestinal: normoactive bowel sounds, no tenderness, no distended, no guarding Integumentary: no rash, warm and dry Neurologic: no focal deficit, no asterixis, alert and oriented x3 Musculoskeletal: other (no edema in BLE) Psychiatric: mood/affect appropriate, cooperative - Lab 07/16/17 08:03 07/16/17 08:03 Most recent lab results Calcium 7.9 mg/dL (8.4-10.2) L 07/16/17 08:03 Phosphorus 6.20 mg/dL (2.5-4.5) H 07/10/17 20:38 Urine Creatinine 139.2 mg/dL (0.1-20.0) H 07/11/17 15:00 Urine Total Protein 695 mg/dL (5-11.8) H 07/11/17 15:00
[2017-07-16] MEDS: DELTASONE PO SCH (10:04)
[2017-07-16] MEDS: ZITHROMAX PO SCH (10:04)
[2017-07-16] MEDS: COREG PO SCH ×2 (10:05→22:41)
--- NOTE | 2017-07-16 10:12 | Progress Note ---
Assessment and Plan 1. Dilated nonischemic cardiomyopathy LV ejection fraction 20-25% 2. End-stage renal disease on hemodialysis 3. Systemic lupus erythematosus 4. Essential hypertension 5. Anemia probably secondary to chronic disease Plan. Continue present cardiac management nephrology and dialysis for fluid management Subjective Date of service: 07/16/17 Principal diagnosis: anemia Interval history: No cardiac symptoms Objective Vital Signs Temp Pulse Resp BP Pulse Ox 07/16/17 10:05 78 116/68 07/16/17 07:55 97 07/16/17 06:03 63 101/60 07/16/17 04:20 98.4 F 63 18 101/60 100 07/15/17 23:58 98.2 F 18 105/59 07/15/17 22:45 80 126/76 07/15/17 22:38 80 126/76 07/15/17 22:00 81 18 07/15/17 19:35 97.8 F 88 18 97/55 97 07/15/17 17:56 86 133/76 07/15/17 17:55 86 133/76 07/15/17 16:52 97.7 F 86 16 133/76 99 07/15/17 15:15 98.6 F 75 16 122/81 07/15/17 15:00 75 114/74 07/15/17 14:45 71 120/74 07/15/17 14:30 75 107/70 07/15/17 14:15 75 99/60 07/15/17 14:00 87 103/73 07/15/17 13:45 97 H 124/91 07/15/17 13:30 86 120/79 07/15/17 13:15 86 123/83 07/15/17 13:00 85 121/79 07/15/17 12:45 85 123/80 07/15/17 12:30 83 131/77 07/15/17 12:15 81 128/77 07/15/17 12:00 98.2 F 77 16 137/83 07/15/17 11:55 77 123/79 - Physical Examination General: Appears Well, No Apparent Distress HEENT: Positive: PERRL, Normocephaly, Mucus Membranes Moist Neck: Positive: neck supple, trachea midline. Negative: JVD/HJR Cardiac: Positive: Regular Rate, S1/S2, S4, Laterally Displaced Lungs: Positive: clear to auscultation, No Wheeze, Rales, Rhonchi Neuro: Positive: Grossly Intact Abdomen: Positive: Unremarkable, Soft, Active Bowel Sounds Skin: Positive: Clear Extremities: Absent: edema - Labs and Meds CBC 07/16/17 Range/Units 08:03 Hgb 7.4 L (10.1-14.3) gm/dl Hct 23.3 L (30.3-42.9) % Comprehensive Metabolic Panel 07/16/17 Range/Units 08:03 Sodium 136 L (137-145) mmol/L Potassium 4.2 (3.6-5.0) mmol/L Chloride 94.3 L (98-107) mmol/L Carbon Dioxide 26 (22-30) mmol/L BUN 31 H (7-17) mg/dL Creatinine 5.0 H (0.7-1.2) mg/dL Glucose 119 H (65-100) mg/dL Calcium 7.9 L (8.4-10.2) mg/dL - Telemetry EKG Rhythm: Sinus Rhythm
[2017-07-16] MEDS: XANAX PO SCH ×2 (11:09→22:33)
--- NOTE | 2017-07-16 12:05 | Progress Note ---
Assessment and Plan Assessment and Plan Assessment and plan: Acute hypoxic respiratory failure, sepsis due to pneumonia Patient is on oxygen support Continue IV ceftriaxone and azithromycin, will repeat chest x-ray ESRD on HD Patient had dialysis yesterday Nephrology is following her Patient may need outpatient dialysis setup Hyperkalemia Resolved with treatment Chronic systolic CHF Cardiology consulted and recommended medical management Symptomatic anemia Transfused 2 units of blood and current hemoglobin is 7.4 Chest pain Likely due to congestive heart failure/ pneumonia Lupus Patient is on prednisone Dark stool GI consulted and recommended no intervention at this time, and we will follow as needed DVT prophylaxis SCD Disposition -Continue inpatient care Subjective Date of service: 07/16/17 Principal diagnosis: anemia Objective - Constitutional Vitals: Vital Signs - 12hr 07/16/17 07/16/17 07/16/17 04:20 06:03 07:55 Temperature 98.4 F Pulse Rate 63 63 Respiratory 18 Rate Blood Pressure 101/60 101/60 O2 Sat by Pulse 100 97 Oximetry 07/16/17 07/16/17 07/16/17 08:45 10:05 11:11 Temperature 97.8 F Pulse Rate 78 78 61 Respiratory 16 Rate Blood Pressure 116/68 116/68 O2 Sat by Pulse 100 Oximetry - Labs CBC & Chem 7: 07/16/17 08:03 07/16/17 08:03 Labs: Abnormal lab results 07/15/17 07/16/17 07/16/17 Range/Units 21:18 08:03 08:03 Hgb 7.4 L (10.1-14.3) gm/dl Hct 23.3 L (30.3-42.9) % Sodium 136 L (137-145) mmol/L Chloride 94.3 L (98-107) mmol/L BUN 31 H (7-17) mg/dL Creatinine 5.0 H (0.7-1.2) mg/dL Glucose 119 H (65-100) mg/dL POC Glucose 183 H (70-105) Calcium 7.9 L (8.4-10.2) mg/dL
[2017-07-16] MEDS: FERRLECIT 125 MG in NACL 0.9% 100 ML IV SCH (14:34)
[2017-07-17] MEDS: cefTRIAXone 1 GM in NACL 0.9% 20 ML IV SCH ×2 (01:30→23:47)
[2017-07-17] MEDS: BIDIL 20/37.5MG PO SCH ×3 (06:08→22:15)
--- NOTE | 2017-07-17 09:46 | Progress Note ---
Assessment and Plan Patient will ultimately need placement of an AV graft. The timing of this procedure will be performed either on an outpatient basis or if the patient is not able to be discharged within the foreseeable future, we may consider placing all she is still here. Subjective Date of service: 07/17/17 Principal diagnosis: anemia Interval history: Patient seen and evaluated. She will need placement of an AV graft at some point. She is tolerating hemodialysis well at this point however, does not have an outpatient dialysis Center at this time. Objective - Constitutional Vitals: Vital Signs - 12hr 07/16/17 07/16/17 07/16/17 22:00 22:38 22:41 Temperature 122.0 F H Pulse Rate 78 85 Respiratory 16 Rate Blood Pressure 137/83 137/73 O2 Sat by Pulse 97 97 Oximetry 07/16/17 07/17/17 07/17/17 22:59 06:08 08:00 Temperature 98.7 F 98.3 F Pulse Rate 71 Respiratory 20 Rate Blood Pressure 124/76 126/68 O2 Sat by Pulse 95 Oximetry General appearance: Present: no acute distress - EENT Eyes: PERRL ENT: hearing intact - Neck Neck: supple, other (left IJV permcath) - Respiratory Respiratory effort: normal Extremities: no ischemia - Gastrointestinal General gastrointestinal: Present: deferred Rectal Exam: deferred - Genitourinary Female genitourinary: deferred - Neurologic Neurologic: no focal deficits - Psychiatric Psychiatric: appropriate mood/affect, cooperative - Labs CBC & Chem 7: 07/16/17 08:03 07/16/17 08:03
[2017-07-17] MEDS: XANAX PO SCH ×2 (13:37→22:15)
[2017-07-17] MEDS: ZITHROMAX PO SCH (13:37)
[2017-07-17] MEDS: DELTASONE PO SCH (13:37)
[2017-07-17] MEDS: FERRLECIT 125 MG in NACL 0.9% 100 ML IV SCH (13:38)
[2017-07-17] MEDS: COREG PO SCH ×2 (13:38→22:15)
--- NOTE | 2017-07-17 13:43 | Progress Note ---
Assessment and Plan Chronic Kidney disease stage 5 due to Lupus/HTN now End stage renal disease: -Via Rt IJ TDC today. s/p HD Monday. No HD today. HD tommorow. HD TTS while inpatient but will eval daily. -CM consulted to place pt for outpatient HD. [facility] [place] and Jason [place] pt, CM working on [employer] facilities now. -Renally dose all meds -Low K Renal diet Sepsis possibly due to Pneumonia: -CXR shows edema vs consolidation -Cultured -On ABx Hypoxic respiratory failure: Volume overload: -UF with HD Anemia of chronic disease likely due to CKD, Lupus: Possible GI bleed: -On epogen and Iron. -Transfuse PRN per primary -GI saw pt. Hyperkalemia: -Better with HD -Low K diet Metabolic acidosis: -Better with IHD. Lupus: -Per primary Leukopenia: Thrombocytopenia: -From Lupus -Per primary Chest Pain: -Per primary and Cardiology. Álvaro Nash MD Nephrology, Hypertension, Dialysis, Transplantation Phone no: [phone] Subjective Date of service: 07/17/17 Principal diagnosis: anemia Interval history: Denies CP, SHOB. s/p HD Monday. Objective - Exam Narrative Exam: [id number] HEENT: PERRLA Neck: No JVD CVS: RRR Chest: Coarse BS BL, Rt IJ TDC Abd: Soft/NT/ND/BS+ Ext: 1+ BLE edema Psyche: Appropriate mood - Vital Signs Vital signs: Vital Signs - 12hr 07/17/17 07/17/17 07/17/17 06:08 08:00 13:36 Temperature 98.3 F Pulse Rate 71 72 Respiratory 20 Rate Blood Pressure 124/76 126/68 130/78 O2 Sat by Pulse 95 Oximetry - Lab 07/16/17 08:03 07/16/17 08:03 Most recent lab results Calcium 7.9 mg/dL (8.4-10.2) L 07/16/17 08:03 Phosphorus 6.20 mg/dL (2.5-4.5) H 07/10/17 20:38 Urine Creatinine 139.2 mg/dL (0.1-20.0) H 07/11/17 15:00 Urine Total Protein 695 mg/dL (5-11.8) H 07/11/17 15:00
[2017-07-17 15:44] LABS: Calcium 8.1 mg/dL (8.4-10.2)
--- NOTE | 2017-07-17 16:32 | Progress Note ---
Assessment and Plan Assessment and Plan Assessment and plan: Acute hypoxic respiratory failure, sepsis due to pneumonia Patient is on oxygen support Continue IV ceftriaxone and azithromycin, will repeat chest x-ray ESRD on HD Patient had dialysis yesterday Nephrology is following her Patient may need outpatient dialysis setup Hyperkalemia Resolved with treatment Chronic systolic CHF Cardiology consulted and recommended medical management Symptomatic anemia Transfused 2 units of blood and current hemoglobin is 7.4 Chest pain Likely due to congestive heart failure/ pneumonia Lupus Patient is on prednisone Dark stool GI consulted and recommended no intervention at this time, and we will follow as needed DVT prophylaxis SCD Disposition -Continue inpatient care Subjective Date of service: 07/17/17 Principal diagnosis: anemia,ESRd on HD Interval history: Sx better Objective - Constitutional Vitals: Vital Signs - 12hr 07/17/17 07/17/17 07/17/17 06:08 08:00 13:36 Temperature 98.3 F Pulse Rate 71 72 Respiratory 20 Rate Blood Pressure 124/76 126/68 130/78 O2 Sat by Pulse 95 Oximetry General appearance: Present: no acute distress, well-nourished - EENT Eyes: PERRL, EOM intact ENT: hearing intact, clear oral mucosa Ears: bilateral: normal - Neck Neck: supple, normal ROM - Respiratory Respiratory effort: normal Respiratory: bilateral: CTA - Breasts Breasts: normal - Cardiovascular Rhythm: regular Heart Sounds: Present: S1 & S2. Absent: gallop, rub Extremities: pulses intact, No edema, normal color, Full ROM - Gastrointestinal General gastrointestinal: Present: soft, non-tender, non-distended, normal bowel sounds - Genitourinary Female genitourinary: normal - Integumentary Integumentary: clear, warm, dry - Musculoskeletal Musculoskeletal: 1, strength equal bilaterally - Neurologic Neurologic: moves all extremities - Psychiatric Psychiatric: memory intact, appropriate mood/affect, intact judgment & insight - Labs CBC & Chem 7: 07/16/17 08:03 07/17/17 12:12 Labs: Abnormal lab results 07/17/17 Range/Units 12:12 Chloride 94.8 L (98-107) mmol/L BUN 52 H (7-17) mg/dL Creatinine 6.4 H (0.7-1.2) mg/dL Calcium 8.1 L (8.4-10.2) mg/dL
--- NOTE | 2017-07-17 19:19 | Progress Note ---
Assessment and Plan - Patient Problems (1) Acute on chronic systolic heart failure Current Visit: Yes Status: Acute Plan to address problem: The patient has a history of dilated cardiomyopathy with left ventricular ejection fraction 20-25% on echocardiogram 6 months ago. We'll recommend optimal medical therapy including afterload reduction agents, beta blockers and diuretics. A thallium stress test was negative for ischemia, establishing a nonischemic etiology of her cardiomyopathy. Subjective Date of service: 07/17/17 Principal diagnosis: anemia,ESRd on HD Interval history: Patient looks and feels much better following initiation of hemodialysis and correction of her presenting severe anemia. Objective Vital Signs Temp Pulse Resp BP Pulse Ox 07/17/17 16:02 98.1 F 86 20 118/69 95 07/17/17 13:36 72 130/78 07/17/17 08:00 98.3 F 71 20 126/68 95 07/17/17 06:08 124/76 07/16/17 22:59 98.7 F 07/16/17 22:41 85 137/73 07/16/17 22:38 122.0 F H 78 16 137/83 97 07/16/17 22:00 97 - Physical Examination General: Appears Well, No Apparent Distress HEENT: Positive: PERRL, Normocephaly, Mucus Membranes Moist Neck: Positive: neck supple, trachea midline. Negative: JVD/HJR Cardiac: Positive: Reg Rate and Rhythm Lungs: Positive: clear to auscultation Neuro: Positive: Grossly Intact Abdomen: Positive: Unremarkable, Soft, Active Bowel Sounds Skin: Positive: Clear Extremities: Absent: edema - Labs and Meds Comprehensive Metabolic Panel 07/17/17 Range/Units 12:12 Sodium 137 (137-145) mmol/L Potassium 3.7 (3.6-5.0) mmol/L Chloride 94.8 L (98-107) mmol/L Carbon Dioxide 25 (22-30) mmol/L BUN 52 H (7-17) mg/dL Creatinine 6.4 H (0.7-1.2) mg/dL Glucose 86 (65-100) mg/dL Calcium 8.1 L (8.4-10.2) mg/dL
[2017-07-17] MEDS: PROCRIT SUB-Q SCH ×2 (23:31→23:33)
[2017-07-18] MEDS: BIDIL 20/37.5MG PO SCH ×3 (05:36→21:46)
[2017-07-18] MEDS ORDERED: NACL 0.9 (PRIMING MACHINE ONLY DIALYSIS) MC ONE (12:22)
[2017-07-18] MEDS: PROCRIT SUB-Q SCH (13:30)
--- NOTE | 2017-07-18 14:38 | Progress Note ---
Assessment and Plan Acute systolic heart failure 20-25% on echo 01/2017 no ischemia on MPI this admission ESRD initiated on HD Right pleural effusion, small to moderate on cxr. Severe anemia Hypertension Noncompliant with medical therapy and outpatient physician follow-ups Recommendations: Dialysis for fluid management. Continue medical management for systolic heart failure and nonischemic cardiomyopathy with beta blockers and afterload reduction therapy. Subjective Date of service: 07/18/17 Principal diagnosis: anemia,ESRd on HD Interval history: Seen in dialysis. Patient has no complaints. Objective Vital Signs Temp Pulse Resp BP Pulse Ox 07/18/17 13:15 62 155/88 07/18/17 13:00 64 156/89 07/18/17 12:45 75 162/95 07/18/17 12:30 71 153/93 07/18/17 12:15 67 150/78 07/18/17 12:00 62 159/85 07/18/17 11:45 64 157/87 07/18/17 11:30 76 164/98 07/18/17 11:15 80 168/105 07/18/17 11:00 70 153/92 07/18/17 10:45 67 148/91 07/18/17 10:30 73 151/85 07/18/17 10:12 98.0 F 70 20 143/84 07/18/17 08:02 98.1 F 73 18 132/86 98 07/18/17 05:36 64 122/70 07/18/17 04:28 98.5 F 07/17/17 22:15 143/85 07/17/17 21:00 98.5 F 75 18 143/83 98 07/17/17 16:02 98.1 F 86 20 118/69 95 - Physical Examination General: Appears Well HEENT: Positive: PERRL Cardiac: Positive: Reg Rate and Rhythm Neuro: Positive: Grossly Intact - Labs and Meds Comprehensive Metabolic Panel 07/17/17 Range/Units 12:12 Sodium 137 (137-145) mmol/L Potassium 3.7 (3.6-5.0) mmol/L Chloride 94.8 L (98-107) mmol/L Carbon Dioxide 25 (22-30) mmol/L BUN 52 H (7-17) mg/dL Creatinine 6.4 H (0.7-1.2) mg/dL Glucose 86 (65-100) mg/dL Calcium 8.1 L (8.4-10.2) mg/dL
--- NOTE | 2017-07-18 14:39 | Progress Note ---
Assessment and Plan Assessment and plan: Acute hypoxic respiratory failure, sepsis due to pneumonia Patient is on oxygen support Continue IV ceftriaxone and azithromycin, will repeat chest x-ray ESRD on HD Patient had dialysis yesterday Nephrology is following her Awaiting outpatient dialysis setup Hyperkalemia Resolved with treatment Chronic systolic CHF Cardiology consulted and recommended medical management Symptomatic anemia Transfused 2 units of blood and current hemoglobin is 7.4 Chest pain Likely due to congestive heart failure/ pneumonia Lupus Patient is on prednisone Dark stool GI consulted and recommended no intervention at this time, and we will follow as needed DVT prophylaxis SCD Disposition -Continue inpatient care -Awaiting outpatient dialysis setup History Interval history: no new issues Hospitalist Physical - Constitutional Vitals: Temp Pulse Resp BP Pulse Ox 98.0 F 62 20 155/88 98 07/18/17 10:12 07/18/17 13:15 07/18/17 10:12 07/18/17 13:15 07/18/17 08:02 General appearance: Present: no acute distress, well-nourished - EENT Eyes: Present: PERRL, EOM intact ENT: hearing intact, clear oral mucosa, dentition normal - Neck Neck: Present: supple, normal ROM - Respiratory Respiratory effort: normal Respiratory: bilateral: CTA - Cardiovascular Rhythm: regular Heart Sounds: Present: S1 & S2. Absent: gallop, rub - Extremities Extremities: no ischemia, No edema, Full ROM - Abdominal General gastrointestinal: soft, non-tender, non-distended, normal bowel sounds - Integumentary Integumentary: Present: clear, warm, dry - Neurologic Neurologic: CNII-XII intact, moves all extremities Results - Labs CBC & Chem 7: 07/16/17 08:03 07/17/17 12:12 Labs: Laboratory Last Values WBC 6.8 K/mm3 (4.5-11.0) 07/15/17 06:13 RBC 3.02 M/mm3 (3.65-5.03) L 07/15/17 06:13 Hgb 7.4 gm/dl (10.1-14.3) L 07/16/17 08:03 Hct 23.3 % (30.3-42.9) L 07/16/17 08:03 MCV 80 fl (79-97) 07/15/17 06:13 MCH 26 pg (28-32) L 07/15/17 06:13 MCHC 32 % (30-34) 07/15/17 06:13 RDW 18.5 % (13.2-15.2) H 07/15/17 06:13 Plt Count 159 K/mm3 (140-440) 07/15/17 06:13 Lymph % (Auto) 7.7 % (13.4-35.0) L 07/15/17 06:13 [place] % (Auto) 4.5 % (0.0-7.3) 07/15/17 06:13 Eos % (Auto) 0.1 % (0.0-4.3) 07/15/17 06:13 Baso % (Auto) 0.2 % (0.0-1.8) 07/15/17 06:13 Lymph # 0.5 K/mm3 (1.2-5.4) L 07/15/17 06:13 [place] # 0.3 K/mm3 (0.0-0.8) 07/15/17 06:13 Eos # 0.0 K/mm3 (0.0-0.4) 07/15/17 06:13 Baso # 0.0 K/mm3 (0.0-0.1) 07/15/17 06:13 Add Manual Diff Complete 07/12/17 06:35 Total Counted 100 07/12/17 06:35 Seg Neutrophils % 87.5 % (40.0-70.0) H 07/15/17 06:13 Seg Neuts % (Manual) 88.0 % (40.0-70.0) H 07/12/17 06:35 Band Neutrophils % 4.0 % 07/12/17 06:35 Lymphocytes % (Manual) 6.0 % (13.4-35.0) L 07/12/17 06:35 Reactive Lymphs % (Man) 0 % 07/12/17 06:35 Monocytes % (Manual) 1.0 % (0.0-7.3) 07/12/17 06:35 Eosinophils % (Manual) 1.0 % (0.0-4.3) 07/12/17 06:35 Basophils % (Manual) 0 % (0.0-1.8) 07/12/17 06:35 Metamyelocytes % 0 % 07/12/17 06:35 Myelocytes % 0 % 07/12/17 06:35 Promyelocytes % 0 % 07/12/17 06:35 Blast Cells % 0 % 07/12/17 06:35 Nucleated RBC % Not Reportable 07/12/17 06:35 Seg Neutrophils # 6.0 K/mm3 (1.8-7.7) 07/15/17 06:13 Seg Neutrophils # Man 1.8 K/mm3 (1.8-7.7) 07/12/17 06:35 Band Neutrophils # 0.1 K/mm3 07/12/17 06:35 Lymphocytes # (Manual) 0.1 K/mm3 (1.2-5.4) L 07/12/17 06:35 Abs React Lymphs (Man) 0.0 K/mm3 07/12/17 06:35 Monocytes # (Manual) 0.0 K/mm3 (0.0-0.8) 07/12/17 06:35 Eosinophils # (Manual) 0.0 K/mm3 (0.0-0.4) 07/12/17 06:35 Basophils # (Manual) 0.0 K/mm3 (0.0-0.1) 07/12/17 06:35 Metamyelocytes # 0.0 K/mm3 07/12/17 06:35 Myelocytes # 0.0 K/mm3 07/12/17 06:35 Promyelocytes # 0.0 K/mm3 07/12/17 06:35 Blast Cells # 0.0 K/mm3 07/12/17 06:35 WBC Morphology Not Reportable 07/12/17 06:35 Hypersegmented Neuts Not Reportable 07/12/17 06:35 Hyposegmented Neuts Not Reportable 07/12/17 06:35 Hypogranular Neuts Not Reportable 07/12/17 06:35 Smudge Cells Not Reportable 07/12/17 06:35 Toxic Granulation Not Reportable 07/12/17 06:35 Toxic Vacuolation Not Reportable 07/12/17 06:35 Dohle Bodies Not Reportable 07/12/17 06:35 Pelger-Huet Anomaly Not Reportable 07/12/17 06:35 Von Rods Not Reportable 07/12/17 06:35 Platelet Estimate Not Reportable 07/12/17 06:35 Clumped Platelets Not Reportable 07/12/17 06:35 Plt Clumps, EDTA Not Reportable 07/12/17 06:35 Large Platelets Not Reportable 07/12/17 06:35 Giant Platelets Not Reportable 07/12/17 06:35 Platelet Satelliting Not Reportable 07/12/17 06:35 Plt Morphology Comment Not Reportable 07/12/17 06:35 RBC Morphology Not Reportable 07/12/17 06:35 Dimorphic RBCs Not Reportable 07/12/17 06:35 Polychromasia Not Reportable 07/12/17 06:35 Hypochromasia 1+ 07/12/17 06:35 Poikilocytosis 1+ 07/12/17 06:35 Anisocytosis 1+ 07/12/17 06:35 Microcytosis Not Reportable 07/12/17 06:35 Macrocytosis Not Reportable 07/12/17 06:35 Spherocytes Not Reportable 07/12/17 06:35 Pappenheimer Bodies Not Reportable 07/12/17 06:35 Sickle Cells Not Reportable 07/12/17 06:35 Target Cells Not Reportable 07/12/17 06:35 Tear Drop Cells Not Reportable 07/12/17 06:35 Ovalocytes Not Reportable 07/12/17 06:35 Helmet Cells Not Reportable 07/12/17 06:35 [place] Bodies Not Reportable 07/12/17 06:35 [place] Rings Not Reportable 07/12/17 06:35 Antoni Cells Not Reportable 07/12/17 06:35 Bite Cells Not Reportable 07/12/17 06:35 Crenated Cell Not Reportable 07/12/17 06:35 Elliptocytes Not Reportable 07/12/17 06:35 Acanthocytes (Spur) Not Reportable 07/12/17 06:35 Rouleaux Not Reportable 07/12/17 06:35 Hemoglobin C Crystals Not Reportable 07/12/17 06:35 Schistocytes Not Reportable 07/12/17 06:35 Malaria parasites Not Reportable 07/12/17 06:35 Niraj Bodies Not Reportable 07/12/17 06:35 Hem Pathologist Commnt No 07/12/17 06:35 PT 16.9 Sec. (12.2-14.9) H 07/10/17 20:38 INR 1.30 (0.87-1.13) H 07/10/17 20:38 Sodium 137 mmol/L (137-145) 07/17/17 12:12 Potassium 3.7 mmol/L (3.6-5.0) 07/17/17 12:12 Chloride 94.8 mmol/L (98-107) L 07/17/17 12:12 Carbon Dioxide 25 mmol/L (22-30) 07/17/17 12:12 Anion Gap 21 mmol/L 07/17/17 12:12 BUN 52 mg/dL (7-17) H 07/17/17 12:12 Creatinine 6.4 mg/dL (0.7-1.2) H 07/17/17 12:12 Estimated GFR 9 ml/min 07/17/17 12:12 BUN/Creatinine Ratio 8 % 07/17/17 12:12 Glucose 86 mg/dL (65-100) 07/17/17 12:12 POC Glucose 183 (70-105) H 07/15/17 21:18 Calcium 8.1 mg/dL (8.4-10.2) L 07/17/17 12:12 Phosphorus 6.20 mg/dL (2.5-4.5) H 07/10/17 20:38 Iron 23 ug/dL (37-170) L 07/10/17 20:38 TIBC 172 mcg/dL (250-450) L 07/10/17 20:38 Ferritin 199.5 ng/mL (13.0-400.0) 07/10/17 20:38 Troponin T 0.076 ng/mL (0.00-0.029) H 07/10/17 03:32 NT-Pro-B Natriuret Pep > 92229 pg/mL (0-450) H 07/10/17 20:38 Triglycerides 192 mg/dL (2-149) H 07/10/17 03:32 Cholesterol 140 mg/dL (50-199) 07/10/17 03:32 LDL Cholesterol Direct 67 mg/dL (50-130) 07/10/17 03:32 HDL Cholesterol 35 mg/dL (40-59) L 07/10/17 03:32 Cholesterol/HDL Ratio 4.00 % 07/10/17 03:32 HCG, Qual Negative (Negative) 07/10/17 03:32 Urine Color [place] (Yellow) 07/11/17 15:00 Urine Turbidity Cloudy (Clear) 07/11/17 15:00 Urine pH 5.0 (5.0-7.0) 07/11/17 15:00 Ur Specific Delta 1.015 (1.003-1.030) 07/11/17 15:00 Urine Protein >500 mg/dL (Negative) 07/11/17 15:00 Urine Glucose (UA) Neg mg/dL (Negative) 07/11/17 15:00 Urine Ketones Neg mg/dL (Negative) 07/11/17 15:00 Urine Blood Neg (Negative) 07/11/17 15:00 Urine Nitrite Neg (Negative) 07/11/17 15:00 Urine Bilirubin Neg (Negative) 07/11/17 15:00 Urine Urobilinogen < 2.0 mg/dL (<2.0) 07/11/17 15:00 Ur Leukocyte Esterase Tr (Negative) 07/11/17 15:00 Urine WBC (Auto) 5.0 /HPF (0.0-6.0) 07/11/17 15:00 Urine RBC (Auto) 14.0 /HPF (0.0-6.0) 07/11/17 15:00 U Epithel Cells (Auto) 18.0 /HPF (0-13.0) H 07/11/17 15:00 Urine Mucus Few /HPF 07/11/17 15:00 Urine Creatinine 139.2 mg/dL (0.1-20.0) H 07/11/17 15:00 Protein/Creatinin Ratio 4.99 07/11/17 15:00 Urine Total Protein 695 mg/dL (5-11.8) H 07/11/17 15:00 PAUL Screen Positive (Negative) H 07/10/17 20:38 PAUL Titer 1:320 (Negative) H 07/10/17 20:38 PAUL Pattern Homogeneous 07/10/17 20:38 Double Strand DNA Ab 199 IU/mL (<=4) H 07/10/17 20:38 Complement C3 30 mg/dL (90-180) L 07/10/17 20:38 Complement C4 6 mg/dL (16-47) L 07/10/17 20:38 Hepatitis A IgM Ab Non-reactive (NonReactive) 07/10/17 20:38 Hep Bs Antigen Non-reactive (Negative) 07/10/17 20:38 Hep B Core IgM Ab Non-reactive (NonReactive) 07/10/17 20:38 Hepatitis C Antibody Non-reactive (NonReactive) 07/10/17 20:38 HIV 1&2 Antibody Rapid Non react (Non React) 07/10/17 20:38 HIV P24 Antigen Non react (Non React) 07/10/17 20:38 Blood Type O POSITIVE 07/10/17 05:29 Antibody Screen Negative 07/10/17 05:29 Crossmatch See Detail 07/10/17 05:29
--- NOTE | 2017-07-18 15:02 | Progress Note ---
Assessment and Plan Acute Hypoxic Respiratory Failure: -Ultrafiltration with Hemodialysis -S/p Chest X Ray on 07/15/17 showed cardiomegaly, moderate right pleural effusion , no consolidation, no significant interval change Sepsis possibly secondary to pneumonia: -Blood cultures showed NGTD -On azithromycin and rocephin -S/p Chest X Ray on 07/15/17 showed cardiomegaly, moderate right pleural effusion , no consolidation, no significant interval change Chronic Kidney Disease Stage 5 secondary to Lupus, hypertensive nephrosclerosis now ESRD: -S/p Hemodialysis today for UF and clearance via Right IJ Perm Catheter -Assess need for HD on daily basis -Renally dose medications -Epogen dosing during HD for anemia management -Case Mgmt on board, working on [employer] facilities for [place], [facility] [place] and Jason patrick patient -Renal diet -Strict intake and output -Renal plan discussed with Dr Reyes -Continue supportive therapy Anemia of chronic disease suspect secondary to chronic kidney disease, Lupus: -Continue Epogen dosing during HD for anemia management -On Ferrlecit 125 mg IVPB daily x 8 doses -GI evaluated patient, no signs of active bleeding, follow up as an outpatient for EGD/colonoscopy Metabolic Acidosis: -Improved with Hemodialysis Chronic systolic Congestive Heart Failure: -LVEF 20-25% -Ultrafiltration with HD -As per cardiology Lupus: -As per primary team Leukopenia: Thrombocytopenia: -Secondary to Lupus -As per primary team Subjective Date of service: 07/18/17 Principal diagnosis: anemia,ESRd on HD Interval history: Patient reports feeling ok, just returned from undergoing hemodialysis, states her HD treatment went well. No family at bedside. Objective - Vital Signs Vital signs: Vital Signs - 12hr 07/18/17 07/18/17 07/18/17 04:28 05:36 08:02 Temperature 98.5 F 98.1 F Pulse Rate 64 73 Respiratory 18 Rate Blood Pressure 122/70 132/86 O2 Sat by Pulse 98 Oximetry 07/18/17 07/18/17 07/18/17 10:12 10:30 10:45 Temperature 98.0 F Pulse Rate 70 73 67 Respiratory 20 Rate Blood Pressure 143/84 151/85 148/91 O2 Sat by Pulse Oximetry 07/18/17 07/18/17 07/18/17 11:00 11:15 11:30 Temperature Pulse Rate 70 80 76 Respiratory Rate Blood Pressure 153/92 168/105 164/98 O2 Sat by Pulse Oximetry 07/18/17 07/18/17 07/18/17 11:45 12:00 12:15 Temperature Pulse Rate 64 62 67 Respiratory Rate Blood Pressure 157/87 159/85 150/78 O2 Sat by Pulse Oximetry 07/18/17 07/18/17 07/18/17 12:30 12:45 13:00 Temperature Pulse Rate 71 75 64 Respiratory Rate Blood Pressure 153/93 162/95 156/89 O2 Sat by Pulse Oximetry 07/18/17 13:15 Temperature Pulse Rate 62 Respiratory Rate Blood Pressure 155/88 O2 Sat by Pulse Oximetry - General Appearance General appearance: well-nourished (no acute distress) EENT: ATNC Neck: no JVD Respiratory: Present: Other (Lung sounds decreased bilaterally, unlabored) Cardiology: regular, S1S2, other (ACCESS: Right IJ Perm Catheter intact) Gastrointestinal: normoactive bowel sounds, no tenderness Integumentary: warm and dry Neurologic: alert and oriented x3 Musculoskeletal: other (no edema to both lower extremities) Psychiatric: mood/affect appropriate, cooperative - Lab 07/16/17 08:03 07/17/17 12:12 Most recent lab results Calcium 8.1 mg/dL (8.4-10.2) L 07/17/17 12:12 Phosphorus 6.20 mg/dL (2.5-4.5) H 07/10/17 20:38 Urine Creatinine 139.2 mg/dL (0.1-20.0) H 07/11/17 15:00 Urine Total Protein 695 mg/dL (5-11.8) H 07/11/17 15:00
[2017-07-18] MEDS: HEPARIN IV PRN (16:20)
[2017-07-18] MEDS: ZITHROMAX PO SCH (16:22)
[2017-07-18] MEDS: DELTASONE PO SCH (16:22)
[2017-07-18] MEDS: FERRLECIT 125 MG in NACL 0.9% 100 ML IV SCH (16:22)
[2017-07-18] MEDS: XANAX PO SCH ×2 (16:23→21:45)
[2017-07-18] MEDS: COREG PO SCH ×2 (16:23→21:45)
[2017-07-19] MEDS: cefTRIAXone 1 GM in NACL 0.9% 20 ML IV SCH ×2 (00:45→23:59)
[2017-07-19] MEDS: BIDIL 20/37.5MG PO SCH ×3 (05:43→21:00)
[2017-07-19 08:17] LABS: Hematocrit 24.1 % (30.3-42.9); Hemoglobin 7.8 gm/dl (10.1-14.3); Mean Corpuscular HGB Conc 32 % (30-34); Mean Corpuscular Hemoglobin 26 pg (28-32); Mean Corpuscular Volume 80 fl (79-97); Platelet Count 179 K/mm3 (140-440); Red Blood Count 3.01 M/mm3 (3.65-5.03); Red Cell Distribution Width 18.4 % (13.2-15.2)
[2017-07-19 08:47] LABS: Calcium 7.8 mg/dL (8.4-10.2)
--- NOTE | 2017-07-19 09:45 | Progress Note ---
Assessment and Plan Acute Hypoxic Respiratory Failure: -Ultrafiltration with Hemodialysis -S/p Chest X Ray on 07/15/17 showed cardiomegaly, moderate right pleural effusion , no consolidation, no significant interval change Sepsis possibly secondary to pneumonia: -Blood cultures showed NGTD -On azithromycin and rocephin -S/p Chest X Ray on 07/15/17 showed cardiomegaly, moderate right pleural effusion , no consolidation, no significant interval change Chronic Kidney Disease Stage 5 secondary to Lupus, hypertensive nephrosclerosis now ESRD: -S/p Hemodialysis yesterday for UF and clearance via Right IJ Perm Catheter -No acute indication for HD today -Hemodialysis tomorrow for UF and clearance -Assess need for HD on daily basis -Renally dose medications -Epogen dosing during HD for anemia management -Case Mgmt on board, working [place] [facility] facilities [place] [facility] [place] patient -Renal diet -Strict intake and output -Renal plan discussed with Dr Reyes -Continue supportive therapy Anemia of chronic disease suspect secondary to chronic kidney disease, Lupus: -Continue Epogen dosing during HD for anemia management -On Ferrlecit 125 mg IVPB daily x 8 doses -GI evaluated patient, no signs of active bleeding, follow up as an outpatient for EGD/colonoscopy Metabolic Acidosis: -Improved with Hemodialysis Chronic systolic Congestive Heart Failure: -LVEF 20-25% -Ultrafiltration with HD -As per cardiology Lupus: -As per primary team Leukopenia: Thrombocytopenia: -Secondary to Lupus -As per primary team Subjective Date of service: 07/19/17 Principal diagnosis: anemia,ESRd on HD Interval history: Patient reports feeling ok, denies shortness of breath. Family at bedside. Objective - Vital Signs Vital signs: Vital Signs - 12hr 07/18/17 07/18/17 07/19/17 21:45 21:46 05:43 Temperature Pulse Rate Respiratory Rate Blood Pressure 125/74 125/74 155/94 O2 Sat by Pulse Oximetry 07/19/17 07:56 Temperature 98.9 F Pulse Rate 75 Respiratory 20 Rate Blood Pressure 128/81 O2 Sat by Pulse 97 Oximetry - General Appearance General appearance: well-developed (no acute distress) EENT: ATNC Neck: no JVD Respiratory: Present: Other (Lung sounds decreased bilaterally, unlabored) Cardiology: regular, S1S2, other (ACCESS: Right IJ Perm Catheter intact) Gastrointestinal: normoactive bowel sounds, no tenderness Integumentary: warm and dry Neurologic: alert and oriented x3 Musculoskeletal: other (no edema to both lower extremities) Psychiatric: mood/affect appropriate, cooperative - Lab 07/19/17 07:18 07/19/17 07:18 Most recent lab results Calcium 7.8 mg/dL (8.4-10.2) L 07/19/17 07:18 Phosphorus 6.20 mg/dL (2.5-4.5) H 07/10/17 20:38 Urine Creatinine 139.2 mg/dL (0.1-20.0) H 07/11/17 15:00 Urine Total Protein 695 mg/dL (5-11.8) H 07/11/17 15:00
[2017-07-19] MEDS: ZITHROMAX PO SCH (09:46)
[2017-07-19] MEDS: XANAX PO SCH ×2 (09:46→21:00)
[2017-07-19] MEDS: COREG PO SCH ×2 (09:46→21:00)
[2017-07-19] MEDS: FERRLECIT 125 MG in NACL 0.9% 100 ML IV SCH (09:46)
[2017-07-19] MEDS: DELTASONE PO SCH (09:46)
--- NOTE | 2017-07-19 09:58 | Progress Note ---
Assessment and Plan Assessment and plan: Acute hypoxic respiratory failure, sepsis due to pneumonia Patient is on oxygen support Continue IV ceftriaxone and azithromycin for now. Consider discontinuing given the chest x-ray shows no consolidation ESRD on HD Continue hemodialysis per Nephrology Awaiting outpatient dialysis setup Hyperkalemia Resolved with treatment Chronic systolic CHF Cardiology consulted and recommended medical management Symptomatic anemia Resolved. Continue to follow H&H. Chest pain Resolved. Likely due to congestive heart failure/ pneumonia Lupus Patient is on prednisone Dark stool GI consulted and recommended no intervention at this time, and we will follow as needed DVT prophylaxis SCD Disposition -Continue inpatient care -Awaiting outpatient dialysis setup History Interval history: no new issues Hospitalist Physical - Constitutional Vitals: Temp Pulse Resp BP Pulse Ox 98.9 F 75 20 128/81 97 07/19/17 07:56 07/19/17 07:56 07/19/17 07:56 07/19/17 07:56 07/19/17 07:56 General appearance: Present: no acute distress, well-nourished - EENT Eyes: Present: PERRL, EOM intact ENT: hearing intact, clear oral mucosa, dentition normal - Neck Neck: Present: supple, normal ROM - Respiratory Respiratory effort: normal Respiratory: bilateral: CTA - Cardiovascular Rhythm: regular Heart Sounds: Present: S1 & S2. Absent: gallop, rub - Extremities Extremities: no ischemia, No edema, Full ROM - Abdominal General gastrointestinal: soft, non-tender, non-distended, normal bowel sounds - Integumentary Integumentary: Present: clear, warm, dry - Neurologic Neurologic: CNII-XII intact, moves all extremities Results - Labs CBC & Chem 7: 07/19/17 07:18 07/19/17 07:18 Labs: Laboratory Last Values WBC 6.0 K/mm3 (4.5-11.0) 07/19/17 07:18 RBC 3.01 M/mm3 (3.65-5.03) L 07/19/17 07:18 Hgb 7.8 gm/dl (10.1-14.3) L 07/19/17 07:18 Hct 24.1 % (30.3-42.9) L 07/19/17 07:18 MCV 80 fl (79-97) 07/19/17 07:18 MCH 26 pg (28-32) L 07/19/17 07:18 MCHC 32 % (30-34) 07/19/17 07:18 RDW 18.4 % (13.2-15.2) H 07/19/17 07:18 Plt Count 179 K/mm3 (140-440) 07/19/17 07:18 Lymph % (Auto) 7.7 % (13.4-35.0) L 07/15/17 06:13 [place] % (Auto) 4.5 % (0.0-7.3) 07/15/17 06:13 Eos % (Auto) 0.1 % (0.0-4.3) 07/15/17 06:13 Baso % (Auto) 0.2 % (0.0-1.8) 07/15/17 06:13 Lymph # 0.5 K/mm3 (1.2-5.4) L 07/15/17 06:13 Cannon # 0.3 K/mm3 (0.0-0.8) 07/15/17 06:13 Eos # 0.0 K/mm3 (0.0-0.4) 07/15/17 06:13 Baso # 0.0 K/mm3 (0.0-0.1) 07/15/17 06:13 Add Manual Diff Complete 07/12/17 06:35 Total Counted 100 07/12/17 06:35 Seg Neutrophils % 87.5 % (40.0-70.0) H 07/15/17 06:13 Seg Neuts % (Manual) 88.0 % (40.0-70.0) H 07/12/17 06:35 Band Neutrophils % 4.0 % 07/12/17 06:35 Lymphocytes % (Manual) 6.0 % (13.4-35.0) L 07/12/17 06:35 Reactive Lymphs % (Man) 0 % 07/12/17 06:35 Monocytes % (Manual) 1.0 % (0.0-7.3) 07/12/17 06:35 Eosinophils % (Manual) 1.0 % (0.0-4.3) 07/12/17 06:35 Basophils % (Manual) 0 % (0.0-1.8) 07/12/17 06:35 Metamyelocytes % 0 % 07/12/17 06:35 Myelocytes % 0 % 07/12/17 06:35 Promyelocytes % 0 % 07/12/17 06:35 Blast Cells % 0 % 07/12/17 06:35 Nucleated RBC % Not Reportable 07/12/17 06:35 Seg Neutrophils # 6.0 K/mm3 (1.8-7.7) 07/15/17 06:13 Seg Neutrophils # Man 1.8 K/mm3 (1.8-7.7) 07/12/17 06:35 Band Neutrophils # 0.1 K/mm3 07/12/17 06:35 Lymphocytes # (Manual) 0.1 K/mm3 (1.2-5.4) L 07/12/17 06:35 Abs React Lymphs (Man) 0.0 K/mm3 07/12/17 06:35 Monocytes # (Manual) 0.0 K/mm3 (0.0-0.8) 07/12/17 06:35 Eosinophils # (Manual) 0.0 K/mm3 (0.0-0.4) 07/12/17 06:35 Basophils # (Manual) 0.0 K/mm3 (0.0-0.1) 07/12/17 06:35 Metamyelocytes # 0.0 K/mm3 07/12/17 06:35 Myelocytes # 0.0 K/mm3 07/12/17 06:35 Promyelocytes # 0.0 K/mm3 07/12/17 06:35 Blast Cells # 0.0 K/mm3 07/12/17 06:35 WBC Morphology Not Reportable 07/12/17 06:35 Hypersegmented Neuts Not Reportable 07/12/17 06:35 Hyposegmented Neuts Not Reportable 07/12/17 06:35 Hypogranular Neuts Not Reportable 07/12/17 06:35 Smudge Cells Not Reportable 07/12/17 06:35 Toxic Granulation Not Reportable 07/12/17 06:35 Toxic Vacuolation Not Reportable 07/12/17 06:35 Dohle Bodies Not Reportable 07/12/17 06:35 Pelger-Huet Anomaly Not Reportable 07/12/17 06:35 Von Rods Not Reportable 07/12/17 06:35 Platelet Estimate Not Reportable 07/12/17 06:35 Clumped Platelets Not Reportable 07/12/17 06:35 Plt Clumps, EDTA Not Reportable 07/12/17 06:35 Large Platelets Not Reportable 07/12/17 06:35 Giant Platelets Not Reportable 07/12/17 06:35 Platelet Satelliting Not Reportable 07/12/17 06:35 Plt Morphology Comment Not Reportable 07/12/17 06:35 RBC Morphology Not Reportable 07/12/17 06:35 Dimorphic RBCs Not Reportable 07/12/17 06:35 Polychromasia Not Reportable 07/12/17 06:35 Hypochromasia 1+ 07/12/17 06:35 Poikilocytosis 1+ 07/12/17 06:35 Anisocytosis 1+ 07/12/17 06:35 Microcytosis Not Reportable 07/12/17 06:35 Macrocytosis Not Reportable 07/12/17 06:35 Spherocytes Not Reportable 07/12/17 06:35 Pappenheimer Bodies Not Reportable 07/12/17 06:35 Sickle Cells Not Reportable 07/12/17 06:35 Target Cells Not Reportable 07/12/17 06:35 Tear Drop Cells Not Reportable 07/12/17 06:35 Ovalocytes Not Reportable 07/12/17 06:35 Helmet Cells Not Reportable 07/12/17 06:35 [place] Bodies Not Reportable 07/12/17 06:35 [place] Rings Not Reportable 07/12/17 06:35 [place] Cells Not Reportable 07/12/17 06:35 Bite Cells Not Reportable 07/12/17 06:35 Crenated Cell Not Reportable 07/12/17 06:35 Elliptocytes Not Reportable 07/12/17 06:35 Acanthocytes (Spur) Not Reportable 07/12/17 06:35 Rouleaux Not Reportable 07/12/17 06:35 Hemoglobin C Crystals Not Reportable 07/12/17 06:35 Schistocytes Not Reportable 07/12/17 06:35 Malaria parasites Not Reportable 07/12/17 06:35 Niraj Bodies Not Reportable 07/12/17 06:35 Hem Pathologist Commnt No 07/12/17 06:35 PT 16.9 Sec. (12.2-14.9) H 07/10/17 20:38 INR 1.30 (0.87-1.13) H 07/10/17 20:38 Sodium 138 mmol/L (137-145) 07/19/17 07:18 Potassium 4.3 mmol/L (3.6-5.0) 07/19/17 07:18 Chloride 97.4 mmol/L (98-107) L 07/19/17 07:18 Carbon Dioxide 24 mmol/L (22-30) 07/19/17 07:18 Anion Gap 21 mmol/L 07/19/17 07:18 BUN 38 mg/dL (7-17) H 07/19/17 07:18 Creatinine 5.0 mg/dL (0.7-1.2) H 07/19/17 07:18 Estimated GFR 11 ml/min 07/19/17 07:18 BUN/Creatinine Ratio 8 % 07/19/17 07:18 Glucose 97 mg/dL (65-100) 07/19/17 07:18 POC Glucose 183 (70-105) H 07/15/17 21:18 Calcium 7.8 mg/dL (8.4-10.2) L 07/19/17 07:18 Phosphorus 6.20 mg/dL (2.5-4.5) H 07/10/17 20:38 Iron 23 ug/dL (37-170) L 07/10/17 20:38 TIBC 172 mcg/dL (250-450) L 07/10/17 20:38 Ferritin 199.5 ng/mL (13.0-400.0) 07/10/17 20:38 Troponin T 0.076 ng/mL (0.00-0.029) H 07/10/17 03:32 NT-Pro-B Natriuret Pep > 72127 pg/mL (0-450) H 07/10/17 20:38 Triglycerides 192 mg/dL (2-149) H 07/10/17 03:32 Cholesterol 140 mg/dL (50-199) 07/10/17 03:32 LDL Cholesterol Direct 67 mg/dL (50-130) 07/10/17 03:32 HDL Cholesterol 35 mg/dL (40-59) L 07/10/17 03:32 Cholesterol/HDL Ratio 4.00 % 07/10/17 03:32 HCG, Qual Negative (Negative) 07/10/17 03:32 Urine Color [place] (Yellow) 07/11/17 15:00 Urine Turbidity Cloudy (Clear) 07/11/17 15:00 Urine pH 5.0 (5.0-7.0) 07/11/17 15:00 Ur Specific [place] 1.015 (1.003-1.030) 07/11/17 15:00 Urine Protein >500 mg/dL (Negative) 07/11/17 15:00 Urine Glucose (UA) Neg mg/dL (Negative) 07/11/17 15:00 Urine Ketones Neg mg/dL (Negative) 07/11/17 15:00 Urine Blood Neg (Negative) 07/11/17 15:00 Urine Nitrite Neg (Negative) 07/11/17 15:00 Urine Bilirubin Neg (Negative) 07/11/17 15:00 Urine Urobilinogen < 2.0 mg/dL (<2.0) 07/11/17 15:00 Ur Leukocyte Esterase Tr (Negative) 07/11/17 15:00 Urine WBC (Auto) 5.0 /HPF (0.0-6.0) 07/11/17 15:00 Urine RBC (Auto) 14.0 /HPF (0.0-6.0) 07/11/17 15:00 U Epithel Cells (Auto) 18.0 /HPF (0-13.0) H 07/11/17 15:00 Urine Mucus Few /HPF 07/11/17 15:00 Urine Creatinine 139.2 mg/dL (0.1-20.0) H 07/11/17 15:00 Protein/Creatinin Ratio 4.99 07/11/17 15:00 Urine Total Protein 695 mg/dL (5-11.8) H 07/11/17 15:00 PAUL Screen Positive (Negative) H 07/10/17 20:38 PAUL Titer 1:320 (Negative) H 07/10/17 20:38 PAUL Pattern Homogeneous 07/10/17 20:38 Double Strand DNA Ab 199 IU/mL (<=4) H 07/10/17 20:38 Complement C3 30 mg/dL (90-180) L 07/10/17 20:38 Complement C4 6 mg/dL (16-47) L 07/10/17 20:38 Hepatitis A IgM Ab Non-reactive (NonReactive) 07/10/17 20:38 Hep Bs Antigen Non-reactive (Negative) 07/10/17 20:38 Hep B Core IgM Ab Non-reactive (NonReactive) 07/10/17 20:38 Hepatitis C Antibody Non-reactive (NonReactive) 07/10/17 20:38 HIV 1&2 Antibody Rapid Non react (Non React) 07/10/17 20:38 HIV P24 Antigen Non react (Non React) 07/10/17 20:38 Blood Type O POSITIVE 07/10/17 05:29 Antibody Screen Negative 07/10/17 05:29 Crossmatch See Detail 07/10/17 05:29
[2017-07-19 10:59] LABS: Total Cells Counted 100
[2017-07-19 11:00] LABS: Anisocytosis RARE; Band Neutrophils # (Manual) 0.1 K/mm3; Basophils % (Manual) 0 % (0.0-1.8); Eosinophils % (Manual) 0 % (0.0-4.3); Myelocytes # (Manual) 0.2 K/mm3; Platelet Estimate Consistent w Auto
--- NOTE | 2017-07-19 15:11 | Progress Note ---
Assessment and Plan Acute systolic heart failure 20-25% on echo 01/2017 no ischemia on MPI this admission ESRD initiated on HD Right pleural effusion, small to moderate on cxr. Severe anemia Hypertension Noncompliant with medical therapy and outpatient physician follow-ups Recommendations: Dialysis for fluid management. Continue medical management for systolic heart failure and nonischemic cardiomyopathy with beta blockers and afterload reduction therapy. Subjective Date of service: 07/19/17 Principal diagnosis: anemia,ESRd on HD Interval history: Patient has no complaints. Objective Vital Signs Temp Pulse Resp BP Pulse Ox 07/19/17 07:56 98.9 F 75 20 128/81 97 07/19/17 05:43 155/94 07/18/17 21:46 125/74 07/18/17 21:45 125/74 07/18/17 19:47 99.1 F 76 16 125/74 96 07/18/17 16:23 72 150/80 07/18/17 15:36 98.7 F 83 18 135/63 98 - Physical Examination General: No Apparent Distress HEENT: Positive: PERRL Cardiac: Positive: Reg Rate and Rhythm Neuro: Positive: Grossly Intact Extremities: Absent: edema - Labs and Meds CBC 07/19/17 Range/Units 07:18 WBC 6.0 (4.5-11.0) K/mm3 RBC 3.01 L (3.65-5.03) M/mm3 Hgb 7.8 L (10.1-14.3) gm/dl Hct 24.1 L (30.3-42.9) % Plt Count 179 (140-440) K/mm3 Comprehensive Metabolic Panel 07/19/17 Range/Units 07:18 Sodium 138 (137-145) mmol/L Potassium 4.3 (3.6-5.0) mmol/L Chloride 97.4 L (98-107) mmol/L Carbon Dioxide 24 (22-30) mmol/L BUN 38 H (7-17) mg/dL Creatinine 5.0 H (0.7-1.2) mg/dL Glucose 97 (65-100) mg/dL Calcium 7.8 L (8.4-10.2) mg/dL
[2017-07-20] MEDS: BIDIL 20/37.5MG PO SCH ×3 (05:55→22:12)
[2017-07-20] MEDS: XANAX PO SCH ×2 (09:31→22:12)
[2017-07-20] MEDS: DELTASONE PO SCH (09:31)
[2017-07-20] MEDS: COREG PO SCH ×2 (09:31→22:12)
[2017-07-20] MEDS: ZITHROMAX PO SCH (09:31)
--- NOTE | 2017-07-20 11:08 | Progress Note ---
Assessment and Plan Acute Hypoxic Respiratory Failure: -Ultrafiltration with Hemodialysis -S/p Chest X Ray on 07/15/17 showed cardiomegaly, moderate right pleural effusion , no consolidation, no significant interval change Sepsis possibly secondary to pneumonia: -Blood cultures showed NGTD -On azithromycin and rocephin -S/p Chest X Ray on 07/15/17 showed cardiomegaly, moderate right pleural effusion , no consolidation, no significant interval change Chronic Kidney Disease Stage 5 secondary to Lupus, hypertensive nephrosclerosis now ESRD: -Hemodialysis today for UF and clearance via Right IJ Perm Catheter -Assess need for HD on daily basis -Renally dose medications -Epogen dosing during HD for anemia management -Case Mgmt on board, working on [facility], [facility] [place] [facility] [facility] refused patient -Renal diet -Strict intake and output -Renal plan discussed with Dr Reyes -Continue supportive therapy Anemia of chronic disease suspect secondary to chronic kidney disease, Lupus: -Continue Epogen dosing during HD for anemia management -On Ferrlecit 125 mg IVPB daily x 8 doses -GI evaluated patient, no signs of active bleeding, follow up as an outpatient for EGD/colonoscopy Metabolic Acidosis: -Improved with Hemodialysis Chronic systolic Congestive Heart Failure: -LVEF 20-25% -Ultrafiltration with HD -As per cardiology Lupus: -As per primary team Leukopenia: Thrombocytopenia: -Secondary to Lupus -As per primary team Subjective Date of service: 07/20/17 Principal diagnosis: anemia,ESRd on HD Interval history: Patient seen in HD unit, states feeling ok at this time, no acute distress. Objective - Vital Signs Vital signs: Vital Signs - 12hr 07/19/17 07/20/17 23:20 08:09 Temperature 98.3 F 98.3 F Pulse Rate 81 86 Respiratory 20 18 Rate Blood Pressure 144/90 131/79 O2 Sat by Pulse 97 97 Oximetry - General Appearance General appearance: well-developed (no acute distress) EENT: ATNC Neck: no JVD Respiratory: Present: Other (Lung sounds decreased bilaterally, unlabored) Cardiology: regular, S1S2, other (ACCESS: Right IJ Perm Catheter intact) Gastrointestinal: normoactive bowel sounds, no tenderness Integumentary: warm and dry Neurologic: alert and oriented x3 Musculoskeletal: other (no edema to both lower extremities) Psychiatric: mood/affect appropriate, cooperative - Lab 07/19/17 07:18 07/19/17 07:18 Most recent lab results Calcium 7.8 mg/dL (8.4-10.2) L 07/19/17 07:18 Phosphorus 6.20 mg/dL (2.5-4.5) H 07/10/17 20:38 Urine Creatinine 139.2 mg/dL (0.1-20.0) H 07/11/17 15:00 Urine Total Protein 695 mg/dL (5-11.8) H 07/11/17 15:00
--- NOTE | 2017-07-20 11:43 | Progress Note ---
Assessment and Plan Assessment and plan: Acute hypoxic respiratory failure, sepsis due to pneumonia Patient is on oxygen support Continue IV ceftriaxone and azithromycin for now. Consider discontinuing given the chest x-ray shows no consolidation ESRD on HD Continue hemodialysis per Nephrology Awaiting outpatient dialysis setup Hyperkalemia Resolved with treatment Chronic systolic CHF Cardiology consulted and recommended medical management Symptomatic anemia Resolved. Continue to follow H&H. Chest pain Resolved. Likely due to congestive heart failure/ pneumonia Lupus Patient is on prednisone Dark stool GI consulted and recommended no intervention at this time, and we will follow as needed DVT prophylaxis SCD Disposition -Continue inpatient care -Awaiting outpatient dialysis setup History Interval history: no new issues Hospitalist Physical - Constitutional Vitals: Temp Pulse Resp BP Pulse Ox 98.3 F 86 18 131/79 97 07/20/17 08:09 07/20/17 08:09 07/20/17 08:09 07/20/17 08:09 07/20/17 08:09 General appearance: Present: no acute distress, well-nourished - EENT Eyes: Present: PERRL, EOM intact ENT: hearing intact, clear oral mucosa, dentition normal - Neck Neck: Present: supple, normal ROM - Respiratory Respiratory effort: normal Respiratory: bilateral: CTA - Cardiovascular Rhythm: regular Heart Sounds: Present: S1 & S2. Absent: gallop, rub - Extremities Extremities: no ischemia, No edema, Full ROM - Abdominal General gastrointestinal: soft, non-tender, non-distended, normal bowel sounds - Integumentary Integumentary: Present: clear, warm, dry - Neurologic Neurologic: CNII-XII intact, moves all extremities Results - Labs CBC & Chem 7: 07/19/17 07:18 07/19/17 07:18 Labs: Laboratory Last Values WBC 6.0 K/mm3 (4.5-11.0) 07/19/17 07:18 RBC 3.01 M/mm3 (3.65-5.03) L 07/19/17 07:18 Hgb 7.8 gm/dl (10.1-14.3) L 07/19/17 07:18 Hct 24.1 % (30.3-42.9) L 07/19/17 07:18 MCV 80 fl (79-97) 07/19/17 07:18 MCH 26 pg (28-32) L 07/19/17 07:18 MCHC 32 % (30-34) 07/19/17 07:18 RDW 18.4 % (13.2-15.2) H 07/19/17 07:18 Plt Count 179 K/mm3 (140-440) 07/19/17 07:18 Lymph % (Auto) 7.7 % (13.4-35.0) L 07/15/17 06:13 [place] % (Auto) 4.5 % (0.0-7.3) 07/15/17 06:13 Eos % (Auto) 0.1 % (0.0-4.3) 07/15/17 06:13 Baso % (Auto) 0.2 % (0.0-1.8) 07/15/17 06:13 Lymph # 0.5 K/mm3 (1.2-5.4) L 07/15/17 06:13 [place] # 0.3 K/mm3 (0.0-0.8) 07/15/17 06:13 Eos # 0.0 K/mm3 (0.0-0.4) 07/15/17 06:13 Baso # 0.0 K/mm3 (0.0-0.1) 07/15/17 06:13 Add Manual Diff Complete 07/19/17 07:18 Total Counted 100 07/19/17 07:18 Seg Neutrophils % 87.5 % (40.0-70.0) H 07/15/17 06:13 Seg Neuts % (Manual) 82.0 % (40.0-70.0) H 07/19/17 07:18 Band Neutrophils % 1.0 % 07/19/17 07:18 Lymphocytes % (Manual) 10.0 % (13.4-35.0) L 07/19/17 07:18 Reactive Lymphs % (Man) 0 % 07/19/17 07:18 Monocytes % (Manual) 4.0 % (0.0-7.3) 07/19/17 07:18 Eosinophils % (Manual) 0 % (0.0-4.3) 07/19/17 07:18 Basophils % (Manual) 0 % (0.0-1.8) 07/19/17 07:18 Metamyelocytes % 0 % 07/19/17 07:18 Myelocytes % 3.0 % 07/19/17 07:18 Promyelocytes % 0 % 07/19/17 07:18 Blast Cells % 0 % 07/19/17 07:18 Nucleated RBC % Not Reportable 07/19/17 07:18 Seg Neutrophils # 6.0 K/mm3 (1.8-7.7) 07/15/17 06:13 Seg Neutrophils # Man 4.9 K/mm3 (1.8-7.7) 07/19/17 07:18 Band Neutrophils # 0.1 K/mm3 07/19/17 07:18 Lymphocytes # (Manual) 0.6 K/mm3 (1.2-5.4) L 07/19/17 07:18 Abs React Lymphs (Man) 0.0 K/mm3 07/19/17 07:18 Monocytes # (Manual) 0.2 K/mm3 (0.0-0.8) 07/19/17 07:18 Eosinophils # (Manual) 0.0 K/mm3 (0.0-0.4) 07/19/17 07:18 Basophils # (Manual) 0.0 K/mm3 (0.0-0.1) 07/19/17 07:18 Metamyelocytes # 0.0 K/mm3 07/19/17 07:18 Myelocytes # 0.2 K/mm3 07/19/17 07:18 Promyelocytes # 0.0 K/mm3 07/19/17 07:18 Blast Cells # 0.0 K/mm3 07/19/17 07:18 WBC Morphology Not Reportable 07/19/17 07:18 Hypersegmented Neuts Not Reportable 07/19/17 07:18 Hyposegmented Neuts Not Reportable 07/19/17 07:18 Hypogranular Neuts Not Reportable 07/19/17 07:18 Smudge Cells Not Reportable 07/19/17 07:18 Toxic Granulation Not Reportable 07/19/17 07:18 Toxic Vacuolation Not Reportable 07/19/17 07:18 Dohle Bodies Not Reportable 07/19/17 07:18 Pelger-Huet Anomaly Not Reportable 07/19/17 07:18 Von Rods Not Reportable 07/19/17 07:18 Platelet Estimate Consistent w auto 07/19/17 07:18 Clumped Platelets Not Reportable 07/19/17 07:18 Plt Clumps, EDTA Not Reportable 07/19/17 07:18 Large Platelets Not Reportable 07/19/17 07:18 Giant Platelets Not Reportable 07/19/17 07:18 Platelet Satelliting Not Reportable 07/19/17 07:18 Plt Morphology Comment Not Reportable 07/19/17 07:18 RBC Morphology Not Reportable 07/19/17 07:18 Dimorphic RBCs Not Reportable 07/19/17 07:18 Polychromasia Not Reportable 07/19/17 07:18 Hypochromasia Not Reportable 07/19/17 07:18 Poikilocytosis Not Reportable 07/19/17 07:18 Anisocytosis Rare 07/19/17 07:18 Microcytosis Not Reportable 07/19/17 07:18 Macrocytosis Not Reportable 07/19/17 07:18 Spherocytes Not Reportable 07/19/17 07:18 Pappenheimer Bodies Not Reportable 07/19/17 07:18 Sickle Cells Not Reportable 07/19/17 07:18 Target Cells Not Reportable 07/19/17 07:18 Tear Drop Cells Not Reportable 07/19/17 07:18 Ovalocytes Not Reportable 07/19/17 07:18 Helmet Cells Not Reportable 07/19/17 07:18 [place] Bodies Not Reportable 07/19/17 07:18 [place] Rings Not Reportable 07/19/17 07:18 [place] Cells Not Reportable 07/19/17 07:18 Bite Cells Not Reportable 07/19/17 07:18 Crenated Cell Not Reportable 07/19/17 07:18 Elliptocytes Not Reportable 07/19/17 07:18 Acanthocytes (Spur) Not Reportable 07/19/17 07:18 Rouleaux Not Reportable 07/19/17 07:18 Hemoglobin C Crystals Not Reportable 07/19/17 07:18 Schistocytes Not Reportable 07/19/17 07:18 Malaria parasites Not Reportable 07/19/17 07:18 Niraj Bodies Not Reportable 07/19/17 07:18 Hem Pathologist Commnt No 07/19/17 07:18 PT 16.9 Sec. (12.2-14.9) H 07/10/17 20:38 INR 1.30 (0.87-1.13) H 07/10/17 20:38 Sodium 138 mmol/L (137-145) 07/19/17 07:18 Potassium 4.3 mmol/L (3.6-5.0) 07/19/17 07:18 Chloride 97.4 mmol/L (98-107) L 07/19/17 07:18 Carbon Dioxide 24 mmol/L (22-30) 07/19/17 07:18 Anion Gap 21 mmol/L 07/19/17 07:18 BUN 38 mg/dL (7-17) H 07/19/17 07:18 Creatinine 5.0 mg/dL (0.7-1.2) H 07/19/17 07:18 Estimated GFR 11 ml/min 07/19/17 07:18 BUN/Creatinine Ratio 8 % 07/19/17 07:18 Glucose 97 mg/dL (65-100) 07/19/17 07:18 POC Glucose 183 (70-105) H 07/15/17 21:18 Calcium 7.8 mg/dL (8.4-10.2) L 07/19/17 07:18 Phosphorus 6.20 mg/dL (2.5-4.5) H 07/10/17 20:38 Iron 23 ug/dL (37-170) L 07/10/17 20:38 TIBC 172 mcg/dL (250-450) L 07/10/17 20:38 Ferritin 199.5 ng/mL (13.0-400.0) 07/10/17 20:38 Troponin T 0.076 ng/mL (0.00-0.029) H 07/10/17 03:32 NT-Pro-B Natriuret Pep > 08089 pg/mL (0-450) H 07/10/17 20:38 Triglycerides 192 mg/dL (2-149) H 07/10/17 03:32 Cholesterol 140 mg/dL (50-199) 07/10/17 03:32 LDL Cholesterol Direct 67 mg/dL (50-130) 07/10/17 03:32 HDL Cholesterol 35 mg/dL (40-59) L 07/10/17 03:32 Cholesterol/HDL Ratio 4.00 % 07/10/17 03:32 HCG, Qual Negative (Negative) 07/10/17 03:32 Urine Color Courtney (Yellow) 07/11/17 15:00 Urine Turbidity Cloudy (Clear) 07/11/17 15:00 Urine pH 5.0 (5.0-7.0) 07/11/17 15:00 Ur Specific [place] 1.015 (1.003-1.030) 07/11/17 15:00 Urine Protein >500 mg/dL (Negative) 07/11/17 15:00 Urine Glucose (UA) Neg mg/dL (Negative) 07/11/17 15:00 Urine Ketones Neg mg/dL (Negative) 07/11/17 15:00 Urine Blood Neg (Negative) 07/11/17 15:00 Urine Nitrite Neg (Negative) 07/11/17 15:00 Urine Bilirubin Neg (Negative) 07/11/17 15:00 Urine Urobilinogen < 2.0 mg/dL (<2.0) 07/11/17 15:00 Ur Leukocyte Esterase Tr (Negative) 07/11/17 15:00 Urine WBC (Auto) 5.0 /HPF (0.0-6.0) 07/11/17 15:00 Urine RBC (Auto) 14.0 /HPF (0.0-6.0) 07/11/17 15:00 U Epithel Cells (Auto) 18.0 /HPF (0-13.0) H 07/11/17 15:00 Urine Mucus Few /HPF 07/11/17 15:00 Urine Creatinine 139.2 mg/dL (0.1-20.0) H 07/11/17 15:00 Protein/Creatinin Ratio 4.99 07/11/17 15:00 Urine Total Protein 695 mg/dL (5-11.8) H 07/11/17 15:00 PAUL Screen Positive (Negative) H 07/10/17 20:38 PAUL Titer 1:320 (Negative) H 07/10/17 20:38 PAUL Pattern Homogeneous 07/10/17 20:38 Double Strand DNA Ab 199 IU/mL (<=4) H 07/10/17 20:38 Complement C3 30 mg/dL (90-180) L 07/10/17 20:38 Complement C4 6 mg/dL (16-47) L 07/10/17 20:38 Hepatitis A IgM Ab Non-reactive (NonReactive) 07/10/17 20:38 Hep Bs Antigen Non-reactive (Negative) 07/10/17 20:38 Hep B Core IgM Ab Non-reactive (NonReactive) 07/10/17 20:38 Hepatitis C Antibody Non-reactive (NonReactive) 07/10/17 20:38 HIV 1&2 Antibody Rapid Non react (Non React) 07/10/17 20:38 HIV P24 Antigen Non react (Non React) 07/10/17 20:38 Blood Type O POSITIVE 07/10/17 05:29 Antibody Screen Negative 07/10/17 05:29 Crossmatch See Detail 07/10/17 05:29
[2017-07-20] MEDS: PROCRIT SUB-Q SCH (13:10)
[2017-07-20] MEDS ORDERED: NACL 0.9 (PRIMING MACHINE ONLY DIALYSIS) MC ONE (13:28)
[2017-07-20] MEDS: FERRLECIT 125 MG in NACL 0.9% 100 ML IV SCH (16:25)
[2017-07-20] MEDS: HEPARIN IV PRN (16:39)
[2017-07-21] MEDS: cefTRIAXone 1 GM in NACL 0.9% 20 ML IV SCH (00:04)
[2017-07-21] MEDS: BIDIL 20/37.5MG PO SCH ×3 (05:23→22:33)
--- NOTE | 2017-07-21 08:29 | XRay Report ---
ROUTINE CHEST, TWO VIEWS: HISTORY: Reevaluate right pleural effusion. Cardiomegaly and pulmonary venous congestion have resolved since 07/15/17. Trace left pleural effusion has resolved. Moderate right pleural effusion has decreased by 50% and is considered small on today's exam. The lungs are clear. No pneumothorax. Right venous catheter remains in good position. IMPRESSION: Improvement in the CHF/volume overload as described. A small right pleural effusion persists.
[2017-07-21] MEDS: ZITHROMAX PO SCH (10:57)
[2017-07-21] MEDS: COREG PO SCH ×2 (10:58→22:32)
[2017-07-21] MEDS: XANAX PO SCH ×2 (10:58→22:32)
[2017-07-21] MEDS: DELTASONE PO SCH (10:58)
[2017-07-21] MEDS: FERRLECIT 125 MG in NACL 0.9% 100 ML IV SCH (10:58)
--- NOTE | 2017-07-21 13:57 | Progress Note ---
Assessment and Plan Chronic Kidney disease stage 5 due to Lupus/HTN now End stage renal disease: -Via Rt IJ TDC today. s/p HD yesterday. No HD today. HD tomorrow. HD TTS while inpatient but will eval daily. -CM consulted to place pt for outpatient HD. [facility] [place] Augie and Jason refused pt, CM working on [employer] facilities now. -Renally dose all meds -Low K Renal diet Sepsis possibly due to Pneumonia: -CXR shows edema vs consolidation -Cultured -On ABx Hypoxic respiratory failure: Volume overload: -UF with HD Anemia of chronic disease likely due to CKD, Lupus: Possible GI bleed: -On epogen and Iron. -Transfuse PRN per primary -GI saw pt. Hyperkalemia: -Better with HD -Low K diet Metabolic acidosis: -Better with IHD. Lupus: -Per primary Leukopenia: Thrombocytopenia: -From Lupus -Per primary Chest Pain: -Per primary and Cardiology. Plan d/w pt at bedside. Álvaro Nash MD Nephrology, Hypertension, Dialysis, Transplantation Phone no: [phone] Subjective Date of service: 07/21/17 Principal diagnosis: anemia,ESRd on HD Interval history: Denies CP, SHOB. s/p HD yesterday. Has had some cough. Objective - Exam Narrative Exam: [id number] HEENT: PERRLA Neck: No JVD CVS: RRR Chest: Coarse BS BL, Rt IJ TDC Abd: Soft/NT/ND/BS+ Ext: Trace BLE edema Psyche: Appropriate mood - Vital Signs Vital signs: Vital Signs - 12hr 07/21/17 07:45 Temperature 99.1 F Pulse Rate 88 Respiratory 20 Rate Blood Pressure 129/78 O2 Sat by Pulse 96 Oximetry - Lab 07/19/17 07:18 07/19/17 07:18 Most recent lab results Calcium 7.8 mg/dL (8.4-10.2) L 07/19/17 07:18 Phosphorus 6.20 mg/dL (2.5-4.5) H 07/10/17 20:38 Urine Creatinine 139.2 mg/dL (0.1-20.0) H 07/11/17 15:00 Urine Total Protein 695 mg/dL (5-11.8) H 07/11/17 15:00
[2017-07-22] MEDS: cefTRIAXone 1 GM in NACL 0.9% 20 ML IV SCH ×2 (00:58→22:29)
[2017-07-22] MEDS: BIDIL 20/37.5MG PO SCH ×3 (07:15→22:28)
[2017-07-22] MEDS: FERRLECIT 125 MG in NACL 0.9% 100 ML IV SCH (10:41)
[2017-07-22] MEDS: DELTASONE PO SCH (10:43)
[2017-07-22] MEDS: ZITHROMAX PO SCH (10:44)
[2017-07-22] MEDS: XANAX PO SCH ×2 (10:44→22:27)
[2017-07-22] MEDS: COREG PO SCH ×2 (12:50→22:27)
--- NOTE | 2017-07-22 15:08 | Progress Note ---
Assessment and Plan Acute Hypoxic Respiratory Failure: -Ultrafiltration with Hemodialysis -S/p Chest X Ray on 07/21/17 showed improvement in the CHF/volume overload as described, small right pleural effusion persist Sepsis possibly secondary to pneumonia: -Blood cultures showed NGTD -On azithromycin and rocephin Chronic Kidney Disease Stage 5 secondary to Lupus, hypertensive nephrosclerosis now ESRD: -Hemodialysis today for UF and clearance via Right IJ Perm Catheter -Assess need for HD on daily basis -Renally dose medications -Epogen dosing during HD for anemia management -Case Mgmt on board, working on [facility] facilities for placement, [facility] [place] [facility] and [facility] refused patient -Renal diet -Strict intake and output -Renal plan discussed with Dr Reyes -Continue supportive therapy Anemia of chronic disease suspect secondary to chronic kidney disease, Lupus: -Continue Epogen dosing during HD for anemia management -On Ferrlecit 125 mg IVPB daily x 8 doses -GI evaluated patient, no signs of active bleeding, follow up as an outpatient for EGD/colonoscopy Metabolic Acidosis: -Improved with Hemodialysis Chronic systolic Congestive Heart Failure: -LVEF 20-25% -Ultrafiltration with HD -As per cardiology Lupus: -As per primary team Leukopenia: Thrombocytopenia: -Secondary to Lupus -As per primary team Subjective Date of service: 07/22/17 Principal diagnosis: anemia,ESRd on HD Interval history: Patient seen in HD unit, no complaints voiced, no acute distress. Objective - Vital Signs Vital signs: Vital Signs - 12hr 07/22/17 09:18 Temperature 99.1 F Pulse Rate 77 Respiratory 18 Rate Blood Pressure 144/79 O2 Sat by Pulse 99 Oximetry - General Appearance General appearance: well-developed (no acute distress) EENT: ATNC Neck: no JVD Respiratory: Present: Other (Lung sounds decreased bilaterally, unlabored) Cardiology: regular, S1S2, other (ACCESS: Right IJ Perm Catheter intact) Gastrointestinal: normoactive bowel sounds, no tenderness Integumentary: warm and dry Neurologic: alert and oriented x3 Musculoskeletal: other (no edema to both lower extremities) Psychiatric: mood/affect appropriate, cooperative - Lab 07/19/17 07:18 07/19/17 07:18 Most recent lab results Calcium 7.8 mg/dL (8.4-10.2) L 07/19/17 07:18 Phosphorus 6.20 mg/dL (2.5-4.5) H 07/10/17 20:38 Urine Creatinine 139.2 mg/dL (0.1-20.0) H 07/11/17 15:00 Urine Total Protein 695 mg/dL (5-11.8) H 07/11/17 15:00
[2017-07-22] MEDS ORDERED: NACL 0.9 (PRIMING MACHINE ONLY DIALYSIS) MC ONE (15:50)
[2017-07-22] MEDS: PROCRIT SUB-Q SCH (16:00)
[2017-07-22] MEDS: HEPARIN IV PRN (19:23)
[2017-07-23] MEDS: BIDIL 20/37.5MG PO SCH ×3 (06:16→21:30)
[2017-07-23] MEDS: DELTASONE PO SCH (10:19)
[2017-07-23] MEDS: COREG PO SCH ×2 (10:19→21:29)
[2017-07-23] MEDS: XANAX PO SCH ×2 (10:19→21:30)
[2017-07-23] MEDS: ZITHROMAX PO SCH (10:19)
[2017-07-23] MEDS: FERRLECIT 125 MG in NACL 0.9% 100 ML IV SCH (10:20)
[2017-07-23] MEDS ORDERED: GUAIFENESIN DM SYRUP PO PRN (13:05)
--- NOTE | 2017-07-23 18:42 | Progress Note ---
Assessment and Plan Acute Hypoxic Respiratory Failure: -Ultrafiltration with Hemodialysis -S/p Chest X Ray on 07/21/17 showed improvement in the CHF/volume overload as described, small right pleural effusion persist Sepsis possibly secondary to pneumonia: -Blood cultures showed NGTD -On azithromycin Chronic Kidney Disease Stage 5 secondary to Lupus, hypertensive nephrosclerosis now ESRD: -S/p Hemodialysis yesterday for UF and clearance via Right IJ Perm Catheter -No acute indication for HD today -Assess need for HD on daily basis -Renally dose medications -Epogen dosing during HD for anemia management -Case Mgmt on board, working on [place] facilities [place] [facility] [place] patient -Renal diet -Strict intake and output -Renal plan discussed with Dr Reyes -Continue supportive therapy Anemia of chronic disease suspect secondary to chronic kidney disease, Lupus: -Continue Epogen dosing during HD for anemia management -S/p Ferrlecit 125 mg IVPB daily x 8 doses -GI evaluated patient, no signs of active bleeding, follow up as an outpatient for EGD/colonoscopy Metabolic Acidosis: -Improved with Hemodialysis Chronic systolic Congestive Heart Failure: -LVEF 20-25% -Ultrafiltration with HD -As per cardiology Lupus: -As per primary team Leukopenia: Thrombocytopenia: -Secondary to Lupus -As per primary team Subjective Date of service: 07/23/17 Principal diagnosis: anemia,ESRd on HD Interval history: Patient reports feeling ok today, no complaints voiced, no acute distress. Objective - Vital Signs Vital signs: Vital Signs - 12hr 07/23/17 07/23/17 07/23/17 08:19 12:24 15:24 Temperature 99.2 F 98.8 F 99.4 F Pulse Rate 89 92 H 89 Respiratory 18 18 20 Rate Blood Pressure 131/75 133/86 138/87 O2 Sat by Pulse 97 96 99 Oximetry - General Appearance General appearance: well-developed EENT: ATNC Neck: no JVD Respiratory: Present: Other (Lung sounds decreased bilaterally, unlabored) Cardiology: regular, S1S2, other (ACCESS: Right IJ Perm Catheter intact) Gastrointestinal: normoactive bowel sounds, no tenderness Integumentary: warm and dry Neurologic: alert and oriented x3 Musculoskeletal: other (no edema to both lower extremities) Psychiatric: mood/affect appropriate, cooperative - Lab 07/19/17 07:18 07/19/17 07:18 Most recent lab results Calcium 7.8 mg/dL (8.4-10.2) L 07/19/17 07:18 Phosphorus 6.20 mg/dL (2.5-4.5) H 07/10/17 20:38 Urine Creatinine 139.2 mg/dL (0.1-20.0) H 07/11/17 15:00 Urine Total Protein 695 mg/dL (5-11.8) H 07/11/17 15:00
[2017-07-24] MEDS: BIDIL 20/37.5MG PO SCH ×3 (06:21→22:25)
--- NOTE | 2017-07-24 08:51 | Progress Note ---
Assessment and Plan Acute Hypoxic Respiratory Failure: -Ultrafiltration with Hemodialysis -S/p Chest X Ray on 07/21/17 showed improvement in the CHF/volume overload as described, small right pleural effusion persist Sepsis possibly secondary to pneumonia: -Blood cultures showed NGTD -On azithromycin ESRD on HD -HD tomorrow for clearance and volume removal -No acute indication for HD today -Assess need for HD on daily basis -Renally dose medications -Epogen dosing during HD for anemia management -Case Mgmt on board, outpatient dialysis placement is on going -Renal diet -Strict intake and output Anemia of chronic disease suspect secondary to chronic kidney disease, Lupus: -Continue Epogen dosing during HD for anemia management -S/p Ferrlecit 125 mg IVPB daily x 8 doses -GI evaluated patient, no signs of active bleeding, follow up as an outpatient for EGD/colonoscopy Metabolic Acidosis: -Improved with Hemodialysis Chronic systolic Congestive Heart Failure: -LVEF 20-25% -Ultrafiltration with HD -As per cardiology Lupus: -As per primary team Leukopenia: Thrombocytopenia: -Secondary to Lupus -As per primary team Subjective Date of service: 07/24/17 Principal diagnosis: anemia,ESRd on HD Interval history: no overnight events Objective - Vital Signs Vital signs: Vital Signs - 12hr 07/23/17 07/23/17 07/23/17 21:29 21:30 22:52 Temperature 99.4 F Pulse Rate 83 83 88 Respiratory 18 Rate Blood Pressure 140/84 140/84 115/65 O2 Sat by Pulse 96 Oximetry 07/23/17 07/23/17 07/24/17 22:53 22:55 06:21 Temperature Pulse Rate 81 81 80 Respiratory Rate Blood Pressure 150/80 O2 Sat by Pulse 97 100 Oximetry 07/24/17 07:30 Temperature 99.0 F Pulse Rate 86 Respiratory 18 Rate Blood Pressure 131/78 O2 Sat by Pulse 97 Oximetry - General Appearance General appearance: well-developed, well-nourished EENT: ATNC, PERRL, mucous membranes moist Neck: no JVD, no carotid bruit Respiratory: Present: Clear to Ascultation Cardiology: regular, S1S2 Gastrointestinal: normoactive bowel sounds Integumentary: no rash, warm and dry Neurologic: no focal deficit, no asterixis, alert and oriented x3 Musculoskeletal: other (no edema in BLE) Psychiatric: mood/affect appropriate, cooperative - Lab 07/19/17 07:18 07/19/17 07:18 Most recent lab results Calcium 7.8 mg/dL (8.4-10.2) L 07/19/17 07:18 Phosphorus 6.20 mg/dL (2.5-4.5) H 07/10/17 20:38 Urine Creatinine 139.2 mg/dL (0.1-20.0) H 07/11/17 15:00 Urine Total Protein 695 mg/dL (5-11.8) H 07/11/17 15:00
[2017-07-24] MEDS: XANAX PO SCH ×2 (09:29→22:26)
[2017-07-24] MEDS: ZITHROMAX PO SCH (09:30)
[2017-07-24] MEDS: COREG PO SCH ×2 (09:30→22:25)
[2017-07-24] MEDS: DELTASONE PO SCH (09:30)
--- NOTE | 2017-07-24 11:24 | Progress Note ---
Assessment and Plan Assessment and plan: Acute hypoxic respiratory failure, sepsis due to pneumonia Patient is on oxygen support Continue IV ceftriaxone and azithromycin for now. Consider discontinuing given the chest x-ray shows no consolidation ESRD on HD Continue hemodialysis per Nephrology Awaiting outpatient dialysis setup Hyperkalemia Resolved with treatment Chronic systolic CHF Cardiology consulted and recommended medical management Symptomatic anemia Resolved. Continue to follow H&H. Chest pain Resolved. Likely due to congestive heart failure/ pneumonia Lupus Patient is on prednisone Dark stool GI consulted and recommended no intervention at this time, and we will follow as needed DVT prophylaxis SCD Disposition -Continue inpatient care -Awaiting outpatient dialysis setup History Interval history: no new issues Hospitalist Physical - Constitutional Vitals: Temp Pulse Resp BP Pulse Ox 99.0 F 86 18 131/78 97 07/24/17 07:30 07/24/17 07:30 07/24/17 07:30 07/24/17 07:30 07/24/17 07:30 General appearance: Present: no acute distress, well-nourished - EENT Eyes: Present: PERRL, EOM intact ENT: hearing intact, clear oral mucosa, dentition normal - Neck Neck: Present: supple, normal ROM - Respiratory Respiratory effort: normal Respiratory: bilateral: CTA - Cardiovascular Rhythm: regular Heart Sounds: Present: S1 & S2. Absent: gallop, rub - Extremities Extremities: no ischemia, No edema, Full ROM - Abdominal General gastrointestinal: soft, non-tender, non-distended, normal bowel sounds - Integumentary Integumentary: Present: clear, warm, dry - Neurologic Neurologic: CNII-XII intact, moves all extremities Results - Labs CBC & Chem 7: 07/19/17 07:18 07/19/17 07:18 Labs: Laboratory Last Values WBC 6.0 K/mm3 (4.5-11.0) 07/19/17 07:18 RBC 3.01 M/mm3 (3.65-5.03) L 07/19/17 07:18 Hgb 7.8 gm/dl (10.1-14.3) L 07/19/17 07:18 Hct 24.1 % (30.3-42.9) L 07/19/17 07:18 MCV 80 fl (79-97) 07/19/17 07:18 MCH 26 pg (28-32) L 07/19/17 07:18 MCHC 32 % (30-34) 07/19/17 07:18 RDW 18.4 % (13.2-15.2) H 07/19/17 07:18 Plt Count 179 K/mm3 (140-440) 07/19/17 07:18 Lymph % (Auto) 7.7 % (13.4-35.0) L 07/15/17 06:13 [place] % (Auto) 4.5 % (0.0-7.3) 07/15/17 06:13 Eos % (Auto) 0.1 % (0.0-4.3) 07/15/17 06:13 Baso % (Auto) 0.2 % (0.0-1.8) 07/15/17 06:13 Lymph # 0.5 K/mm3 (1.2-5.4) L 07/15/17 06:13 [place] # 0.3 K/mm3 (0.0-0.8) 07/15/17 06:13 Eos # 0.0 K/mm3 (0.0-0.4) 07/15/17 06:13 Baso # 0.0 K/mm3 (0.0-0.1) 07/15/17 06:13 Add Manual Diff Complete 07/19/17 07:18 Total Counted 100 07/19/17 07:18 Seg Neutrophils % 87.5 % (40.0-70.0) H 07/15/17 06:13 Seg Neuts % (Manual) 82.0 % (40.0-70.0) H 07/19/17 07:18 Band Neutrophils % 1.0 % 07/19/17 07:18 Lymphocytes % (Manual) 10.0 % (13.4-35.0) L 07/19/17 07:18 Reactive Lymphs % (Man) 0 % 07/19/17 07:18 Monocytes % (Manual) 4.0 % (0.0-7.3) 07/19/17 07:18 Eosinophils % (Manual) 0 % (0.0-4.3) 07/19/17 07:18 Basophils % (Manual) 0 % (0.0-1.8) 07/19/17 07:18 Metamyelocytes % 0 % 07/19/17 07:18 Myelocytes % 3.0 % 07/19/17 07:18 Promyelocytes % 0 % 07/19/17 07:18 Blast Cells % 0 % 07/19/17 07:18 Nucleated RBC % Not Reportable 07/19/17 07:18 Seg Neutrophils # 6.0 K/mm3 (1.8-7.7) 07/15/17 06:13 Seg Neutrophils # Man 4.9 K/mm3 (1.8-7.7) 07/19/17 07:18 Band Neutrophils # 0.1 K/mm3 07/19/17 07:18 Lymphocytes # (Manual) 0.6 K/mm3 (1.2-5.4) L 07/19/17 07:18 Abs React Lymphs (Man) 0.0 K/mm3 07/19/17 07:18 Monocytes # (Manual) 0.2 K/mm3 (0.0-0.8) 07/19/17 07:18 Eosinophils # (Manual) 0.0 K/mm3 (0.0-0.4) 07/19/17 07:18 Basophils # (Manual) 0.0 K/mm3 (0.0-0.1) 07/19/17 07:18 Metamyelocytes # 0.0 K/mm3 07/19/17 07:18 Myelocytes # 0.2 K/mm3 07/19/17 07:18 Promyelocytes # 0.0 K/mm3 07/19/17 07:18 Blast Cells # 0.0 K/mm3 07/19/17 07:18 WBC Morphology Not Reportable 07/19/17 07:18 Hypersegmented Neuts Not Reportable 07/19/17 07:18 Hyposegmented Neuts Not Reportable 07/19/17 07:18 Hypogranular Neuts Not Reportable 07/19/17 07:18 Smudge Cells Not Reportable 07/19/17 07:18 Toxic Granulation Not Reportable 07/19/17 07:18 Toxic Vacuolation Not Reportable 07/19/17 07:18 Dohle Bodies Not Reportable 07/19/17 07:18 Pelger-Huet Anomaly Not Reportable 07/19/17 07:18 Von Rods Not Reportable 07/19/17 07:18 Platelet Estimate Consistent w auto 07/19/17 07:18 Clumped Platelets Not Reportable 07/19/17 07:18 Plt Clumps, EDTA Not Reportable 07/19/17 07:18 Large Platelets Not Reportable 07/19/17 07:18 Giant Platelets Not Reportable 07/19/17 07:18 Platelet Satelliting Not Reportable 07/19/17 07:18 Plt Morphology Comment Not Reportable 07/19/17 07:18 RBC Morphology Not Reportable 07/19/17 07:18 Dimorphic RBCs Not Reportable 07/19/17 07:18 Polychromasia Not Reportable 07/19/17 07:18 Hypochromasia Not Reportable 07/19/17 07:18 Poikilocytosis Not Reportable 07/19/17 07:18 Anisocytosis Rare 07/19/17 07:18 Microcytosis Not Reportable 07/19/17 07:18 Macrocytosis Not Reportable 07/19/17 07:18 Spherocytes Not Reportable 07/19/17 07:18 Pappenheimer Bodies Not Reportable 07/19/17 07:18 Sickle Cells Not Reportable 07/19/17 07:18 Target Cells Not Reportable 07/19/17 07:18 Tear Drop Cells Not Reportable 07/19/17 07:18 Ovalocytes Not Reportable 07/19/17 07:18 Helmet Cells Not Reportable 07/19/17 07:18 [place] Bodies Not Reportable 07/19/17 07:18 [place] Rings Not Reportable 07/19/17 07:18 [place] Cells Not Reportable 07/19/17 07:18 Bite Cells Not Reportable 07/19/17 07:18 Crenated Cell Not Reportable 07/19/17 07:18 Elliptocytes Not Reportable 07/19/17 07:18 Acanthocytes (Spur) Not Reportable 07/19/17 07:18 Rouleaux Not Reportable 07/19/17 07:18 Hemoglobin C Crystals Not Reportable 07/19/17 07:18 Schistocytes Not Reportable 07/19/17 07:18 Malaria parasites Not Reportable 07/19/17 07:18 Inraj Bodies Not Reportable 07/19/17 07:18 Hem Pathologist Commnt No 07/19/17 07:18 PT 16.9 Sec. (12.2-14.9) H 07/10/17 20:38 INR 1.30 (0.87-1.13) H 07/10/17 20:38 Sodium 138 mmol/L (137-145) 07/19/17 07:18 Potassium 4.3 mmol/L (3.6-5.0) 07/19/17 07:18 Chloride 97.4 mmol/L (98-107) L 07/19/17 07:18 Carbon Dioxide 24 mmol/L (22-30) 07/19/17 07:18 Anion Gap 21 mmol/L 07/19/17 07:18 BUN 38 mg/dL (7-17) H 07/19/17 07:18 Creatinine 5.0 mg/dL (0.7-1.2) H 07/19/17 07:18 Estimated GFR 11 ml/min 07/19/17 07:18 BUN/Creatinine Ratio 8 % 07/19/17 07:18 Glucose 97 mg/dL (65-100) 07/19/17 07:18 POC Glucose 183 (70-105) H 07/15/17 21:18 Calcium 7.8 mg/dL (8.4-10.2) L 07/19/17 07:18 Phosphorus 6.20 mg/dL (2.5-4.5) H 07/10/17 20:38 Iron 23 ug/dL (37-170) L 07/10/17 20:38 TIBC 172 mcg/dL (250-450) L 07/10/17 20:38 Ferritin 199.5 ng/mL (13.0-400.0) 07/10/17 20:38 Troponin T 0.076 ng/mL (0.00-0.029) H 07/10/17 03:32 NT-Pro-B Natriuret Pep > 41682 pg/mL (0-450) H 07/10/17 20:38 Triglycerides 192 mg/dL (2-149) H 07/10/17 03:32 Cholesterol 140 mg/dL (50-199) 07/10/17 03:32 LDL Cholesterol Direct 67 mg/dL (50-130) 07/10/17 03:32 HDL Cholesterol 35 mg/dL (40-59) L 07/10/17 03:32 Cholesterol/HDL Ratio 4.00 % 07/10/17 03:32 HCG, Qual Negative (Negative) 07/10/17 03:32 Urine Color Courtney (Yellow) 07/11/17 15:00 Urine Turbidity Cloudy (Clear) 07/11/17 15:00 Urine pH 5.0 (5.0-7.0) 07/11/17 15:00 Ur Specific [place] 1.015 (1.003-1.030) 07/11/17 15:00 Urine Protein >500 mg/dL (Negative) 07/11/17 15:00 Urine Glucose (UA) Neg mg/dL (Negative) 07/11/17 15:00 Urine Ketones Neg mg/dL (Negative) 07/11/17 15:00 Urine Blood Neg (Negative) 07/11/17 15:00 Urine Nitrite Neg (Negative) 07/11/17 15:00 Urine Bilirubin Neg (Negative) 07/11/17 15:00 Urine Urobilinogen < 2.0 mg/dL (<2.0) 07/11/17 15:00 Ur Leukocyte Esterase Tr (Negative) 07/11/17 15:00 Urine WBC (Auto) 5.0 /HPF (0.0-6.0) 07/11/17 15:00 Urine RBC (Auto) 14.0 /HPF (0.0-6.0) 07/11/17 15:00 U Epithel Cells (Auto) 18.0 /HPF (0-13.0) H 07/11/17 15:00 Urine Mucus Few /HPF 07/11/17 15:00 Urine Creatinine 139.2 mg/dL (0.1-20.0) H 07/11/17 15:00 Protein/Creatinin Ratio 4.99 07/11/17 15:00 Urine Total Protein 695 mg/dL (5-11.8) H 07/11/17 15:00 PAUL Screen Positive (Negative) H 07/10/17 20:38 PAUL Titer 1:320 (Negative) H 07/10/17 20:38 PAUL Pattern Homogeneous 07/10/17 20:38 Double Strand DNA Ab 199 IU/mL (<=4) H 07/10/17 20:38 Complement C3 30 mg/dL (90-180) L 07/10/17 20:38 Complement C4 6 mg/dL (16-47) L 07/10/17 20:38 Hepatitis A IgM Ab Non-reactive (NonReactive) 07/10/17 20:38 Hep Bs Antigen Non-reactive (Negative) 07/10/17 20:38 Hep B Core IgM Ab Non-reactive (NonReactive) 07/10/17 20:38 Hepatitis C Antibody Non-reactive (NonReactive) 07/10/17 20:38 HIV 1&2 Antibody Rapid Non react (Non React) 07/10/17 20:38 HIV P24 Antigen Non react (Non React) 07/10/17 20:38 Blood Type O POSITIVE 07/10/17 05:29 Antibody Screen Negative 07/10/17 05:29 Crossmatch See Detail 07/10/17 05:29
[2017-07-24] MEDS: MORPHINE IV PRN (22:24)
[2017-07-25] MEDS: BIDIL 20/37.5MG PO SCH ×3 (05:55→21:09)
--- NOTE | 2017-07-25 09:20 | Progress Note ---
Assessment and Plan Chronic Kidney disease stage 5 due to Lupus/HTN now End stage renal disease: -Via Rt IJ TDC. HD today. HD TTS while inpatient but will eval daily. -CM consulted to place pt for outpatient HD. [facility] [place] [facility] and [place] refused pt, CM working on [employer] facilities now. -Renally dose all meds -Low K Renal diet Sepsis possibly due to Pneumonia: -CXR showed edema vs consolidation -Blood Cx showed NGTN. -s/p Abx treatment. Hypoxic respiratory failure: Volume overload improved: -UF with HD Anemia of chronic disease likely due to CKD, Lupus: Possible GI bleed: -On epogen and Iron. -Transfuse PRN per primary -GI saw pt. Hyperkalemia: -Better with HD -Low K diet Metabolic acidosis: -Better with IHD. Lupus: -Per primary Leukopenia: Thrombocytopenia: -From Lupus -Per primary Chest Pain: -Per primary and Cardiology. Plan d/w HD RN. Álvaro Nash MD Nephrology, Hypertension, Dialysis, Transplantation Phone no: [phone] Subjective Date of service: 07/25/17 Principal diagnosis: anemia,ESRd on HD Interval history: Denies CP, SHOB. Seen on HD. Objective - Exam Narrative Exam: [id number] HEENT: PERRLA Neck: No JVD CVS: RRR Chest: Coarse BS BL, Rt IJ TDC Abd: Soft/NT/ND/BS+ Ext: No BLE edema Psyche: Appropriate mood - Vital Signs Vital signs: Vital Signs - 12hr 07/24/17 07/24/17 07/25/17 22:25 23:19 05:55 Temperature 98.4 F Pulse Rate 84 84 80 Respiratory 17 Rate Blood Pressure 160/84 138/84 Blood Pressure 146/81 [Right] O2 Sat by Pulse 95 Oximetry 07/25/17 07:58 Temperature 98.4 F Pulse Rate 84 Respiratory 20 Rate Blood Pressure 134/82 Blood Pressure [Right] O2 Sat by Pulse 97 Oximetry - Lab 07/19/17 07:18 07/19/17 07:18 Most recent lab results Calcium 7.8 mg/dL (8.4-10.2) L 07/19/17 07:18 Phosphorus 6.20 mg/dL (2.5-4.5) H 07/10/17 20:38 Urine Creatinine 139.2 mg/dL (0.1-20.0) H 07/11/17 15:00 Urine Total Protein 695 mg/dL (5-11.8) H 07/11/17 15:00
[2017-07-25] MEDS: PROCRIT SUB-Q SCH ×2 (14:50→16:09)
[2017-07-25] MEDS ORDERED: NACL 0.9 (PRIMING MACHINE ONLY DIALYSIS) MC ONE (14:59)
[2017-07-25] MEDS: MORPHINE IV PRN (16:05)
[2017-07-25] MEDS: DELTASONE PO SCH (16:07)
[2017-07-25] MEDS: COREG PO SCH ×2 (16:07→21:13)
[2017-07-25] MEDS: ZITHROMAX PO SCH (16:08)
[2017-07-25] MEDS: XANAX PO SCH ×2 (16:08→21:09)
[2017-07-25] MEDS: HEPARIN IV PRN (19:01)
[2017-07-26] MEDS: BIDIL 20/37.5MG PO SCH ×3 (06:17→23:21)
--- NOTE | 2017-07-26 09:00 | Progress Note ---
Assessment and Plan Assessment and plan: Acute hypoxic respiratory failure, sepsis due to pneumonia - Patient is on oxygen support - Continue IV ceftriaxone and azithromycin, will repeat chest x-ray ESRD on HD -Patient had dialysis yesterday -Nephrology is following her -Patient may need outpatient dialysis setup Hyperkalemia - Resolved with treatment Chronic systolic CHF - Cardiology consulted and recommended medical management Symptomatic anemia - H/H stable Chest pain - Likely due to congestive heart failure/ pneumonia Lupus - Patient is on prednisone Dark stool - GI consulted and recommended no intervention at this time, and we will follow as needed DVT prophylaxis -SCD Disposition -Pending outpatient dialysis set up. History Interval history: Patient was seen and evaluated this morning , no new complaints. No nursing issues overnight. Hospitalist Physical - Physical exam Narrative exam: Not in cardiopulmonary distress. The patient appeared chronically sick looking. Vital signs as documented. Head exam is unremarkable. No scleral icterus, pale conjunctiva . Neck is without jugular venous distension, thyromegaly, or carotid bruits. Lungs are clear to auscultation. Cardiac exam reveals regular rate and Rhythm. Tachycardic. Abdominal exam reveals normal bowel sounds, no masses, no organomegaly and no aortic enlargement. Extremities are nonedematous and both femoral and pedal pulses are normal. GRADUATE INTERNSHIP: Alert and oriented 3. No focal weakness. - Constitutional Vitals: Temp Pulse Resp BP Pulse Ox 99.9 F H 84 17 136/89 92 07/25/17 16:27 07/26/17 06:17 07/25/17 22:00 07/26/17 06:17 07/25/17 16:27 General appearance: Present: no acute distress, well-nourished Results - Labs CBC & Chem 7: 07/19/17 07:18 07/19/17 07:18 Labs: Laboratory Last Values WBC 6.0 K/mm3 (4.5-11.0) 07/19/17 07:18 RBC 3.01 M/mm3 (3.65-5.03) L 07/19/17 07:18 Hgb 7.8 gm/dl (10.1-14.3) L 07/19/17 07:18 Hct 24.1 % (30.3-42.9) L 07/19/17 07:18 MCV 80 fl (79-97) 07/19/17 07:18 MCH 26 pg (28-32) L 07/19/17 07:18 MCHC 32 % (30-34) 07/19/17 07:18 RDW 18.4 % (13.2-15.2) H 07/19/17 07:18 Plt Count 179 K/mm3 (140-440) 07/19/17 07:18 Lymph % (Auto) 7.7 % (13.4-35.0) L 07/15/17 06:13 [place] % (Auto) 4.5 % (0.0-7.3) 07/15/17 06:13 Eos % (Auto) 0.1 % (0.0-4.3) 07/15/17 06:13 Baso % (Auto) 0.2 % (0.0-1.8) 07/15/17 06:13 Lymph # 0.5 K/mm3 (1.2-5.4) L 07/15/17 06:13 [place] # 0.3 K/mm3 (0.0-0.8) 07/15/17 06:13 Eos # 0.0 K/mm3 (0.0-0.4) 07/15/17 06:13 Baso # 0.0 K/mm3 (0.0-0.1) 07/15/17 06:13 Add Manual Diff Complete 07/19/17 07:18 Total Counted 100 07/19/17 07:18 Seg Neutrophils % 87.5 % (40.0-70.0) H 07/15/17 06:13 Seg Neuts % (Manual) 82.0 % (40.0-70.0) H 07/19/17 07:18 Band Neutrophils % 1.0 % 07/19/17 07:18 Lymphocytes % (Manual) 10.0 % (13.4-35.0) L 07/19/17 07:18 Reactive Lymphs % (Man) 0 % 07/19/17 07:18 Monocytes % (Manual) 4.0 % (0.0-7.3) 07/19/17 07:18 Eosinophils % (Manual) 0 % (0.0-4.3) 07/19/17 07:18 Basophils % (Manual) 0 % (0.0-1.8) 07/19/17 07:18 Metamyelocytes % 0 % 07/19/17 07:18 Myelocytes % 3.0 % 07/19/17 07:18 Promyelocytes % 0 % 07/19/17 07:18 Blast Cells % 0 % 07/19/17 07:18 Nucleated RBC % Not Reportable 07/19/17 07:18 Seg Neutrophils # 6.0 K/mm3 (1.8-7.7) 07/15/17 06:13 Seg Neutrophils # Man 4.9 K/mm3 (1.8-7.7) 07/19/17 07:18 Band Neutrophils # 0.1 K/mm3 07/19/17 07:18 Lymphocytes # (Manual) 0.6 K/mm3 (1.2-5.4) L 07/19/17 07:18 Abs React Lymphs (Man) 0.0 K/mm3 07/19/17 07:18 Monocytes # (Manual) 0.2 K/mm3 (0.0-0.8) 07/19/17 07:18 Eosinophils # (Manual) 0.0 K/mm3 (0.0-0.4) 07/19/17 07:18 Basophils # (Manual) 0.0 K/mm3 (0.0-0.1) 07/19/17 07:18 Metamyelocytes # 0.0 K/mm3 07/19/17 07:18 Myelocytes # 0.2 K/mm3 07/19/17 07:18 Promyelocytes # 0.0 K/mm3 07/19/17 07:18 Blast Cells # 0.0 K/mm3 07/19/17 07:18 WBC Morphology Not Reportable 07/19/17 07:18 Hypersegmented Neuts Not Reportable 07/19/17 07:18 Hyposegmented Neuts Not Reportable 07/19/17 07:18 Hypogranular Neuts Not Reportable 07/19/17 07:18 Smudge Cells Not Reportable 07/19/17 07:18 Toxic Granulation Not Reportable 07/19/17 07:18 Toxic Vacuolation Not Reportable 07/19/17 07:18 Dohle Bodies Not Reportable 07/19/17 07:18 Pelger-Huet Anomaly Not Reportable 07/19/17 07:18 Von Rods Not Reportable 07/19/17 07:18 Platelet Estimate Consistent w auto 07/19/17 07:18 Clumped Platelets Not Reportable 07/19/17 07:18 Plt Clumps, EDTA Not Reportable 07/19/17 07:18 Large Platelets Not Reportable 07/19/17 07:18 Giant Platelets Not Reportable 07/19/17 07:18 Platelet Satelliting Not Reportable 07/19/17 07:18 Plt Morphology Comment Not Reportable 07/19/17 07:18 RBC Morphology Not Reportable 07/19/17 07:18 Dimorphic RBCs Not Reportable 07/19/17 07:18 Polychromasia Not Reportable 07/19/17 07:18 Hypochromasia Not Reportable 07/19/17 07:18 Poikilocytosis Not Reportable 07/19/17 07:18 Anisocytosis Rare 07/19/17 07:18 Microcytosis Not Reportable 07/19/17 07:18 Macrocytosis Not Reportable 07/19/17 07:18 Spherocytes Not Reportable 07/19/17 07:18 Pappenheimer Bodies Not Reportable 07/19/17 07:18 Sickle Cells Not Reportable 07/19/17 07:18 Target Cells Not Reportable 07/19/17 07:18 Tear Drop Cells Not Reportable 07/19/17 07:18 Ovalocytes Not Reportable 07/19/17 07:18 Helmet Cells Not Reportable 07/19/17 07:18 [place] Bodies Not Reportable 07/19/17 07:18 [place] Rings Not Reportable 07/19/17 07:18 Antoni Cells Not Reportable 07/19/17 07:18 Bite Cells Not Reportable 07/19/17 07:18 Crenated Cell Not Reportable 07/19/17 07:18 Elliptocytes Not Reportable 07/19/17 07:18 Acanthocytes (Spur) Not Reportable 07/19/17 07:18 Rouleaux Not Reportable 07/19/17 07:18 Hemoglobin C Crystals Not Reportable 07/19/17 07:18 Schistocytes Not Reportable 07/19/17 07:18 Malaria parasites Not Reportable 07/19/17 07:18 Niraj Bodies Not Reportable 07/19/17 07:18 Hem Pathologist Commnt No 07/19/17 07:18 PT 16.9 Sec. (12.2-14.9) H 01/01/18 20:38 INR 1.30 (0.87-1.13) H 07/10/17 20:38 Sodium 138 mmol/L (137-145) 07/19/17 07:18 Potassium 4.3 mmol/L (3.6-5.0) 07/19/17 07:18 Chloride 97.4 mmol/L (98-107) L 07/19/17 07:18 Carbon Dioxide 24 mmol/L (22-30) 07/19/17 07:18 Anion Gap 21 mmol/L 07/19/17 07:18 BUN 38 mg/dL (7-17) H 07/19/17 07:18 Creatinine 5.0 mg/dL (0.7-1.2) H 07/19/17 07:18 Estimated GFR 11 ml/min 07/19/17 07:18 BUN/Creatinine Ratio 8 % 07/19/17 07:18 Glucose 97 mg/dL (65-100) 07/19/17 07:18 POC Glucose 183 (70-105) H 07/15/17 21:18 Calcium 7.8 mg/dL (8.4-10.2) L 07/19/17 07:18 Phosphorus 6.20 mg/dL (2.5-4.5) H 07/10/17 20:38 Iron 23 ug/dL (37-170) L 07/10/17 20:38 TIBC 172 mcg/dL (250-450) L 07/10/17 20:38 Ferritin 199.5 ng/mL (13.0-400.0) 07/10/17 20:38 Troponin T 0.076 ng/mL (0.00-0.029) H 07/10/17 03:32 NT-Pro-B Natriuret Pep > 88606 pg/mL (0-450) H 07/10/17 20:38 Triglycerides 192 mg/dL (2-149) H 07/10/17 03:32 Cholesterol 140 mg/dL (50-199) 07/10/17 03:32 LDL Cholesterol Direct 67 mg/dL (50-130) 07/10/17 03:32 HDL Cholesterol 35 mg/dL (40-59) L 07/10/17 03:32 Cholesterol/HDL Ratio 4.00 % 07/10/17 03:32 HCG, Qual Negative (Negative) 07/10/17 03:32 Urine Color [place] (Yellow) 07/11/17 15:00 Urine Turbidity Cloudy (Clear) 07/11/17 15:00 Urine pH 5.0 (5.0-7.0) 07/11/17 15:00 Ur Specific [place] 1.015 (1.003-1.030) 07/11/17 15:00 Urine Protein >500 mg/dL (Negative) 07/11/17 15:00 Urine Glucose (UA) Neg mg/dL (Negative) 07/11/17 15:00 Urine Ketones Neg mg/dL (Negative) 07/11/17 15:00 Urine Blood Neg (Negative) 07/11/17 15:00 Urine Nitrite Neg (Negative) 07/11/17 15:00 Urine Bilirubin Neg (Negative) 07/11/17 15:00 Urine Urobilinogen < 2.0 mg/dL (<2.0) 07/11/17 15:00 Ur Leukocyte Esterase Tr (Negative) 07/11/17 15:00 Urine WBC (Auto) 5.0 /HPF (0.0-6.0) 07/11/17 15:00 Urine RBC (Auto) 14.0 /HPF (0.0-6.0) 07/11/17 15:00 U Epithel Cells (Auto) 18.0 /HPF (0-13.0) H 07/11/17 15:00 Urine Mucus Few /HPF 07/11/17 15:00 Urine Creatinine 139.2 mg/dL (0.1-20.0) H 07/11/17 15:00 Protein/Creatinin Ratio 4.99 07/11/17 15:00 Urine Total Protein 695 mg/dL (5-11.8) H 07/11/17 15:00 PAUL Screen Positive (Negative) H 07/10/17 20:38 PAUL Titer 1:320 (Negative) H 07/10/17 20:38 PAUL Pattern Homogeneous 07/10/17 20:38 Double Strand DNA Ab 199 IU/mL (<=4) H 07/10/17 20:38 Complement C3 30 mg/dL (90-180) L 07/10/17 20:38 Complement C4 6 mg/dL (16-47) L 07/10/17 20:38 Hepatitis A IgM Ab Non-reactive (NonReactive) 01/01/18 20:38 Hep Bs Antigen Non-reactive (Negative) 07/10/17 20:38 Hep B Core IgM Ab Non-reactive (NonReactive) 07/10/17 20:38 Hepatitis C Antibody Non-reactive (NonReactive) 07/10/17 20:38 HIV 1&2 Antibody Rapid Non react (Non React) 07/10/17 20:38 HIV P24 Antigen Non react (Non React) 07/10/17 20:38 Blood Type O POSITIVE 07/10/17 05:29 Antibody Screen Negative 07/10/17 05:29 Crossmatch See Detail 07/10/17 05:29
[2017-07-26] MEDS: XANAX PO SCH ×2 (10:26→23:22)
[2017-07-26] MEDS: COREG PO SCH ×2 (10:27→23:22)
[2017-07-26] MEDS: DELTASONE PO SCH (10:27)
--- NOTE | 2017-07-26 17:30 | Progress Note ---
Assessment and Plan Acute Hypoxic Respiratory Failure: -Ultrafiltration with Hemodialysis -S/p Chest X Ray on 07/21/17 showed improvement in the CHF/volume overload as described, small right pleural effusion persist Sepsis possibly secondary to pneumonia: -Blood cultures showed NGTD -S/p antibiotics Chronic Kidney Disease Stage 5 secondary to Lupus, hypertensive nephrosclerosis now ESRD: -S/p Hemodialysis yesterday for UF and clearance via Right IJ Perm Catheter -No acute indication for HD today -Assess need for HD on daily basis -Renally dose medications -Epogen dosing during HD for anemia management -Case Mgmt on board, [facility], [facility] and [facility] refused patient -Renal diet -Strict intake and output -Renal plan discussed with Dr Reyes -Continue supportive therapy Anemia of chronic disease suspect secondary to chronic kidney disease, Lupus: -Continue Epogen dosing during HD for anemia management -S/p Ferrlecit 125 mg IVPB daily x 8 doses -GI evaluated patient, no signs of active bleeding, follow up as an outpatient for EGD/colonoscopy Metabolic Acidosis: -Improved with Hemodialysis Chronic systolic Congestive Heart Failure: -LVEF 20-25% -Ultrafiltration with HD -As per cardiology Lupus: -On prednisone 40 mg orally once a day -As per primary team Leukopenia: Thrombocytopenia: -Secondary to Lupus -As per primary team Subjective Date of service: 07/26/17 Principal diagnosis: anemia,ESRd on HD Interval history: Patient report feeling better today compared to yesterday, states she had lupus flare up yesterday, no complaints voiced, no acute distress. Patient reports her main concern is about her lupus treatment, recommended she discuss further with hospitalist team. Objective - Vital Signs Vital signs: Vital Signs - 12hr 07/26/17 07/26/17 06:17 08:16 Temperature 98.1 F Pulse Rate 84 81 Respiratory 18 Rate Blood Pressure 136/89 144/92 O2 Sat by Pulse 95 Oximetry - General Appearance General appearance: well-developed (no acute distress) EENT: ATNC Neck: no JVD Respiratory: Present: Other (Lung sounds decreased bilaterally, unlabored) Cardiology: regular, S1S2, other (ACCESS: Right IJ Perm Catheter intact) Gastrointestinal: normoactive bowel sounds, no tenderness Integumentary: warm and dry Neurologic: alert and oriented x3 Musculoskeletal: other (no edema to both lower extremities) Psychiatric: mood/affect appropriate, cooperative - Lab 07/19/17 07:18 07/19/17 07:18 Most recent lab results Calcium 7.8 mg/dL (8.4-10.2) L 07/19/17 07:18 Phosphorus 6.20 mg/dL (2.5-4.5) H 07/10/17 20:38 Urine Creatinine 139.2 mg/dL (0.1-20.0) H 07/11/17 15:00 Urine Total Protein 695 mg/dL (5-11.8) H 07/11/17 15:00
[2017-07-27] MEDS: BIDIL 20/37.5MG PO SCH ×3 (05:46→21:50)
[2017-07-27 06:50] LABS: Hematocrit 26.7 % (30.3-42.9); Hemoglobin 8.4 gm/dl (10.1-14.3); Mean Corpuscular HGB Conc 31 % (30-34); Mean Corpuscular Hemoglobin 27 pg (28-32); Mean Corpuscular Volume 86 fl (79-97); Platelet Count 182 K/mm3 (140-440); Red Blood Count 3.12 M/mm3 (3.65-5.03)
[2017-07-27 06:53] LABS: Red Cell Distribution Width 25.6 % (13.2-15.2)
[2017-07-27 07:12] LABS: Calcium 7.4 mg/dL (8.4-10.2)
[2017-07-27 08:15] LABS: Basophils % (Manual) 0 % (0.0-1.8); Eosinophils % (Manual) 0 % (0.0-4.3); Total Cells Counted 100
[2017-07-27 08:16] LABS: Anisocytosis 2+; Macrocytosis 1+; Platelet Estimate Consistent w Auto
[2017-07-27] MEDS: DELTASONE PO SCH (10:00)
[2017-07-27] MEDS: XANAX PO SCH ×2 (10:00→21:50)
--- NOTE | 2017-07-27 13:33 | Progress Note ---
Assessment and Plan - Patient Problems (1) End stage renal disease on dialysis Current Visit: Yes Status: Acute Plan to address problem: Hemodialysis today for UF and clearance Case Management onboard for outpatient dialysis placement Fluid restriction of 1 liter per day Renally dose medications Monitor I/O's Assess dialysis needs daily (2) Acute on chronic systolic heart failure Current Visit: Yes Status: Acute Plan to address problem: Chronic systolic Congestive Heart Failure: -LVEF 20-25% -Ultrafiltration with HD -As per cardiology (3) Bilateral pneumonia Current Visit: Yes Status: Acute Qualifiers: Pneumonia type: due to unspecified organism Lung location: unspecified part of lung Qualified Code(s): J18.9 - Pneumonia, unspecified organism Plan to address problem: S/P IV Azithromycin and Rocephin On Prednisone (4) Anemia Current Visit: Yes Status: Acute Plan to address problem: Anemia secondary to Lupus and ESRD On Epogen 10,000 units SQ every M,W,F (5) Systemic lupus Current Visit: Yes Status: Acute Plan to address problem: On Prednisone 40 mg po daily as per Primary Subjective Date of service: 07/27/17 Principal diagnosis: anemia,ESRd on HD Interval history: Patient seen in dialysis unit. Tolerating HD well. Objective - Vital Signs Vital signs: Vital Signs - 12hr 07/27/17 07/27/17 07/27/17 05:46 09:45 11:10 Temperature 97.7 F Pulse Rate 77 78 79 Respiratory 20 Rate Blood Pressure 124/71 139/83 134/86 O2 Sat by Pulse 96 Oximetry 07/27/17 11:15 Temperature Pulse Rate 73 Respiratory Rate Blood Pressure 133/83 O2 Sat by Pulse Oximetry - General Appearance General appearance: well-developed, appears stated age EENT: ATNC, PERRL, hearing intact, vision intact Neck: no JVD, supple Respiratory: Present: Decreased Breath Sounds Cardiology: regular, S1S2 Gastrointestinal: normoactive bowel sounds Integumentary: warm and dry Neurologic: alert and oriented x3 Musculoskeletal: no deformities, no erythema, no cyanosis, no clubbing - Lab 07/27/17 05:58 07/27/17 05:58 Most recent lab results Calcium 7.4 mg/dL (8.4-10.2) L 07/27/17 05:58 Phosphorus 6.80 mg/dL (2.5-4.5) H 07/27/17 05:58 Urine Creatinine 139.2 mg/dL (0.1-20.0) H 07/11/17 15:00 Urine Total Protein 695 mg/dL (5-11.8) H 07/11/17 15:00
[2017-07-27] MEDS ORDERED: NACL 0.9 (PRIMING MACHINE ONLY DIALYSIS) MC ONE (14:16)
[2017-07-27] MEDS: PROCRIT SUB-Q SCH (14:35)
[2017-07-27] MEDS: HEPARIN IV PRN (15:14)
--- NOTE | 2017-07-27 15:39 | Progress Note ---
Assessment and Plan Assessment and plan: Acute hypoxic respiratory failure, sepsis due to pneumonia - Patient is on oxygen support - Treated with IV azithromycin and ceftriaxone, sepsis and pneumonia resolved ESRD on HD - Continue dialysis per nephrology Hyperkalemia - Resolved with treatment Chronic systolic CHF - Cardiology consulted and recommended medical management Symptomatic anemia - H/H stable Chest pain - Likely due to congestive heart failure/ pneumonia Lupus - Patient is on prednisone Dark stool - GI consulted and recommended no intervention at this time, and we will follow as needed DVT prophylaxis -SCD Disposition - No outpatient dialysis center is accepting her. - Discharges per nephrology. History Interval history: Patient was seen and evaluated this morning , no new complaints. No nursing issues overnight. Hospitalist Physical - Physical exam Narrative exam: Not in cardiopulmonary distress. The patient appeared chronically sick looking. Vital signs as documented. Head exam is unremarkable. No scleral icterus, pale conjunctiva . Neck is without jugular venous distension, thyromegaly, or carotid bruits. Lungs are clear to auscultation. Cardiac exam reveals regular rate and Rhythm. Tachycardic. Abdominal exam reveals normal bowel sounds, no masses, no organomegaly and no aortic enlargement. Extremities are nonedematous and both femoral and pedal pulses are normal. 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 No focal weakness. - Constitutional Vitals: Temp Pulse Resp BP Pulse Ox 98.0 F 76 18 154/90 96 07/27/17 14:15 07/27/17 14:15 07/27/17 14:15 07/27/17 14:15 07/27/17 09:45 General appearance: Present: no acute distress, well-nourished Results - Labs CBC & Chem 7: 07/27/17 05:58 07/27/17 05:58 Labs: Laboratory Last Values WBC 4.3 K/mm3 (4.5-11.0) L 07/27/17 05:58 RBC 3.12 M/mm3 (3.65-5.03) L 07/27/17 05:58 Hgb 8.4 gm/dl (10.1-14.3) L 07/27/17 05:58 Hct 26.7 % (30.3-42.9) L 07/27/17 05:58 MCV 86 fl (79-97) 07/27/17 05:58 MCH 27 pg (28-32) L 07/27/17 05:58 MCHC 31 % (30-34) 07/27/17 05:58 RDW 25.6 % (13.2-15.2) H 07/27/17 05:58 Plt Count 182 K/mm3 (140-440) 07/27/17 05:58 Lymph % (Auto) 7.7 % (13.4-35.0) L 07/15/17 06:13 [place] % (Auto) 4.5 % (0.0-7.3) 07/15/17 06:13 Eos % (Auto) 0.1 % (0.0-4.3) 07/15/17 06:13 Baso % (Auto) 0.2 % (0.0-1.8) 07/15/17 06:13 Lymph # 0.5 K/mm3 (1.2-5.4) L 07/15/17 06:13 [place] # 0.3 K/mm3 (0.0-0.8) 07/15/17 06:13 Eos # 0.0 K/mm3 (0.0-0.4) 07/15/17 06:13 Baso # 0.0 K/mm3 (0.0-0.1) 07/15/17 06:13 Add Manual Diff Complete 07/27/17 05:58 Total Counted 100 07/27/17 05:58 Seg Neutrophils % 87.5 % (40.0-70.0) H 07/15/17 06:13 Seg Neuts % (Manual) 78.0 % (40.0-70.0) H 07/27/17 05:58 Band Neutrophils % 1.0 % 07/27/17 05:58 Lymphocytes % (Manual) 17.0 % (13.4-35.0) 07/27/17 05:58 Reactive Lymphs % (Man) 0 % 07/27/17 05:58 Monocytes % (Manual) 4.0 % (0.0-7.3) 07/27/17 05:58 Eosinophils % (Manual) 0 % (0.0-4.3) 07/27/17 05:58 Basophils % (Manual) 0 % (0.0-1.8) 07/27/17 05:58 Metamyelocytes % 0 % 07/27/17 05:58 Myelocytes % 0 % 07/27/17 05:58 Promyelocytes % 0 % 07/27/17 05:58 Blast Cells % 0 % 07/27/17 05:58 Nucleated RBC % Not Reportable 07/27/17 05:58 Seg Neutrophils # 6.0 K/mm3 (1.8-7.7) 07/15/17 06:13 Seg Neutrophils # Man 3.4 K/mm3 (1.8-7.7) 07/27/17 05:58 Band Neutrophils # 0.0 K/mm3 07/27/17 05:58 Lymphocytes # (Manual) 0.7 K/mm3 (1.2-5.4) L 07/27/17 05:58 Abs React Lymphs (Man) 0.0 K/mm3 07/27/17 05:58 Monocytes # (Manual) 0.2 K/mm3 (0.0-0.8) 07/27/17 05:58 Eosinophils # (Manual) 0.0 K/mm3 (0.0-0.4) 07/27/17 05:58 Basophils # (Manual) 0.0 K/mm3 (0.0-0.1) 07/27/17 05:58 Metamyelocytes # 0.0 K/mm3 07/27/17 05:58 Myelocytes # 0.0 K/mm3 07/27/17 05:58 Promyelocytes # 0.0 K/mm3 07/27/17 05:58 Blast Cells # 0.0 K/mm3 07/27/17 05:58 WBC Morphology Not Reportable 07/27/17 05:58 Hypersegmented Neuts Not Reportable 07/27/17 05:58 Hyposegmented Neuts Not Reportable 07/27/17 05:58 Hypogranular Neuts Not Reportable 07/27/17 05:58 Smudge Cells Not Reportable 07/27/17 05:58 Toxic Granulation Not Reportable 07/27/17 05:58 Toxic Vacuolation Not Reportable 07/27/17 05:58 Dohle Bodies Not Reportable 07/27/17 05:58 Pelger-Huet Anomaly Not Reportable 07/27/17 05:58 Von Rods Not Reportable 07/27/17 05:58 Platelet Estimate Consistent w auto 07/27/17 05:58 Clumped Platelets Not Reportable 07/27/17 05:58 Plt Clumps, EDTA Not Reportable 07/27/17 05:58 Large Platelets Not Reportable 07/27/17 05:58 Giant Platelets Not Reportable 07/27/17 05:58 Platelet Satelliting Not Reportable 07/27/17 05:58 Plt Morphology Comment Not Reportable 07/27/17 05:58 RBC Morphology Not Reportable 07/27/17 05:58 Dimorphic RBCs Not Reportable 07/27/17 05:58 Polychromasia Not Reportable 07/27/17 05:58 Hypochromasia Not Reportable 07/27/17 05:58 Poikilocytosis Not Reportable 07/27/17 05:58 Anisocytosis 2+ 07/27/17 05:58 Microcytosis 1+ 07/27/17 05:58 Macrocytosis 1+ 07/27/17 05:58 Spherocytes Not Reportable 07/27/17 05:58 Pappenheimer Bodies Not Reportable 07/27/17 05:58 Sickle Cells Not Reportable 07/27/17 05:58 Target Cells Not Reportable 07/27/17 05:58 Tear Drop Cells Not Reportable 07/27/17 05:58 Ovalocytes Not Reportable 07/27/17 05:58 Helmet Cells Not Reportable 07/27/17 05:58 [place] Bodies Not Reportable 07/27/17 05:58 [place] Rings Not Reportable 07/27/17 05:58 [place] Cells Not Reportable 07/27/17 05:58 Bite Cells Not Reportable 07/27/17 05:58 Crenated Cell Not Reportable 07/27/17 05:58 Elliptocytes Not Reportable 07/27/17 05:58 Acanthocytes (Spur) Not Reportable 07/27/17 05:58 Rouleaux Not Reportable 07/27/17 05:58 Hemoglobin C Crystals Not Reportable 07/27/17 05:58 Schistocytes Not Reportable 07/27/17 05:58 Malaria parasites Not Reportable 07/27/17 05:58 Niraj Bodies Not Reportable 07/27/17 05:58 Hem Pathologist Commnt No 07/27/17 05:58 PT 16.9 Sec. (12.2-14.9) H 07/10/17 20:38 INR 1.30 (0.87-1.13) H 07/10/17 20:38 Sodium 135 mmol/L (137-145) L 07/27/17 05:58 Potassium 4.3 mmol/L (3.6-5.0) 07/27/17 05:58 Chloride 93.9 mmol/L (98-107) L 07/27/17 05:58 Carbon Dioxide 23 mmol/L (22-30) 07/27/17 05:58 Anion Gap 22 mmol/L 07/27/17 05:58 BUN 49 mg/dL (7-17) H 07/27/17 05:58 Creatinine 6.1 mg/dL (0.7-1.2) H 07/27/17 05:58 Estimated GFR 9 ml/min 07/27/17 05:58 BUN/Creatinine Ratio 8 % 07/27/17 05:58 Glucose 103 mg/dL (65-100) H 07/27/17 05:58 POC Glucose 183 (70-105) H 07/15/17 21:18 Calcium 7.4 mg/dL (8.4-10.2) L 07/27/17 05:58 Phosphorus 6.80 mg/dL (2.5-4.5) H 07/27/17 05:58 Iron 23 ug/dL (37-170) L 07/10/17 20:38 TIBC 172 mcg/dL (250-450) L 07/10/17 20:38 Ferritin 199.5 ng/mL (13.0-400.0) 07/10/17 20:38 Troponin T 0.076 ng/mL (0.00-0.029) H 07/10/17 03:32 NT-Pro-B Natriuret Pep > 29916 pg/mL (0-450) H 07/10/17 20:38 Triglycerides 192 mg/dL (2-149) H 07/10/17 03:32 Cholesterol 140 mg/dL (50-199) 07/10/17 03:32 LDL Cholesterol Direct 67 mg/dL (50-130) 07/10/17 03:32 HDL Cholesterol 35 mg/dL (40-59) L 07/10/17 03:32 Cholesterol/HDL Ratio 4.00 % 07/10/17 03:32 HCG, Qual Negative (Negative) 07/10/17 03:32 Urine Color [place] (Yellow) 07/11/17 15:00 Urine Turbidity Cloudy (Clear) 07/11/17 15:00 Urine pH 5.0 (5.0-7.0) 07/11/17 15:00 Ur Specific [place] 1.015 (1.003-1.030) 07/11/17 15:00 Urine Protein >500 mg/dL (Negative) 07/11/17 15:00 Urine Glucose (UA) Neg mg/dL (Negative) 07/11/17 15:00 Urine Ketones Neg mg/dL (Negative) 07/11/17 15:00 Urine Blood Neg (Negative) 07/11/17 15:00 Urine Nitrite Neg (Negative) 07/11/17 15:00 Urine Bilirubin Neg (Negative) 07/11/17 15:00 Urine Urobilinogen < 2.0 mg/dL (<2.0) 07/11/17 15:00 Ur Leukocyte Esterase Tr (Negative) 07/11/17 15:00 Urine WBC (Auto) 5.0 /HPF (0.0-6.0) 07/11/17 15:00 Urine RBC (Auto) 14.0 /HPF (0.0-6.0) 07/11/17 15:00 U Epithel Cells (Auto) 18.0 /HPF (0-13.0) H 07/11/17 15:00 Urine Mucus Few /HPF 07/11/17 15:00 Urine Creatinine 139.2 mg/dL (0.1-20.0) H 07/11/17 15:00 Protein/Creatinin Ratio 4.99 07/11/17 15:00 Urine Total Protein 695 mg/dL (5-11.8) H 07/11/17 15:00 PAUL Screen Positive (Negative) H 07/10/17 20:38 PUAL Titer 1:320 (Negative) H 07/10/17 20:38 PAUL Pattern Homogeneous 07/10/17 20:38 Double Strand DNA Ab 199 IU/mL (<=4) H 07/10/17 20:38 Complement C3 30 mg/dL (90-180) L 07/10/17 20:38 Complement C4 6 mg/dL (16-47) L 07/10/17 20:38 Hepatitis A IgM Ab Non-reactive (NonReactive) 07/10/17 20:38 Hep Bs Antigen Non-reactive (Negative) 07/10/17 20:38 Hep B Core IgM Ab Non-reactive (NonReactive) 07/10/17 20:38 Hepatitis C Antibody Non-reactive (NonReactive) 07/10/17 20:38 HIV 1&2 Antibody Rapid Non react (Non React) 07/10/17 20:38 HIV P24 Antigen Non react (Non React) 07/10/17 20:38 Blood Type O POSITIVE 07/10/17 05:29 Antibody Screen Negative 07/10/17 05:29 Crossmatch See Detail 07/10/17 05:29
[2017-07-27] MEDS: COREG PO SCH ×2 (19:10→21:51)
[2017-07-28 06:20] LABS: Calcium 7.1 mg/dL (8.4-10.2)
[2017-07-28] MEDS: BIDIL 20/37.5MG PO SCH ×2 (06:40→14:27)
--- NOTE | 2017-07-28 09:13 | Progress Note ---
Assessment and Plan - Patient Problems (1) End stage renal disease on dialysis Current Visit: Yes Status: Acute Plan to address problem: Received hemodialysis yesterday. No acute indication for HD today. Fluid restriction of 1 liter per day Renally dose medications Monitor I/O's Assess dialysis needs daily Per case management, patient has been denied admission by [facility] and [facility] facilities for outpatient HD placement Ok to discharge patient from renal standpoint. Patient was instructed to come to E.R to receive hemodialysis treatments 2-3 times per week (2) Acute on chronic systolic heart failure Current Visit: Yes Status: Acute Plan to address problem: Chronic systolic Congestive Heart Failure: -LVEF 20-25% -Ultrafiltration with HD -As per cardiology (3) Bilateral pneumonia Current Visit: Yes Status: Acute Qualifiers: Pneumonia type: due to unspecified organism Lung location: unspecified part of lung Qualified Code(s): J18.9 - Pneumonia, unspecified organism Plan to address problem: S/P IV Azithromycin and Rocephin On Prednisone (4) Anemia Current Visit: Yes Status: Acute Plan to address problem: 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 Discussed with patient that per Case Management she has been denied by both [facility] and [facility] facilities in the area. Informed patient to come to the E.R to receive dialysis 2-3 times per week. Patient was opinionated but voiced understanding. Objective - Vital Signs Vital signs: Vital Signs - 12hr 07/27/17 07/27/17 07/28/17 21:50 21:51 06:40 Blood Pressure 141/82 141/82 125/78 - General Appearance General appearance: well-developed, appears stated age EENT: ATNC, PERRL, hearing intact, vision intact Neck: no JVD, supple Respiratory: Present: Clear to Ascultation Cardiology: regular, S1S2 Gastrointestinal: normoactive bowel sounds Integumentary: warm and dry Neurologic: alert and oriented x3 Musculoskeletal: other (No edema) - Lab 07/27/17 05:58 07/28/17 05:19 Most recent lab results Calcium 7.1 mg/dL (8.4-10.2) L 07/28/17 05:19 Phosphorus 6.80 mg/dL (2.5-4.5) H 07/27/17 05:58 Urine Creatinine 139.2 mg/dL (0.1-20.0) H 07/11/17 15:00 Urine Total Protein 695 mg/dL (5-11.8) H 07/11/17 15:00
[2017-07-28 09:19] VITALS: BP 121/74
[2017-07-28] MEDS: COREG PO SCH (09:48)
[2017-07-28] MEDS: DELTASONE PO SCH (09:48)
[2017-07-28] MEDS: XANAX PO SCH (09:48)
--- NOTE | 2017-07-28 12:44 | Discharge Summary ---
Providers - Providers Date of Admission: 07/10/17 07:37 Date of discharge: 07/28/17 Attending physician: NOREEN LEE MD 07/10/17 09:07 Consult to Physician [CONS] Routine Consulting Provider: JANUSZ HOYT Reason For Exam: dark stool,anemia Place consult to:: GI Notified:: a service Phone number called:: [phone] Was contact made?: Yes If yes, spoke with:: sandy Time called:: 10:17 07/10/17 11:19 Consult to Physician [CONS] Routine Consulting Provider: VIVI VELASCO Reason For Exam: ARF Place consult to:: evita Notified:: yes Was contact made?: Yes 07/10/17 14:41 Consult to Physician [CONS] Stat Consulting Provider: MAIKEL FULTON Reason For Exam: Need for Vascath for HD Notified:: yes 07/11/17 09:28 Consult to Case Management [CONS] Routine Services Needed at Discharge: Other Notified:: casework supervisor Additional Physician Instructions: JAY JAY Gomez 07/12/17 11:51 Consult to Physician [CONS] Routine Consulting Provider: MAIKEL FULTON Reason For Exam: Perm-catheter placement Place consult to:: Dr. Fulton Notified:: Heladio RN Comment:: Per nurse Dr. Siegel spoke with patient 07/22/17 09:30 Consult to Wound/ET Nurse [CONS] Routine Reason For Exam: wound eval Primary care physician: RASHID STUART Hospitalization Reason for admission: ESRD needing dialysis Condition: Critical Hospital course: Patient has ESRD on HD, CM was trying hard to get outpatient dialysis set up but denied from multiple facilities. I have discussed with nephrology and and recommend to DC and come to ED 2-3x a week for dialysis. Nephrology put a note today stating that. Disposition: [id number] TO HOME OR SELFCARE Time spent for discharge: 31 minutes - Discharge Diagnoses (1) Acute on chronic systolic heart failure Status: Acute (2) Anemia Status: Acute (3) Bilateral pneumonia Status: Acute Qualifiers: Pneumonia type: due to unspecified organism Lung location: unspecified part of lung Qualified Code(s): J18.9 - Pneumonia, unspecified organism (4) End stage renal disease on dialysis Status: Acute (5) Systemic lupus Status: Acute Core Measure Documentation - Palliative Care Palliative Care/ Comfort Measures: Not Applicable - Core Measures Any of the following diagnoses?: heart failure - Heart Failure Discharge Requirements IRINA/ARB for LVSD if EF <40%: No Reason for no IRINA/ARB: Renal impairment Beta gerardo at discharge: Yes Exam - Physical Exam Narrative exam: Not in cardiopulmonary distress. The patient appeared chronically sick looking. Vital signs as documented. Head exam is unremarkable. No scleral icterus, pale conjunctiva . Neck is without jugular venous distension, thyromegaly, or carotid bruits. Lungs are clear to auscultation. Cardiac exam reveals regular rate and Rhythm. Tachycardic. Abdominal exam reveals normal bowel sounds, no masses, no organomegaly and no aortic enlargement. Extremities are nonedematous and both femoral and pedal pulses are normal. HASH SLINGER: Alert and oriented 3. No focal weakness. - Constitutional Vitals: Temp Pulse Resp BP Pulse Ox 98.3 F 72 18 121/74 97 07/28/17 08:40 07/28/17 08:40 07/28/17 08:40 07/28/17 08:40 07/28/17 08:40 Plan Activity: no restrictions Weight Bearing Status: Full Weight Bearing Diet: renal Follow up with: RASHID STUART MD [Primary Care Provider] - 3-5 Days CYNTHIA STANTON MD [Staff Physician] - 7 Days Prescriptions: Carvedilol [Coreg] 6.25 mg PO BID #60 tablet Isosorb Dinit/Hydralazine [Bidil 20/37.5MG] 1 each PO Q8HR #90 tablet predniSONE [Deltasone] 20 mg PO QDAY #30 tablet
== END 2017-07-28 14:56 | disposition home or self-care (01) | DRG 871 ==
LOC: ED 02:33 → 4A 07:37 → 3A 07-16 17:07
PROVIDERS: ADMIT Internal Medicine; ATTEND Internal Medicine
PROC: 5A1D70Z Performance of Urinary Filtration, Intermittent, Less than 6 Hours Per Day (ICD-10-PCS; 2017-07-10)
PROC: 02H633Z Insertion of Infusion Device into Right Atrium, Percutaneous Approach (ICD-10-PCS; 2017-07-10)
PROC: B244ZZZ Ultrasonography of Right Heart (ICD-10-PCS; 2017-07-10)
PROC: 3E0234Z Introduction of Serum, Toxoid and Vaccine into Muscle, Percutaneous Approach (ICD-10-PCS; principal; 2017-07-11)
PROC: 30233N1 Transfusion of Nonautologous Red Blood Cells into Peripheral Vein, Percutaneous Approach (ICD-10-PCS; 2017-07-11)
PROC: 5A1D70Z Performance of Urinary Filtration, Intermittent, Less than 6 Hours Per Day (ICD-10-PCS; 2017-07-11)
PROC: 5A1D70Z Performance of Urinary Filtration, Intermittent, Less than 6 Hours Per Day (ICD-10-PCS; 2017-07-13)
PROC: 0JH63XZ Insertion of Tunneled Vascular Access Device into Chest Subcutaneous Tissue and Fascia, Percutaneous Approach (ICD-10-PCS; 2017-07-13)
PROC: 02H633Z Insertion of Infusion Device into Right Atrium, Percutaneous Approach (ICD-10-PCS; 2017-07-13)
PROC: B2141ZZ Fluoroscopy of Right Heart using Low Osmolar Contrast (ICD-10-PCS; 2017-07-13)
PROC: 02PA33Z Removal of Infusion Device from Heart, Percutaneous Approach (ICD-10-PCS; 2017-07-13)
PROC: 5A1D70Z Performance of Urinary Filtration, Intermittent, Less than 6 Hours Per Day (ICD-10-PCS; 2017-07-15)
PROC: 5A1D70Z Performance of Urinary Filtration, Intermittent, Less than 6 Hours Per Day (ICD-10-PCS; 2017-07-18)
PROC: 5A1D70Z Performance of Urinary Filtration, Intermittent, Less than 6 Hours Per Day (ICD-10-PCS; 2017-07-20)
PROC: 5A1D70Z Performance of Urinary Filtration, Intermittent, Less than 6 Hours Per Day (ICD-10-PCS; 2017-07-22)
PROC: 5A1D70Z Performance of Urinary Filtration, Intermittent, Less than 6 Hours Per Day (ICD-10-PCS; 2017-07-24)
PROC: 5A1D70Z Performance of Urinary Filtration, Intermittent, Less than 6 Hours Per Day (ICD-10-PCS; 2017-07-25)
PROC: 5A1D70Z Performance of Urinary Filtration, Intermittent, Less than 6 Hours Per Day (ICD-10-PCS; 2017-07-27)
DX: A41.9 Sepsis, unspecified organism (principal); J18.9 Pneumonia, unspecified organism; J96.01 Acute respiratory failure with hypoxia; I50.23 Acute on chronic systolic (congestive) heart failure; N18.6 End stage renal disease; N17.9 Acute kidney failure, unspecified; I13.2 Hypertensive heart and chronic kidney disease with heart failure and with stage 5 chronic kidney disease, or end stage renal disease; I42.0 Dilated cardiomyopathy; M32.9 Systemic lupus erythematosus, unspecified; E87.5 Hyperkalemia; D63.1 Anemia in chronic kidney disease; Z23 Encounter for immunization
CPT/HCPCS: 36415; 36430; 36556; 36558; 71045; 71046; 77001; 78452; 80048; 80061; 80074; 81001; 82570; 82728; 82962; 83550; 83880; 84100; 84156; 84484; 84703; 85007; 85014; 85018; 85025; 85610; 86038; 86160; 86225; 86850; 86900; 86901; 86920; 87040; 87806; 90732; 93005; 93010; 93017; 94760; 96365; 96368; A9502; C1750; C1752; C1769; J0456; J0690; J0696; J0885; J1644; J1940; J2250; J2270; J2405; J2785; J2916; J3010; J7030; J7040; J7050; J7512; P9016; P9047

== ENCOUNTER 2017-07-31 05:56 | Inpatient (IN) | payer OTHER ==
--- NOTE | 2017-07-31 07:39 | XRay Report ---
ROUTINE CHEST, TWO VIEWS: HISTORY: Shortness of breath. Compared to 07/21/17. Heart size and pulmonary venous structures have increased slightly since the comparison exam. Small right pleural effusion is stable. No evidence for infiltrate or pneumothorax. Right venous catheter remains in good position. IMPRESSION: Mild CHF. No overwhelming change since exam 10 days ago.
[2017-07-31 08:12] LABS: Basophils % (Auto) 0.3 % (0.0-1.8); Hematocrit 30.2 % (30.3-42.9); Hemoglobin 9.5 gm/dl (10.1-14.3); Lymphocytes # (Auto) 0.7 K/mm3 (1.2-5.4); Lymphocytes % (Auto) 14.7 % (13.4-35.0); Mean Corpuscular HGB Conc 32 % (30-34); Mean Corpuscular Hemoglobin 28 pg (28-32); Mean Corpuscular Volume 87 fl (79-97); Monocytes # (Auto) 0.2 K/mm3 (0.0-0.8); Platelet Count 171 K/mm3 (140-440); Red Blood Count 3.46 M/mm3 (3.65-5.03)
[2017-07-31 08:13] LABS: Red Cell Distribution Width 24.6 % (13.2-15.2)
[2017-07-31 08:24] LABS: Calcium 8.2 mg/dL (8.4-10.2)
[2017-07-31 10:02] LABS: Chol/HDL Ratio 3.12 %
[2017-07-31] MEDS ORDERED: MORPHINE IV ONE (22:47)
--- NOTE | 2017-07-31 22:55 | Emergency Department Report ---
HPI - General Chief Complaint: Dyspnea/Respdistress Time Seen by Provider: 07/31/17 22:37 - HPI HPI: 47-year-old female presents to the emergency department with complaint of some shortness of breath. Patient has a history of lupus and has had some kidney disease in the past but previously did not want to undergo hemodialysis. She was here 2 weeks ago and they once again recommended hemodialysis for renal failure. She had a permacath placed at that time and had two sessions of hemodialysis done. She was discharged from the hospital 4 days ago and says that she did not have any dialysis clinic set up. She was told to show up at [facility] at 6 AM today. However secondary to the large volume of patients and ER holds, the patient has been waiting many hours to get back to the main emergency department. Over this time she says that her joints have started to hurt consistent with her lupus. She does not currently have a primary care physician or dedicated night cleaner that she follows up with. She denies any fever, chest pain, nausea, vomiting but does have some shortness of breath that worsens with exertion. She also presents with a very elevated blood pressure. ED Past Medical Hx - Past Medical History Previous Medical History?: Yes Hx Hypertension: Yes Hx Congestive Heart Failure: No Hx Diabetes: No Hx Renal Disease: Yes (dailysis) Additional medical history: LUPUS / PNEUMONIA. anemia - Surgical History Past Surgical History?: Yes Additional Surgical History: vascath to right upper chest - Social History Smoking Status: Never Smoker - Medications Home Medications: Home Medications Medication Instructions Recorded Confirmed Last Taken Type Carvedilol [Coreg] 6.25 mg PO BID #60 tablet 07/28/17 Unknown Rx Isosorb Dinit/Hydralazine [Bidil 1 each PO Q8HR #90 tablet 07/28/17 Unknown Rx 20/37.5MG] predniSONE [Deltasone] 20 mg PO QDAY #30 tablet 07/28/17 Unknown Rx ED Review of Systems ROS: Stated complaint: SOB,BACK PAIN,LEFT HAND SWEELING Other details as noted in HPI Comment: All other systems reviewed and negative Constitutional: denies: chills, fever Eyes: denies: eye pain, eye discharge, vision change ENT: denies: ear pain, throat pain Respiratory: cough, shortness of breath, SOB with exertion Cardiovascular: edema. denies: syncope Gastrointestinal: denies: abdominal pain, nausea, diarrhea Genitourinary: denies: urgency, dysuria, discharge Musculoskeletal: joint swelling, myalgia Skin: denies: rash, lesions Neurological: denies: headache, weakness, paresthesias Physical Exam - Physical Exam Vital Signs: Vital Signs 07/31/17 07/31/17 07:01 20:08 Temperature 98.1 F 98.8 F Pulse Rate 76 74 Respiratory 20 18 Rate Blood Pressure 186/104 200/112 O2 Sat by Pulse 99 99 Oximetry Physical Exam: GENERAL: The patient is well-developed well-nourished. HENT: Normocephalic. Atraumatic. Patient has moist mucous membranes. EYES: Extraocular motions are intact. Pupils equal reactive to light bilaterally. NECK: Supple. Trachea is midline. CHEST/LUNGS: Coarse breath sounds throughout the chest. There is a dry cough heard during examination. No tachypnea or accessory muscle use. There is no respiratory distress noted. There is a permacath in the right chest wall. HEART/CARDIOVASCULAR: Regular. There is no tachycardia. There is no murmur. ABDOMEN: Abdomen is soft, nontender. Patient has normal bowel sounds. There is no abdominal distention. SKIN: Skin is warm and dry. There is some nonpitting swelling to the left hand and distal forearm. NEURO: The patient is awake, alert, and oriented. The patient is cooperative. The patient has no focal neurologic deficits. The patient has normal speech. MUSCULOSKELETAL: There is no tenderness or deformity. There is no limitation range of motion. There is no evidence of acute injury. ED Course Vital Signs 07/31/17 07/31/17 07:01 20:08 Temperature 98.1 F 98.8 F Pulse Rate 76 74 Respiratory 20 18 Rate Blood Pressure 186/104 200/112 O2 Sat by Pulse 99 99 Oximetry - Consultations Consultation #1: I spoke with the night cleaner on-call, Dr. Crowley, who did not feel that the patient required emergent dialysis this evening but we'll make sure she gets dialysis on the first shift in the morning. He recommends 60 g of Kayexalate, 1 inch of Nitropaste. 07/31/17 23:12 ED Medical Decision Making - Lab Data Result diagrams: 07/31/17 07:49 07/31/17 07:08 - EKG Data -: EKG Interpreted by Me EKG shows normal: sinus rhythm, axis, intervals, QRS complexes (LVH), ST-T waves Rate: normal - EKG Data When compared to previous EKG there are: previous EKG unavailable Interpretation: LVH - Radiology Data Radiology results: image reviewed interpreted by me: Chest x-ray shows some pulmonary vascular congestion concerning for CHF or volume overload. No obvious pneumonia. No pneumothorax. - Medical Decision Making 47-year-old female presents with some shortness of breath and some joint pains. She has not had her dialysis recently. She has some hyperkalemia with potassium of 5.6. Chest x-ray shows some concern for CHF versus volume overload but the patient does not appear in any respiratory distress. She presents with very elevated blood pressure. Spoke with nephrology who will dialyze her in the morning. She was given nitro paste for blood pressure and vasodilation. 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 She will be admitted to the hospital for further evaluation and treatment and has been accepted for admission by the hospitalist, Dr. Roth. - Differential Diagnosis CHF, hypertensive crisis, pneumonia, lupus, arthritis Critical Care Time: No Critical care attestation.: If time is entered above; I have spent that time in minutes in the direct care of this critically ill patient, excluding procedure time. ED Disposition Clinical Impression: Hypertensive urgency, End stage renal disease on dialysis, Hyperkalemia, Elevated troponin Anemia Qualifiers: Anemia type: unspecified type Qualified Code(s): D64.9 - Anemia, unspecified CHF (congestive heart failure) Qualifiers: Congestive heart failure type: unspecified Congestive heart failure chronicity : acute on chronic Qualified Code(s): I50.9 - Heart failure, unspecified Disposition: OP ADMIT IP TO THIS HOSP Is pt being admited?: Yes Condition: Fair Time of Disposition: 02:35
[2017-07-31] MEDS ORDERED: NITRO-BID 2% TP ONE (23:05)
[2017-07-31] MEDS ORDERED: KIONEX PO ONE (23:06)
[2017-07-31] MEDS ORDERED: APRESOLINE IV PRN (23:37)
--- NOTE | 2017-07-31 23:37 | History and Physical Report ---
History of Present Illness Date of examination: 07/31/17 History of present illness: 47-year-old woman with history of lupus, end-stage renal disease on dialysis, hypertension, CHF, comes to the emergency room for dialysis. Her dialysis center is not been set up as yet. + shortness of breath Review Of Systems: Constitutional: no weight loss Ears, eyes, nose, mouth and throat: no nasal congestion, no nasal discharge, no sinus pressure, blurry vision, diplopia Neck: No neck pain or rigidity. Cardiovascular: No chest pain, palpitations Respiratory: No shortness of breath, cough Gastrointestinal: No abdominal pain, hematochezia Genitourinary : no dysuria, frequency , hematuria Musculoskeletal: no muscle ache Integumentary: no rash, no pruritis Neurological: no parathesias, focal weakness Endocrine: no cold or heat intolerance, no polyuria or polydipsia Hematologic/Lymphatic: no easy bruising, no easy bleeding, no gland swelling Allergic/Immunologic: no urticaria, no angioedema. PAST MEDICAL HISTORY:lupus, end-stage renal disease on dialysis, CHF, hypertension PAST SURGICAL HISTORY:AVF FAMILY HISTORY:hypertension SOCIAL HISTORY: Denies alcohol, tobacco, drugs Medications and Allergies Allergies Allergy/AdvReac Type Severity Reaction Status Date / Time lactase [From Dairy Aid] Allergy Hives Verified 01/26/17 03:54 Home Medications Medication Instructions Recorded Confirmed Last Taken Type Carvedilol [Coreg] 6.25 mg PO BID #60 tablet 07/28/17 Unknown Rx Isosorb Dinit/Hydralazine [Bidil 1 each PO Q8HR #90 tablet 07/28/17 Unknown Rx 20/37.5MG] predniSONE [Deltasone] 20 mg PO QDAY #30 tablet 07/28/17 Unknown Rx Exam - Physical Exam Narrative exam: Gen. appearance: Patient lying in bed in no acute distress HEENT: Normocephalic/atraumatic, pupils equal round reactive to light, extra occular movement intact, no scleral icterus, no JVD or thyromegaly or nodule, neck is supple, mucous membrane moist, no erythema or exudate Heart: S1-S2, regular rate and rhythm Lungs: Clear to auscultation bilateral breathing comfortable Abdomen: Positive bowel sounds, nontender, nondistended, no organomegaly Extremities: No edema, cyanosis, clubbing Neuro:: Oriented 3 , cranial nerves II-12 intact, speech, motor intact Skin: No rash, nodules, warm dry - Constitutional Vitals: Temp Pulse Resp BP Pulse Ox 98.8 F 74 20 200/112 99 07/31/17 20:08 07/31/17 20:08 07/31/17 23:07 07/31/17 20:08 07/31/17 20:08 Results - Labs CBC & Chem 7: 07/31/17 07:49 07/31/17 07:08 Labs: Abnormal lab results 07/31/17 07/31/17 Range/Units 07:08 07:49 RBC 3.46 L (3.65-5.03) M/mm3 Hgb 9.5 L (10.1-14.3) gm/dl Hct 30.2 L (30.3-42.9) % RDW 24.6 H (13.2-15.2) % Lymph # 0.7 L (1.2-5.4) K/mm3 Seg Neutrophils % 81.0 H (40.0-70.0) % Potassium 5.6 H D (3.6-5.0) mmol/L Chloride 97.7 L (98-107) mmol/L BUN 71 H (7-17) mg/dL Creatinine 8.0 H D (0.7-1.2) mg/dL Glucose 113 H (65-100) mg/dL Calcium 8.2 L D (8.4-10.2) mg/dL Troponin T 0.065 H (0.00-0.029) ng/mL NT-Pro-B Natriuret Pep 84264 H (0-450) pg/mL Cholesterol 228 H (50-199) mg/dL LDL Cholesterol Direct 136 H (50-130) mg/dL HDL Cholesterol 73 H (40-59) mg/dL - Imaging and Cardiology EKG: image reviewed Chest x-ray: image reviewed Assessment and Plan Assessment Fluid overload End-stage renal disease on dialysis Hyperkalemia Lupus Hypertension malignant Plan Admit to medicine Consult renal for dialysis Start IV hydralazine, cocktail for hyperkalemia Continue for an outpatient medications DVT prophylaxis
[2017-07-31] MEDS ORDERED: MILK OF MAGNESIA PO PRN (23:53)
[2017-07-31] MEDS ORDERED: TYLENOL PO PRN (23:53)
[2017-07-31] MEDS ORDERED: DULCOLAX PR PRN (23:53)
[2017-07-31] MEDS ORDERED: ZOFRAN IV PRN (23:53)
[2017-08-01 03:47] LABS: Creatine Kinase MB 1.9 ng/mL (0.0-4.0)
[2017-08-01 07:21] LABS: Basophils % (Auto) 0.7 % (0.0-1.8); Eosinophils # (Auto) 0.1 K/mm3 (0.0-0.4); Eosinophils % (Auto) 3.3 % (0.0-4.3); Hematocrit 29.3 % (30.3-42.9); Lymphocytes # (Auto) 1.3 K/mm3 (1.2-5.4); Lymphocytes % (Auto) 37.7 % (13.4-35.0); Mean Corpuscular HGB Conc 31 % (30-34); Mean Corpuscular Hemoglobin 27 pg (28-32); Mean Corpuscular Volume 88 fl (79-97); Monocytes # (Auto) 0.1 K/mm3 (0.0-0.8); Monocytes % (Auto) 4.1 % (0.0-7.3); Platelet Count 173 K/mm3 (140-440); Red Blood Count 3.34 M/mm3 (3.65-5.03)
[2017-08-01 07:44] LABS: Calcium 7.4 mg/dL (8.4-10.2)
[2017-08-01 07:45] LABS: Creatine Kinase MB 2.2 ng/mL (0.0-4.0)
[2017-08-01] MEDS: PERCOCET 5/325 PO PRN ×2 (09:13→21:53)
[2017-08-01] MEDS: LOVENOX SUB-Q SCH (09:56)
[2017-08-01] MEDS: COREG PO SCH ×2 (09:57→21:49)
[2017-08-01] MEDS: DELTASONE PO SCH (09:57)
[2017-08-01] MEDS ORDERED: NACL 0.9 (PRIMING MACHINE ONLY DIALYSIS) MC ONE (15:08)
--- NOTE | 2017-08-01 15:12 | Consultation ---
History of Present Illness - Reason for Consult Consult date: 08/01/17 end stage renal disease, hyperkalemia Requesting physician: AMANDO REGALADO - History of Present Illness 47-year-old woman with history of lupus, end-stage renal disease on dialysis, hypertension, CHF, comes to the emergency room for dialysis. She does not have a dialysis center. + shortness of breath Review Of Systems: Constitutional: no weight loss Ears, eyes, nose, mouth and throat: no nasal congestion, no nasal discharge, no sinus pressure, blurry vision, diplopia Neck: No neck pain or rigidity. Cardiovascular: No chest pain, palpitations Respiratory: No shortness of breath, cough Gastrointestinal: No abdominal pain, hematochezia Genitourinary : no dysuria, frequency , hematuria Musculoskeletal: no muscle ache Integumentary: no rash, no pruritis Neurological: no parathesias, focal weakness Endocrine: no cold or heat intolerance, no polyuria or polydipsia Hematologic/Lymphatic: no easy bruising, no easy bleeding, no gland swelling Allergic/Immunologic: no urticaria, no angioedema. PAST MEDICAL HISTORY:lupus, end-stage renal disease on dialysis, CHF, hypertension PAST SURGICAL HISTORY:AVF FAMILY HISTORY:hypertension SOCIAL HISTORY: Denies alcohol, tobacco, drugs Medications and Allergies Allergies Allergy/AdvReac Type Severity Reaction Status Date / Time lactase [From Dairy Aid] Allergy Hives Verified 01/26/17 03:54 Home Medications Medication Instructions Recorded Confirmed Last Taken Type Carvedilol [Coreg] 6.25 mg PO BID #60 tablet 07/28/17 08/01/17 Unknown Rx Isosorb Dinit/Hydralazine [Bidil 1 each PO Q8HR #90 tablet 07/28/17 08/01/17 Unknown Rx 20/37.5MG] predniSONE [Deltasone] 20 mg PO QDAY #30 tablet 07/28/17 08/01/17 Unknown Rx Active Meds: Active Medications Acetaminophen (Tylenol) 650 mg PO Q4H PRN PRN Reason: Pain MILD(1-3)/Fever >100.5/MEYER Bisacodyl (Dulcolax) 10 mg [place] QDAY PRN PRN Reason: Constipation unrelieved by MOM Carvedilol (Coreg) 6.25 mg PO BID ROSE MARIE Last Admin: 08/01/17 09:57 Dose: 6.25 mg Enoxaparin Sodium (Lovenox) 30 mg SUB-Q QDAY [facility] Last Admin: 08/01/17 09:56 Dose: 30 mg Hydralazine HCl (Apresoline) 10 mg IV Q6H PRN PRN Reason: Hypertension Magnesium Hydroxide (Milk Of Magnesia) 30 ml PO Q4H PRN PRN Reason: Constipation Ondansetron HCl (Zofran) 4 mg IV Q4H PRN PRN Reason: N/V unrelieved by Reglan Oxycodone/Acetaminophen (Percocet 5/325) 1 tab PO Q6H PRN PRN Reason: Pain, Moderate (4-6) Last Admin: 08/01/17 09:13 Dose: 1 tab Pneumococcal Polyvalent Vaccine (Pneumovax 23) 0.5 ml IM .ONCE ONE Stop: 08/02/17 12:01 Prednisone (Deltasone) 20 mg PO QDAY [facility] Last Admin: 08/01/17 09:57 Dose: 20 mg Exam - Vital Signs Vital signs: Vital Signs Temp Pulse Resp BP Pulse Ox 98.1 F 76 20 186/104 99 07/31/17 07:01 07/31/17 07:01 07/31/17 07:01 07/31/17 07:01 07/31/17 07:01 - Physical Exam Narrative exam: Gen. appearance: Patient lying in bed in no acute distress HEENT: Normocephalic/atraumatic, pupils equal round reactive to light, extra occular movement intact, no scleral icterus, no JVD or thyromegaly or nodule, neck is supple, mucous membrane moist, no erythema or exudate Heart: S1-S2, regular rate and rhythm Lungs: Clear to auscultation bilateral breathing comfortable Abdomen: Positive bowel sounds, nontender, nondistended, no organomegaly Extremities: No edema, cyanosis, clubbing Neuro:: Oriented 3 , cranial nerves II-12 intact, speech, motor intact Skin: No rash, nodules, warm dry Results - Lab Results 08/01/17 06:18 08/01/17 06:18 Most recent lab results Calcium 7.4 mg/dL (8.4-10.2) L 08/01/17 06:18 Assessment and Plan Impression: Fluid overload End-stage renal disease on dialysis Hyperkalemia Lupus Hypertension malignant Plan: hd today and q TTHSAT case management for hd unit placement renal diet strict i/o bp control DVT prophylaxis
[2017-08-01] MEDS ORDERED: APRESOLINE ONE (16:01)
[2017-08-01] MEDS ORDERED: HEPARIN ONE (18:32)
[2017-08-01] MEDS ORDERED: NACL 0.9% 100 ML IV PRN (18:36)
--- NOTE | 2017-08-02 07:18 | Progress Note ---
Assessment and Plan Assessment and plan: 47-year-old woman with history of lupus, end-stage renal disease on dialysis, hypertension, CHF, comes to the emergency room for dialysis. Her dialysis center is not been set up as yet. + shortness of breath Acute Respiratory failure secondary to fluid overload Anemia of chronic disease related to endstage renal disease. Fluid overload secondary to endstage Renal disease End-stage renal disease on dialysis Hyperkalemia Lupus Hypertension malignant Plan Patient doing well following dialysis Continue supportive care Re-emphasized compliance with patient and family, they all appear to be committed Appreciate Director Search Marketing Strategies input Continue IV hydralazine, cocktail for hyperkalemia Continue for an outpatient medications DVT prophylaxis History Interval history: Patient seen and examined in no acute distress. Reports improvement in symptoms following Dialysis Hospitalist Physical - Physical exam Narrative exam: Gen: Patient lying in bed in no acute distress, Family at bedside HEENT: PERRLA, No JVD, AT/NC, mucous membrane moist, no erythema or exudate Heart: S1-S2, regular rate and rhythm Lungs: Clear to auscultation bilateral, no wheezing, rales Abdomen: Positive bowel sounds, nontender, nondistended, no organomegaly Extremities: No edema, cyanosis, clubbing, PLUSES INTACT Neuro:: Oriented 3 , cranial nerves II-12 intact, speech, motor intact msk: Good range of motion. Skin: No rash, nodules, warm dry - Constitutional Vitals: Temp Pulse Resp BP Pulse Ox 98.5 F 72 18 140/87 97 08/01/17 23:58 08/01/17 23:58 08/01/17 23:58 08/01/17 23:58 08/01/17 23:58 Results - Labs CBC & Chem 7: 08/01/17 06:18 08/01/17 06:18 Labs: Laboratory Last Values WBC 3.5 K/mm3 (4.5-11.0) L 08/01/17 06:18 RBC 3.34 M/mm3 (3.65-5.03) L 08/01/17 06:18 Hgb 9.0 gm/dl (10.1-14.3) L 08/01/17 06:18 Hct 29.3 % (30.3-42.9) L 08/01/17 06:18 MCV 88 fl (79-97) 08/01/17 06:18 MCH 27 pg (28-32) L 08/01/17 06:18 MCHC 31 % (30-34) 08/01/17 06:18 RDW 25.0 % (13.2-15.2) H 08/01/17 06:18 Plt Count 173 K/mm3 (140-440) 08/01/17 06:18 Lymph % (Auto) 37.7 % (13.4-35.0) H 08/01/17 06:18 [place] % (Auto) 4.1 % (0.0-7.3) 08/01/17 06:18 Eos % (Auto) 3.3 % (0.0-4.3) 08/01/17 06:18 Baso % (Auto) 0.7 % (0.0-1.8) 08/01/17 06:18 Lymph # 1.3 K/mm3 (1.2-5.4) 08/01/17 06:18 [place] # 0.1 K/mm3 (0.0-0.8) 08/01/17 06:18 Eos # 0.1 K/mm3 (0.0-0.4) 08/01/17 06:18 Baso # 0.0 K/mm3 (0.0-0.1) 08/01/17 06:18 Seg Neutrophils % 54.2 % (40.0-70.0) 08/01/17 06:18 Seg Neutrophils # 1.9 K/mm3 (1.8-7.7) 08/01/17 06:18 Sodium 138 mmol/L (137-145) 08/01/17 06:18 Potassium 5.2 mmol/L (3.6-5.0) H 08/01/17 06:18 Chloride 100.7 mmol/L (98-107) 08/01/17 06:18 Carbon Dioxide 20 mmol/L (22-30) L 08/01/17 06:18 Anion Gap 23 mmol/L 08/01/17 06:18 BUN 75 mg/dL (7-17) H 08/01/17 06:18 Creatinine 8.5 mg/dL (0.7-1.2) H 08/01/17 06:18 Estimated GFR 6 ml/min 08/01/17 06:18 BUN/Creatinine Ratio 9 % 08/01/17 06:18 Glucose 85 mg/dL (65-100) 08/01/17 06:18 Calcium 7.4 mg/dL (8.4-10.2) L 08/01/17 06:18 Total Creatine Kinase 63 units/L (30-135) 08/01/17 06:18 CK-MB (CK-2) 2.2 ng/mL (0.0-4.0) 08/01/17 06:18 CK-MB (CK-2) Rel Index 3.4 (0-4) 08/01/17 06:18 Troponin T 0.050 ng/mL (0.00-0.029) H 08/01/17 06:18 NT-Pro-B Natriuret Pep 49093 pg/mL (0-450) H 07/31/17 07:08 Triglycerides 95 mg/dL (2-149) 07/31/17 07:08 Cholesterol 228 mg/dL (50-199) H 07/31/17 07:08 LDL Cholesterol Direct 136 mg/dL (50-130) H 07/31/17 07:08 HDL Cholesterol 73 mg/dL (40-59) H 07/31/17 07:08 Cholesterol/HDL Ratio 3.12 % 07/31/17 07:08 - Imaging and Cardiology Chest x-ray: image reviewed (vascular congestion)
--- NOTE | 2017-08-02 08:58 | Progress Note ---
Assessment and Plan Impression: Fluid overload End-stage renal disease on dialysis Hyperkalemia Lupus Hypertension malignant Plan: hd q TTHSAT case management for hd unit placement renal diet strict i/o bp control DVT prophylaxis Subjective Date of service: 08/02/17 Principal diagnosis: esrd Interval history: resting well in bed today Objective - Exam Narrative Exam: Gen. appearance: Patient lying in bed in no acute distress HEENT: Normocephalic/atraumatic, pupils equal round reactive to light, extra occular movement intact, no scleral icterus, no JVD or thyromegaly or nodule, neck is supple, mucous membrane moist, no erythema or exudate Heart: S1-S2, regular rate and rhythm Lungs: Clear to auscultation bilateral breathing comfortable Abdomen: Positive bowel sounds, nontender, nondistended, no organomegaly Extremities: No edema, cyanosis, clubbing Neuro:: Oriented 3 , cranial nerves II-12 intact, speech, motor intact Skin: No rash, nodules, warm dry - Vital Signs Vital signs: Vital Signs - 12hr 08/01/17 08/01/17 08/02/17 21:49 23:58 04:11 Temperature 98.5 F 99.0 F Pulse Rate 68 72 77 Respiratory 18 18 Rate Blood Pressure 134/78 140/87 139/80 O2 Sat by Pulse 97 94 Oximetry - Lab 08/01/17 06:18 08/01/17 06:18 Most recent lab results Calcium 7.4 mg/dL (8.4-10.2) L 08/01/17 06:18
[2017-08-02] MEDS: COREG PO SCH ×2 (09:35→23:04)
[2017-08-02] MEDS: LOVENOX SUB-Q SCH (09:35)
[2017-08-02] MEDS: DELTASONE PO SCH (09:35)
[2017-08-02 09:42] LABS: Basophils % (Auto) 0.4 % (0.0-1.8); Eosinophils # (Auto) 0.1 K/mm3 (0.0-0.4); Eosinophils % (Auto) 2.2 % (0.0-4.3); Hematocrit 30.1 % (30.3-42.9); Hemoglobin 9.2 gm/dl (10.1-14.3); Lymphocytes # (Auto) 1.4 K/mm3 (1.2-5.4); Mean Corpuscular HGB Conc 31 % (30-34); Mean Corpuscular Hemoglobin 26 pg (28-32); Mean Corpuscular Volume 86 fl (79-97); Monocytes # (Auto) 0.2 K/mm3 (0.0-0.8); Platelet Count 162 K/mm3 (140-440)
[2017-08-02 09:46] LABS: Red Cell Distribution Width 24.1 % (13.2-15.2)
[2017-08-02] MEDS ORDERED: APLISOL ID NR (10:02)
[2017-08-02 10:03] LABS: Calcium 7.7 mg/dL (8.4-10.2)
[2017-08-02] MEDS ORDERED: PNEUMOVAX 23 IM ONE (12:00)
[2017-08-02] MEDS: NORVASC PO SCH (13:19)
--- NOTE | 2017-08-02 23:01 | Progress Note ---
Assessment and Plan Assessment and plan: 47-year-old woman with history of lupus, end-stage renal disease on dialysis, hypertension, CHF, comes to the emergency room for dialysis. Her dialysis center is not been set up as yet. + shortness of breath Acute Respiratory failure secondary to fluid overload Anemia of chronic disease related to endstage renal disease. Fluid overload secondary to endstage Renal disease End-stage renal disease on dialysis Hyperkalemia Lupus Hypertension malignant Plan Continues doing well following dialysis Continue supportive care Re-emphasized compliance with patient and family, they all appear to be committed Appreciate Air Transportation Provider input Continue IV hydralazine, cocktail for hyperkalemia Continue for an outpatient medications DVT prophylaxis History Interval history: Patient seen and examined in no acute distress. Reports improvement in symptoms this am. Hospitalist Physical - Physical exam Narrative exam: Gen: Patient lying in bed in no acute distress, Family at bedside HEENT: PERRLA, No JVD, AT/NC, mucous membrane moist, no erythema or exudate Heart: S1-S2, regular rate and rhythm Lungs: Clear to auscultation bilateral, no wheezing, rales Abdomen: Positive bowel sounds, nontender, nondistended, no organomegaly Extremities: No edema, cyanosis, clubbing, PLUSES INTACT Neuro:: Oriented 3 , cranial nerves II-12 intact, speech, motor intact msk: Good range of motion. Skin: No rash, nodules, warm dry - Constitutional Vitals: Temp Pulse Resp BP Pulse Ox 98.3 F 72 18 131/73 98 08/02/17 19:40 08/02/17 19:40 08/02/17 19:40 08/02/17 19:40 08/02/17 19:40 Results - Labs CBC & Chem 7: 08/02/17 09:12 08/02/17 09:12 Labs: Laboratory Last Values WBC 4.3 K/mm3 (4.5-11.0) L 08/02/17 09:12 RBC 3.50 M/mm3 (3.65-5.03) L 08/02/17 09:12 Hgb 9.2 gm/dl (10.1-14.3) L 08/02/17 09:12 Hct 30.1 % (30.3-42.9) L 08/02/17 09:12 MCV 86 fl (79-97) 08/02/17 09:12 MCH 26 pg (28-32) L 08/02/17 09:12 MCHC 31 % (30-34) 08/02/17 09:12 RDW 24.1 % (13.2-15.2) H 08/02/17 09:12 Plt Count 162 K/mm3 (140-440) 08/02/17 09:12 Lymph % (Auto) 32.0 % (13.4-35.0) 08/02/17 09:12 [place] % (Auto) 4.0 % (0.0-7.3) 08/02/17 09:12 Eos % (Auto) 2.2 % (0.0-4.3) 08/02/17 09:12 Baso % (Auto) 0.4 % (0.0-1.8) 08/02/17 09:12 Lymph # 1.4 K/mm3 (1.2-5.4) 08/02/17 09:12 [place] # 0.2 K/mm3 (0.0-0.8) 08/02/17 09:12 Eos # 0.1 K/mm3 (0.0-0.4) 08/02/17 09:12 Baso # 0.0 K/mm3 (0.0-0.1) 08/02/17 09:12 Seg Neutrophils % 61.4 % (40.0-70.0) 08/02/17 09:12 Seg Neutrophils # 2.6 K/mm3 (1.8-7.7) 08/02/17 09:12 Sodium 140 mmol/L (137-145) 08/02/17 09:12 Potassium 4.1 mmol/L (3.6-5.0) D 08/02/17 09:12 Chloride 97.3 mmol/L (98-107) L 08/02/17 09:12 Carbon Dioxide 28 mmol/L (22-30) D 08/02/17 09:12 Anion Gap 19 mmol/L 08/02/17 09:12 BUN 36 mg/dL (7-17) H 08/02/17 09:12 Creatinine 5.2 mg/dL (0.7-1.2) H 08/02/17 09:12 Estimated GFR 11 ml/min 08/02/17 09:12 BUN/Creatinine Ratio 7 % 08/02/17 09:12 Glucose 99 mg/dL (65-100) 08/02/17 09:12 Calcium 7.7 mg/dL (8.4-10.2) L 08/02/17 09:12 Total Creatine Kinase 63 units/L (30-135) 08/01/17 06:18 CK-MB (CK-2) 2.2 ng/mL (0.0-4.0) 08/01/17 06:18 CK-MB (CK-2) Rel Index 3.4 (0-4) 08/01/17 06:18 Troponin T 0.050 ng/mL (0.00-0.029) H 08/01/17 06:18 NT-Pro-B Natriuret Pep 60981 pg/mL (0-450) H 07/31/17 07:08 Triglycerides 95 mg/dL (2-149) 07/31/17 07:08 Cholesterol 228 mg/dL (50-199) H 07/31/17 07:08 LDL Cholesterol Direct 136 mg/dL (50-130) H 07/31/17 07:08 HDL Cholesterol 73 mg/dL (40-59) H 07/31/17 07:08 Cholesterol/HDL Ratio 3.12 % 07/31/17 07:08 Hep Bs Antigen Non-reactive (Negative) 08/02/17 10:27 Hepatitis C Antibody Non-reactive (NonReactive) 08/02/17 10:26
[2017-08-02] MEDS: AMBIEN PO PRN (23:04)
--- NOTE | 2017-08-03 09:35 | Progress Note ---
Assessment and Plan Impression: Fluid overload End-stage renal disease on dialysis Hyperkalemia Lupus Hypertension malignant Plan: hd q TTHSAT case management for hd unit placement renal diet strict i/o bp control DVT prophylaxis Subjective Date of service: 08/03/17 Principal diagnosis: esrd Interval history: resting well in bed today Objective - Exam Narrative Exam: Gen. appearance: Patient lying in bed in no acute distress HEENT: Normocephalic/atraumatic, pupils equal round reactive to light, extra occular movement intact, no scleral icterus, no JVD or thyromegaly or nodule, neck is supple, mucous membrane moist, no erythema or exudate Heart: S1-S2, regular rate and rhythm Lungs: Clear to auscultation bilateral breathing comfortable Abdomen: Positive bowel sounds, nontender, nondistended, no organomegaly Extremities: No edema, cyanosis, clubbing Neuro:: Oriented 3 , cranial nerves II-12 intact, speech, motor intact Skin: No rash, nodules, warm dry - Vital Signs Vital signs: Vital Signs - 12hr 08/02/17 08/02/17 08/03/17 22:59 23:04 04:00 Temperature 98.1 F Pulse Rate 79 72 73 Respiratory 18 Rate Blood Pressure 161/85 131/73 O2 Sat by Pulse 97 Oximetry 08/03/17 04:28 Temperature 97.9 F Pulse Rate 71 Respiratory 18 Rate Blood Pressure 153/78 O2 Sat by Pulse 97 Oximetry - Lab 08/02/17 09:12 08/02/17 09:12 Most recent lab results Calcium 7.7 mg/dL (8.4-10.2) L 08/02/17 09:12
[2017-08-03] MEDS: DELTASONE PO SCH (09:51)
[2017-08-03] MEDS: PERCOCET 5/325 PO PRN (09:56)
[2017-08-03] MEDS: COREG PO SCH ×2 (10:07→23:16)
[2017-08-03] MEDS: LOVENOX SUB-Q SCH (10:08)
[2017-08-03] MEDS: NORVASC PO SCH (10:08)
[2017-08-03] MEDS ORDERED: NACL 0.9 (PRIMING MACHINE ONLY DIALYSIS) MC ONE (13:49)
[2017-08-03] MEDS: HEPARIN IV PRN (17:05)
--- NOTE | 2017-08-03 18:29 | Progress Note ---
Assessment and Plan Assessment and plan: 47-year-old woman with history of lupus, end-stage renal disease on dialysis, hypertension, CHF, comes to the emergency room for dialysis. Her dialysis center is not been set up as yet. + shortness of breath Acute Respiratory failure secondary to fluid overload Anemia of chronic disease related to endstage renal disease. Fluid overload secondary to endstage Renal disease End-stage renal disease on dialysis Hyperkalemia Lupus Hypertension malignant Plan Continues doing well following dialysis Discussed with resource agent working together with case management to arrange for placement. Patient is committed to being compliance. Continue supportive care Re-emphasized compliance with patient and family, they all appear to be committed Appreciate Product Trainer input Continue IV hydralazine, Continue for an outpatient medications DVT prophylaxis Plan discussed with the patient History Interval history: Patient seen and examined in no acute distress. Resting comfortably. No adverse event reported diagnosis status. Hospitalist Physical - Physical exam Narrative exam: Gen: Patient lying in bed in no acute distress, Family at bedside HEENT: PERRLA, No JVD, AT/NC, mucous membrane moist, no erythema or exudate Heart: S1-S2, regular rate and rhythm Lungs: Clear to auscultation bilateral, no wheezing, rales Abdomen: Positive bowel sounds, nontender, nondistended, no organomegaly Extremities: No edema, cyanosis, clubbing, PLUSES INTACT Neuro:: Oriented 3 , cranial nerves II-12 intact, speech, motor intact msk: Good range of motion. Skin: No rash, nodules, warm dry - Constitutional Vitals: Temp Pulse Resp BP Pulse Ox 98.0 F 77 18 149/77 96 08/03/17 14:10 08/03/17 16:13 08/03/17 14:10 08/03/17 15:44 08/03/17 15:44 Results - Labs CBC & Chem 7: 08/02/17 09:12 08/02/17 09:12 Labs: Laboratory Last Values WBC 4.3 K/mm3 (4.5-11.0) L 08/02/17 09:12 RBC 3.50 M/mm3 (3.65-5.03) L 08/02/17 09:12 Hgb 9.2 gm/dl (10.1-14.3) L 08/02/17 09:12 Hct 30.1 % (30.3-42.9) L 08/02/17 09:12 MCV 86 fl (79-97) 08/02/17 09:12 MCH 26 pg (28-32) L 08/02/17 09:12 MCHC 31 % (30-34) 08/02/17 09:12 RDW 24.1 % (13.2-15.2) H 08/02/17 09:12 Plt Count 162 K/mm3 (140-440) 08/02/17 09:12 Lymph % (Auto) 32.0 % (13.4-35.0) 08/02/17 09:12 [place] % (Auto) 4.0 % (0.0-7.3) 08/02/17 09:12 Eos % (Auto) 2.2 % (0.0-4.3) 08/02/17 09:12 Baso % (Auto) 0.4 % (0.0-1.8) 08/02/17 09:12 Lymph # 1.4 K/mm3 (1.2-5.4) 08/02/17 09:12 [place] # 0.2 K/mm3 (0.0-0.8) 08/02/17 09:12 Eos # 0.1 K/mm3 (0.0-0.4) 08/02/17 09:12 Baso # 0.0 K/mm3 (0.0-0.1) 08/02/17 09:12 Seg Neutrophils % 61.4 % (40.0-70.0) 08/02/17 09:12 Seg Neutrophils # 2.6 K/mm3 (1.8-7.7) 08/02/17 09:12 Sodium 140 mmol/L (137-145) 08/02/17 09:12 Potassium 4.1 mmol/L (3.6-5.0) D 08/02/17 09:12 Chloride 97.3 mmol/L (98-107) L 08/02/17 09:12 Carbon Dioxide 28 mmol/L (22-30) D 08/02/17 09:12 Anion Gap 19 mmol/L 08/02/17 09:12 BUN 36 mg/dL (7-17) H 08/02/17 09:12 Creatinine 5.2 mg/dL (0.7-1.2) H 08/02/17 09:12 Estimated GFR 11 ml/min 08/02/17 09:12 BUN/Creatinine Ratio 7 % 08/02/17 09:12 Glucose 99 mg/dL (65-100) 08/02/17 09:12 Calcium 7.7 mg/dL (8.4-10.2) L 08/02/17 09:12 Total Creatine Kinase 63 units/L (30-135) 08/01/17 06:18 CK-MB (CK-2) 2.2 ng/mL (0.0-4.0) 08/01/17 06:18 CK-MB (CK-2) Rel Index 3.4 (0-4) 08/01/17 06:18 Troponin T 0.050 ng/mL (0.00-0.029) H 08/01/17 06:18 NT-Pro-B Natriuret Pep 24949 pg/mL (0-450) H 07/31/17 07:08 Triglycerides 95 mg/dL (2-149) 07/31/17 07:08 Cholesterol 228 mg/dL (50-199) H 07/31/17 07:08 LDL Cholesterol Direct 136 mg/dL (50-130) H 07/31/17 07:08 HDL Cholesterol 73 mg/dL (40-59) H 07/31/17 07:08 Cholesterol/HDL Ratio 3.12 % 07/31/17 07:08 Hep Bs Antigen Non-reactive (Negative) 08/02/17 10:27 Hepatitis C Antibody Non-reactive (NonReactive) 08/02/17 10:26
[2017-08-03] MEDS: AMBIEN PO PRN (23:47)
--- NOTE | 2017-08-04 08:35 | Progress Note ---
Assessment and Plan 47-year-old woman with history of lupus, end-stage renal disease on dialysis, hypertension, CHF, comes to the emergency room for dialysis. Her dialysis center is not been set up as yet. + shortness of breath Acute Respiratory failure secondary to fluid overload Anemia of chronic disease related to endstage renal disease. Fluid overload secondary to endstage Renal disease End-stage renal disease on dialysis Hyperkalemia - resolved Lupus Hypertension malignant- improved Plan Improve appreciably from hemodialysis Awaiting HD placement. Patient is committed to being compliance. Continue supportive care Re-emphasized compliance with patient and family, they all appear to be committed Appreciate Specialty Plant Supervisor input Continue IV hydralazine, Continue for an outpatient medications DVT prophylaxis Plan discussed with the patient Subjective Date of service: 08/04/17 Principal diagnosis: acute pulmonary edema, esrd Interval history: Shortness of breath improved, occasional cough. Awaiting hemodialysis placement. Objective - Exam Narrative Exam: Constitutional: Well-nourished well-developed. In no distress Head: Normocephalic atraumatic Eyes: Pupils are equal round and reactive to light Nose: No enlarged turbinates, no septal deviation. Mouth: Moist mucous membranes. Neck: Supple no thyromegaly. No bruit. No JVD Heart: Regular rate and rhythm, S1-S2 abnormal. No rubs murmurs or gallop Lungs: Clear to auscultation bilaterally no rales or rhonchi Abdomen: Soft, nontender. Bowel sound are present. Extremities: No edema no cyanosis and no clubbing. Neuro: Alert oriented Oriented x3. No focal sensory or motor deficit. Skin: No rashes no hyperemic spots Psychiatry: Euthymic. Calm. - Constitutional Vitals: Vital Signs - 12hr 08/03/17 08/03/17 08/04/17 21:58 23:16 00:27 Temperature 97.7 F Pulse Rate 79 79 Pulse Rate [ Apical] Respiratory 16 Rate Respiratory 18 Rate [Pain to hands and feet. ] Blood Pressure 142/89 Blood Pressure 149/82 [Left] O2 Sat by Pulse 96 Oximetry 08/04/17 08/04/17 01:41 02:42 Temperature 98.4 F Pulse Rate 76 Pulse Rate [ 80 Apical] Respiratory 16 18 Rate Respiratory Rate [Pain to hands and feet. ] Blood Pressure 150/91 Blood Pressure [Left] O2 Sat by Pulse 98 Oximetry - Labs CBC & Chem 7: 01/24/18 09:12 08/02/17 09:12
[2017-08-04] MEDS: NORVASC PO SCH (10:11)
[2017-08-04] MEDS: LOVENOX SUB-Q SCH (10:11)
[2017-08-04] MEDS: DELTASONE PO SCH (10:11)
[2017-08-04] MEDS: COREG PO SCH ×2 (10:12→21:54)
--- NOTE | 2017-08-04 14:06 | Progress Note ---
Assessment and Plan Impression: Fluid overload End-stage renal disease on dialysis Hyperkalemia Lupus Hypertension malignant Plan: hd q TTHSAT case management for hd unit placement--Elvia Morrisonvd renal diet strict i/o bp control DVT prophylaxis Subjective Date of service: 08/04/17 Principal diagnosis: esrd Interval history: resting well in bed today Objective - Exam Narrative Exam: Gen. appearance: Patient lying in bed in no acute distress HEENT: Normocephalic/atraumatic, pupils equal round reactive to light, extra occular movement intact, no scleral icterus, no JVD or thyromegaly or nodule, neck is supple, mucous membrane moist, no erythema or exudate Heart: S1-S2, regular rate and rhythm Lungs: Clear to auscultation bilateral breathing comfortable Abdomen: Positive bowel sounds, nontender, nondistended, no organomegaly Extremities: No edema, cyanosis, clubbing Neuro:: Oriented 3 , cranial nerves II-12 intact, speech, motor intact Skin: No rash, nodules, warm dry - Vital Signs Vital signs: Vital Signs - 12hr 08/04/17 08/04/17 08/04/17 02:42 04:46 07:25 Temperature 98.6 F 97.7 F Pulse Rate 70 75 Pulse Rate [ 80 Apical] Respiratory 18 16 18 Rate Blood Pressure 133/70 Blood Pressure 109/78 [Left] O2 Sat by Pulse 96 98 Oximetry 08/04/17 08/04/17 08/04/17 10:00 10:11 10:12 Temperature Pulse Rate 76 76 Pulse Rate [ Apical] Respiratory 18 Rate Blood Pressure 170/102 170/102 Blood Pressure [Left] O2 Sat by Pulse Oximetry 08/04/17 08/04/17 12:12 12:17 Temperature Pulse Rate 76 120 H Pulse Rate [ Apical] Respiratory Rate Blood Pressure 136/78 119/64 Blood Pressure [Left] O2 Sat by Pulse 97 91 Oximetry - Lab 08/02/17 09:12 08/02/17 09:12 Most recent lab results Calcium 7.7 mg/dL (8.4-10.2) L 08/02/17 09:12
[2017-08-04] MEDS: AMBIEN PO PRN (21:54)
--- NOTE | 2017-08-05 07:32 | Progress Note ---
Assessment and Plan Impression: Fluid overload End-stage renal disease on dialysis Hyperkalemia Lupus Hypertension malignant Plan: hd q TTHSAT case management for hd unit placement--Elvia Damico renal diet strict i/o bp control DVT prophylaxis will have chair time first of next week once documentation confirmed Subjective Date of service: 08/05/17 Principal diagnosis: acute pulmonary edema, esrd Interval history: resting well in bed today Objective - Exam Narrative Exam: Gen. appearance: Patient lying in bed in no acute distress HEENT: Normocephalic/atraumatic, pupils equal round reactive to light, extra occular movement intact, no scleral icterus, no JVD or thyromegaly or nodule, neck is supple, mucous membrane moist, no erythema or exudate Heart: S1-S2, regular rate and rhythm Lungs: Clear to auscultation bilateral breathing comfortable Abdomen: Positive bowel sounds, nontender, nondistended, no organomegaly Extremities: No edema, cyanosis, clubbing Neuro:: Oriented 3 , cranial nerves II-12 intact, speech, motor intact Skin: No rash, nodules, warm dry - Vital Signs Vital signs: Vital Signs - 12hr 08/04/17 08/04/17 08/04/17 19:34 21:24 21:40 Temperature 98.3 F Pulse Rate 72 85 Pulse Rate [ Radial] Respiratory Rate Respiratory 18 Rate [Pain to hands and feet. ] Blood Pressure 133/70 Blood Pressure [Left] O2 Sat by Pulse 98 Oximetry 08/04/17 08/05/17 08/05/17 21:54 01:54 03:00 Temperature 96.7 F L Pulse Rate 85 72 Pulse Rate [ 85 Radial] Respiratory 18 Rate Respiratory Rate [Pain to hands and feet. ] Blood Pressure 133/70 Blood Pressure 119/60 [Left] O2 Sat by Pulse 94 Oximetry - Lab 08/02/17 09:12 08/02/17 09:12 Most recent lab results Calcium 7.7 mg/dL (8.4-10.2) L 08/02/17 09:12
[2017-08-05] MEDS: PERCOCET 5/325 PO PRN (09:58)
[2017-08-05] MEDS: DELTASONE PO SCH (09:59)
[2017-08-05] MEDS: LOVENOX SUB-Q SCH (09:59)
[2017-08-05] MEDS: NORVASC PO SCH (11:17)
[2017-08-05] MEDS: COREG PO SCH ×2 (11:18→21:43)
--- NOTE | 2017-08-05 11:22 | Progress Note ---
Assessment and Plan 47-year-old woman with history of lupus, end-stage renal disease on dialysis, hypertension, CHF, comes to the emergency room for dialysis. Her dialysis center is not been set up as yet. + shortness of breath Acute Respiratory failure secondary to fluid overload Anemia of chronic disease related to endstage renal disease. Fluid overload secondary to endstage Renal disease End-stage renal disease on dialysis Hyperkalemia - resolved Lupus Hypertension malignant- improved Plan Improve appreciably from hemodialysis Awaiting HD placement. Patient is committed to being compliance. Continue supportive care Re-emphasized compliance with patient and family, they all appear to be committed Appreciate Inspector Handbag Frames input Continue IV hydralazine, Continue for an outpatient medications DVT prophylaxis Plan discussed with the patient Subjective Date of service: 08/05/17 Principal diagnosis: acute pulmonary edema, esrd Interval history: Shortness of breath improved, minimal cough. Had hemodialysis today. Awaiting out patient hemodialysis placement. Objective - Exam Narrative Exam: Constitutional: Well-nourished well-developed. In no distress Head: Normocephalic atraumatic Eyes: Pupils are equal round and reactive to light Nose: No enlarged turbinates, no septal deviation. Mouth: Moist mucous membranes. Neck: Supple no thyromegaly. No bruit. No JVD Heart: Regular rate and rhythm, S1-S2 abnormal. No rubs murmurs or gallop Lungs: Clear to auscultation bilaterally no rales or rhonchi Abdomen: Soft, nontender. Bowel sound are present. Extremities: No edema no cyanosis and no clubbing. Neuro: Alert oriented Oriented x3. No focal sensory or motor deficit. Skin: No rashes no hyperemic spots Psychiatry: Euthymic. Calm. - Constitutional Vitals: Vital Signs - 12hr 08/05/17 08/05/17 08/05/17 01:28 01:54 03:00 Temperature 98.9 F 96.7 F L Pulse Rate 71 72 Pulse Rate [ Apical] Pulse Rate [ Dorsalis Pedis] Pulse Rate [ 85 Radial] Respiratory 20 18 Rate Respiratory Rate [Pain to hands and feet. ] Blood Pressure 119/60 Blood Pressure 119/60 [Left] O2 Sat by Pulse 97 94 Oximetry 08/05/17 08/05/17 08/05/17 04:43 08:00 09:17 Temperature 98.4 F Pulse Rate 66 72 67 Pulse Rate [ Apical] Pulse Rate [ Dorsalis Pedis] Pulse Rate [ Radial] Respiratory 18 Rate Respiratory Rate [Pain to hands and feet. ] Blood Pressure 134/70 153/76 Blood Pressure [Left] O2 Sat by Pulse 97 97 Oximetry 08/05/17 08/05/17 08/05/17 09:58 10:00 11:17 Temperature Pulse Rate Pulse Rate [ 72 Apical] Pulse Rate [ 72 Dorsalis Pedis] Pulse Rate [ Radial] Respiratory 18 18 Rate Respiratory 18 Rate [Pain to hands and feet. ] Blood Pressure 153/76 Blood Pressure [Left] O2 Sat by Pulse Oximetry - Labs CBC & Chem 7: 08/02/17 09:12 08/02/17 09:12 Labs: Abnormal lab results 08/05/17 Range/Units 07:48 Phosphorus 5.90 H (2.5-4.5) mg/dL
[2017-08-05] MEDS ORDERED: NACL 0.9 (PRIMING MACHINE ONLY DIALYSIS) MC ONE (13:19)
[2017-08-05] MEDS: HEPARIN IV PRN (16:13)
[2017-08-06 07:36] LABS: Basophils % (Auto) 0.4 % (0.0-1.8); Eosinophils # (Auto) 0.1 K/mm3 (0.0-0.4); Eosinophils % (Auto) 1.7 % (0.0-4.3); Hematocrit 28.1 % (30.3-42.9); Hemoglobin 8.6 gm/dl (10.1-14.3); Lymphocytes # (Auto) 1.1 K/mm3 (1.2-5.4); Lymphocytes % (Auto) 25.3 % (13.4-35.0); Mean Corpuscular HGB Conc 31 % (30-34); Mean Corpuscular Hemoglobin 27 pg (28-32); Mean Corpuscular Volume 87 fl (79-97); Monocytes # (Auto) 0.2 K/mm3 (0.0-0.8); Monocytes % (Auto) 5.7 % (0.0-7.3); Platelet Count 141 K/mm3 (140-440); Red Blood Count 3.25 M/mm3 (3.65-5.03)
[2017-08-06 07:44] LABS: Red Cell Distribution Width 22.3 % (13.2-15.2)
--- NOTE | 2017-08-06 07:48 | Progress Note ---
Assessment and Plan Impression: Fluid overload End-stage renal disease on dialysis Hyperkalemia Lupus Hypertension malignant Plan: hd q TTHSAT case management for hd unit placement--Elvia Damico renal diet strict i/o bp control DVT prophylaxis will have chair time first of next week once documentation confirmed Subjective Date of service: 08/06/17 Principal diagnosis: acute pulmonary edema, esrd Interval history: resting well in bed today Objective - Exam Narrative Exam: Gen. appearance: Patient lying in bed in no acute distress HEENT: Normocephalic/atraumatic, pupils equal round reactive to light, extra occular movement intact, no scleral icterus, no JVD or thyromegaly or nodule, neck is supple, mucous membrane moist, no erythema or exudate Heart: S1-S2, regular rate and rhythm Lungs: Clear to auscultation bilateral breathing comfortable Abdomen: Positive bowel sounds, nontender, nondistended, no organomegaly Extremities: No edema, cyanosis, clubbing Neuro:: Oriented 3 , cranial nerves II-12 intact, speech, motor intact Skin: No rash, nodules, warm dry - Vital Signs Vital signs: Vital Signs - 12hr 08/05/17 08/05/17 08/05/17 21:43 21:47 23:27 Temperature 98.4 F Pulse Rate 79 78 Pulse Rate [ Radial] Respiratory 18 Rate Respiratory 18 Rate [Pain to hands and feet. ] Blood Pressure 131/77 128/68 O2 Sat by Pulse 98 Oximetry 08/06/17 08/06/17 01:52 04:07 Temperature 98.2 F Pulse Rate 74 Pulse Rate [ 70 Radial] Respiratory 18 18 Rate Respiratory Rate [Pain to hands and feet. ] Blood Pressure 135/74 O2 Sat by Pulse 98 Oximetry - Lab 08/06/17 07:08 08/02/17 09:12 Most recent lab results Calcium 7.7 mg/dL (8.4-10.2) L 08/02/17 09:12 Phosphorus 5.90 mg/dL (2.5-4.5) H 08/05/17 07:48
[2017-08-06 07:49] LABS: Calcium 7.4 mg/dL (8.4-10.2)
--- NOTE | 2017-08-06 07:59 | Progress Note ---
Assessment and Plan 47-year-old woman with history of lupus, end-stage renal disease on dialysis, hypertension, CHF, comes to the emergency room for dialysis. Her dialysis center is not been set up as yet. + shortness of breath Acute Respiratory failure secondary to fluid overload Anemia of chronic disease related to endstage renal disease. Fluid overload secondary to endstage Renal disease End-stage renal disease on dialysis Hyperkalemia - resolved Lupus Hypertension malignant- improved Plan Improve appreciably from hemodialysis Awaiting HD placement. Patient is committed to being compliance. Continue supportive care Re-emphasized compliance with patient and family, they all appear to be committed Appreciate Lapel Padder input Continue IV hydralazine, Continue for an outpatient medications DVT prophylaxis Plan discussed with the patient Disposition: Awaiting out pt outpatient dialysis placement Subjective Date of service: 08/06/17 Principal diagnosis: acute pulmonary edema, esrd Interval history: No shortness of breath. Very minimal cough. Had hemodialysis yesterday. Awaiting out patient hemodialysis placement. Objective - Exam Narrative Exam: Constitutional: Well-nourished well-developed. In no distress Head: Normocephalic atraumatic Eyes: Pupils are equal round and reactive to light Nose: No enlarged turbinates, no septal deviation. Mouth: Moist mucous membranes. Neck: Supple no thyromegaly. No bruit. No JVD Heart: Regular rate and rhythm, S1-S2 abnormal. No rubs murmurs or gallop Lungs: Clear to auscultation bilaterally no rales or rhonchi Abdomen: Soft, nontender. Bowel sound are present. Extremities: No edema no cyanosis and no clubbing. Neuro: Alert oriented Oriented x3. No focal sensory or motor deficit. Skin: No rashes no hyperemic spots Psychiatry: Euthymic. Calm. - Constitutional Vitals: Vital Signs - 12hr 08/05/17 08/05/17 08/05/17 21:43 21:47 23:27 Temperature 98.4 F Pulse Rate 79 78 Pulse Rate [ Radial] Respiratory 18 Rate Respiratory 18 Rate [Pain to hands and feet. ] Blood Pressure 131/77 128/68 O2 Sat by Pulse 98 Oximetry 08/06/17 08/06/17 01:52 04:07 Temperature 98.2 F Pulse Rate 74 Pulse Rate [ 70 Radial] Respiratory 18 18 Rate Respiratory Rate [Pain to hands and feet. ] Blood Pressure 135/74 O2 Sat by Pulse 98 Oximetry - Labs CBC & Chem 7: 08/06/17 07:08 08/06/17 07:08 Labs: Abnormal lab results 08/05/17 08/06/17 08/06/17 Range/Units 07:48 07:08 07:08 WBC 4.2 L (4.5-11.0) K/mm3 RBC 3.25 L (3.65-5.03) M/mm3 Hgb 8.6 L (10.1-14.3) gm/dl Hct 28.1 L (30.3-42.9) % MCH 27 L (28-32) pg RDW 22.3 H (13.2-15.2) % Lymph # 1.1 L (1.2-5.4) K/mm3 Potassium 3.3 L (3.6-5.0) mmol/L BUN 23 H (7-17) mg/dL Creatinine 4.0 H (0.7-1.2) mg/dL Calcium 7.4 L (8.4-10.2) mg/dL Phosphorus 5.90 H (2.5-4.5) mg/dL Albumin 3.0 L (3.9-5) g/dL
[2017-08-06] MEDS: LOVENOX SUB-Q SCH (10:12)
[2017-08-06] MEDS: PERCOCET 5/325 PO PRN (10:12)
[2017-08-06] MEDS: COREG PO SCH ×2 (10:13→21:51)
[2017-08-06] MEDS: NORVASC PO SCH (10:13)
[2017-08-06] MEDS: DELTASONE PO SCH (10:13)
[2017-08-06] MEDS: AMBIEN PO PRN (21:51)
[2017-08-07] MEDS: PERCOCET 5/325 PO PRN ×3 (03:55→20:38)
[2017-08-07 07:30] LABS: Basophils % (Auto) 0.5 % (0.0-1.8); Eosinophils # (Auto) 0.1 K/mm3 (0.0-0.4); Eosinophils % (Auto) 1.5 % (0.0-4.3); Hemoglobin 8.5 gm/dl (10.1-14.3); Lymphocytes # (Auto) 1.3 K/mm3 (1.2-5.4); Lymphocytes % (Auto) 33.6 % (13.4-35.0); Mean Corpuscular HGB Conc 32 % (30-34); Mean Corpuscular Hemoglobin 27 pg (28-32); Mean Corpuscular Volume 87 fl (79-97); Monocytes # (Auto) 0.2 K/mm3 (0.0-0.8); Monocytes % (Auto) 4.3 % (0.0-7.3); Platelet Count 141 K/mm3 (140-440); Red Blood Count 3.12 M/mm3 (3.65-5.03)
[2017-08-07 07:41] LABS: Red Cell Distribution Width 21.8 % (13.2-15.2)
[2017-08-07 07:47] LABS: Albumin 2.8 g/dL (3.9-5); Calcium 7.8 mg/dL (8.4-10.2)
--- NOTE | 2017-08-07 08:58 | Progress Note ---
Assessment and Plan Impression: Fluid overload End-stage renal disease on dialysis Hyperkalemia Lupus Hypertension malignant Plan: Continue HD - change to MWF schedule UF as tolerated Continue antiHTN medications Renal diet DVT prophylaxis Awaiting outpatient dialysis clinic placement Subjective Date of service: 08/07/17 Principal diagnosis: acute pulmonary edema, esrd Interval history: Patient has no complaints today. Objective - Vital Signs Vital signs: Vital Signs - 12hr 08/06/17 08/06/17 08/07/17 21:51 22:00 00:13 Temperature 98.6 F Pulse Rate 73 60 68 Respiratory Rate Blood Pressure 126/67 132/78 O2 Sat by Pulse 99 Oximetry 08/07/17 08/07/17 03:46 06:00 Temperature 98.1 F Pulse Rate 68 61 Respiratory 16 Rate Blood Pressure 155/85 O2 Sat by Pulse 98 Oximetry - General Appearance General appearance: well-developed, well-nourished EENT: ATNC Respiratory: Present: Clear to Ascultation Cardiology: regular, S1S2 Gastrointestinal: normal, no tenderness, no distended Integumentary: no rash Neurologic: alert and oriented x3 Musculoskeletal: other (no edema) Psychiatric: cooperative - Lab 08/07/17 07:18 08/07/17 07:18 Most recent lab results Calcium 7.8 mg/dL (8.4-10.2) L 08/07/17 07:18 Phosphorus 5.90 mg/dL (2.5-4.5) H 08/05/17 07:48
[2017-08-07] MEDS: LOVENOX SUB-Q SCH (10:00)
[2017-08-07] MEDS: DELTASONE PO SCH (10:00)
[2017-08-07] MEDS: NORVASC PO SCH (10:00)
[2017-08-07] MEDS: COREG PO SCH ×3 (10:00→22:59)
--- NOTE | 2017-08-07 10:10 | Discharge Summary ---
Providers - Providers Date of Admission: 07/31/17 23:36 Date of discharge: 08/07/17 Attending physician: CHEO HOOVER 08/01/17 11:31 Consult to Physician [CONS] Stat Consulting Provider: VU TRAORE Reason For Exam: dialysis Place consult to:: Karen Notified:: yes Time called:: 11:32 08/02/17 08:59 Consult to Case Management [CONS] Routine Services Needed at Discharge: Other Notified:: Case management Additional Physician Instructions: Hd unit placement--Elvia Damico Primary care physician: FIRE PILOT Hospitalization Reason for admission: ESRD on HD Condition: Fair Pertinent studies: none Procedures: none Hospital course: 47-year-old woman with history of lupus, end-stage renal disease on dialysis, hypertension, CHF, presented to the emergency room for dialysis. Her dialysis center is not been set up as yet. + shortness of breath. continue on HD via a right subclavian Vascath. HD seat was obtained per Shovel Operator Dr. Lehman for MWF. Pt is being discharged to f/u with nephrology for HD and PCP Disposition: DC-01 TO HOME OR SELFCARE Time spent for discharge: 35 mins Core Measure Documentation - Palliative Care Palliative Care/ Comfort Measures: Not Applicable - Core Measures Any of the following diagnoses?: none Exam - Physical Exam Narrative exam: Constitutional: Well-nourished well-developed. In no distress Head: Normocephalic atraumatic Eyes: Pupils are equal round and reactive to light Nose: No enlarged turbinates, no septal deviation. Mouth: Moist mucous membranes. Neck: Supple no thyromegaly. No bruit. No JVD Heart: Regular rate and rhythm, S1-S2 abnormal. No rubs murmurs or gallop Lungs: Clear to auscultation bilaterally no rales or rhonchi Abdomen: Soft, nontender. Bowel sound are present. Extremities: No edema no cyanosis and no clubbing. Neuro: Alert oriented Oriented x3. No focal sensory or motor deficit. Skin: No rashes no hyperemic spots Psychiatry: Euthymic. Calm. - Constitutional Vitals: Temp Pulse Resp BP Pulse Ox 98.7 F 66 18 152/83 99 08/07/17 08:02 08/07/17 08:02 08/07/17 08:02 08/07/17 08:02 08/07/17 08:02 Plan Activity: fall precautions Weight Bearing Status: Weight Bear as Tolerated Diet: low protein Follow up with: [facility] [Provider Group] - 7 Days AUGUSTUS LEHMAN MD [Staff Physician] - 7 Days PRIMARY CAREMD [Primary Care Provider] - 3-5 Days Prescriptions: amLODIPine [Norvasc] 10 mg PO QDAY #30 tablet Carvedilol [Coreg] 6.25 mg PO BID #60 tablet Isosorb Dinit/Hydralazine [Bidil 20/37.5MG] 1 each PO Q8HR #90 tablet oxyCODONE /ACETAMINOPHEN [Percocet 5/325 mg] 1 tab PO Q6H PRN #20 tablet PRN Reason: Pain, Moderate (4-6) predniSONE [Deltasone] 20 mg PO QDAY #30 tablet
[2017-08-07] MEDS ORDERED: NACL 0.9 (PRIMING MACHINE ONLY DIALYSIS) MC ONE (12:16)
[2017-08-07] MEDS: HEPARIN IV PRN (19:04)
--- NOTE | 2017-08-07 19:20 | Event Note ---
Date: 08/07/17 I discussed with the manager convention [employer] as well as pt's Nurse who stated that a HD seat has not been confirmed for the pt despite the neurologists's attempt. I will therefore hold the pt's discharge.
[2017-08-07] MEDS ORDERED: MORPHINE IV ONE (22:43)
[2017-08-07] MEDS: AMBIEN PO PRN (22:54)
[2017-08-08 06:55] LABS: Basophils % (Auto) 0.5 % (0.0-1.8); Eosinophils # (Auto) 0.1 K/mm3 (0.0-0.4); Eosinophils % (Auto) 2.5 % (0.0-4.3); Hematocrit 27.9 % (30.3-42.9); Lymphocytes % (Auto) 34.1 % (13.4-35.0); Mean Corpuscular HGB Conc 32 % (30-34); Mean Corpuscular Hemoglobin 28 pg (28-32); Mean Corpuscular Volume 86 fl (79-97); Monocytes # (Auto) 0.1 K/mm3 (0.0-0.8); Monocytes % (Auto) 4.7 % (0.0-7.3); Platelet Count 150 K/mm3 (140-440); Red Blood Count 3.24 M/mm3 (3.65-5.03)
[2017-08-08 06:56] LABS: Red Cell Distribution Width 21.7 % (13.2-15.2)
[2017-08-08 07:14] LABS: Albumin 2.8 g/dL (3.9-5); Calcium 7.5 mg/dL (8.4-10.2)
--- NOTE | 2017-08-08 08:40 | Progress Note ---
Assessment and Plan Impression: Fluid overload End-stage renal disease on dialysis Hyperkalemia Lupus Hypertension malignant Plan: Continue HD - change to MWF schedule UF as tolerated Continue antiHTN medications Renal diet DVT prophylaxis Hemodiaylsis at [facility] MWF 11am Subjective Date of service: 08/08/17 Principal diagnosis: acute pulmonary edema, esrd Objective - Vital Signs Vital signs: Vital Signs - 12hr 08/07/17 08/07/17 08/08/17 22:00 23:35 05:03 Temperature 98.7 F 98.9 F Pulse Rate 85 88 Respiratory 20 18 16 Rate Blood Pressure 125/73 112/63 O2 Sat by Pulse 94 94 Oximetry - Lab 08/08/17 06:17 08/08/17 06:17 Most recent lab results Calcium 7.5 mg/dL (8.4-10.2) L 08/08/17 06:17 Phosphorus 5.90 mg/dL (2.5-4.5) H 08/05/17 07:48
[2017-08-08] MEDS: LOVENOX SUB-Q SCH (10:30)
[2017-08-08] MEDS: DELTASONE PO SCH (10:31)
[2017-08-08] MEDS: COREG PO SCH (10:31)
[2017-08-08] MEDS: NORVASC PO SCH (10:31)
[2017-08-08 13:35] VITALS: BP 123/72
--- NOTE | 2017-08-08 14:10 | Discharge Summary ---
Providers - Providers Date of Admission: 07/31/17 23:36 Date of discharge: 08/08/17 Attending physician: DONAVAN STRICKLAND 08/01/17 11:31 Consult to Physician [CONS] Stat Consulting Provider: VU TARORE Reason For Exam: dialysis Place consult to:: Karen Notified:: yes Time called:: 11:32 08/02/17 08:59 Consult to Case Management [CONS] Routine Services Needed at Discharge: Other Notified:: Case management Additional Physician Instructions: Hd unit placement--Elvia Damico Primary care physician: [employer] Hospitalization Condition: Fair Hospital course: Hospital course: 47-year-old woman with history of lupus, end-stage renal disease on dialysis, hypertension, CHF, presented to the emergency room for dialysis. Her dialysis center is not been set up as yet. + shortness of breath. continue on HD via a right subclavian Vascath. HD seat was obtained per Embedded Nurse Dr. Lehman for MWF. Pt is being discharged to f/u with nephrology for HD and PCP Disposition: DC-01 TO HOME OR SELFCARE Time spent for discharge: 35 mins Core Measure Documentation - Palliative Care Palliative Care/ Comfort Measures: Not Applicable - Core Measures Any of the following diagnoses?: none Exam - Physical Exam Narrative exam: Constitutional: Well-nourished well-developed. In no distress Head: Normocephalic atraumatic Eyes: Pupils are equal round and reactive to light Nose: No enlarged turbinates, no septal deviation. Mouth: Moist mucous membranes. Neck: Supple no thyromegaly. No bruit. No JVD Heart: Regular rate and rhythm, S1-S2 abnormal. No rubs murmurs or gallop Lungs: Clear to auscultation bilaterally no rales or rhonchi Abdomen: Soft, nontender. Bowel sound are present. Extremities: No edema no cyanosis and no clubbing. Neuro: Alert oriented Oriented x3. No focal sensory or motor deficit. Skin: No rashes no hyperemic spots Psychiatry: Euthymic. Calm. - Constitutional Vitals: Temp Pulse Resp BP Pulse Ox 98.7 F 66 18 152/83 99 08/07/17 08:02 08/07/17 08:02 08/07/17 08:02 08/07/17 08:02 08/07/17 08:02 Plan Activity: fall precautions Weight Bearing Status: Weight Bear as Tolerated Diet: low protein Follow up with: [facility] [Provider Group] - 7 Days AUGUSTUS LEHMAN MD [Staff Physician] - 7 Days PRIMARY CAREMD [Primary Care Provider] - 3-5 Days Prescriptions: amLODIPine [Norvasc] 10 mg PO QDAY #30 tablet Carvedilol [Coreg] 6.25 mg PO BID #60 tablet Isosorb Dinit/Hydralazine [Bidil 20/37.5MG] 1 each PO Q8HR #90 tablet oxyCODONE /ACETAMINOPHEN [Percocet 5/325 mg] 1 tab PO Q6H PRN #20 tablet PRN Reason: Pain, Moderate (4-6) predniSONE [Deltasone] 20 mg PO QDAY #30 tablet Disposition: DC-01 TO HOME OR SELFCARE Core Measure Documentation - Palliative Care Palliative Care/ Comfort Measures: Not Applicable - Core Measures Any of the following diagnoses?: none Exam - Constitutional Vitals: Temp Pulse Resp BP Pulse Ox 98.0 F 98 H 20 123/72 97 08/08/17 13:34 08/08/17 13:34 08/08/17 13:34 08/08/17 13:34 08/08/17 13:34 Plan Activity: no restrictions Diet: renal Follow up with: [facility] [Provider Group] - 7 Days AUGUSTUS LEHMAN MD [Staff Physician] - 7 Days PRIMARY MD GENARO [Primary Care Provider] - 3-5 Days Prescriptions: amLODIPine [Norvasc] 10 mg PO QDAY #30 tablet Carvedilol [Coreg] 6.25 mg PO BID #60 tablet Isosorb Dinit/Hydralazine [Bidil 20/37.5MG] 1 each PO Q8HR #90 tablet oxyCODONE /ACETAMINOPHEN [Percocet 5/325 mg] 1 tab PO Q6H PRN #20 tablet PRN Reason: Pain, Moderate (4-6) predniSONE [Deltasone] 20 mg PO QDAY #30 tablet
== END 2017-08-08 15:00 | disposition home or self-care (01) | DRG 189 ==
LOC: ED 05:56 → 4A 23:36
PROVIDERS: ADMIT Internal Medicine; ATTEND Internal Medicine
PROC: 5A1D70Z Performance of Urinary Filtration, Intermittent, Less than 6 Hours Per Day (ICD-10-PCS; 2017-08-01)
PROC: 3E0234Z Introduction of Serum, Toxoid and Vaccine into Muscle, Percutaneous Approach (ICD-10-PCS; principal; 2017-08-02)
PROC: 5A1D70Z Performance of Urinary Filtration, Intermittent, Less than 6 Hours Per Day (ICD-10-PCS; 2017-08-03)
PROC: 5A1D70Z Performance of Urinary Filtration, Intermittent, Less than 6 Hours Per Day (ICD-10-PCS; 2017-08-05)
PROC: 5A1D70Z Performance of Urinary Filtration, Intermittent, Less than 6 Hours Per Day (ICD-10-PCS; 2017-08-07)
DX: J96.00 Acute respiratory failure, unspecified whether with hypoxia or hypercapnia (principal); N18.6 End stage renal disease; I13.2 Hypertensive heart and chronic kidney disease with heart failure and with stage 5 chronic kidney disease, or end stage renal disease; I50.9 Heart failure, unspecified; E87.5 Hyperkalemia; I16.0 Hypertensive urgency; E87.70 Fluid overload, unspecified; M32.9 Systemic lupus erythematosus, unspecified; D63.1 Anemia in chronic kidney disease; Z87.01 Personal history of pneumonia (recurrent); Z79.899 Other long term (current) drug therapy; Z82.49 Family history of ischemic heart disease and other diseases of the circulatory system; Z23 Encounter for immunization
CPT/HCPCS: 36415; 71046; 80048; 80053; 80061; 82306; 82550; 82553; 83880; 83970; 84100; 84484; 85025; 86706; 86803; 87040; 90732; 93005; 93010; 96372; 96374; J0360; J1644; J1650; J2270; J2405; J7030; J7512

== ENCOUNTER 2017-12-07 06:05 | Day surgery (SDC) | payer MEDICARE ==
[~2017-12-07 06:05] MED LIST: ANCEF/STERILE WATER 2 GM/20 ML 2 GM/20 ML SYRINGE IV NR; NACL 0.9% 1000 ML 1,000 ML IV SCH; VERSED IV NR
[2017-12-07] MEDS ORDERED: NACL BACTERIOSTATIC INFILTRATI ONE (06:16)
[2017-12-07 07:05] LABS: Eosinophils % (Auto) 0.9 % (0.0-4.3); Hematocrit 40.5 % (30.3-42.9); Hemoglobin 12.7 gm/dl (10.1-14.3); Lymphocytes # (Auto) 0.9 K/mm3 (1.2-5.4); Lymphocytes % (Auto) 20.3 % (13.4-35.0); Mean Corpuscular HGB Conc 32 % (30-34); Mean Corpuscular Hemoglobin 28 pg (28-32); Mean Corpuscular Volume 90 fl (79-97); Monocytes # (Auto) 0.3 K/mm3 (0.0-0.8); Monocytes % (Auto) 6.2 % (0.0-7.3); Platelet Count 180 K/mm3 (140-440); Red Cell Distribution Width 16.6 % (13.2-15.2)
[2017-12-07 07:21] LABS: Calcium 8.8 mg/dL (8.4-10.2)
[2017-12-07] MEDS ORDERED: PROTAMINE SULFATE ONE (07:41)
[2017-12-07] MEDS ORDERED: SODIUM BICARBONATE ONE (07:42)
[2017-12-07] MEDS ORDERED: MARCAINE 0.5% 30 ML INFILTRATI ONE (07:42)
[2017-12-07] MEDS ORDERED: XYLOCAINE 1%/ EPI 1:100,000 INFILTRATI ONE ×2 (07:42→09:09)
[2017-12-07] MEDS ORDERED: NACL 0.9% 500 ML 500 ML ONE (07:42)
[2017-12-07] MEDS ORDERED: HEPARIN 10,000 UNITS/10 ML ONE (07:42)
[2017-12-07] MEDS ORDERED: XYLOCAINE MPF 2% ONE (07:43)
[2017-12-07] MEDS ORDERED: SUBLIMAZE ONE (07:44)
[2017-12-07] MEDS ORDERED: DIPRIVAN 10 MG/ML IV ONE (07:44)
[2017-12-07] MEDS ORDERED: ZOFRAN IV PRN (08:13)
[2017-12-07] MEDS ORDERED: DILAUDID IV PRN (08:13)
--- NOTE | 2017-12-07 08:13 | Anesthesia Consultation ---
Anesthesia Consult and Med Hx Date of service: 12/07/17 - Airway Anesthetic Teeth Evaluation: Good ROM Head & Neck: Adequate Mental/Hyoid Distance: Adequate Mallampati Class: Class I Intubation Access Assessment: Good - Pulmonary Exam CTA: Yes - Cardiac Exam Cardiac Exam: RRR - Pre-Operative Health Status ASA Pre-Surgery Classification: ASA3 Proposed Anesthetic Plan: General - Pulmonary Hx Pneumonia: Yes - Cardiovascular System Hx Hypertension: Yes - Central Nervous System Hx Psychiatric Problems: No - Endocrine Hx Renal Disease: Yes Hx End Stage Renal Disease: Yes - Hematic Hx Anemia: Yes - Other Systems Hx Cancer: No
--- NOTE | 2017-12-07 08:13 | Anesthesia Day of Surgery ---
Anesthesia Day of Surgery - Day of Surgery Patient Examined: Yes Patient H&P Reviewed: Yes Patient is NPO: Yes
[2017-12-07] MEDS ORDERED: ePHEDrine SULFATE ONE (08:32)
[2017-12-07] MEDS ORDERED: ZOFRAN ONE (08:53)
[2017-12-07] MEDS ORDERED: NACL 0.9% IR ONE (09:09)
[2017-12-07] MEDS ORDERED: HEPARIN 10,000 UNITS/10 ML 2,000 UNIT in NACL 0.9% 500 ML 500 ML IR ONE (09:09)
[2017-12-07] MEDS ORDERED: MARCAINE 0.5% INFILTRATI ONE (09:09)
[2017-12-07] MEDS ORDERED: NEO SYNEPHRINE/NS Syringe(OR USE) IV ONE (09:47)
--- NOTE | 2017-12-07 10:29 | Operative Report ---
Operative Report Operative Report: Date of procedure: 12/07/2017 Pre-operative diagnosis: End-stage renal disease requiring hemodialysis, lupus Post-operative diagnosis: Same Procedure name(s): Creation of left arm brachiobasilic AV fistula Surgeon: Heber Siegel MD Photo Technologist: None Anesthesia: LMA general EBL: Minimal Specimen(s): None Complications: None Findings: Slightly small median cubital vein with excellent thrill and bruit post anastomosis. Procedure: Patient in the supine position with the left arm extended the entire extremity was then prepped and draped using standard sterile technique. Duplex probe was used to identify the basilic vein and the median cubital vein and its relationship to the brachial artery. These vessels were marked. A transverse incision was then made just below the antecubital fossa through anesthetized skin centered over the median cubital vein and brachial artery. The incision was deepened through the subcutaneous tissue and then the median cubital vein was mobilized for several centimeters and divided distally. It was hydrodilated and felt to be an acceptable candidate for access. The incision was deepened and the fascia divided and the brachial artery was then mobilized for several centimeters and encircled using vessel loops. The vessel was then occluded and a longitudinal arteriotomy was then made. The vein was spatulated and an end-to-side anastomosis was then created between the vein and the artery using 6-0 Prolene suture in running technique. Prior to the completion of the suture line antegrade and retrograde flushing was performed. The suture line was then completed and flow was established retrograde into the fistula. Subsequently the outflow arterial track was through occluded and antegrade flow was established initially into the vein followed by release of the forearm. Patient tolerated declamping without difficulty. An excellent thrill and bruit was noted in the fistula. Hemostasis was adequate. The incision was then blocked using Marcaine 0.5% plain and then close using 3-0 Vicryl subcutaneous 4 -0 Monocryl subcuticular the skin was sealed with Dermabond. A good Doppler signals in both well and all vessels were encountered. The patient was then returned to the supine position and fluffs to the recovery area in stable condition having tolerated the procedure well. Sponge and needle counts were correct.
--- NOTE | 2017-12-07 10:34 | Short Stay Summary ---
Short Stay Documentation Date of service: 12/07/17 Narrative H&P: Admitted to the operative suite for outpatient creation of a left arm AV fistula - History H&P: obtained from office - Allergies and Medications Current Medications: Allergies lactase [From [employer]] Allergy (Verified 12/06/17 17:00) Hives Home Medications Medication Instructions Recorded Confirmed Last Taken Type Carvedilol [Coreg] 3.125 mg PO BID 12/06/17 12/06/17 12/06/17 16:00 History predniSONE [Deltasone] 10 mg PO QDAY 12/06/17 12/06/17 12/06/17 16:00 History Active Medications Hydromorphone HCl (Dilaudid) 0.5 mg IV Q10MIN PRN PRN Reason: Pain , Severe (7-10) Stop: 12/07/17 13:00 Cefazolin Sodium (Ancef/Sterile Water 2 Gm/20 Ml) 2 gm in 20 mls @ 80 mls/hr IV PREOP NR; Protocol Stop: 12/07/17 23:59 Sodium Chloride (Nacl 0.9% 1000 Ml) 1,000 mls @ 42 mls/hr IV DIRECT ROSE MARIE Last Admin: 12/07/17 06:58 Dose: 42 mls/hr Sodium Chloride (Nacl 0.9% 1000 Ml) 1,000 mls @ 75 mls/hr IV DIRECT ROSE MARIE Midazolam HCl (Versed) 2 mg IV PREOP NR Stop: 12/07/17 23:59 Ondansetron HCl (Zofran) 4 mg IV ONCE PRN PRN Reason: Nausea And Vomiting Stop: 12/07/17 12:00 - Brief post op/procedure progress note Date of procedure: 12/07/17 Procedure: Pre-operative diagnosis: End-stage renal disease requiring hemodialysis, lupus Post-operative diagnosis: Same Procedure name(s): Creation of left arm brachiobasilic AV fistula Surgeon: Heber Siegel MD Mail Room: None Anesthesia: LMA general EBL: Minimal Specimen(s): None Complications: None Findings: Slightly small median cubital vein with excellent thrill and bruit post anastomosis. Procedure: Patient in the supine position with the left arm extended the entire extremity was then prepped and draped using standard sterile technique. Duplex probe was used to identify the basilic vein and the median cubital vein and its relationship to the brachial artery. These vessels were marked. A transverse incision was then made just below the antecubital fossa through anesthetized skin centered over the median cubital vein and brachial artery. The incision was deepened through the subcutaneous tissue and then the median cubital vein was mobilized for several centimeters and divided distally. It was hydrodilated and felt to be an acceptable candidate for access. The incision was deepened and the fascia divided and the brachial artery was then mobilized for several centimeters and encircled using vessel loops. The vessel was then occluded and a longitudinal arteriotomy was then made. The vein was spatulated and an end-to-side anastomosis was then created between the vein and the artery using 6-0 Prolene suture in running technique. Prior to the completion of the suture line antegrade and retrograde flushing was performed. The suture line was then completed and flow was established retrograde into the fistula. Subsequently the outflow arterial track was through occluded and antegrade flow was established initially into the vein followed by release of the forearm. Patient tolerated declamping without difficulty. An excellent thrill and bruit was noted in the fistula. Hemostasis was adequate. The incision was then blocked using Marcaine 0.5% plain and then close using 3-0 Vicryl subcutaneous 4 -0 Monocryl subcuticular the skin was sealed with Dermabond. A good Doppler signals in both well and all vessels were encountered. The patient was then returned to the supine position and fluffs to the recovery area in stable condition having tolerated the procedure well. Sponge and needle counts were correct. - Disposition Condition at discharge: Stable Disposition: TO HOME OR SELFCARE - Discharge Diagnoses (1) End stage renal disease on dialysis Status: Chronic (2) Systemic lupus Status: Chronic Qualifiers: Systemic lupus erythematosus type: unspecified Systemic lupus erythematosus organ involvement: glomerular disease Qualified Code(s): M32.14 - Glomerular disease in systemic lupus erythematosus Short Stay Discharge Plan Activity: advance as tolerated Weight Bearing Status: Weight Bear as Tolerated Diet: renal Wound: keep clean and dry Special Instructions: no heavy lifting Follow up with: VERONIKA LAM MD [Primary Care Provider] - 7 Days HEBER SIEGEL MD [Staff Physician] - 14 Days Prescriptions: HYDROcodone/APAP 5-325 [[place] 5/325] 1 each PO Q4HR PRN #30 tablet PRN Reason: Pain
[2017-12-07 12:21] VITALS: BP 107/66
--- NOTE | 2017-12-07 13:44 | Post Anesthesia Evaluation ---
- Post Anesthesia Evaluation Patient Participated: Yes Airway Patent: Yes Stable Respiratory Function: Yes Nausea/Vomiting: No Temp > 96.8F: Yes Pain Manageable: Yes Adequeate Hydration: Yes Anesthesia Complications: No
== END 2017-12-07 11:45 | disposition home or self-care (01) ==
LOC: OR 06:05
PROVIDERS: ATTEND Surgery Vascular Surgery
DX: I13.2 Hypertensive heart and chronic kidney disease with heart failure and with stage 5 chronic kidney disease, or end stage renal disease (principal); N18.6 End stage renal disease; I50.9 Heart failure, unspecified; M32.9 Systemic lupus erythematosus, unspecified; Z91.018 Allergy to other foods
CPT/HCPCS: 36415; 36821; 80048; 81025; 85025; J0690; J1644; J2370; J2405; J2704; J3010; J7030; J7040; J2250; J2720

== ENCOUNTER 2018-03-01 09:54 | Day surgery (SDC) | payer MEDICARE ==
[~2018-03-01 09:54] MED LIST changes: +MARCAINE-EPI 0.5%-1:200,000 INFILTRATI ONE; -VERSED IV NR
[2018-03-01] MEDS ORDERED: DIPRIVAN 10 MG/ML IV ONE (10:20)
[2018-03-01] MEDS ORDERED: XYLOCAINE MPF 2% ONE ×2 (10:20→13:40)
[2018-03-01 10:57] LABS: Hemoglobin 11.8 gm/dl (10.1-14.3); Mean Corpuscular HGB Conc 31 % (30-34); Mean Corpuscular Hemoglobin 29 pg (28-32); Mean Corpuscular Volume 93 fl (79-97); Platelet Count 196 K/mm3 (140-440); Red Blood Count 4.08 M/mm3 (3.65-5.03); Red Cell Distribution Width 17.2 % (13.2-15.2)
--- NOTE | 2018-03-01 11:18 | Anesthesia Consultation ---
Anesthesia Consult and Med Hx Date of service: 03/01/18 - Airway Anesthetic Teeth Evaluation: Good ROM Head & Neck: Adequate Mental/Hyoid Distance: Adequate Mallampati Class: Class II Intubation Access Assessment: Probably Good - Pulmonary Exam CTA: Yes - Cardiac Exam Cardiac Exam: RRR - Pre-Operative Health Status ASA Pre-Surgery Classification: ASA3 Proposed Anesthetic Plan: General - Pulmonary Hx Smoking: No SOB: Yes (SOB) Hx Pneumonia: Yes (07/2017- RESOLVED) Hx Sleep Apnea: No (JAMES PRE SCREEN LOW RISK.) - Cardiovascular System Hx Hypertension: Yes (X 8 MONTHS) - Endocrine Hx Renal Disease: Yes Hx End Stage Renal Disease: Yes (JUST STARTED DISLYSIS 07/2017) - Hematic Hx Anemia: Yes - Other Systems Hx Cancer: No
--- NOTE | 2018-03-01 11:18 | Anesthesia Day of Surgery ---
Anesthesia Day of Surgery - Day of Surgery Patient Examined: Yes Patient H&P Reviewed: Yes Patient is NPO: Yes
--- NOTE | 2018-03-01 11:19 | Anesthesia Consultation ---
Anesthesia Consult and Med Hx Date of service: 03/01/18 - Airway Anesthetic Teeth Evaluation: Good ROM Head & Neck: Adequate Mental/Hyoid Distance: Adequate Mallampati Class: Class II Intubation Access Assessment: Probably Good - Pulmonary Exam CTA: Yes - Cardiac Exam Cardiac Exam: RRR - Pre-Operative Health Status ASA Pre-Surgery Classification: ASA3 Proposed Anesthetic Plan: General - Pulmonary Hx Smoking: No SOB: No Hx Pneumonia: Yes (07/2017- RESOLVED) Hx Sleep Apnea: No (JAMES PRE SCREEN LOW RISK.) - Cardiovascular System Hx Hypertension: Yes (X 8 MONTHS) Hx Heart Attack/AMI: No Hx Valvular Heart Disease: No Hx Heart Murmur: No - Central Nervous System Hx Seizures: No CVA: No - Gastrointestinal Hx Gastroesophageal Reflux Disease: No - Endocrine Hx End Stage Renal Disease: Yes (HD since 07/2017, last HD 02/28 via permcath) Hx Liver Disease: Yes Hx Insulin Dependent Diabetes: Yes Hx Non-Insulin Dependent Diabetes: Yes Hx Thyroid Disease: No - Hematic Hx Anemia: Yes - Other Systems Hx Obesity: No - Additional Comments Anesthesia Medical History Comments: PMH SLE on prednisone 10mg qHS, ESRD MWF HD (last HD 02/28) for revision AVF. BMP, bHCG pending.
[2018-03-01 11:20] LABS: Calcium 8.8 mg/dL (8.4-10.2)
[2018-03-01] MEDS ORDERED: HEPARIN 10,000 UNITS/10 ML ONE (11:22)
[2018-03-01] MEDS ORDERED: XYLOCAINE 1%/ EPI 1:100,000 INFILTRATI ONE (11:22)
[2018-03-01] MEDS ORDERED: MARCAINE-EPI 0.5%-1:200,000 INFILTRATI ONE (11:22)
[2018-03-01] MEDS ORDERED: NACL 0.9% 500 ML 500 ML ONE (11:23)
[2018-03-01] MEDS ORDERED: SODIUM BICARBONATE ONE (11:23)
[2018-03-01 13:36] LABS: Basophils % (Manual) 0 % (0.0-1.8); Total Cells Counted 100
[2018-03-01 13:37] LABS: Anisocytosis 1+; Eosinophils % (Manual) 0 % (0.0-4.3); Ovalocytes Few; Poikilocytosis 2+; Tear Drop Cells 2+
[2018-03-01 13:38] LABS: Platelet Estimate Cons
[2018-03-01] MEDS ORDERED: DECADRON ONE (13:40)
[2018-03-01] MEDS ORDERED: DILAUDID ONE ×2 (13:40→16:38)
[2018-03-01] MEDS ORDERED: ZOFRAN ONE (13:40)
[2018-03-01] MEDS ORDERED: HEPARIN 10,000 UNITS/10 ML IV ONE (13:55)
[2018-03-01] MEDS ORDERED: NACL 0.9% 500 ML IRRIGATION ONE (13:55)
[2018-03-01] MEDS ORDERED: NACL 0.9% 1000 ML 1,000 ML ONE ×2 (14:36→15:52)
[2018-03-01] MEDS ORDERED: VERSED IV ONE (16:39)
--- NOTE | 2018-03-01 18:03 | Short Stay Summary ---
Short Stay Documentation Date of service: 03/01/18 Narrative H&P: Patient admitted to the operating suite for outpatient revision of an AV fistula - Allergies and Medications Current Medications: Allergies lactase [From [employer]] Allergy (Verified 12/06/17 17:00) Hives Home Medications Medication Instructions Recorded Confirmed Last Taken Type predniSONE [Deltasone] 10 mg PO QDAY 12/06/17 02/20/18 02/28/18 History Ferric Citrate (Nf) [Auryxia (Nf)] 420 mg PO TID 02/20/18 02/20/18 02/28/18 History Mycophenolate Mofetil 500 mg PO BID 02/20/18 02/20/18 02/28/18 History Active Medications Cefazolin Sodium (Ancef/Sterile Water 2 Gm/20 Ml) 2 gm in 20 mls @ 80 mls/hr IV PREOP NR; Protocol Stop: 03/01/18 23:01 Sodium Chloride (Nacl 0.9% 1000 Ml) 1,000 mls @ 42 mls/hr IV DIRECT ROSE MARIE Last Admin: 03/01/18 11:18 Dose: 42 mls/hr - Brief post op/procedure progress note Date of procedure: 03/01/18 Procedure: Pre-op diagnosis: malfunction of AV fistula, end-stage renal disease on dialysis Post-op diagnosis: same Findings: The fistula with good thrill and bruit. Inflow requiring patch angioplasty with excellent results. Palpable radial pulse. Procedure: Revision of AV fistula left arm using elevation technique with vein patch angioplasty of the arterial end of the fistula Anesthesia: CALE Surgeon: LA PAYNE Spring Layer: JALEESA ALCANTARA Estimated blood loss: minimal Pathology: none Condition: stable Disposition: same day - Disposition Condition at discharge: Stable Disposition: DC-01 TO HOME OR SELFCARE - Discharge Diagnoses (1) Mechanical complication of arteriovenous fistula surgically created Status: Chronic Qualifiers: Encounter type: initial encounter Qualified Code(s): T82.590A - Other mechanical complication of surgically created arteriovenous fistula, initial encounter (2) End stage renal disease on dialysis Status: Chronic Short Stay Discharge Plan Activity: advance as tolerated Weight Bearing Status: Full Weight Bearing Diet: renal Wound: keep clean and dry Special Instructions: no heavy lifting Follow up with: VERONIKA LAM MD [Primary Care Provider] - 7 Days AUGUSTUS TRUONG MD [Staff Physician] - 7 Days LA PAYNE MD [Staff Physician] - 14 Days Prescriptions: HYDROcodone/ACETAMINOPHEN [Hydrocodone-Acetamin 5-325 mg] 1 each PO Q6H PRN #20 tablet PRN Reason: Pain, Moderate (4-6)
[2018-03-01] MEDS ORDERED: NORCO 5/325 PO PRN (18:34)
--- NOTE | 2018-03-01 18:41 | Operative Report ---
Operative Report Operative Report: Date of procedure: 03/01/2018 Pre-operative diagnosis: Mechanical complication of hemodialysis fistula left arm, end-stage renal disease on hemodialysis Post-operative diagnosis: Same Procedure name(s): Revision of AV fistula left arm using elevation technique Surgeon: Heber Siegel MD Cna Instructor: Mitch Beth PA-C Anesthesia: Gen. endotracheal EBL: Minimal Specimen(s): None Complications: None Findings: Good caliber vein good thrill and bruit in the fistula. Palpable radial pulse. Residual inflow stenosis from prior angioplasty of the arterial end of the fistula required vein patch angioplasty with good results Procedure: Patient in the supine position with the left arm extended the entire extremity is prepped and draped using sterile technique. The AV fistula was easily palpable at the antecubital fossa. I made a longitudinal incision overlying the basilic vein just above the antecubital fossa and extended sequentially to the axilla. The incision was deepened until the basilic vein was identified. Care was taken to identify and preserve the muscular cutaneous nerve throughout its entire length. Once the vein was mobilized to the level of the axilla it was encircled using vessel loops it was retracted upward and freed from its vascular base. Side branches were ligated using 3-0 silk ties. The vein was then divided after vascular control was obtained using the beveled technique. I then removed the upper portion of the vessel from underneath the nerves flushed and dilated it with saline. A curved Qiana-Wick tunneling device was then used to create the subdermal tunnel. The fistula was then attached to the tunneler and pulled back into the antecubital fossa portion of the incision in a non-rotational fashion. The vessel was then reanastomosed end to end using 6-0 Prolene suture. Prior to completion of the suture line antegrade and retrograde flushing was performed. The suture line was then completed and flow was released back to the fistula. The fistula developed an excellent thrill and bruit. Hemostasis was excellent. Fistula function diminished however as the incision was being closed and I reassessed the inflow using the ultrasound. It was felt that there was some stenosis in the previously angioplastied segment therefore I identified a short segment of the cephalic vein above the antecubital fossa and made a longitudinal incision over that vessel and dissected several centimeters free and harvested it as a vein patch. It was opened longitudinally and then patient was heparinized. The entire arterial end of the fistula was mobilized and occluded and a longitudinal arteriotomy was then made after heparinization. It was clearly a stenotic area at a retained valve. I then used the harvested cephalic vein as a vein patch sutured in place using double tapered configuration four needle technique with 6-0 Prolene suture. At the completion of the patch inflow and outflow was released with return of an excellent thrill and bruit. The incision was then blocked with Marcaine The incision was then closed using 3-0 Vicryl subcutaneous 4-0 Monocryl subcuticular. The skin was then sealed using Dermabond equivalent. Patient was then extubated returned to the recovery room in stable condition having tolerated the procedure well. Sponge and needle counts were correct.
[2018-03-01 19:48] VITALS: BP 110/64
== END 2018-03-01 19:35 | disposition home or self-care (01) ==
LOC: OR 09:54
PROVIDERS: ATTEND Surgery Vascular Surgery
DX: T82.858A Stenosis of other vascular prosthetic devices, implants and grafts, initial encounter (principal); E11.22 Type 2 diabetes mellitus with diabetic chronic kidney disease; I13.2 Hypertensive heart and chronic kidney disease with heart failure and with stage 5 chronic kidney disease, or end stage renal disease; N18.6 End stage renal disease; I50.9 Heart failure, unspecified; D63.1 Anemia in chronic kidney disease; M32.9 Systemic lupus erythematosus, unspecified; K21.9 Gastro-esophageal reflux disease without esophagitis; F41.9 Anxiety disorder, unspecified; G47.33 Obstructive sleep apnea (adult) (pediatric); M19.90 Unspecified osteoarthritis, unspecified site; Z91.011 Allergy to milk products; Z79.899 Other long term (current) drug therapy; Z98.890 Other specified postprocedural states; Y83.2 Surgical operation with anastomosis, bypass or graft as the cause of abnormal reaction of the patient, or of later complication, without mention of misadventure at the time of the procedure
CPT/HCPCS: 36415; 36832; 80048; 84703; 85007; 85025; J0690; J1100; J1170; J1644; J2250; J2405; J2704; J7030; J7040